=== PATIENT | male | born 1950 | race Caucasian/White ===

== ENCOUNTER → 2018-03-18 08:35 | Outpatient (CLI) | payer OTHER, SELFPAY ==
[2018-03-18 09:15] LABS: Blood Urea Nitrogen 18 mg/dL (9-20); Calcium 9.2 mg/dL (8.4-10.2); Carbon Dioxide 30 mmol/L (22-32); Chloride 100 mmol/L (98-107); Estimated Glomerular Filt Rate > 60.0 mL/min (>60); Glucose 101 mg/dL (80-110); HEMOLYSIS < 15 (0-50); Potassium 3.7 mmol/L (3.4-5.1); Sodium 141 mmol/L (137-145)
== END ==
PROVIDERS: Family Provider Internal Medicine; PCP Internal Medicine; Visit Provider Internal Medicine Cardiovascular Disease
DX: I10 Essential (primary) hypertension (principal)
CPT/HCPCS: 36415; 80048

== ENCOUNTER → 2018-04-09 07:20 | Outpatient (CLI) | payer OTHER, SELFPAY ==
[2018-04-09 09:27] LABS: Cholesterol 113 mg/dL (140-199); HDL Cholesterol 26 mg/dL (40-60); LDL Cholesterol Calculated 64 mg/dL (<100); Triglycerides 115 mg/dL (35-150)
[2018-04-09 09:57] LABS: Cortisol AM (Before 10AM) 14.8 ug/dL (4.46-22.7); Prostate Specific Antigen Scrn 4.95 ng/mL (0.1-4.0)
== END ==
PROVIDERS: PCP Internal Medicine; Visit Provider Internal Medicine
DX: I10 Essential (primary) hypertension (principal); E78.00 Pure hypercholesterolemia, unspecified; E29.1 Testicular hypofunction
CPT/HCPCS: 36415; 80061; 82533; 84403; G0103

== ENCOUNTER → 2018-07-15 08:39 | Outpatient (CLI) | payer OTHER, SELFPAY ==
--- NOTE | 2018-07-15 | DI.CT.S_ITS ---
PROCEDURE: CT SINUS SCREEN WO CON INDICATIONS: SINUSITIS TECHNIQUE: Noncontrast 3.0 mm axial images acquired from the frontal sinuses to the mid-sella, with coronal and sagittal reformats. For radiation dose reduction, the following was used: automated exposure control, adjustment of mA and/or kV according to patient size. COMPARISON: [facility], CT, SINUS SCREEN WO CONTRAST, 05/15/2016, 8:43. FINDINGS: Image quality: Excellent. Maxillary Sinuses: No bony remodeling or destruction. Sinuses are clear. Ethmoid Air Cells: No bony remodeling or destruction. There is mild bilateral mucosal thickening Sphenoid Sinuses: No bony remodeling or destruction. Sinuses are clear. Frontal Sinuses: No bony remodeling or destruction. Sinuses are clear. Ostiomeatal Complexes: Right ostiomeatal complex appears patent. There is mild opacification at the left ostiomeatal complex. No Jon cells. Miscellaneous: Visualized intra-orbital contents are normal. Bilateral ynes bullosa, right larger than left. Leftward nasal septal deviation. IMPRESSION: Mild bilateral ethmoid air cell mucosal thickening Clear maxillary sinuses. Mild opacification at the left ostiomeatal complex. Bilateral ynes bullosa, right larger than left. Dictated by: Nima Dougherty M.D. on 07/15/2018 at 9:41 Approved by: Nima Dougherty M.D. on 07/15/2018 at 9:53
== END ==
PROVIDERS: PCP Internal Medicine; Visit Provider Internal Medicine
DX: J32.2 Chronic ethmoidal sinusitis (principal); J34.3 Hypertrophy of nasal turbinates; J34.2 Deviated nasal septum
CPT/HCPCS: 70486

== ENCOUNTER → 2018-08-27 09:59 | Outpatient (CLI) | payer OTHER, SELFPAY ==
--- NOTE | 2018-08-27 | DI.US.S_ITS ---
PROCEDURE: US CAROTID DOPPLER BI INDICATIONS: TIA,HYPERTENSION TECHNIQUE: Color and pulse Doppler interrogation was performed of both carotid systems, with image documentation and velocity measurements. COMPARISON: [facility], , CAROTID ARTERY DOPPLER BIL, 02/17/2014, 12:36. FINDINGS: Stenosis calculations are based on SRU (Society of Radiologists in Ultrasound) criteria. Right side: Brachial blood pressure: 127/74 mm Hg. Common carotid artery peak systolic velocity: 86 cm/sec (prior 113 cm/s). Internal carotid artery peak systolic velocity: 106 cm/sec (prior 110 cm/s). Internal carotid artery end diastolic velocity: 32 cm/sec (prior 28 cm/s). External carotid artery peak systolic velocity: 114 cm/sec (prior 132 cm/s). ICA/CCA peak systolic ratio: 1.43 (prior 0.97). Sweeney scale imaging description: Atherosclerotic change can be seen. Percent internal carotid artery stenosis: Less than 50% by velocity criteria. Vertebral artery: Flow direction is antegrade. Left side: Brachial blood pressure: 144/77 mm Hg. Common carotid artery peak systolic velocity: 98 cm/sec (prior 136 cm/s). Internal carotid artery peak systolic velocity: 189 cm/sec (prior 108 cm/s). Internal carotid artery end diastolic velocity: 22 cm/sec (prior 25 cm/s). External carotid artery peak systolic velocity: 130 cm/sec (prior 150 cm/s). ICA/CCA peak systolic ratio: 1.93 (prior 0.79). Sweeney scale imaging description: Moderate atherosclerotic change can be seen. Percent internal carotid artery stenosis: 50-69% by velocity criteria. Vertebral artery: Flow direction is antegrade. IMPRESSION: By velocity criteria, there is a moderate stenosis (between 50 and 69% stenosis) within the left proximal internal carotid artery. The true degree of stenosis is felt most likely to be at the lower end of this range. The degree of stenosis on the left has progressed compared to the 2013 prior. Dictated by: Ken Garcia M.D. on 08/27/2018 at 10:42 Approved by: Ken Garcia M.D. on 08/27/2018 at 10:45
== END ==
PROVIDERS: PCP Internal Medicine; Visit Provider Internal Medicine
DX: G45.9 Transient cerebral ischemic attack, unspecified (principal); I65.23 Occlusion and stenosis of bilateral carotid arteries; I10 Essential (primary) hypertension
CPT/HCPCS: 93880

== ENCOUNTER → 2018-11-29 15:35 | Outpatient (CLI) | payer OTHER, SELFPAY ==
[2018-11-29 18:19] LABS: BUN Creatinine Ratio 22.2 (6-22); Blood Urea Nitrogen 20 mg/dL (9-20); Calcium 9.3 mg/dL (8.4-10.2); Carbon Dioxide 26 mmol/L (22-32); Chloride 102 mmol/L (98-107); Estimated Glomerular Filt Rate > 60.0 mL/min (>60); Glucose 111 mg/dL (80-110); HEMOLYSIS < 15 (0-50); Potassium 4.2 mmol/L (3.4-5.1); Sodium 138 mmol/L (137-145)
== END ==
PROVIDERS: PCP Internal Medicine; Visit Provider Internal Medicine Cardiovascular Disease
DX: I10 Essential (primary) hypertension (principal)
CPT/HCPCS: 36415; 80048

== ENCOUNTER 2019-02-09 10:26 | Emergency (ER) | payer OTHER, SELFPAY ==
[2019-02-09 10:27] VITALS: BP 174/78; PULSE 48; RESP 16; TEMP 36.6; O2SAT 97; BMI 28.4
--- NOTE | 2019-02-09 10:34 | DI.RAD.S_ITS ---
PROCEDURE: XR CHEST 1V INDICATIONS: chest pain TECHNIQUE: One view of the chest was acquired. COMPARISON: [facility], , CHEST 1 VIEW, 05/31/2008, 17:11. FINDINGS: Surgical changes and devices: None. Lungs and pleura: Lungs are clear. No pleural effusions or pneumothorax. Mediastinum: Mediastinal contours appear normal. Heart size is normal. Bones and chest wall: No suspicious bony lesions. Overlying soft tissues appear unremarkable. IMPRESSION: No evidence acute pulmonary process. Dictated by: Ovi Pinzon M.D. on 02/09/2019 at 10:49 Approved by: Ovi Pinzon M.D. on 02/09/2019 at 10:49
[2019-02-09 10:40] LABS: Add Manual Diff / Slide Review NO; Basophils Absolute Auto 100 /uL (0-100); Basophils Percent Auto 1.2 % (0-2); Eosinophils Absolute Auto 200 /uL (0-450); Eosinophils Percent Auto 2.9 % (2-4); Hematocrit 42.1 % (41-53); Hemoglobin 14.4 g/dL (13.5-17.5); Lymphocytes Absolute Auto 2200 /uL (1100-4500); Lymphocytes Percent Auto 34.8 % (25-40); Mean Corpuscular HGB Conc 34.1 % (30-36); Mean Corpuscular Hemoglobin 31.8 PG (26-34); Mean Corpuscular Volume 93.4 fL (80-100); Monocytes Absolute Auto 700 /uL (0-900); Neutrophils Absolute Auto 3100 /uL (1500-7000); Neutrophils Percent Auto 50.1 % (50-75); Platelet Count 224 X10^3/uL (150-400); Red Blood Cell Count 4.51 X10^6/uL (4.5-5.9); Red Cell Distribution Width 13.2 % (11.6-14.8); White Blood Cell Count 6.2 X10^3/uL (4.5-11.0)
[2019-02-09 10:49] LABS: Prothrombin Time 11.1 SECONDS (10.1-12.7)
--- NOTE | 2019-02-09 10:50 | ED.CHESTPAIN ---
HPI - Chest Pain General Chief Complaint: Chest Pain Stated Complaint: chest pain Time Seen by Provider: 02/09/19 10:34 Source: patient and family Mode of arrival: ambulatory Limitations: no limitations History of Present Illness HPI narrative: The patient comes to emergency department complaining of left-sided chest pain that he 1st noticed between 3 and 4:00 a.m. this morning. Patient states that he turned over in bed and noticed a sudden sharp pain in his left anterior chest. Patient denies any shortness of breath, nausea, vomiting, or diaphoresis. Patient has lightheadedness sometimes, but states he takes metoprolol, and recently had the dose decreased because of the lightheadedness he was having. Patient states that otherwise he feels quite good. He states he took some ibuprofen at home, and this has decreased the pain from a 7 to a 3. Patient states that pretty much any movement of his chest wall makes the pain worse, including twisting, turning, moving arms, or breathing deeply. He states he was mowing his lawn with an electrical push mower yesterday, and may have strained his chest wall doing this. He denies any other specific trauma. Patient denies any cough or fevers recently. No calf swelling or pain. No history of blood clot. Patient states his father had an MN around his age, but also smoked 3 packs per day of cigarettes. Patient states he does not smoke. Patient is not a diabetic. He states that he usually swims a couple times a week, as well as walks, and that he biked 24 mi several days ago. He states that he has not had any problem with any of this. Patient states his last stress test was 20 years ago. He sees Dr. Ward regularly for aortic dilatation and a heart murmur. He states Dr. Ward also manages his antihypertensives. Patient has no other complaints at this time. Related Data Home Medications Medication Instructions Recorded Confirmed amlodipine 5 mg tablet 5 mg PO BID 08/09/18 02/09/19 clonidine HCl 0.1 mg tablet 0.1 mg PO BID PRN 08/09/18 02/09/19 lisinopril 40 mg tablet 40 mg PO DAILY 08/09/18 02/09/19 Respironics DreamStation CPAP #1 [id number] 10/06/18 02/09/19 clonidine 0.2 mg/24 hr weekly 1 patch TRANSDERMAL QWEEK 01/18/19 02/09/19 transdermal patch aspirin 81 mg PO DAILY 02/09/19 02/09/19 atorvastatin 20 mg PO QPM 02/09/19 02/09/19 cholecalciferol (vitamin D3) 5,000 unit PO QPM 02/09/19 02/09/19 [Vitamin D3] ibuprofen 200 mg PO Q6H PRN 02/09/19 02/09/19 metoprolol succinate 25 mg PO DAILY 02/09/19 02/09/19 [id number] 1 tab PO DAILY 02/09/19 02/09/19 [Centrum Silver] potassium chloride [Klor-Con 10] 10 meq PO BID 02/09/19 02/09/19 sertraline 75 mg PO QPM 02/09/19 02/09/19 Previous Rx's Medication Instructions Recorded Zostavax (PF) 0.5 ml SQ ONCE #0.5 ml 05/08/16 Allergies Allergy/AdvReac Type Severity Reaction Status Date / Time No Known Drug Allergies Allergy Verified 02/09/19 10:35 Review of Systems Constitutional Denies chills, Denies fever(s), Denies lethargy and Denies weakness Eyes Denies change in vision, Denies eye discharge, Denies irritation and Denies loss of vision ENT Ears, Nose, Mouth, and Throat: Denies change in voice, Denies neck pain and Denies sore throat Cardiovascular Reports chest pain, Denies irregular heart rhythm, Denies lightheadedness, Denies palpitations, Denies dyspnea, Denies dyspnea on exertion and Denies orthopnea Respiratory Denies cough, Denies dyspnea, Denies dyspnea on exertion and Denies wheezing Gastrointestinal Gastrointestinal: Denies abdominal pain, Denies change in bowel habits, Denies diarrhea, Denies nausea and Denies vomiting Genitourinary Denies hematuria, Denies flank pain, Denies urinary incontinence and Denies urinary urgency Musculoskeletal Denies neck pain Integumentary/Breasts Denies pruritus, Denies erythema, Denies rash and Denies wounds Neurologic Denies confusion, Denies loss of vision and Denies weakness Psychiatric Denies anxiety, Denies confusion, Denies depression, Denies homicidal ideation and Denies suicidal ideation Endocrine Denies palpitations Hematologic/Lymphatic Denies easy bruising Allergic/Immunologic Denies wheezing PFSH Medical History (Updated 02/09/19 @ 12:59 by Mikayla Hernandez MD) Obstructive sleep apnea of adult (Chronic ~04/2018) Snoring (Inactive ~2003) Surgical History (Updated 02/09/19 @ 10:54 by Mikayla Hernandez MD) No pertinent past surgical history (Acute) Social History marital status: details: flavio Bowden lives in [place] household members: spouse lives independently: Yes caregiver/support person: No housing: house education level: college occupational status: employed Smoking Status: Never smoker alcohol intake: former substance use type: former substance user Social History marital status: details: flavio Bowden, lives in [place] household members: spouse lives independently: Yes caregiver/support person: No housing: house education level: college occupational status: employed Smoking Status: Never smoker alcohol intake: former substance use type: former substance user Exam Initial Vital Signs Initial Vital Signs: Vital Signs Temperature 97.8 F 02/09/19 10:27 Pulse Rate 48 L 02/09/19 10:27 Respiratory Rate 16 02/09/19 10:27 Blood Pressure 174/78 H 02/09/19 10:27 Pulse Oximetry 97 02/09/19 10:27 Const General: cooperative and well developed Nutritional Appearance: well nourished Orientation: alert, awake, oriented x3 and not confused [facility] Head: normocephalic and atraumatic Ears: external ears normal Nose: external nose normal and No nasal discharge Face and sinus: face symmetric and No dry mucous membranes Mouth: oral mucosae normal and moist mucous membranes Teeth and gingiva: dentition normal Eyes General: appearance normal, both eyes and all related structures Eyelids: eyelids normal Conjunctivae: conjunctivae normal Sclera: sclerae normal Pupils: PERRL EOM: EOM intact bilaterally Neck Neck: normal visual inspection, trachea midline, No lymphadenopathy, No midline deformity and No JVD Lymphatic: No lymphedema Chest Chest: tenderness (Left anterior chest wall, from ribs 2 through 4.) Resp Effort & Inspection: normal respiratory effort, able to speak in complete sentences, no respiratory distress and no use of accessory muscles Auscultation: clear to auscultation bilaterally, no rales, no rhonchi and no wheezes Cardio Rate: regular rate Rhythm: regular rhythm Heart Sounds: no click, no gallops, no murmurs and no rubs Pulses: normal peripheral pulses GI Inspection: non-distended Palpation: soft, no hepatosplenomegaly, No guarding, No pulsatile mass and No tender Auscultation: normal bowel sounds Back/Spine/Pelvis Back: No CVA tenderness Cervical Spine: cervical ROM normal and No pain with cervical ROM Thoracic/Lumbar Spine: thoracic and lumbar spine normal to inspection Skin General: no rashes or lesions noted, No jaundice and No petechiae Neuro General: alert, oriented x3, gait normal and no focal motor deficits Speech: speech normal Extrem General: full ROM, no clubbing, cyanosis or edema, no pedal edema and no calf tenderness Psych Appearance: well kempt Mental Status: mental status grossly normal Attitude: cooperative Thought Content: normal and suicidality Judgment: judgment good Course Course Narrative: I suspected that the patient's chest pain was most likely mechanical. However, given his age and comorbidities, I did go ahead check cardiac enzymes, EKG, and chest x-ray. The patient's workup was unremarkable, except for that his troponin was 0.013. This was very slightly above negative, and I felt that a repeat should be done, to be sure that the troponin was not on its way up in a delayed fashion. This was done, and found to be 0.012. I spoke with Dr. Ward, who felt that the patient's pain was more indicative of a musculoskeletal source, and as such, felt that he could be discharged and could follow up in his clinic for stress test. Dr. Ward requested that the patient call his office and set up an appointment for this follow-up. This was discussed with the patient. We have also discussed the usual indications for return to the emergency department. Orders Ordered: ED Orders 02/09/19 10:30 Complete Blood Count AUTO DIFF Stat Comprehensive Metabolic Panel Stat Lipase Stat Partial Thromboplastin Time Stat Prothrombin Time INR Stat Troponin & CK Cardiac Panel Stat EKG-12 Lead Stat 02/09/19 10:34 XR chest 1V Stat 02/09/19 11:50 Troponin I Stat Discontinued Medications Aspirin (Aspirin) 325 mg PO NOW ONE Stop: 02/09/19 11:31 Last Admin: 02/09/19 12:43 Dose: 325 mg Vital Signs - 8 hr 02/09/19 11:30 02/09/19 12:00 02/09/19 12:30 Pulse Rate 43 L 43 L 42 L Respiratory Rate 13 16 13 Blood Pressure [Left Arm] 153/75 H 144/73 H 164/85 H Pulse Oximetry 97 97 96 MDM - Chest Pain Medical Records Data Attestation: I reviewed the patient's medical records. Lab Data Attestation: I reviewed the patient's lab results. Result diagrams: 02/09/19 10:30 02/09/19 10:30 Lab Results 02/09/19 02/09/19 02/09/19 Range/Units 10:30 10:30 10:30 WBC 6.2 (4.5-11.0) X10^3/uL RBC 4.51 (4.5-5.9) X10^6/uL Hgb 14.4 (13.5-17.5) g/dL Hct 42.1 (41-53) % MCV 93.4 (80-100) fL MCH 31.8 (26-34) PG MCHC 34.1 (30-36) % RDW 13.2 (11.6-14.8) % Plt Count 224 (150-400) X10^3/uL Neut % (Auto) 50.1 (50-75) % Lymph % (Auto) 34.8 (25-40) % [place] % (Auto) 11.0 (3-14) % Eos % (Auto) 2.9 (2-4) % Baso % (Auto) 1.2 (0-2) % Neut # (Auto) 3100 (7634-8150) /uL Lymph # (Auto) 2200 (9459-5906) /uL [place] # (Auto) 700 (0-900) /uL Eos # (Auto) 200 (0-450) /uL Baso # (Auto) 100 (0-100) /uL PT 11.1 (10.1-12.7) SECONDS INR 1.0 (0.9-1.3) APTT 31 (26.4-36.2) SECONDS Sodium 140 (137-145) mmol/L Potassium 4.5 (3.4-5.1) mmol/L Chloride 104 (98-107) mmol/L Carbon Dioxide 26 (22-32) mmol/L BUN 14 (9-20) mg/dL Creatinine 0.80 (0.66-1.25) mg/dL Estimated GFR > 60.0 (>60) mL/min BUN/Creatinine Ratio 17.5 (6-22) Glucose 101 (80-110) mg/dL Calcium 9.5 (8.4-10.2) mg/dL Total Bilirubin 0.8 (0.2-1.3) mg/dL AST 31 (17-59) IU/L ALT 42 (21-72) IU/L Alkaline Phosphatase 53 (38-126) U/L Total Creatine Kinase 123 (55-170) U/L CK-MB (CK-2) 1.34 (<2.37) ng/mL CK-MB (CK-2) Rel Index 1.1 L (1.5-5.0) % Troponin I 0.013 (0.01-0.034) ng/mL Total Protein 7.2 (6.3-8.2) g/dL Albumin 4.4 (3.5-5.0) g/dL Globulin 2.8 (1.7-4.1) g/dL Albumin/Globulin Ratio 1.6 (1.0-2.8) Lipase 96 (23-300) U/L 02/09/19 Range/Units 11:50 WBC (4.5-11.0) X10^3/uL RBC (4.5-5.9) X10^6/uL Hgb (13.5-17.5) g/dL Hct (41-53) % MCV (80-100) fL MCH (26-34) PG MCHC (30-36) % RDW (11.6-14.8) % Plt Count (150-400) X10^3/uL Neut % (Auto) (50-75) % Lymph % (Auto) (25-40) % [place]yth % (Auto) (3-14) % Eos % (Auto) (2-4) % Baso % (Auto) (0-2) % Neut # (Auto) (8871-3567) /uL Lymph # (Auto) (9803-8024) /uL Forsyth # (Auto) (0-900) /uL Eos # (Auto) (0-450) /uL Baso # (Auto) (0-100) /uL PT (10.1-12.7) SECONDS INR (0.9-1.3) APTT (26.4-36.2) SECONDS Sodium (137-145) mmol/L Potassium (3.4-5.1) mmol/L Chloride (98-107) mmol/L Carbon Dioxide (22-32) mmol/L BUN (9-20) mg/dL Creatinine (0.66-1.25) mg/dL Estimated GFR (>60) mL/min BUN/Creatinine Ratio (6-22) Glucose (80-110) mg/dL Calcium (8.4-10.2) mg/dL Total Bilirubin (0.2-1.3) mg/dL AST (17-59) IU/L ALT (21-72) IU/L Alkaline Phosphatase (38-126) U/L Total Creatine Kinase (55-170) U/L CK-MB (CK-2) (<2.37) ng/mL CK-MB (CK-2) Rel Index (1.5-5.0) % Troponin I 0.012 (0.01-0.034) ng/mL Total Protein (6.3-8.2) g/dL Albumin (3.5-5.0) g/dL Globulin (1.7-4.1) g/dL Albumin/Globulin Ratio (1.0-2.8) Lipase (23-300) U/L Imaging Data Chest x-ray: Radiologist's impression: PROCEDURE: XR CHEST 1V INDICATIONS: chest pain TECHNIQUE: One view of the chest was acquired. COMPARISON: [facility], CHEST 1 VIEW, 05/31/2008, 17:11. FINDINGS: Surgical changes and devices: None. Lungs and pleura: Lungs are clear. No pleural effusions or pneumothorax. Mediastinum: Mediastinal contours appear normal. Heart size is normal. Bones and chest wall: No suspicious bony lesions. Overlying soft tissues appear unremarkable. IMPRESSION: No evidence acute pulmonary process. Dictated by: Ovi Pinzon M.D. on 02/09/2019 at 10:49 Approved by: Ovi Pinzon M.D. on 02/09/2019 at 10:49 ECG Data Attestation: I personally reviewed and interpreted this ECG as follows: (See below) Interpretation: Twelve lead EKG performed February 09, 2019 at 10:31 a.m., as follows: Regular ventricular rhythm with a rate of 42 beats per minute OR interval 215 millisecond QRS duration 101 millisecond QTC interval [address] T wave changes Interpretation: Sinus bradycardia with first-degree AV block; marked left axis deviation; no signs of acute ischemia; abnormal EKG as interpreted by ED MD. Discharge Plan Departure Patient Disposition: Home Clinical Impression: Chest pain Qualifiers: Chest pain type: unspecified Qualified Code(s): R07.9 - Chest pain, unspecified Discharge Date/Time: 02/09/19 13:01 Interventions: ED Discharge Assessment Last Done: 02/09/19 13:01 Instructions: DI for Chest Pain Activity Restrictions/Additional Instructions: Your labs, EKG, and chest x-ray all looked good. Your case has been discussed with Dr. Ward, who would like to see you in follow-up in his clinic. He has asked that you call his office to make an appointment, and he will talk to about having a stress test done. Your pain is most likely coming from your chest wall, and should resolve on its own. Prescriptions: No Action amlodipine 5 mg tablet 5 mg PO BID RF: 0 lisinopril 40 mg tablet 40 mg PO DAILY RF: 0 clonidine HCl 0.1 mg tablet 0.1 mg PO BID PRN (Reason: blood pressure spike) RF: 0 clonidine 0.2 mg/24 hr patch weekly 1 patch transdermal QWEEK RF: 0 Zostavax (PF) 19,400 UNIT/0.65 ML suspension for reconstitution 0.5 ml SQ ONCE Qty: 0.5 RF: 0 atorvastatin 20 mg Tablet 20 mg PO QPM RF: 0 metoprolol succinate 50 mg Tablet Extended Release 24 Hr 25 mg PO DAILY RF: 0 potassium chloride [Klor-Con 10] 10 mEq Tablet Extended Release 10 meq PO BID RF: 0 aspirin 81 mg Tablet,Delayed Release (Dr/Ec) 81 mg PO DAILY RF: 0 ibuprofen 200 mg Tablet 200 mg PO Q6H PRN (Reason: pain) RF: 0 Centrum Silver 0.4-300-250 mg-mcg-mcg Tablet 1 tab PO DAILY RF: 0 cholecalciferol (vitamin D3) [Vitamin D3] 5,000 unit Tablet 5,000 unit PO QPM RF: 0 sertraline 50 mg tablet 75 mg PO QPM RF: 0 Respironics DreamStation CPAP Qty: 1 RF: 0 Referrals: Nikunj Brito MD [Primary Care Provider] -
[2019-02-09 10:52] LABS: PTT Partial Thromboplastin Tim 31 SECONDS (26.4-36.2)
[2019-02-09 10:54] LABS: Alanine Aminotransferase 42 IU/L (21-72); Albumin 4.4 g/dL (3.5-5.0); Albumin Globulin Ratio 1.6 (1.0-2.8); Alkaline Phosphatase 53 U/L (38-126); Aspartate Aminotransferase 31 IU/L (17-59); BUN Creatinine Ratio 17.5 (6-22); Bilirubin Total 0.8 mg/dL (0.2-1.3); Blood Urea Nitrogen 14 mg/dL (9-20); Calcium 9.5 mg/dL (8.4-10.2); Carbon Dioxide 26 mmol/L (22-32); Chloride 104 mmol/L (98-107); Creatine Kinase 123 U/L (55-170); Estimated Glomerular Filt Rate > 60.0 mL/min (>60); Globulin 2.8 g/dL (1.7-4.1); Glucose 101 mg/dL (80-110); Lipase 96 U/L (23-300); Potassium 4.5 mmol/L (3.4-5.1); Sodium 140 mmol/L (137-145); Total Protein 7.2 g/dL (6.3-8.2)
[2019-02-09 11:05] LABS: Troponin I 0.013 ng/mL (0.01-0.034)
[2019-02-09 11:08] VITALS: BP 140/80; PULSE 44; RESP 11; O2SAT 95
--- NOTE | 2019-02-09 11:08 | PC.NURSE ---
pt resting, nad, states, metoprolol dose changed to 25mg po daily the last [address] fregoso aware of vitals, no new orders.
[2019-02-09 11:09] LABS: CKMB % Relative Index 1.1 % (1.5-5.0); Creatine Kinase MB 1.34 ng/mL (<2.37); HEMOLYSIS 20 (0-50)
[2019-02-09 11:30] VITALS: BP 153/75; PULSE 43; RESP 13; O2SAT 97
[2019-02-09 12:00] VITALS: BP 144/73; PULSE 43; RESP 16; O2SAT 97
[2019-02-09 12:22] LABS: Troponin I 0.012 ng/mL (0.01-0.034)
[2019-02-09 12:30] VITALS: BP 164/85; PULSE 42; RESP 13; O2SAT 96
[2019-02-09] MEDS: ASPIRIN 325 MG TABLET PO (12:43)
== END 2019-02-09 13:01 | disposition home or self-care (01) ==
PROVIDERS: Emergency Provider Emergency Medicine; PCP Internal Medicine
DX: R07.9 Chest pain, unspecified (principal)
CPT/HCPCS: 36415; 36591; 71045; 80048; 80053; 82550; 82553; 83690; 84484; 85025; 85610; 85730; 93005; 99283; 99285

== ENCOUNTER → 2019-04-01 07:40 | Outpatient (CLI) | payer OTHER, SELFPAY ==
--- NOTE | 2019-04-01 | DI.MRI.S_ITS ---
PROCEDURE: MR CERVICAL SPINE WO CON INDICATIONS: CERVICAL RADICULOPATHY TECHNIQUE: Noncontrast sagittal T1 spin echo and T2 fast spin echo, sagittal STIR, foraminal oblique sagittal T2 fast spin echo, and axial gradient echo or T2 fast spin echo through the cervical spine. COMPARISON: [facility], [place], XR CERVICAL SPINE 2 OR 3 VIEWS, 02/19/2018, 9:13. FINDINGS: Image quality: Motion is present on multiple images, limiting areas of fine detailed evaluation. Alignment and Curvature: There is straightening and slight reversal of normal cervical curvature. There is trace anterolisthesis of C3 on C4, trace retrolisthesis of C4 on C5, C5 on C6. Bone Marrow: Marrow demonstrates normal overall signal. Minimal reactive endplate changes are present at C4-5, C5-6 and C6-7. Spinal Cord: Visualized spinal cord has normal size and signal. No cerebellar tonsillar herniation. Paraspinous Soft Tissues: No paravertebral masses. Prevertebral soft tissues are normal in thickness. Discs: Moderate to severe desiccation is present throughout the cervical spine most severe at C4-5 through C6-7. C2-C3: Motion is present at this level. Mild disc bulge without spinal stenosis. Minimal bilateral foraminal narrowing with uncovertebral hypertrophy. C3-C4: Motion is present at this level. Mild disc bulge with mild spinal stenosis. Mild bilateral foraminal narrowing with uncovertebral hypertrophy. C4-C5: Motion is present at this level. Mild disc bulge with moderate spinal stenosis. Mild to moderate bilateral foraminal narrowing with uncovertebral hypertrophy. C5-C6: Motion is present at this level. Disc bulge including a left foraminal component is present. Moderate to severe spinal stenosis is present. There is severe left and moderate right foraminal narrowing with uncovertebral hypertrophy. C6-C7: Motion is present at this level. Mild disc bulge with moderate spinal stenosis. Moderate to severe left and moderate right foraminal narrowing with uncovertebral hypertrophy. C7-T1: Motion is present at this level. No disc bulge, spinal stenosis or foraminal narrowing. T1-T2: Axial images are not available at this level. However, there is a disc bulge with posterior central protrusion. Minimal canal narrowing is present. Mild right foraminal narrowing. IMPRESSION: 1. Motion is present multiple levels, limiting areas of fine detail evaluation. 2. Multilevel disc bulges including a left foraminal component C5-C6. 3. Multilevel foraminal narrowing most severe at C5-6 and C6-7 secondary to disc bulge with intravenous ectop retrolisthesis and uncovertebral arthropathy. 4. Multilevel foraminal narrowing most severe at C5-6 and C6-7 secondary to uncovertebral arthropathy. Dictated by: Oksana Young M.D. on 04/01/2019 at 8:47 Approved by: Oksana Young M.D. on 04/01/2019 at 8:56
[2019-04-05 18:01] LABS: PSA Free % 18 % (calc) (> 25); PSA, Total 5.1 ng/mL (< 4.1)
== END ==
PROVIDERS: Family Provider Urology; PCP Internal Medicine; Visit Provider Internal Medicine
DX: M50.11 Cervical disc disorder with radiculopathy, high cervical region (principal); M48.02 Spinal stenosis, cervical region; M47.22 Other spondylosis with radiculopathy, cervical region; R97.20 Elevated prostate specific antigen [PSA]
CPT/HCPCS: 36415; 72141; 84153; 84154

== ENCOUNTER → 2019-04-05 09:36 | Outpatient (CLI) | payer OTHER, SELFPAY ==
--- NOTE | 2019-04-05 09:47 | DI.CT.S_ITS ---
PROCEDURE: CT CHEST WO CON INDICATIONS: Solitary pulmonary nodule TECHNIQUE: Noncontrast 5 mm thick sections acquired from the pulmonary apices to the posterior costophrenic angles. 1 mm lung window, 5 mm thick coronal and sagittal and 7 mm axial MIP reformats were then acquired. For radiation dose reduction, the following was used: automated exposure control, adjustment of mA and/or kV according to patient size. COMPARISON: [facility], CT, THORAX WITHOUT CONTRAST, 08/05/2017, 8:51. FINDINGS: Image quality: Excellent. Lungs and pleura: No acute air space opacities. The 2 adjacent calcified right mid lung nodules are unchanged in size, measuring 12 mm and 6 mm. The 4 mm diameter noncalcified subpleural nodule within the superior aspect of the right middle lobe adjacent to minor fissure is unchanged. No pleural effusions or pneumothorax. Central and peripheral airways are patent and normal in caliber. Mediastinum: Heart size is enlarged. Calcification of the right hilar lymph node is unchanged. There is calcification of the coronary vasculature. No pericardial effusion. No mediastinal adenopathy by size criteria. Thoracic aorta and central pulmonary arteries are normal in size. Esophagus is normal in caliber. No hiatal hernia. Bones and chest wall: No suspicious bony lesions. No vertebral body compression fractures. No axillary or supraclavicular adenopathy by size criteria. Thyroid gland is within normal limits. Abdomen: Visualized portions of the upper abdomen demonstrate multiple hepatosplenic calcifications, as before. Diffusely decreased hepatic density is present, as before. IMPRESSION: 1. Remote granulomatous disease. 2. No change in right lung nodules. 3. Cardiomegaly and coronary artery disease. 4. Hepatic steatosis. Dictated by: Noy Hagan M.D. on 04/05/2019 at 10:06 Approved by: Noy Hagan M.D. on 04/05/2019 at 10:11
== END ==
PROVIDERS: PCP Internal Medicine; Visit Provider Internal Medicine
DX: R91.8 Other nonspecific abnormal finding of lung field (principal); I25.10 Atherosclerotic heart disease of native coronary artery without angina pectoris; I51.7 Cardiomegaly; K76.0 Fatty (change of) liver, not elsewhere classified
CPT/HCPCS: 71250

== ENCOUNTER → 2019-06-17 10:43 | Outpatient (CLI) | payer OTHER, SELFPAY ==
[2019-06-17 12:05] LABS: BUN Creatinine Ratio 15.5 (6-22); Blood Urea Nitrogen 17 mg/dL (9-20); Calcium 9.7 mg/dL (8.4-10.2); Carbon Dioxide 27 mmol/L (22-32); Chloride 103 mmol/L (98-107); Estimated Glomerular Filt Rate > 60.0 mL/min (>60); Glucose 105 mg/dL (80-110); HEMOLYSIS < 15 (0-50); Sodium 139 mmol/L (137-145)
== END ==
PROVIDERS: Family Provider Urology; PCP Internal Medicine; Visit Provider Internal Medicine Cardiovascular Disease
DX: I10 Essential (primary) hypertension (principal)
CPT/HCPCS: 36415; 80048

== ENCOUNTER → 2019-08-05 13:24 | Outpatient (CLI) | payer MEDICARE, SELFPAY ==
[2019-08-05 15:57] LABS: BUN Creatinine Ratio 21.3 (6-22); Blood Urea Nitrogen 17 mg/dL (9-20); Calcium 9.8 mg/dL (8.4-10.2); Carbon Dioxide 24 mmol/L (22-32); Chloride 101 mmol/L (98-107); Estimated Glomerular Filt Rate > 60.0 mL/min (>60); Glucose 106 mg/dL (80-110); HEMOLYSIS < 15 (0-50); Potassium 3.9 mmol/L (3.4-5.1); Sodium 139 mmol/L (137-145)
[2019-08-09 15:44] LABS: PSA Free % 16 % (calc) (> 25); PSA, Total 5.8 ng/mL (< 4.1)
== END ==
PROVIDERS: PCP Internal Medicine; Visit Provider Internal Medicine Cardiovascular Disease
DX: I10 Essential (primary) hypertension (principal); R97.20 Elevated prostate specific antigen [PSA]
CPT/HCPCS: 36415; 80048; 84153; 84154

== ENCOUNTER 2019-08-16 08:15 | Outpatient (RCR) | payer MEDICARE, OTHER, SELFPAY ==
[2019-06-28 10:39] VITALS: BP 160/90; BP 165/86
--- NOTE | 2019-06-28 12:13 | PT.OIE ---
Current Diagnoses Radiculopathy, cervical region (06/28/19) Past Medical History (Last Updated 02/09/19 @ 10:54 by Mikayla Hernandez MD) Obstructive sleep apnea of adult (Chronic ~04/2018) Snoring (Inactive ~2003) Past Surgical History (Last Updated 02/09/19 @ 10:54 by Mikayla Hernandez MD) No pertinent past surgical history (Acute) Visit Care Team Role Provider Type Santino Bull DO Family Provider Non-Staff Specialty: Urology Address: [address] [place], [address] Email: Nikunj Brito MD Attending Provider Physician Primary Care Provider Specialty: Internal Medicine Address: [address] [place] [address], [id number] Email: Physical Therapy Initial Evaluation PT-OP-A Visit Information Start: 06/28/19 10:35 Freq: Status: Active Protocol: Document 06/28/19 10:39 (Rec: 06/28/19 12:04 [id number]) Out-Patient Physical Therapy Visit Information Visit Information Visit Type Initial Evaluation Visit Note IE led by RAKAN Bennett Visit Start Time 10:39 Visit Stop Time 11:20 Total Visit Minutes 41 Visit Number 1/15 Number of SUPERVISOR SMOKE [employer]OL Visits 0 Evaluation Information Evaluation Date 06/28/19 Precautions Precautions Chronic HTN (baseline ~160/80) with occasional sBP spikes up to 220s PT-OP-B Current Condition Start: 06/28/19 10:35 Freq: Status: Active Protocol: Document 06/28/19 10:39 (Rec: 06/28/19 12:04 [id number]) Current Condition History of Current Condition Onset Date ~2 years ago Current Complaints Neck pain, B shoulder pain, HTN History of Current Condition Pt presents to clinic with primariy c/o of neck pain and occasional blood pressure spikes that started a couple years ago. He states his baseline BP is ~160/80s. Within the last couple of years, he has gotten occasional spikes sBP spikes into the 190s. However, his most recent sBP spike 6 weeks ago went up into the 220s. He states that these spikes occur every few weeks but seem to be getting less frequent as he has started avoiding more activities. Pt had normal findings from blood work and echo cardiogram. Pt also has low level neck pain and tightness, along with mild headache. Pt associates his BP spikes with neck pain aggravation. Pt denies any radicular symptoms bilaterally though does note that he has hx of B shoulder pain and his shoulders start feeling tight when his neck hurts. Pt notes that icing his neck and lying supine tends to relieve his neck pain, and Klonadin is the only medication that helps his BP. Pt also states that he gets immediate relief of his neck pain accompanied by an immediate drop in BP back to baseline after chiropractic adjustment for his neck. Pt reports that cervical extension or rotation (especially when swimming) seem to aggravate his neck pain. Pt believes his BP spikes are possibly from his cervical stenosis and nerve impingement which possibly set off his autonomic system for BP regulation. MRI shows mild bone spurs, cervical stenosis, and multiple small herniated disc but he stated that it does not need surgical intervention. Pt anticipates PT could be effective to help his neck pain and BP spikes if he can learn movement strategies and strengthening exercises to protect his neck. Prior Treatments and Tests Lumbar laminectomy ~10 years ago Chiropractic adjustments (30 yr hx, only last 2 years for his neck) Future Testing and Treatments Planned Plans to see surgeon who completed lumbar laminectomy for an assessment of his neck at the start of 2019 Treatment Goals Patient/Caregiver Goals 1. To strengthen his cervical musculature 2. To be able to regulate his BP 3. Return to swimming Personal Factors Other Personal Factors That May Effect Anxiety Therapy/Recovery Chronic HTN Arthritis PT-OP-C Subjective Start: 06/28/19 10:35 Freq: Status: Active Protocol: Document 06/28/19 10:39 (Rec: 06/28/19 12:04 [id number]) OP-PT Subjective Patient Comments Patient Comments I don't want to get surgery but I feel like I have really limited what I do because I am scared of getting a BP spike. I would like to get back to swimming and my normal activities. Pt appears anxious during IE. Patient Questionnaires Quick Dash- Upper Extremity Quick Dash UE Score 34.09 Quick Dash UE Impairment 20 to 39% Impaired (Score 20- 39) OP-PT Pain Assessment Location Upper Back Intensity 4 Scale Used Numeric (1 - 10) Description Aching,Dull Frequency Frequent Pain Aggravating Factors Activity,Exercise Pain Alleviating Factors Lying Supine Neck Intensity 4 Scale Used Numeric (1 - 10) Description Aching,Dull Frequency Frequent Pain Duration typically until chiropractic adjustment Pain Aggravating Factors Position Other Pain Aggravating Factors swimming (head turns, extension) Pain Alleviating Factors Cold,Lying Supine PT-OP-E Functional Tests Start: 06/28/19 10:35 Freq: Status: Active Protocol: Document 06/28/19 10:39 HH (Rec: 06/28/19 12:04 [id number]) Functional Tests Apley's Scratch Test Action 2- Left L flexion 135, increased sidebend Action 2- Right R flexion 155 Action 3- Left T12, scapular winging Action 3- Right T10 PT-OP-F Manual Assessment Start: 06/28/19 10:35 Freq: Status: Active Protocol: Document 06/28/19 10:39 HH (Rec: 06/28/19 12:04 [id number]) Manual Assessments Soft Tissue Assessment Soft Tissue Mobility Assessment Hypertonic suboccipital B Joint Mobility Assessment Joint Mobility Assessment L OA limited at end range with sx reproduction, L AA limited 50% C5/6 positional R rotated PT-OP-H Neuro Start: 06/28/19 10:35 Freq: Status: Active Protocol: Document 06/28/19 10:39 HH (Rec: 06/28/19 12:04 [id number]) Sensation Evaluation Gross Sensation Gross Sensation Left UE Impaired Sensation Description Numbness Dermatome Impairments C5,C8,T1 Comments Summary Comments Pt reports mild decrease in sensation to light touch on L UE Deep Tendon Reflex & Clonus Assessment Deep Tendon Reflex Bilateral Brachioradialis Deep Tendon Reflex 2+ Normal Bilateral Tricep Deep Tendon Reflex 2+ Normal Bilateral Bicep Deep Tendon Reflex 2+ Normal Vital Signs Blood Pressure Sitting Blood Pressure (90/60-120/80 mmHg) 160/90 H Blood Pressure Source Manual Cuff,Right Upper Extremity Supine Blood Pressure (90/60-120/80 mmHg) 165/86 H Blood Pressure Source Manual Cuff,Right Upper Extremity PT-OP-K Range of Motion Start: 06/28/19 10:35 Freq: Status: Active Protocol: Document 06/28/19 10:39 HH (Rec: 06/28/19 12:04 HH [id number]) Cervical Spine Range of Motion Cervical Spine Active Degrees Testing Position Sitting Flexion 40 Extension 50 Rotation Left 45 Rotation Right 60 ROM Limitations Soft Tissue Tightness,Pain Comments overpressure at end range extension reproduces sharp pain at mid cervical region overpressure at end range L rotation reproduces tightness at L trap and mid cervical region. PT-OP-L Special Tests Start: 06/28/19 10:35 Freq: Status: Active Protocol: Document 06/28/19 10:39 (Rec: 06/28/19 12:04 [id number]) Special Tests Cervical Spine Special Tests Other- 1 Test Results L +ve Comments Quadrant test Spurling's Test Test Results +ve Comments L mod sx reproduction, R mild Traction Test Results +ve Comments pt reports of immediate relief Foraminal Compression Test Results -ve Other Special Tests Special Tests ULTT -ve for median, radial, and ulnar nerves PT-OP-M Strength Start: 06/28/19 10:35 Freq: Status: Active Protocol: Document 06/28/19 10:39 (Rec: 06/28/19 12:04 [id number]) Shoulder Strength Shoulder Manual Muscle Testing Left Abduction (C5) 3+ Fair+ Right Abduction (C5) 5 Normal Elbow/Forearm Strength Elbow and Forearm Manual Muscle Testing Bilateral Flexion (C6) 4 Good Extension (C7) 4 Good Wrist Strength Wrist Manual Muscle Testing Bilateral Flexion (C7) 4+ Good+ Extension (C6) 4+ Good+ PT-OP-Q Treatments Start: 06/28/19 10:35 Freq: Status: Active Protocol: Document 06/28/19 10:39 (Rec: 06/28/19 12:04 [id number]) Manual Therapy Treatment Soft Tissue Mobilization suboccipitals Mobilization Type Sustained Pressure Intensity/Depth Moderate Body Position Hooklying Manual Traction cervical traction Body Position Supine Reps/Duration 10 secs x 8 PT-OP-T Assessment and Plan Start: 06/28/19 10:35 Freq: Status: Active Protocol: Document 06/28/19 10:39 (Rec: 06/28/19 12:04 [id number]) Physical Therapy Assessment Rehab Potential Rehabilitation Potential Good Evaluation Complexity Number of Personal Factors/Comorbidities 1-2 Number of Body Systems Impaired 1-2 Clinical Presentation at Evaluation Stable Impairments Impairments Activity Tolerance,Functional Activities,Functional Mobility ,Pain,Posture,ROM,Sensation, Soft Tissue Mobility,Strength Other Concerns Barriers to Rehabilitation Anxiety Goals swimming Impairment Pt is currently unable to swim d/t fear of aggravating neck pain Short Term Goal (STG) Pt will swim 20 min with snorkel without exacerbation of neck pain STG Duration 4 weeks Video Operator Goal (LTG) Pt will swim 20 min without snorkel without exacerbation of neck pain LTG Duration 8 weeks ROM Impairment Pt has limited neck ROM Short Term Goal (STG) Pt will improve neck extension and L rotation by 5 dg to improve tolerance for funcitonal activities STG Duration 4 weeks Alf Goal (LTG) Pt will improve neck extension and L rotation by 15 dg to improve tolerance for functional activities LTG Duration 8 weeks blood pressure Impairment Pt has baseline HTN with occasional spikes up to ~220s Short Term Goal (STG) Pt will tolerate therapy and HEP without spike in sBP >190 STG Duration 4 weeks Video Operator Goal (LTG) Pt will tolerate therapy and HEP without spike in sBP >170 LTG Duration 8 weeks quick dash Impairment Pt scored 34.09 on Quick dash Short Term Goal (STG) Pt will score <25% on Quick dash to reflect improved activity limitations STG Duration 4 weeks Alf Goal (LTG) Pt will score <15% on Quick dash to reflect improved activity limitations LTG Duration 8 weeks Assessment Summary Assessment Pt is mod complexity 69 yo male presenting to PT with primary c/o of chronic neck pain and spikes in BP which he associates with neck pain exacerbation. Pt has high resting BP with his baseline being 160s/80s. Pt demonstrates limited cervical ROM especially with extension and L rotation, which reproduce pt's pain. Pt also demonstrates stiff L OA and AA with sx reproduction and hypertonic suboccipitals B. Pt demonstrates mild cervical radiculopathy with decreased sensation and strength in L C5 dermatome/myotome. Pt has high anxiety, which may be related to his neck pain and BP spikes. Pt will benefit from skilled therapy to improve neck ROM and strength as well as tolerance for functional activities. Physical Therapy Plan Frequency and Duration Frequency of Treatment 2x/Week Duration of Treatment 8 weeks Plan of Care Start Date 06/28/19 Plan of Care End Date 08/23/19 Therapeutic Interventions Therapeutic Interventions Home Exercise Program,Joint Mobilizations,Manual Therapy, Neuromuscular Re-education, Patient/Caregiver Education, Self-Care/Home Management,Soft Tissue Mobilization,Taping, Therapeutic Activities, Therapeutic Exercises Modalities Cold Pack/Ice Massage,Electric Stimulation,Hot Packs, Infrared Therapy,Iontophoresis ,Traction- Mechanical, Ultrasound Next Visit Focus/Plan Next Note Type Treatment Note Next Visit Plan fill out NDI Check lumbar lock, thoracic PAs, DNF endurance cervical MT with traction, STM Ther ex to improve cervical stabilizer strength, general ROM (cervical, thoracic)
--- NOTE | 2019-07-01 16:12 | PT.OTN ---
Current Diagnoses Radiculopathy, cervical region (07/01/19) Physical Therapy Treatment Note PT-OP-A Visit Information Start: 06/28/19 10:35 Freq: Status: Active Protocol: Document 07/01/19 12:59 HH (Rec: 07/01/19 16:09 HH [id number]) Out-Patient Physical Therapy Visit Information Visit Information Visit Type Treatment Note Visit Note 140/88 Visit Start Time 13:00 Visit Stop Time 13:00 Total Visit Minutes 1,345 Visit Number 2 PT-OP-B Current Condition Start: 06/28/19 10:35 Freq: Status: Active Protocol: Document 06/28/19 10:39 HH (Rec: 06/28/19 12:04 HH [id number]) Current Condition History of Current Condition Onset Date ~2 years ago Current Complaints Neck pain, B shoulder pain, HTN History of Current Condition Pt presents to clinic with primariy c/o of neck pain and occasional blood pressure spikes that started a couple years ago. He states his baseline BP is ~160/80s. Within the last couple of years, he has gotten occasional spikes sBP spikes into the 190s. However, his most recent sBP spike 6 weeks ago went up into the 220s. He states that these spikes occur every few weeks but seem to be getting less frequent as he has started avoiding more activities. Pt had normal findings from blood work and echo cardiogram. Pt also has low level neck pain and tightness, along with mild headache. Pt associates his BP spikes with neck pain aggravation. Pt denies any radicular symptoms bilaterally though does note that he has hx of B shoulder pain and his shoulders start feeling tight when his neck hurts. Pt notes that icing his neck and lying supine tends to relieve his neck pain, and Klonadin is the only medication that helps his BP. Pt also states that he gets immediate relief of his neck pain accompanied by an immediate drop in BP back to baseline after chiropractic adjustment for his neck. Pt reports that cervical extension or rotation (especially when swimming) seem to aggravate his neck pain. Pt believes his BP spikes are possibly from his cervical stenosis and nerve impingement which possibly set off his autonomic system for BP regulation. MRI shows mild bone spurs, cervical stenosis, and multiple small herniated disc but he stated that it does not need surgical intervention. Pt anticipates PT could be effective to help his neck pain and BP spikes if he can learn movement strategies and strengthening exercises to protect his neck. Prior Treatments and Tests Lumbar laminectomy ~10 years ago Chiropractic adjustments (30 yr hx, only last 2 years for his neck) Future Testing and Treatments Planned Plans to see surgeon who completed lumbar laminectomy for an assessment of his neck at the start of 2019 Treatment Goals Patient/Caregiver Goals 1. To strengthen his cervical musculature 2. To be able to regulate his BP 3. Return to swimming Personal Factors Other Personal Factors That May Effect Anxiety Therapy/Recovery Chronic HTN Arthritis PT-OP-C Subjective Start: 06/28/19 10:35 Freq: Status: Active Protocol: Document 07/01/19 12:59 HH (Rec: 07/01/19 16:09 HH [id number]) OP-PT Subjective Patient Comments Patient Comments The traction from last time did give me some relief. Patient Questionnaires Neck Disability Index Neck Disability Index Impairment 20 to 39% Impaired (Score 10- 19) PT-OP-E Functional Tests Start: 06/28/19 10:35 Freq: Status: Active Protocol: Document 06/28/19 10:39 HH (Rec: 06/28/19 12:04 [id number]) Functional Tests Apley's Scratch Test Action 2- Left L flexion 135, increased sidebend Action 2- Right R flexion 155 Action 3- Left T12, scapular winging Action 3- Right T10 PT-OP-F Manual Assessment Start: 06/28/19 10:35 Freq: Status: Active Protocol: Document 06/28/19 10:39 HH (Rec: 06/28/19 12:04 [id number]) Manual Assessments Soft Tissue Assessment Soft Tissue Mobility Assessment Hypertonic suboccipital B Joint Mobility Assessment Joint Mobility Assessment L OA limited at end range with sx reproduction, L AA limited 50% C5/6 positional R rotated PT-OP-H Neuro Start: 06/28/19 10:35 Freq: Status: Active Protocol: Document 06/28/19 10:39 HH (Rec: 06/28/19 12:04 [id number]) Sensation Evaluation Gross Sensation Gross Sensation Left UE Impaired Sensation Description Numbness Dermatome Impairments C5,C8,T1 Comments Summary Comments Pt reports mild decrease in sensation to light touch on L UE Deep Tendon Reflex & Clonus Assessment Deep Tendon Reflex Bilateral Brachioradialis Deep Tendon Reflex 2+ Normal Bilateral Tricep Deep Tendon Reflex 2+ Normal Bilateral Bicep Deep Tendon Reflex 2+ Normal Vital Signs Blood Pressure Sitting Blood Pressure (90/60-120/80 mmHg) 160/90 H Blood Pressure Source Manual Cuff,Right Upper Extremity Supine Blood Pressure (90/60-120/80 mmHg) 165/86 H Blood Pressure Source Manual Cuff,Right Upper Extremity PT-OP-K Range of Motion Start: 06/28/19 10:35 Freq: Status: Active Protocol: Document 06/28/19 10:39 HH (Rec: 06/28/19 12:04 HH [id number]) Cervical Spine Range of Motion Cervical Spine Active Degrees Testing Position Sitting Flexion 40 Extension 50 Rotation Left 45 Rotation Right 60 ROM Limitations Soft Tissue Tightness,Pain Comments overpressure at end range extension reproduces sharp pain at mid cervical region overpressure at end range L rotation reproduces tightness at L trap and mid cervical region. PT-OP-L Special Tests Start: 06/28/19 10:35 Freq: Status: Active Protocol: Document 06/28/19 10:39 HH (Rec: 06/28/19 12:04 [id number]) Special Tests Cervical Spine Special Tests Other- 1 Test Results L +ve Comments Quadrant test Spurling's Test Test Results +ve Comments L mod sx reproduction, R mild Traction Test Results +ve Comments pt reports of immediate relief Foraminal Compression Test Results -ve Other Special Tests Special Tests ULTT -ve for median, radial, and ulnar nerves PT-OP-M Strength Start: 06/28/19 10:35 Freq: Status: Active Protocol: Document 06/28/19 10:39 HH (Rec: 06/28/19 12:04 [id number]) Shoulder Strength Shoulder Manual Muscle Testing Left Abduction (C5) 3+ Fair+ Right Abduction (C5) 5 Normal Elbow/Forearm Strength Elbow and Forearm Manual Muscle Testing Bilateral Flexion (C6) 4 Good Extension (C7) 4 Good Wrist Strength Wrist Manual Muscle Testing Bilateral Flexion (C7) 4+ Good+ Extension (C6) 4+ Good+ PT-OP-Q Treatments Start: 06/28/19 10:35 Freq: Status: Active Protocol: Document 07/01/19 12:59 HH (Rec: 07/01/19 16:09 HH [id number]) Cardio Equipment Upper Body Ergometer (UBE) Duration (Minutes) 3 RPM 60 Therapeutic Exercises Supine Exercises tennis ball release Supine Exercise Name C/S and upper T/S Reps/Minutes 10 mins Comments self massage and T/S mobilizatoin for HEP chin tuck + rotation Supine Exercise Name aginast table Reps/Minutes 10 x 2 chin tuck Supine Exercise Name against table Reps/Minutes 15s hold x 5 Sitting Exercises seated T/s extensoin Sitting Exercise Name with chin tuck, hands behind head Reps/Minutes 8 x2 Comments cues on isolated trunk ext Manual Therapy Treatment Soft Tissue Mobilization suboccipitals Mobilization Type Sustained Pressure Intensity/Depth Moderate Body Position Hooklying Joint Mobilizations Thoracic spine Joint T1-T4 Direction PA Grade II Body Position Prone Reps/Duration 10 mins Manual Traction cervical traction Body Position Supine Reps/Duration 10 secs x 8 PT-OP-R Modalities Start: 06/28/19 10:35 Freq: Status: Active Protocol: Document 07/01/19 13:59 HH (Rec: 07/01/19 16:09 [id number]) Hot Pack/Cold Pack Treatment moist heat Location C/S lumbar spine Patient Position Supine Treatment Duration (minutes) 8 Patient Tolerance Good PT-OP-T Assessment and Plan Start: 06/28/19 10:35 Freq: Status: Active Protocol: Document 07/01/19 12:59 HH (Rec: 07/01/19 16:09 [id number]) Physical Therapy Assessment Goals swimming Impairment Pt is currently unable to swim d/t fear of aggravating neck pain Short Term Goal (STG) Pt will swim 20 min with snorkel without exacerbation of neck pain STG Duration 4 weeks Pig Furnace Operator Goal (LTG) Pt will swim 20 min without snorkel without exacerbation of neck pain LTG Duration 8 weeks ROM Impairment Pt has limited neck ROM Short Term Goal (STG) Pt will improve neck extension and L rotation by 5 dg to improve tolerance for funcitonal activities STG Duration 4 weeks Pig Furnace Operator Goal (LTG) Pt will improve neck extension and L rotation by 15 dg to improve tolerance for functional activities LTG Duration 8 weeks blood pressure Impairment Pt has baseline HTN with occasional spikes up to ~220s Short Term Goal (STG) Pt will tolerate therapy and HEP without spike in sBP >190 STG Duration 4 weeks Pig Furnace Operator Goal (LTG) Pt will tolerate therapy and HEP without spike in sBP >170 LTG Duration 8 weeks quick dash Impairment Pt scored 34.09 on Quick dash Short Term Goal (STG) Pt will score <25% on Quick dash to reflect improved activity limitations STG Duration 4 weeks Pig Furnace Operator Goal (LTG) Pt will score <15% on Quick dash to reflect improved activity limitations LTG Duration 8 weeks Assessment Summary Assessment NDI= 11/50 (1-19%) .Pt's BP at 140/88 pre tx session. Went up to 161/82 after 3 mins of UBE and c/o increased neck pain. However, BP went down to 128/68 at the end of session who reports I havent gotten this low for awhile . During assessment, there's noticeable angulation at C4/5 during active extension, along with hypomobility at T1-T4 with pain to PA mob. Explainted to pt to improve T/S mobility and strengthen deep neck flexors for PT goals. Physical Therapy Plan Next Visit Focus/Plan Next Note Type Treatment Note Next Visit Plan reassess symptoms, check HEP Check lumbar lock, thoracic PAs, DNF endurance cervical MT with traction, STM Ther ex to improve cervical stabilizer strength, general ROM (cervical, thoracic)
--- NOTE | 2019-07-06 07:38 | PT-OP ANOTE ---
Pt called this am to cancel today's appt less than 24hr notice (like last appt), stated his low back still hurting from last week's appt when it spasmed trying to sit up without help to place a pillow under pelvis/back. Pt stated has history of back issues but has been pretty good for a long time until end of last tx. Pt stated didn't tell the PT at the time about the back pain when sitting up and has been pretty painful since. Pt stated has been using modalities and exercises given prior PT to decreased his pain at home and earlier this week saw a massage therapist then directly after saw his chiropractor to assist relieve LBP and has had good results. Cancelled today's appt to allow little longer recovery and plans to attend his next appt on 07/08/19 with his same primary PT. At that time he wants to review with the PT his back concerns, knows his back is not what being referred for but to be aware with positioning to decrease risk of hurting back again.
--- NOTE | 2019-07-12 11:41 | PT-IP ANOTE ---
Called pt and he stated my back and neck have been feeling a lot better but I have a family emergency regarding my brother. I have to go to [place] right now. Reminded pt of his next appointment at the end of the phone call.
--- NOTE | 2019-07-21 10:07 | PT.OTN ---
Current Diagnoses Radiculopathy, cervical region (07/21/19) Physical Therapy Treatment Note PT-OP-A Visit Information Start: 06/28/19 10:35 Freq: Status: Active Protocol: Document 07/21/19 09:05 HH (Rec: 07/21/19 10:07 [id number]) Out-Patient Physical Therapy Visit Information Visit Information Visit Type Treatment Note Visit Note Pt's last visit= 07/01 d/t recent family emergency. Visit Start Time 09:05 Visit Stop Time 09:45 Total Visit Minutes 40 Visit Number 3/15 Number of [employer] FINISHER Visits 0 PT-OP-B Current Condition Start: 06/28/19 10:35 Freq: Status: Active Protocol: Document 06/28/19 10:39 HH (Rec: 06/28/19 12:04 [id number]) Current Condition History of Current Condition Onset Date ~2 years ago Current Complaints Neck pain, B shoulder pain, HTN History of Current Condition Pt presents to clinic with primariy c/o of neck pain and occasional blood pressure spikes that started a couple years ago. He states his baseline BP is ~160/80s. Within the last couple of years, he has gotten occasional spikes sBP spikes into the 190s. However, his most recent sBP spike 6 weeks ago went up into the 220s. He states that these spikes occur every few weeks but seem to be getting less frequent as he has started avoiding more activities. Pt had normal findings from blood work and echo cardiogram. Pt also has low level neck pain and tightness, along with mild headache. Pt associates his BP spikes with neck pain aggravation. Pt denies any radicular symptoms bilaterally though does note that he has hx of B shoulder pain and his shoulders start feeling tight when his neck hurts. Pt notes that icing his neck and lying supine tends to relieve his neck pain, and Klonadin is the only medication that helps his BP. Pt also states that he gets immediate relief of his neck pain accompanied by an immediate drop in BP back to baseline after chiropractic adjustment for his neck. Pt reports that cervical extension or rotation (especially when swimming) seem to aggravate his neck pain. Pt believes his BP spikes are possibly from his cervical stenosis and nerve impingement which possibly set off his autonomic system for BP regulation. MRI shows mild bone spurs, cervical stenosis, and multiple small herniated disc but he stated that it does not need surgical intervention. Pt anticipates PT could be effective to help his neck pain and BP spikes if he can learn movement strategies and strengthening exercises to protect his neck. Prior Treatments and Tests Lumbar laminectomy ~10 years ago Chiropractic adjustments (30 yr hx, only last 2 years for his neck) Future Testing and Treatments Planned Plans to see surgeon who completed lumbar laminectomy for an assessment of his neck at the start of 2019 Treatment Goals Patient/Caregiver Goals 1. To strengthen his cervical musculature 2. To be able to regulate his BP 3. Return to swimming Personal Factors Other Personal Factors That May Effect Anxiety Therapy/Recovery Chronic HTN Arthritis PT-OP-C Subjective Start: 06/28/19 10:35 Freq: Status: Active Protocol: Document 07/21/19 09:05 HH (Rec: 07/21/19 10:07 [id number]) OP-PT Subjective Patient Comments Patient Comments My neck has been doing pretty good without much pain. It's mostly becasue the home exercises and discont swimming . Lorena been more aware to use upper back to assist my cervical extension. Patient Reported Progress Improving PT-OP-E Functional Tests Start: 06/28/19 10:35 Freq: Status: Active Protocol: Document 06/28/19 10:39 HH (Rec: 06/28/19 12:04 [id number]) Functional Tests Apley's Scratch Test Action 2- Left L flexion 135, increased sidebend Action 2- Right R flexion 155 Action 3- Left T12, scapular winging Action 3- Right T10 PT-OP-F Manual Assessment Start: 06/28/19 10:35 Freq: Status: Active Protocol: Document 06/28/19 10:39 HH (Rec: 06/28/19 12:04 [id number]) Manual Assessments Soft Tissue Assessment Soft Tissue Mobility Assessment Hypertonic suboccipital B Joint Mobility Assessment Joint Mobility Assessment L OA limited at end range with sx reproduction, L AA limited 50% C5/6 positional R rotated PT-OP-H Neuro Start: 06/28/19 10:35 Freq: Status: Active Protocol: Document 06/28/19 10:39 HH (Rec: 06/28/19 12:04 [id number]) Sensation Evaluation Gross Sensation Gross Sensation Left UE Impaired Sensation Description Numbness Dermatome Impairments C5,C8,T1 Comments Summary Comments Pt reports mild decrease in sensation to light touch on L UE Deep Tendon Reflex & Clonus Assessment Deep Tendon Reflex Bilateral Brachioradialis Deep Tendon Reflex 2+ Normal Bilateral Tricep Deep Tendon Reflex 2+ Normal Bilateral Bicep Deep Tendon Reflex 2+ Normal Vital Signs Blood Pressure Sitting Blood Pressure (90/60-120/80 mmHg) 160/90 H Blood Pressure Source Manual Cuff,Right Upper Extremity Supine Blood Pressure (90/60-120/80 mmHg) 165/86 H Blood Pressure Source Manual Cuff,Right Upper Extremity PT-OP-K Range of Motion Start: 06/28/19 10:35 Freq: Status: Active Protocol: Document 06/28/19 10:39 HH (Rec: 06/28/19 12:04 [id number]) Cervical Spine Range of Motion Cervical Spine Active Degrees Testing Position Sitting Flexion 40 Extension 50 Rotation Left 45 Rotation Right 60 ROM Limitations Soft Tissue Tightness,Pain Comments overpressure at end range extension reproduces sharp pain at mid cervical region overpressure at end range L rotation reproduces tightness at L trap and mid cervical region. PT-OP-L Special Tests Start: 06/28/19 10:35 Freq: Status: Active Protocol: Document 06/28/19 10:39 HH (Rec: 06/28/19 12:04 [id number]) Special Tests Cervical Spine Special Tests Other- 1 Test Results L +ve Comments Quadrant test Spurling's Test Test Results +ve Comments L mod sx reproduction, R mild Traction Test Results +ve Comments pt reports of immediate relief Foraminal Compression Test Results -ve Other Special Tests Special Tests ULTT -ve for median, radial, and ulnar nerves PT-OP-M Strength Start: 06/28/19 10:35 Freq: Status: Active Protocol: Document 06/28/19 10:39 HH (Rec: 06/28/19 12:04 [id number]) Shoulder Strength Shoulder Manual Muscle Testing Left Abduction (C5) 3+ Fair+ Right Abduction (C5) 5 Normal Elbow/Forearm Strength Elbow and Forearm Manual Muscle Testing Bilateral Flexion (C6) 4 Good Extension (C7) 4 Good Wrist Strength Wrist Manual Muscle Testing Bilateral Flexion (C7) 4+ Good+ Extension (C6) 4+ Good+ PT-OP-Q Treatments Start: 06/28/19 10:35 Freq: Status: Active Protocol: Document 07/21/19 09:05 (Rec: 07/21/19 10:07 [id number]) Therapeutic Exercises Supine Exercises foam roll t/s ext Equipment Used foam roller Reps/Minutes 8 x2 Comments with shd flexion chin tuck Supine Exercise Name against table Reps/Minutes 15s hold x 5 Prone Exercises t/s ext Prone Exercise Name prayer stretch Equipment Used with foam roller Reps/Minutes 8 x2 Comments with shd end range flexion child pose Side bilateral Reps/Minutes 10 x2 Comments with shd end range flexion, t/ s ext Other Exercises t/s rotation 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 Side bilateral Reps/Minutes 10 x2 Comments f/w head rotation Manual Therapy Treatment Soft Tissue Mobilization suboccipitals Mobilization Type Sustained Pressure Intensity/Depth Moderate Body Position Hooklying Joint Mobilizations Thoracic spine Joint T1-T4 Direction PA Grade II Body Position Prone Reps/Duration 10 mins PT-OP-R Modalities Start: 06/28/19 10:35 Freq: Status: Active Protocol: Document 07/01/19 13:59 (Rec: 07/01/19 16:09 [id number]) Hot Pack/Cold Pack Treatment moist heat Location C/S lumbar spine Patient Position Supine Treatment Duration (minutes) 8 Patient Tolerance Good PT-OP-T Assessment and Plan Start: 06/28/19 10:35 Freq: Status: Active Protocol: Document 07/21/19 09:05 (Rec: 07/21/19 10:07 [id number]) Physical Therapy Assessment Goals swimming Impairment Pt is currently unable to swim d/t fear of aggravating neck pain Short Term Goal (STG) Pt will swim 20 min with snorkel without exacerbation of neck pain STG Duration 4 weeks Consumer Affairs Director Goal (LTG) Pt will swim 20 min without snorkel without exacerbation of neck pain LTG Duration 8 weeks ROM Impairment Pt has limited neck ROM Short Term Goal (STG) Pt will improve neck extension and L rotation by 5 dg to improve tolerance for funcitonal activities STG Duration 4 weeks Consumer Affairs Director Goal (LTG) Pt will improve neck extension and L rotation by 15 dg to improve tolerance for functional activities LTG Duration 8 weeks blood pressure Impairment Pt has baseline HTN with occasional spikes up to ~220s Short Term Goal (STG) Pt will tolerate therapy and HEP without spike in sBP >190 STG Duration 4 weeks Long-Term Goal (LTG) Pt will tolerate therapy and HEP without spike in sBP >170 LTG Duration 8 weeks quick dash Impairment Pt scored 34.09 on Quick dash Short Term Goal (STG) Pt will score <25% on Quick dash to reflect improved activity limitations STG Duration 4 weeks Consumer Affairs Director Goal (LTG) Pt will score <15% on Quick dash to reflect improved activity limitations LTG Duration 8 weeks Assessment Summary Assessment Pt has improved understanding of increasing t/s mobility and his tolerance to ex/ manual therapy. Pt did not c/o discomfort today and tx focused on T/S mobility. Pt's BP maintains at 150-160/80s. Physical Therapy Plan Next Visit Focus/Plan Next Note Type Treatment Note Next Visit Plan reassess symptoms, check HEP Check lumbar lock, thoracic PAs, DNF endurance cervical MT with traction, STM Ther ex to improve cervical stabilizer strength, general ROM (cervical, thoracic)
--- NOTE | 2019-07-26 09:02 | PT.OTN ---
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 He states his baseline BP is ~160/80s. Within the last couple of years, he has gotten occasional spikes sBP spikes into the 190s. However, his most recent sBP spike 6 weeks ago went up into the 220s. He states that these spikes occur every few weeks but seem to be getting less frequent as he has started avoiding more activities. Pt had normal findings from blood work and echo cardiogram. Pt also has low level neck pain and tightness, along with mild headache. Pt associates his BP spikes with neck pain aggravation. Pt denies any radicular symptoms bilaterally though does note that he has hx of B shoulder pain and his shoulders start feeling tight when his neck hurts. Pt notes that icing his neck and lying supine tends to relieve his neck pain, and Klonadin is the only medication that helps his BP. Pt also states that he gets immediate relief of his neck pain accompanied by an immediate drop in BP back to baseline after chiropractic adjustment for his neck. Pt reports that cervical extension or rotation (especially when swimming) seem to aggravate his neck pain. Pt believes his BP spikes are possibly from his cervical stenosis and nerve impingement which possibly set off his autonomic system for BP regulation. MRI shows mild bone spurs, cervical stenosis, and multiple small herniated disc but he stated that it does not need surgical intervention. Pt anticipates PT could be effective to help his neck pain and BP spikes if he can learn movement strategies and strengthening exercises to protect his neck. Prior Treatments and Tests Lumbar laminectomy ~10 years ago Chiropractic adjustments (30 yr hx, only last 2 years for his neck) Future Testing and Treatments Planned Plans to see surgeon who completed lumbar laminectomy for an assessment of his neck at the start of 2019 Treatment Goals Patient/Caregiver Goals 1. To strengthen his cervical musculature 2. To be able to regulate his BP 3. Return to swimming Personal Factors Other Personal Factors That May Effect Anxiety Therapy/Recovery Chronic HTN Arthritis PT-OP-C Subjective Start: 06/28/19 10:35 Freq: Status: Active Protocol: Document 07/26/19 08:16 HH (Rec: 07/26/19 09:02 [id number]) OP-PT Subjective Patient Comments Patient Comments Lorena been doing pretty good and was not that sore after the manual therapy from last visit. I am going to try swimming today again and lets see how i feel. Patient Reported Progress Improving PT-OP-E Functional Tests Start: 06/28/19 10:35 Freq: Status: Active Protocol: Document 06/28/19 10:39 HH (Rec: 06/28/19 12:04 [id number]) Functional Tests Apley's Scratch Test Action 2- Left L flexion 135, increased sidebend Action 2- Right R flexion 155 Action 3- Left T12, scapular winging Action 3- Right T10 PT-OP-F Manual Assessment Start: 06/28/19 10:35 Freq: Status: Active Protocol: Document 06/28/19 10:39 HH (Rec: 06/28/19 12:04 [id number]) Manual Assessments Soft Tissue Assessment Soft Tissue Mobility Assessment Hypertonic suboccipital B Joint Mobility Assessment Joint Mobility Assessment L OA limited at end range with sx reproduction, L AA limited 50% C5/6 positional R rotated PT-OP-H Neuro Start: 06/28/19 10:35 Freq: Status: Active Protocol: Document 06/28/19 10:39 HH (Rec: 06/28/19 12:04 [id number]) Sensation Evaluation Gross Sensation Gross Sensation Left UE Impaired Sensation Description Numbness Dermatome Impairments C5,C8,T1 Comments Summary Comments Pt reports mild decrease in sensation to light touch on L UE Deep Tendon Reflex & Clonus Assessment Deep Tendon Reflex Bilateral Brachioradialis Deep Tendon Reflex 2+ Normal Bilateral Tricep Deep Tendon Reflex 2+ Normal Bilateral Bicep Deep Tendon Reflex 2+ Normal Vital Signs Blood Pressure Sitting Blood Pressure (90/60-120/80 mmHg) 160/90 H Blood Pressure Source Manual Cuff,Right Upper Extremity Supine Blood Pressure (90/60-120/80 mmHg) 165/86 H Blood Pressure Source Manual Cuff,Right Upper Extremity PT-OP-K Range of Motion Start: 06/28/19 10:35 Freq: Status: Active Protocol: Document 06/28/19 10:39 HH (Rec: 06/28/19 12:04 HH [id number]) Cervical Spine Range of Motion Cervical Spine Active Degrees Testing Position Sitting Flexion 40 Extension 50 Rotation Left 45 Rotation Right 60 ROM Limitations Soft Tissue Tightness,Pain Comments overpressure at end range extension reproduces sharp pain at mid cervical region overpressure at end range L rotation reproduces tightness at L trap and mid cervical region. PT-OP-L Special Tests Start: 06/28/19 10:35 Freq: Status: Active Protocol: Document 06/28/19 10:39 HH (Rec: 06/28/19 12:04 [id number]) Special Tests Cervical Spine Special Tests Other- 1 Test Results L +ve Comments Quadrant test Spurling's Test Test Results +ve Comments L mod sx reproduction, R mild Traction Test Results +ve Comments pt reports of immediate relief Foraminal Compression Test Results -ve Other Special Tests Special Tests ULTT -ve for median, radial, and ulnar nerves PT-OP-M Strength Start: 06/28/19 10:35 Freq: Status: Active Protocol: Document 06/28/19 10:39 HH (Rec: 06/28/19 12:04 [id number]) Shoulder Strength Shoulder Manual Muscle Testing Left Abduction (C5) 3+ Fair+ Right Abduction (C5) 5 Normal Elbow/Forearm Strength Elbow and Forearm Manual Muscle Testing Bilateral Flexion (C6) 4 Good Extension (C7) 4 Good Wrist Strength Wrist Manual Muscle Testing Bilateral Flexion (C7) 4+ Good+ Extension (C6) 4+ Good+ PT-OP-Q Treatments Start: 06/28/19 10:35 Freq: Status: Active Protocol: Document 07/26/19 08:16 HH (Rec: 07/26/19 09:02 [id number]) Therapeutic Exercises Prone Exercises prone ext Side bilateral Reps/Minutes 8x2 Comments with scap retraction and t/s extension, along with C/S ext t/s ext Prone Exercise Name prayer stretch Equipment Used with foam roller Reps/Minutes 8 x2 Comments with shd end range flexion child pose Side bilateral Reps/Minutes 10 x2 Comments with shd end range flexion, t/ s ext Sitting Exercises seated T/s extensoin Sitting Exercise Name with chin tuck, hands behind head Reps/Minutes 8 x2 Comments cues on isolated trunk ext Standing Exercises scap row Side bilateral Equipment Used level 1 band Reps/Minutes 10 Comments trunk flexion f/b trunk ext and cervical ext Manual Therapy Treatment Soft Tissue Mobilization suboccipitals Mobilization Type Sustained Pressure Intensity/Depth Moderate Body Position Hooklying Joint Mobilizations Thoracic spine Joint T1-T4 Direction PA Grade II Body Position Prone Reps/Duration 10 mins PT-OP-R Modalities Start: 06/28/19 10:35 Freq: Status: Active Protocol: Document 07/01/19 13:59 (Rec: 07/01/19 16:09 [id number]) Hot Pack/Cold Pack Treatment moist heat Location C/S lumbar spine Patient Position Supine Treatment Duration (minutes) 8 Patient Tolerance Good PT-OP-T Assessment and Plan Start: 06/28/19 10:35 Freq: Status: Active Protocol: Document 07/26/19 08:16 (Rec: 07/26/19 09:02 [id number]) Physical Therapy Assessment Goals swimming Impairment Pt is currently unable to swim d/t fear of aggravating neck pain Short Term Goal (STG) Pt will swim 20 min with snorkel without exacerbation of neck pain STG Duration 4 weeks Spare Person Goal (LTG) Pt will swim 20 min without snorkel without exacerbation of neck pain LTG Duration 8 weeks ROM Impairment Pt has limited neck ROM Short Term Goal (STG) Pt will improve neck extension and L rotation by 5 dg to improve tolerance for funcitonal activities STG Duration 4 weeks [facility]ci Goal (LTG) Pt will improve neck extension and L rotation by 15 dg to improve tolerance for functional activities LTG Duration 8 weeks blood pressure Impairment Pt has baseline HTN with occasional spikes up to ~220s Short Term Goal (STG) Pt will tolerate therapy and HEP without spike in sBP >190 STG Duration 4 weeks [facility]ci Goal (LTG) Pt will tolerate therapy and HEP without spike in sBP >170 LTG Duration 8 weeks quick dash Impairment Pt scored 34.09 on Quick dash Short Term Goal (STG) Pt will score <25% on Quick dash to reflect improved activity limitations STG Duration 4 weeks Spare Person Goal (LTG) Pt will score <15% on Quick dash to reflect improved activity limitations LTG Duration 8 weeks Assessment Summary Assessment Pt has improved body awareness to engage T/S ext during c/s extension. Also improved tolerance for PA mob at T/S without much discomfort. Educated pt to do warm up routine with child pose, prone ext and seated t/s extension before swimming. BP maintains at 160/100 during session today. Physical Therapy Plan Next Visit Focus/Plan Next Note Type Treatment Note Next Visit Plan reassess symptoms, check HEP Check lumbar lock, thoracic PAs, DNF endurance cervical MT with traction, STM Ther ex to improve cervical stabilizer strength, general ROM (cervical, thoracic)
--- NOTE | 2019-08-09 09:02 | PT.OTN ---
Current Diagnoses Radiculopathy, cervical region (08/09/19) Physical Therapy Treatment Note PT-OP-A Visit Information Start: 06/28/19 10:35 Freq: Status: Active Protocol: Document 08/09/19 08:16 HH (Rec: 08/09/19 09:02 [id number]) Out-Patient Physical Therapy Visit Information Visit Information Visit Type Treatment Note Visit Start Time 08:16 Visit Stop Time 08:50 Total Visit Minutes 39 Visit Number 5/15 Number of CHILDR[employer] Visits 0 PT-OP-B Current Condition Start: 06/28/19 10:35 Freq: Status: Active Protocol: Document 06/28/19 10:39 HH (Rec: 06/28/19 12:04 [id number]) Current Condition History of Current Condition Onset Date ~2 years ago Current Complaints Neck pain, B shoulder pain, HTN History of Current Condition Pt presents to clinic with primariy c/o of neck pain and occasional blood pressure spikes that started a couple years ago. He states his baseline BP is ~160/80s. Within the last couple of years, he has gotten occasional spikes sBP spikes into the 190s. However, his most recent sBP spike 6 weeks ago went up into the 220s. He states that these spikes occur every few weeks but seem to be getting less frequent as he has started avoiding more activities. Pt had normal findings from blood work and echo cardiogram. Pt also has low level neck pain and tightness, along with mild headache. Pt associates his BP spikes with neck pain aggravation. Pt denies any radicular symptoms bilaterally though does note that he has hx of B shoulder pain and his shoulders start feeling tight when his neck hurts. Pt notes that icing his neck and lying supine tends to relieve his neck pain, and Klonadin is the only medication that helps his BP. Pt also states that he gets immediate relief of his neck pain accompanied by an immediate drop in BP back to baseline after chiropractic adjustment for his neck. Pt reports that cervical extension or rotation (especially when swimming) seem to aggravate his neck pain. Pt believes his BP spikes are possibly from his cervical stenosis and nerve impingement which possibly set off his autonomic system for BP regulation. MRI shows mild bone spurs, cervical stenosis, and multiple small herniated disc but he stated that it does not need surgical intervention. Pt anticipates PT could be effective to help his neck pain and BP spikes if he can learn movement strategies and strengthening exercises to protect his neck. Prior Treatments and Tests Lumbar laminectomy ~10 years ago Chiropractic adjustments (30 yr hx, only last 2 years for his neck) Future Testing and Treatments Planned Plans to see surgeon who completed lumbar laminectomy for an assessment of his neck at the start of 2019 Treatment Goals Patient/Caregiver Goals 1. To strengthen his cervical musculature 2. To be able to regulate his BP 3. Return to swimming Personal Factors Other Personal Factors That May Effect Anxiety Therapy/Recovery Chronic HTN Arthritis PT-OP-C Subjective Start: 06/28/19 10:35 Freq: Status: Active Protocol: Document 08/09/19 08:16 HH (Rec: 08/09/19 09:02 [id number]) OP-PT Subjective Patient Comments Patient Comments Lorena been going to the pool twice a week and i dont have any discomfort with my neck, besides my chronic shoulder pain also has improved. Patient Reported Progress Improving PT-OP-E Functional Tests Start: 06/28/19 10:35 Freq: Status: Active Protocol: Document 06/28/19 10:39 HH (Rec: 06/28/19 12:04 [id number]) Functional Tests Apley's Scratch Test Action 2- Left L flexion 135, increased sidebend Action 2- Right R flexion 155 Action 3- Left T12, scapular winging Action 3- Right T10 PT-OP-F Manual Assessment Start: 06/28/19 10:35 Freq: Status: Active Protocol: Document 06/28/19 10:39 HH (Rec: 06/28/19 12:04 [id number]) Manual Assessments Soft Tissue Assessment Soft Tissue Mobility Assessment Hypertonic suboccipital B Joint Mobility Assessment Joint Mobility Assessment L OA limited at end range with sx reproduction, L AA limited 50% C5/6 positional R rotated PT-OP-H Neuro Start: 06/28/19 10:35 Freq: Status: Active Protocol: Document 06/28/19 10:39 HH (Rec: 06/28/19 12:04 [id number]) Sensation Evaluation Gross Sensation Gross Sensation Left UE Impaired Sensation Description Numbness Dermatome Impairments C5,C8,T1 Comments Summary Comments Pt reports mild decrease in sensation to light touch on L UE Deep Tendon Reflex & Clonus Assessment Deep Tendon Reflex Bilateral Brachioradialis Deep Tendon Reflex 2+ Normal Bilateral Tricep Deep Tendon Reflex 2+ Normal Bilateral Bicep Deep Tendon Reflex 2+ Normal Vital Signs Blood Pressure Sitting Blood Pressure (90/60-120/80 mmHg) 160/90 H Blood Pressure Source Manual Cuff,Right Upper Extremity Supine Blood Pressure (90/60-120/80 mmHg) 165/86 H Blood Pressure Source Manual Cuff,Right Upper Extremity PT-OP-K Range of Motion Start: 06/28/19 10:35 Freq: Status: Active Protocol: Document 06/28/19 10:39 HH (Rec: 06/28/19 12:04 [id number]) Cervical Spine Range of Motion Cervical Spine Active Degrees Testing Position Sitting Flexion 40 Extension 50 Rotation Left 45 Rotation Right 60 ROM Limitations Soft Tissue Tightness,Pain Comments overpressure at end range extension reproduces sharp pain at mid cervical region overpressure at end range L rotation reproduces tightness at L trap and mid cervical region. PT-OP-L Special Tests Start: 06/28/19 10:35 Freq: Status: Active Protocol: Document 06/28/19 10:39 HH (Rec: 06/28/19 12:04 [id number]) Special Tests Cervical Spine Special Tests Other- 1 Test Results L +ve Comments Quadrant test Spurling's Test Test Results +ve Comments L mod sx reproduction, R mild Traction Test Results +ve Comments pt reports of immediate relief Foraminal Compression Test Results -ve Other Special Tests Special Tests ULTT -ve for median, radial, and ulnar nerves PT-OP-M Strength Start: 06/28/19 10:35 Freq: Status: Active Protocol: Document 06/28/19 10:39 HH (Rec: 06/28/19 12:04 [id number]) Shoulder Strength Shoulder Manual Muscle Testing Left Abduction (C5) 3+ Fair+ Right Abduction (C5) 5 Normal Elbow/Forearm Strength Elbow and Forearm Manual Muscle Testing Bilateral Flexion (C6) 4 Good Extension (C7) 4 Good Wrist Strength Wrist Manual Muscle Testing Bilateral Flexion (C7) 4+ Good+ Extension (C6) 4+ Good+ PT-OP-Q Treatments Start: 06/28/19 10:35 Freq: Status: Active Protocol: Document 08/09/19 08:16 HH (Rec: 08/09/19 09:02 [id number]) Therapeutic Exercises Supine Exercises t/s ext wit shd flexion Supine Exercise Name supine with foam roller at upper t/s spine Reps/Minutes 8 x2 foam roll t/s ext Equipment Used foam roller Reps/Minutes 8 x2 Comments with shd flexion Sitting Exercises seated shoulder flexion Sitting Exercise Name pvc bar (end range strengthening) Reps/Minutes 8 x2 seated t/s R rotation Sitting Exercise Name unilateral t/s rotation Reps/Minutes 8 x2 seated T/s extensoin Sitting Exercise Name with chin tuck, hands behind head Reps/Minutes 8 x2 Comments cues on isolated trunk ext Manual Therapy Treatment Soft Tissue Mobilization suboccipitals Mobilization Type Sustained Pressure Intensity/Depth Moderate Body Position Hooklying Joint Mobilizations Thoracic spine Joint T1-T4 Direction PA Grade II Body Position Prone Reps/Duration 10 mins Manual Traction cervical traction Body Position Supine Reps/Duration 8 sec hold x5 PT-OP-R Modalities Start: 06/28/19 10:35 Freq: Status: Active Protocol: Document 07/01/19 13:59 HH (Rec: 07/01/19 16:09 [id number]) Hot Pack/Cold Pack Treatment moist heat Location C/S lumbar spine Patient Position Supine Treatment Duration (minutes) 8 Patient Tolerance Good PT-OP-T Assessment and Plan Start: 06/28/19 10:35 Freq: Status: Active Protocol: Document 08/09/19 08:16 HH (Rec: 08/09/19 09:02 [id number]) Physical Therapy Assessment Goals swimming Impairment Pt is currently unable to swim d/t fear of aggravating neck pain Short Term Goal (STG) Pt will swim 20 min with snorkel without exacerbation of neck pain STG Duration 4 weeks [facility] Goal (LTG) Pt will swim 20 min without snorkel without exacerbation of neck pain LTG Duration 8 weeks ROM Impairment Pt has limited neck ROM Short Term Goal (STG) Pt will improve neck extension and L rotation by 5 dg to improve tolerance for funcitonal activities STG Duration 4 weeks [facility] Goal (LTG) Pt will improve neck extension and L rotation by 15 dg to improve tolerance for functional activities LTG Duration 8 weeks blood pressure Impairment Pt has baseline HTN with occasional spikes up to ~220s Short Term Goal (STG) Pt will tolerate therapy and HEP without spike in sBP >190 STG Duration 4 weeks [employer] Goal (LTG) Pt will tolerate therapy and HEP without spike in sBP >170 LTG Duration 8 weeks quick dash Impairment Pt scored 34.09 on Quick dash Short Term Goal (STG) Pt will score <25% on Quick dash to reflect improved activity limitations STG Duration 4 weeks [employer] Goal (LTG) Pt will score <15% on Quick dash to reflect improved activity limitations LTG Duration 8 weeks Assessment Summary Assessment Pt returns to swimming twice a week now and does not ahve any discomfort. He showed improved tolerance to pressure at upper T/S and improved c/s extension with involvement of upper t/s extension. Dis d/c planning with pt and he agreed to be d/c most likely after next week. Physical Therapy Plan Next Visit Focus/Plan Next Note Type Treatment Note Next Visit Plan reassess symptoms, check HEP HEP for d/c t/s ext, rotation gross neck strengthening
--- NOTE | 2019-08-16 08:56 | PT.OTN ---
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 He states his baseline BP is ~160/80s. Within the last couple of years, he has gotten occasional spikes sBP spikes into the 190s. However, his most recent sBP spike 6 weeks ago went up into the 220s. He states that these spikes occur every few weeks but seem to be getting less frequent as he has started avoiding more activities. Pt had normal findings from blood work and echo cardiogram. Pt also has low level neck pain and tightness, along with mild headache. Pt associates his BP spikes with neck pain aggravation. Pt denies any radicular symptoms bilaterally though does note that he has hx of B shoulder pain and his shoulders start feeling tight when his neck hurts. Pt notes that icing his neck and lying supine tends to relieve his neck pain, and Klonadin is the only medication that helps his BP. Pt also states that he gets immediate relief of his neck pain accompanied by an immediate drop in BP back to baseline after chiropractic adjustment for his neck. Pt reports that cervical extension or rotation (especially when swimming) seem to aggravate his neck pain. Pt believes his BP spikes are possibly from his cervical stenosis and nerve impingement which possibly set off his autonomic system for BP regulation. MRI shows mild bone spurs, cervical stenosis, and multiple small herniated disc but he stated that it does not need surgical intervention. Pt anticipates PT could be effective to help his neck pain and BP spikes if he can learn movement strategies and strengthening exercises to protect his neck. Prior Treatments and Tests Lumbar laminectomy ~10 years ago Chiropractic adjustments (30 yr hx, only last 2 years for his neck) Future Testing and Treatments Planned Plans to see surgeon who completed lumbar laminectomy for an assessment of his neck at the start of 2019 Treatment Goals Patient/Caregiver Goals 1. To strengthen his cervical musculature 2. To be able to regulate his BP 3. Return to swimming Personal Factors Other Personal Factors That May Effect Anxiety Therapy/Recovery Chronic HTN Arthritis PT-OP-C Subjective Start: 06/28/19 10:35 Freq: Status: Active Protocol: Document 08/16/19 08:48 HH (Rec: 08/16/19 08:56 HH [email or web address]) OP-PT Subjective Patient Comments Patient Comments Lorena been swimming and everything is doing good. I havent noticed any BP spikes lately which is good. Patient Reported Progress Improving PT-OP-E Functional Tests Start: 06/28/19 10:35 Freq: Status: Active Protocol: Document 06/28/19 10:39 HH (Rec: 06/28/19 12:04 [id number]) Functional Tests Apley's Scratch Test Action 2- Left L flexion 135, increased sidebend Action 2- Right R flexion 155 Action 3- Left T12, scapular winging Action 3- Right T10 PT-OP-F Manual Assessment Start: 06/28/19 10:35 Freq: Status: Active Protocol: Document 06/28/19 10:39 HH (Rec: 06/28/19 12:04 [id number]) Manual Assessments Soft Tissue Assessment Soft Tissue Mobility Assessment Hypertonic suboccipital B Joint Mobility Assessment Joint Mobility Assessment L OA limited at end range with sx reproduction, L AA limited 50% C5/6 positional R rotated PT-OP-H Neuro Start: 06/28/19 10:35 Freq: Status: Active Protocol: Document 06/28/19 10:39 HH (Rec: 06/28/19 12:04 [id number]) Sensation Evaluation Gross Sensation Gross Sensation Left UE Impaired Sensation Description Numbness Dermatome Impairments C5,C8,T1 Comments Summary Comments Pt reports mild decrease in sensation to light touch on L UE Deep Tendon Reflex & Clonus Assessment Deep Tendon Reflex Bilateral Brachioradialis Deep Tendon Reflex 2+ Normal Bilateral Tricep Deep Tendon Reflex 2+ Normal Bilateral Bicep Deep Tendon Reflex 2+ Normal Vital Signs Blood Pressure Sitting Blood Pressure (90/60-120/80 mmHg) 160/90 H Blood Pressure Source Manual Cuff,Right Upper Extremity Supine Blood Pressure (90/60-120/80 mmHg) 165/86 H Blood Pressure Source Manual Cuff,Right Upper Extremity PT-OP-K Range of Motion Start: 06/28/19 10:35 Freq: Status: Active Protocol: Document 06/28/19 10:39 HH (Rec: 06/28/19 12:04 [id number]) Cervical Spine Range of Motion Cervical Spine Active Degrees Testing Position Sitting Flexion 40 Extension 50 Rotation Left 45 Rotation Right 60 ROM Limitations Soft Tissue Tightness,Pain Comments overpressure at end range extension reproduces sharp pain at mid cervical region overpressure at end range L rotation reproduces tightness at L trap and mid cervical region. PT-OP-L Special Tests Start: 06/28/19 10:35 Freq: Status: Active Protocol: Document 06/28/19 10:39 HH (Rec: 06/28/19 12:04 [id number]) Special Tests Cervical Spine Special Tests Other- 1 Test Results L +ve Comments Quadrant test Spurling's Test Test Results +ve Comments L mod sx reproduction, R mild Traction Test Results +ve Comments pt reports of immediate relief Foraminal Compression Test Results -ve Other Special Tests Special Tests ULTT -ve for median, radial, and ulnar nerves PT-OP-M Strength Start: 06/28/19 10:35 Freq: Status: Active Protocol: Document 06/28/19 10:39 HH (Rec: 06/28/19 12:04 [id number]) Shoulder Strength Shoulder Manual Muscle Testing Left Abduction (C5) 3+ Fair+ Right Abduction (C5) 5 Normal Elbow/Forearm Strength Elbow and Forearm Manual Muscle Testing Bilateral Flexion (C6) 4 Good Extension (C7) 4 Good Wrist Strength Wrist Manual Muscle Testing Bilateral Flexion (C7) 4+ Good+ Extension (C6) 4+ Good+ PT-OP-Q Treatments Start: 06/28/19 10:35 Freq: Status: Active Protocol: Document 08/16/19 08:48 HH (Rec: 08/16/19 08:56 HH [email or web address]) Therapeutic Exercises Supine Exercises foam roll t/s ext Supine Exercise Name review HEP Equipment Used foam roller Reps/Minutes 8 x2 Comments with shd flexion Prone Exercises child pose Prone Exercise Name review HEP Side bilateral Reps/Minutes 10 x2 Comments with shd end range flexion, t/ s ext Sitting Exercises cervical AROM Sitting Exercise Name towel/ belt behind Reps/Minutes 5 x2 Comments end range ext/ rot neck stretch Sitting Exercise Name for trap and levator Side bilateral Reps/Minutes 30 sec hold Comments for HEP seated T/s extensoin Sitting Exercise Name with chin tuck, hands behind head Reps/Minutes 8 x2 Comments cues on isolated trunk ext Manual Therapy Treatment Soft Tissue Mobilization suboccipitals Mobilization Type Sustained Pressure Intensity/Depth Moderate Body Position Hooklying Joint Mobilizations Thoracic spine Joint T1-T4 Direction PA Grade II Body Position Prone Reps/Duration 10 mins PT-OP-R Modalities Start: 06/28/19 10:35 Freq: Status: Active Protocol: Document 07/01/19 13:59 HH (Rec: 07/01/19 16:09 HH [id number]) Hot Pack/Cold Pack Treatment moist heat Location C/S lumbar spine Patient Position Supine Treatment Duration (minutes) 8 Patient Tolerance Good PT-OP-T Assessment and Plan Start: 06/28/19 10:35 Freq: Status: Active Protocol: Document 08/16/19 08:48 HH (Rec: 08/16/19 08:56 HH [email or web address]) Physical Therapy Assessment 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 ROM [facility] Goal (LTG) goal met 08/16 L rot= 60, R=70 blood pressure Banking Teacher Goal (LTG) Pt reports he has not noticed any BP spikes lately. quick dash Banking Teacher Goal (LTG) goal did not reach 08/16: 22.7 on quickdash and pt explains this questionnaire primarily address shoulder but not his neck pain Progress Towards Goals Progress Towards Goals Goals Met Assessment Summary Assessment Pt overall progress well and has improved movement awareness. He has returned to sport and back to baseline without discomfort. d/c from PT today. Physical Therapy Plan Discharge Physical Therapy Discharge Reasons Goals Met
== END 2019-08-18 13:15 ==
LOC: PHYS 08:15
PROVIDERS: Family Provider Urology; PCP Internal Medicine; Visit Provider Internal Medicine
DX: M54.12 Radiculopathy, cervical region (principal)
CPT/HCPCS: 97110; 97140; 97162

== ENCOUNTER → 2019-12-16 09:57 | Outpatient (CLI) | payer MEDICARE, OTHER, SELFPAY ==
[2019-12-16 11:19] LABS: Add Manual Diff / Slide Review NO; Alanine Aminotransferase 55 IU/L (<50); Albumin 4.7 g/dL (3.5-5.0); Albumin Globulin Ratio 1.5 (1.0-2.8); Alkaline Phosphatase 57 U/L (38-126); Aspartate Aminotransferase 46 IU/L (17-59); BUN Creatinine Ratio 16.7 (6-22); Basophils Absolute Auto 100 /uL (0-100); Basophils Percent Auto 1.4 % (0-2); Bilirubin Total 0.8 mg/dL (0.2-1.3); Blood Urea Nitrogen 16 mg/dL (9-20); Calcium 9.8 mg/dL (8.4-10.2); Carbon Dioxide 25 mmol/L (22-32); Chloride 103 mmol/L (98-107); Cholesterol 106 mg/dL (140-199); Eosinophils Absolute Auto 100 /uL (0-450); Eosinophils Percent Auto 1.7 % (2-4); Estimated Glomerular Filt Rate > 60.0 mL/min (>60); Globulin 3.1 g/dL (1.7-4.1); Glucose 117 mg/dL (80-110); HDL Cholesterol 22 mg/dL (40-60); HEMOLYSIS < 15 (0-50); Hematocrit 42.7 % (41-53); Hemoglobin 15.1 g/dL (13.5-17.5); LDL Cholesterol Calculated 57 mg/dL (<100); Lymphocytes Absolute Auto 1500 /uL (1100-4500); Lymphocytes Percent Auto 28.9 % (25-40); Mean Corpuscular HGB Conc 35.3 % (30-36); Mean Corpuscular Hemoglobin 32.8 PG (26-34); Monocytes Absolute Auto 500 /uL (0-900); Monocytes Percent Auto 8.6 % (3-14); Neutrophils Absolute Auto 3200 /uL (1500-7000); Neutrophils Percent Auto 59.4 % (50-75); Platelet Count 223 X10^3/uL (150-400); Potassium 4.5 mmol/L (3.4-5.1); Red Blood Cell Count 4.59 X10^6/uL (4.5-5.9); Red Cell Distribution Width 13.4 % (11.6-14.8); Sodium 139 mmol/L (137-145); Total Protein 7.8 g/dL (6.3-8.2); Triglycerides 137 mg/dL (35-150); White Blood Cell Count 5.3 X10^3/uL (4.5-11.0)
[2019-12-17 13:36] LABS: SARS CoV19 IgG Negative (Negative)
== END ==
PROVIDERS: PCP Internal Medicine; Referring Provider Internal Medicine; Visit Provider Urology
DX: Z03.818 Encounter for observation for suspected exposure to other biological agents ruled out (principal); C61 Malignant neoplasm of prostate; I10 Essential (primary) hypertension; F41.9 Anxiety disorder, unspecified; E78.2 Mixed hyperlipidemia
CPT/HCPCS: 36415; 80053; 80061; 84153; 85025; 86769

== ENCOUNTER → 2020-04-30 12:46 | Outpatient (CLI) | payer MEDICARE, OTHER, SELFPAY ==
--- NOTE | 2020-04-30 | DI.RAD.S_ITS ---
PROCEDURE: XR DEXA AXIAL SKELETON INDICATIONS: Age-related osteoporosis without current pathologi COMPARISON: [facility], , DEXA AXIAL SKELETON, 11/30/2015, 15:39. FINDINGS: This blank DEXA report has been sent in error by the PACS system. The correct and complete report will be forthcoming in 1-2 days. Thank you for your patience and understanding. Dictated by: Tristen Mitchell M.D. on 04/30/2020 at 15:33 Approved by: Tristen Mitchell M.D. on 04/30/2020 at 15:33
== END ==
PROVIDERS: PCP Internal Medicine; Referring Provider Internal Medicine; Visit Provider Internal Medicine
DX: M85.851 Other specified disorders of bone density and structure, right thigh (principal); Z82.62 Family history of osteoporosis
CPT/HCPCS: 77080

== ENCOUNTER → 2020-08-28 15:56 | Outpatient (CLI) | payer MEDICARE, OTHER, SELFPAY ==
--- NOTE | 2020-08-28 | DI.ECHO.S_ITS ---
[facility]+ [facility] +---------+ : : [address] : [address] : : : : [id number] : : : : Phone: [phone]---------+ Echocardiogram Report + + :Name: SERAFIN HOYT Study Date: 08/28/2020 Height: 77 in : :[facility] ReadingLocation: Weight: 247 lb : : Gender: Male BSA: 2.4 m2 : :: 1950 Age: 70 yrs BP: 170/98 mmHg: :Reason For Study: THORACIC AORTIC ECTASIA : :Ordering Physician: FROILAN, : :JONY Performed By: Lydia García : :Referring: JONY MCGOVERN : + + Interpretation Summary The patient was in sinus bradycardia with heart rates between 41-47 bpm during the exam. The left ventricle is normal in size. The ejection fraction is estimated to be 65-70%. There has been no significant change in LVEF since the previous exam. The right ventricle is mildly dilated. The right ventricular systolic function is normal. There is mild to moderate aortic regurgitation. Compared to the prior echo study, there has been no change in the severity of aortic regurgitation. The ascending aorta is moderately enlarged. 4.8 cm in diameter. In December 17, 2016 it was 4.7 cm in diameter. Mild atherosclerotic plaque(s) in the aortic arch. Procedure: A two-dimensional transthoracic echocardiogram with color flow and Doppler was performed. The study quality was technically adequate. Comparison is made with the echocardiogram of 12/17/2016. The patient was in sinus bradycardia with heart rates between 41-47 bpm during the exam. Left Ventricle: The left ventricle is normal in size. There is mild concentric left ventricular hypertrophy. There is no thrombus. The ejection fraction is estimated to be 65-70%. There has been no significant change since the previous exam. There are no focal wall motion abnormalities. MV E/A: 0.95 Med Peak E' Christian: 4.1 cm/sec E/E' med: 17.3. Right Ventricle: The right ventricle is mildly dilated. The right ventricular systolic function is normal. Atria: The left atrium is mildly dilated. The left atrium has mildly decreased in size since the prior echo exam. Right atrial size is normal. There is no Doppler evidence for an interatrial shunt. Mitral Valve: The mitral valve leaflets are slightly calcified. There is mild mitral annular calcification. There is systolic anterior motion of the chordal apparatus. There is mild mitral regurgitation. Aortic Valve: The aortic valve is slightly calcified. The aortic valve is trileaflet. The aortic valve opens well. There is no aortic valve stenosis. There is mild to moderate aortic regurgitation. Compared to the prior echo study, there has been no change in the severity of aortic regurgitation. Tricuspid Valve: The tricuspid valve is normal. There is mild tricuspid regurgitation. Pulmonary artery pressures cannot be estimated because of the lack of a measurable TR jet velocity. Compared to the prior echo exam, there has been no change in TR severity. Pulmonic Valve: The pulmonic valve is not well visualized. There is mild pulmonic regurgitation. Great Vessels: The aortic root is mildly dilated. The ascending aorta is moderately enlarged. Mild atherosclerotic plaque(s) in the aortic arch. The inferior vena cava was not well visualized. Pericardium/ Pleura There is no pericardial effusion. There is no pleural effusion. MMode/2D Measurements & Calculations LVIDd: 5.7 cm LVOT diam: 2.6 cm LVIDs: 3.2 cm Ao root diam: 4.3 cm FS: 43.2 % asc Aorta Diam: 4.8 cm EPSS: 0.58 cm Ao Arch Diam (Prox Trans): 2.8 cm IVSd: 1.3 cm LVPWd: 1.3 cm LV pittman. diameter/BSA (cm/m^2): 2.3 LV sys. diameter/BSA (cm/m^2): 1.3 LA A2 area: 26.5 cm2 RA long axis: 5.3 cm LA A4 area: 23.3 cm2 RA area: 19.1 cm2 LA length (vol): 5.8 cm RA vol: 58.5 ml LA vol: 91.1 ml RA : 23.9 ml/m2 LA vol index: 37.2 ml/m2 RVD1 (basal): 4.5 cm TAPSE: 2.3 cm Doppler Measurements & Calculations Ao V2 max: 176.2 cm/sec LVOT Max Christian: 102.1 cm/sec Ao V2 mean: 123.2 cm/sec LV V1 max P.2 mmHg Ao max P.4 mmHg LV V1 VTI: 23.9 cm Ao mean P.6 mmHg ERUM(I,D): 3.2 cm2 Ao V2 VTI: 39.4 cm ERUM(V,D): 3.1 cm2 sev ratio: 0.61 ERUM indexed to BSA (cm^2/m^2): 1.3 AI P1/2t: 1155 msec AI dec slope: 131.7 cm/sec2 MV E max christian: 71.6 cm/sec PA V2 max: 50.6 cm/sec MV A max christian: 75.6 cm/sec PA V2 mean: 32.0 cm/sec MV E/A: 0.95 PA mean P.48 mmHg Med Peak E' Christian: 4.1 cm/sec PA Accel Time: 0.12 sec E/E' med: 17.3 Lat Peak E' Christian: 6.3 cm/sec E/E' lat: 11.4 E/e' average: 14.4 MV dec time: 0.20 sec SV(LVOT): 126.5 ml Reading Physician:12:42 PM
== END ==
PROVIDERS: PCP Internal Medicine; Referring Provider Internal Medicine Cardiovascular Disease; Visit Provider Internal Medicine Cardiovascular Disease
DX: I08.3 Combined rheumatic disorders of mitral, aortic and tricuspid valves (principal); I77.810 Thoracic aortic ectasia
CPT/HCPCS: 93306

== ENCOUNTER → 2020-09-21 10:28 | Outpatient (CLI) | payer MEDICARE, OTHER, SELFPAY | PROVIDERS: PCP Internal Medicine; Referring Provider Urology; Visit Provider Urology | DX: R97.20 Elevated prostate specific antigen [PSA] (principal) | CPT/HCPCS: 36415; 84153 ==

== ENCOUNTER → 2020-10-25 10:15 | Outpatient (CLI) | payer MEDICARE, OTHER, SELFPAY ==
[2020-10-25 11:38] LABS: BUN Creatinine Ratio 21.8 (6-22); Blood Urea Nitrogen 19 mg/dL (9-20); Calcium 9.9 mg/dL (8.4-10.2); Carbon Dioxide 26 mmol/L (22-32); Chloride 102 mmol/L (98-107); Estimated Glomerular Filt Rate > 60.0 mL/min (>60); Glucose 112 mg/dL (80-110); HEMOLYSIS < 15 (0-50); Sodium 137 mmol/L (137-145)
== END ==
PROVIDERS: PCP Internal Medicine; Referring Provider Internal Medicine Cardiovascular Disease; Visit Provider Internal Medicine Cardiovascular Disease
DX: I10 Essential (primary) hypertension (principal)
CPT/HCPCS: 36415; 80048

== ENCOUNTER → 2021-02-22 10:27 | Outpatient (CLI) | payer MEDICARE, OTHER, SELFPAY ==
[2021-02-22 12:28] LABS: BUN Creatinine Ratio 18.8 (6-22); Blood Urea Nitrogen 15 mg/dL (9-20); Calcium 9.6 mg/dL (8.4-10.2); Carbon Dioxide 24 mmol/L (22-32); Chloride 106 mmol/L (98-107); Estimated Glomerular Filt Rate > 60.0 mL/min (>60); Glucose 113 mg/dL (80-110); HEMOLYSIS < 15 (0-50); Potassium 4.1 mmol/L (3.4-5.1); Sodium 139 mmol/L (137-145)
== END ==
PROVIDERS: PCP Internal Medicine; Referring Provider Internal Medicine Cardiovascular Disease; Visit Provider Internal Medicine Cardiovascular Disease
DX: I10 Essential (primary) hypertension (principal)
CPT/HCPCS: 36415; 80048

== ENCOUNTER → 2021-03-07 10:23 | Outpatient (CLI) | payer MEDICARE, OTHER, SELFPAY ==
--- NOTE | 2021-03-07 | DI.RAD.S_ITS ---
PROCEDURE: XR HAND RT 2V INDICATIONS: PAIN TECHNIQUE: 3 views of the hand acquired. COMPARISON: [facility], , HAND 3V RIGHT, 10/26/2008, 8:16. FINDINGS: Bones: No acute fracture or dislocation. Subtle lucency at the ulnar base of the 4th proximal phalanx could represent a small chronic erosion. Severe degenerative changes are seen at the 1st carpometacarpal joint. Mild joint space narrowing is seen throughout the interphalangeal joints. Soft tissues: No suspicious soft tissue calcifications. IMPRESSION: 1. Severe osteoarthrosis of the 1st carpometacarpal joint. Scattered nonspecific joint space narrowing is seen in the interphalangeal joints. 2. Possible small chronic erosion at the base of the 4th proximal phalanx. An inflammatory arthritis is not excluded. Dictated by: Favio Ya M.D. on 03/07/2021 at 12:22 Approved by: Favio Ya M.D. on 03/07/2021 at 12:27
--- NOTE | 2021-03-07 | DI.RAD.S_ITS ---
PROCEDURE: XR HIP W PEL IF DONE BILAT 2V INDICATIONS: PAIN TECHNIQUE: Two views of the bilateral hips. COMPARISON: None. FINDINGS: Bones: There is CAM type femoroacetabular impingement morphology bilaterally. Overall moderate osteoarthritic changes in both femoroacetabular joints. There is joint space narrowing with subchondral sclerosis and marginal osteophytosis. No suspicious lytic or blastic osseous lesion. Soft tissues: No suspicious soft tissue calcifications or masses. 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 Dictated by: Silviano Singh M.D. on 03/07/2021 at 13:03 Approved by: Silviano Singh M.D. on 03/07/2021 at 13:04
--- NOTE | 2021-03-07 10:27 | DI.RAD.S_ITS ---
PROCEDURE: XR HAND LT MIN 3V INDICATIONS: PRIMARY OSTEOARTHRITIS, UNSPECIFIED SITE TECHNIQUE: 3 views of the hand(s) acquired. COMPARISON: None. FINDINGS: Moderate osteoarthritis in the 1st metacarpophalangeal and CMC joints. Mild osteoarthritis in the triscaphe joint. Mild osteoarthritis in the 1st interphalangeal joint. Mild to moderate osteoarthritic change in the distal radial ulnar joint and in the radiocarpal joints. IMPRESSION: [id number] osteoarthritic change in the wrist and carpus as described above. Dictated by: Silviano Singh M.D. on 03/07/2021 at 13:02 Approved by: Silviano Singh M.D. on 03/07/2021 at 13:03
[2021-03-07 12:24] LABS: Thyroid Stimulating Hormone 1.57 uIU/mL (0.47-4.68)
== END ==
PROVIDERS: PCP Internal Medicine; Referring Provider Internal Medicine; Visit Provider Internal Medicine Cardiovascular Disease
DX: R00.2 Palpitations (principal); I10 Essential (primary) hypertension; M19.91 Primary osteoarthritis, unspecified site
CPT/HCPCS: 36415; 73130; 73522; 83735; 84443

== ENCOUNTER → 2021-03-13 11:52 | Outpatient (CLI) | payer MEDICARE, OTHER, SELFPAY ==
[2021-03-13 12:50] LABS: Alanine Aminotransferase 56 IU/L (<50); Albumin 4.6 g/dL (3.5-5.0); Albumin Globulin Ratio 1.7 (1.0-2.8); Alkaline Phosphatase 55 U/L (38-126); Aspartate Aminotransferase 47 IU/L (17-59); BUN Creatinine Ratio 14.8 (6-22); Bilirubin Total 0.8 mg/dL (0.2-1.3); Blood Urea Nitrogen 12 mg/dL (9-20); Calcium 9.6 mg/dL (8.4-10.2); Carbon Dioxide 23 mmol/L (22-32); Chloride 106 mmol/L (98-107); Estimated Glomerular Filt Rate > 60.0 mL/min (>60); Globulin 2.7 g/dL (1.7-4.1); Glucose 107 mg/dL (80-110); HEMOLYSIS < 15 (0-50); Potassium 3.8 mmol/L (3.4-5.1); Sodium 138 mmol/L (137-145); Total Protein 7.3 g/dL (6.3-8.2)
== END ==
PROVIDERS: PCP Internal Medicine; Referring Provider Internal Medicine Cardiovascular Disease; Visit Provider Internal Medicine Cardiovascular Disease
DX: R00.2 Palpitations (principal); I10 Essential (primary) hypertension; I65.23 Occlusion and stenosis of bilateral carotid arteries; I44.4 Left anterior fascicular block; I35.1 Nonrheumatic aortic (valve) insufficiency
CPT/HCPCS: 36415; 80053

== ENCOUNTER → 2021-03-14 09:33 | Outpatient (CLI) | payer MEDICARE, OTHER, SELFPAY ==
--- NOTE | 2021-03-14 | DI.US.S_ITS ---
PROCEDURE: US CAROTID DOPPLER BI INDICATIONS: CAROTID ARTERY DISEASE TECHNIQUE: Color and pulse Doppler interrogation was performed of both carotid systems, with image documentation and velocity measurements. COMPARISON: [facility], , CAROTID ARTERY DOPPLER BILAT, 02/17/2014, 12:36. [facility], , US CAROTID DOPPLER BI, 08/27/2018, 10:40. FINDINGS: Stenosis calculations are based on SRU (Society of Radiologists in Ultrasound) criteria. Right side: Brachial blood pressure: 183/93 mm Hg. Common carotid artery peak systolic velocity: 111 cm/sec. Internal carotid artery peak systolic velocity: 80 cm/sec. Internal carotid artery end diastolic velocity: 23 cm/sec. External carotid artery peak systolic velocity: 96 cm/sec. ICA/CCA peak systolic ratio: 0.72. Sweeney scale imaging description: Calcified plaques at the bifurcation. Percent internal carotid artery stenosis: Less than 50%. Vertebral artery: Flow direction is antegrade. Left side: Brachial blood pressure: 193/98 mm Hg. Common carotid artery peak systolic velocity: 122 cm/sec. Internal carotid artery peak systolic velocity: 140 cm/sec. Internal carotid artery end diastolic velocity: 24 cm/sec. External carotid artery peak systolic velocity: 143 cm/sec. ICA/CCA peak systolic ratio: 1.1. Sweeney scale imaging description: 50-69% Percent internal carotid artery stenosis: Calcified plaques at the bifurcation. Vertebral artery: Flow direction is antegrade. IMPRESSION: 1. 50-69% stenosis of the left internal carotid artery. 2. Less than 50% stenosis of the right internal carotid artery. 3. Antegrade vertebral artery flow bilaterally. 4. No significant change from the last exam. Dictated by: Darby Dash M.D. on 03/14/2021 at 16:01 Approved by: Darby Dash M.D. on 03/14/2021 at 16:57
--- NOTE | 2021-03-14 10:00 | DI.CT.S_ITS ---
PROCEDURE: CT ANGIO CHEST ABDOMEN INDICATIONS: Occlusion and stenosis Thoracic aortic ectasia TECHNIQUE: Precontrast 5 mm thick sections acquired from the lung apices to the iliac crests. After the administration of intravenous contrast, 2.5 mm thick sections again acquired from the lung apices to the iliac crests. 10 mm maximum intensity projection (MIP) oblique sagittal and coronal reformats were then acquired. For radiation dose reduction, the following was used: automated exposure control. COMPARISON: [facility], CT, ANGIOGRAPHY CHEST AND ABDOMEN, 02/20/2017, 13:51. FINDINGS: Image quality: Excellent. AORTA: There is mild dilatation of the sinuses of Valsalva, measuring 47 mm diameter. There is mild fusiform dilatation of the mid ascending thoracic aorta measuring 47 mm. Thoracic aortic arch and descending thoracic aorta are within normal limits. No aortic dissection. CHEST: Lungs and pleura: No acute airspace opacities. Previously seen right lung nodules are unchanged, largest of which is in the right upper lobe posteriorly, measuring roughly 11 mm diameter. No new pulmonary nodules are present. No pleural effusions or pneumothorax. Central and peripheral airways are patent and normal in caliber. Mediastinum: Heart size is normal. Moderate atherosclerotic calcification of the coronary vasculature. No pericardial effusion. No mediastinal or hilar adenopathy by size criteria. Central pulmonary arteries are normal in size. Esophagus is normal in caliber. No hiatal hernias. Bones and chest wall: No axillary adenopathy by size criteria. Thyroid gland is within normal limits . No suspicious bony lesions. No vertebral body compression fractures. ABDOMEN: Vasculature: Celiac trunk and mesenteric arteries are patent. Renal arteries are also patent. Solid organs: Liver is enlarged and demonstrates diffusely decreased density, indicating fatty infiltration.. Gallbladder is within normal limits . Biliary system is non dilated. Pancreas enhances normally. Spleen is normal in size and enhancement. Multiple splenic calcifications are present. No adrenal nodules. Both kidneys are normal in size . Multiple right renal cysts are present. No hydronephrosis. Peritoneum and bowel: No free fluid or air. Bowel loops are normal in caliber and wall thickness. Nodes and vessels: No retroperitoneal or mesenteric adenopathy by size criteria. Inferior vena cava is normal in morphology. Bones: No suspicious bony lesions. No vertebral body compression fractures. Miscellaneous: No ventral hernias. IMPRESSION: 1. No significant change in mild fusiform dilatation of the aortic root and ascending thoracic aorta. 2. Coronary artery disease. 3. Remote granulomatous disease. 4. No change in right lung nodules. 5. Hepatic steatosis. Dictated by: Noy Hagan M.D. on 03/14/2021 at 10:49 Approved by: Noy Hagan M.D. on 03/14/2021 at 11:03
== END ==
PROVIDERS: PCP Internal Medicine; Referring Provider Internal Medicine Cardiovascular Disease; Visit Provider Internal Medicine Cardiovascular Disease
DX: I65.23 Occlusion and stenosis of bilateral carotid arteries (principal); I77.810 Thoracic aortic ectasia; R91.8 Other nonspecific abnormal finding of lung field; I25.10 Atherosclerotic heart disease of native coronary artery without angina pectoris; K76.0 Fatty (change of) liver, not elsewhere classified
CPT/HCPCS: 71275; 74175; 93880

== ENCOUNTER → 2021-05-14 14:56 | Outpatient (CLI) | payer MEDICARE, OTHER, SELFPAY ==
[2021-05-14 16:28] LABS: Prostate Specific Antigen 5.27 ng/mL (0.10-4.00)
== END ==
PROVIDERS: PCP Internal Medicine; Referring Provider Urology; Visit Provider Urology
DX: C61 Malignant neoplasm of prostate (principal)
CPT/HCPCS: 36415; 84153

== ENCOUNTER → 2021-12-08 10:25 | Outpatient (CLI) | payer MEDICARE, OTHER, SELFPAY ==
--- NOTE | 2021-12-08 10:28 | DI.MRI.S_ITS ---
PROCEDURE: MR SHOULDER RT WO CON INDICATIONS: TENDINOPATHY OF RIGHT ROTATOR CUFF TECHNIQUE: Noncontrast oblique coronal T2 fast spin echo with fat saturation, oblique sagittal T1 spin echo and T2 fast spin echo with fat saturation, axial T1 spin echo and T2 fast spin echo with fat saturation through the shoulder. COMPARISON: [facility], MR, SHOULDER WITHOUT CONTRAST, 08/12/2017, 17:22. FINDINGS: Image quality: Excellent. Rotator cuff: Low to moderate grade articular and bursal surface partial thickness tear involving distal supraspinatus at its insertion on the humeral head is seen extending to musculotendinous junction. Tendinosis and low-grade articular and bursal surface partial thickness tear involving distal infraspinatus is also noted extending to musculotendinous junction. Tendinosis and low-grade intrasubstance partial-thickness tear involving distal subscapularis is seen. No full-thickness rotator cuff tendon rupture. Sagittal images demonstrate very mild supraspinatus muscle atrophy. Bones and bursae: No bone marrow contusions or fractures. Moderate acromioclavicular joint osteoarthritic changes are seen with joint space narrowing and downward osteophyte formation depressing the musculotendinous junction of supraspinatus. The acromion demonstrates conventional anatomy, without an os acromiale. Moderate glenohumeral joint osteoarthritic changes also noted with joint space narrowing and subchondral sclerosis. There is moderate amount of joint fluid and subacromial subdeltoid bursal fluid. Capsule and soft tissues: Signal abnormality and contour irregularity involving superior anterior labrum at 12 to 1 o'clock position is seen suggestive of subtle superior anterior labral tear. The glenohumeral ligaments are intact. The long head of the biceps tendinosis and low-grade intrasubstance partial-thickness tear is seen. The rotator interval appears normal, without fibrosis. The coracohumeral ligament is normal in thickness. IMPRESSION: 1. Low to moderate grade articular and bursal surface partial thickness tear involving distal supraspinatus and infraspinatus extending to musculotendinous junction. Tendinosis and low-grade intrasubstance partial-thickness tear involving distal subscapularis. No full-thickness rotator cuff tendon rupture. Very mild supraspinatus muscle atrophy. 2. Moderate acromioclavicular joint and glenohumeral joint osteoarthritis. No fracture or dislocation. Moderate amount of joint fluid and subacromial subdeltoid bursal fluid. 3. Suggestion of subtle superior anterior labral tear at 12 to 1 o'clock position. 4. Tendinosis and low-grade intrasubstance partial-thickness tear involving proximal intra-articular portion of long head of biceps. Dictated by: Tristen Mitchell M.D. on 12/09/2021 at 8:16 Approved by: Tristen Mitchell M.D. on 12/09/2021 at 8:19
== END ==
PROVIDERS: PCP Internal Medicine; Referring Provider Orthopaedic Surgery; Visit Provider Orthopaedic Surgery
DX: M75.111 Incomplete rotator cuff tear or rupture of right shoulder, not specified as traumatic (principal); M19.011 Primary osteoarthritis, right shoulder; S46.111A Strain of muscle, fascia and tendon of long head of biceps, right arm, initial encounter
CPT/HCPCS: 73221

== ENCOUNTER 2022-01-09 14:40 | Emergency (ER) | payer MEDICARE, OTHER, SELFPAY ==
[2022-01-09 14:40] VITALS: BP 167/88; PULSE 90; RESP 18; TEMP 37.3; O2SAT 100; BMI 29.7
--- NOTE | 2022-01-09 14:53 | DI.RAD.S_ITS ---
PROCEDURE: XR CHEST 1V INDICATIONS: suspected sepsis TECHNIQUE: One view of the chest was acquired. COMPARISON: [facility], CR, XR CHEST 1V, 02/09/2019, 10:37. FINDINGS: Surgical changes and devices: None. Lungs and pleura: Hazy airspace opacity in the medial right upper lobe. No pleural effusions or pneumothorax. Mediastinum: Mediastinal contours appear normal. Heart size is normal. Bones and chest wall: No suspicious bony lesions. Overlying soft tissues appear unremarkable. IMPRESSION: Hazy airspace opacity in the right upper lobe would be consistent with infectious infiltrate. Dictated by: Silviano Singh M.D. on 01/09/2022 at 15:15 Approved by: Silviano Singh M.D. on 01/09/2022 at 15:16
[2022-01-09 15:09] VITALS: PULSE 80; O2SAT 95
[2022-01-09 15:13] LABS: Add Manual Diff / Slide Review NO; Basophils Absolute Auto 100 /uL (0-100); Basophils Percent Auto 0.6 % (0-2); Eosinophils Absolute Auto 0 /uL (0-450); Eosinophils Percent Auto 0.2 % (2-4); Hematocrit 28.8 % (41-53); Hemoglobin 10.1 g/dL (13.5-17.5); Lymphocytes Absolute Auto 1000 /uL (1100-4500); Lymphocytes Percent Auto 6.5 % (25-40); Mean Corpuscular Hemoglobin 32.1 PG (26-34); Mean Corpuscular Volume 91.7 fL (80-100); Monocytes Absolute Auto 1500 /uL (0-900); Monocytes Percent Auto 10.3 % (3-14); Neutrophils Absolute Auto 12200 /uL (1500-7000); Neutrophils Percent Auto 82.4 % (50-75); Platelet Count 346 X10^3/uL (150-400); Red Blood Cell Count 3.15 X10^6/uL (4.5-5.9); Red Cell Distribution Width 13.3 % (11.6-14.8); White Blood Cell Count 14.8 X10^3/uL (4.5-11.0)
--- NOTE | 2022-01-09 15:15 | ED_ITS ---
HPI - Fever General Chief Complaint: Fever Stated Complaint: Sudden fever, knee replacement 9 days ago Time Seen by Provider: 01/09/22 15:08 Source: patient Mode of arrival: Wheelchair History of Present Illness HPI Narrative: 71-year-old male nonsmoker with history of hypertension and hyperlipidemia presents with his for evaluation of a fever for the past few hours. He states that he had a right knee surgery at [facility] 9 days ago and has largely felt fine well with the exception of some knee pain in the aftermath . He denies any increasing pain, redness or swelling of his knee denies any drainage though his postoperative bandage is still in place. He states that he has had some harsh sounding cough over the past few days but denies any runny nose or sore throat. He denies any significant shortness of breath. He has had no nausea, vomiting or diarrhea. Related Data Home Medications Medication Instructions Recorded Confirmed lisinopril 40 mg tablet 40 mg PO DAILY 08/09/18 09/27/21 atorvastatin 20 mg tablet 20 mg PO QPM 02/09/19 09/27/21 cholecalciferol (vitamin D3) 125 5,000 unit PO QPM 02/09/19 09/27/21 mcg (5,000 unit) tablet (Vitamin D3) ibuprofen 200 mg tablet 200 mg PO Q6H PRN pain 02/09/19 09/27/21 metoprolol succinate 50 mg 25 mg PO DAILY 02/09/19 09/27/21 tablet,extended release 24 hr [id number]-spj-qjqov acid 0.4 1 tab PO DAILY 02/09/19 09/27/21 mg-lycopene 300 mcg-lutein 250 mcg tablet (Centrum Silver) potassium chloride 10 mEq 10 meq PO BID 02/09/19 09/27/21 tablet,extended release (Klor-Con) spironolactone 25 mg tablet 12.5 mg PO DAILY 01/06/20 09/27/21 amlodipine 5 mg tablet 5 mg PO DAILY 07/03/20 09/27/21 Previous Rx's Medication Instructions Recorded clonidine HCl 0.1 mg 0.1 mg PO BID #60 tabs 09/27/21 tablet,extended release,12 hr sertraline 50 mg tablet 75 mg PO BID #90 tabs 09/27/21 amoxicillin 500 mg capsule 1,000 mg PO Q8H 5 days #30 caps 01/09/22 Allergies Allergy/AdvReac Type Severity Reaction Status Date / Time No Known Drug Allergies Allergy Verified 09/27/21 11:29 Review of Systems Review of Systems Narrative: GENERAL: See HPI HEENT: Denies sinus pain, ear pain, sore throat, difficulty swallowing, dizziness. RESPIRATORY: See HPI CARDIOVASCULAR: Denies chest pain, palpitations, orthopnea, edema, GASTROINTESTINAL: Denies nausea, vomiting, abdominal pain, diarrhea, consti pation, melena. : Denies dysuria, frequency, incontinence, hematuria, urinary retention. MUSCULOSKELETAL: d see HPI SKIN: Denies rash, skin lesions, or other NEUROLOGIC: Denies weakness, headache, numbness, change in speech, confusion, seizures, incoordination. PSYCHIATRIC: No concerning psychosocial issues. 12 point review of systems is negative except for those stated above Patient History Medical History Obstructive sleep apnea of adult (~04/2018) Snoring (~2003) Surgical History No pertinent past surgical history Social History marital status: details: flavio Bowden, lives in [place] household members: spouse lives independently: Yes caregiver/support person: No housing: house education level: college occupational status: employed Smoking Status: Never smoker alcohol intake: former substance use type: former substance user Smoking Status: Never smoker alcohol intake frequency: 0-2 drinks per day Substance Use Type: marijuana Exam Narrative Exam Narrative: GENERAL: [71] year old patient appears stated age. Well-developed patient, in no obvious or significant distress, no increased work of breathing HEAD: Atraumatic. Normocephalic. EYES: Pupils equal round and reactive. Extraocular motions intact. No scleral icterus. No injection or drainage. ENT: Nose without bleeding, purulent drainage. Throat without erythema, tonsillar hypertrophy or exudate. Airway patent. NECK: Trachea midline. Non tender CARDIOVASCULAR: Regular rate and rhythm without murmurs, gallops, or rubs. RESPIRATORY: Faint crackles in right upper lobe, no increased work of breathing, use of accessory muscles or hypoxemia GASTROINTESTINAL: Abdomen soft, non-tender, nondistended. EXTREMITIES: Surgical site is with expected edema and erythema, incision is clean, dry and intact, no significant effusion, erythema or fluctuance, there is some ecchymosis distal to the knee, no calf pain or swelling, no medial thigh pain or swelling. BACK: Nontender without deformity or crepitance. No flank tenderness. NEURO: AOx3. SKIN: No rash or erythema of visible areas Initial Vital Signs Initial Vital Signs: Vital Signs Temperature 99.2 F 01/09/22 14:40 Pulse Rate 90 01/09/22 14:40 Respiratory Rate 18 01/09/22 14:40 Blood Pressure 167/88 H 01/09/22 14:40 Pulse Oximetry 100 01/09/22 14:40 Oxygen Delivery Method 01/09/22 14:40 Course Orders Ordered: ED Orders 01/09/22 14:46 COVID19 -Nasal RAPID/Pre-Proc Stat 01/09/22 14:53 XR chest 1V Stat Complete Blood Count AUTO DIFF Stat Comprehensive Metabolic Panel Stat Lactate (Lactic Acid) Stat Lipase Stat Partial Thromboplastin Time Stat Procalcitonin Stat Prothrombin Time INR Stat EKG-12 Lead Stat RT Consult Eval and Treat NOW 01/09/22 16:05 Ictotest Urine Stat Urinalysis and Microscopic Stat 01/09/22 16:10 Blood Culture Stat Discontinued Medications Hydrocodone Bitart/Acetaminophen (Hydrocodone/Acet 5/325 Tablet) 1 tab PO NOW ONE Stop: 01/09/22 17:13 Last Admin: 01/09/22 17:21 Dose: 1 tab Documented By: SCOTTIE Sodium Chloride (Normal Saline 0.9%) 1,000 mls @ 1,000 mls/hr IV BOLUS ONE Stop: 01/09/22 15:51 Last Infusion: 01/09/22 17:25 Dose: 0 mls/hr Documented By: Admin: 01/09/22 15:17 Dose: 1,000 mls/hr Documented By: SCOTTIE Ceftriaxone Sodium 2,000 mg/ (Sodium Chloride) 100 mls @ 200 mls/hr IV NOW ONE Stop: 01/09/22 17:03 Last Admin: 01/09/22 17:24 Dose: 200 mls/hr Documented By: SCOTTIE Consultations Consultation #1: discussed with senior sales operations analyst ortho at [facility], comfortable with the plan, no additional input given Vital Signs Vital signs: Vital Signs - 8 hr 01/09/22 14:40 06/16/22 15:09 01/09/22 18:29 Temperature 99.2 F Pulse Rate 90 80 76 Respiratory Rate 18 16 Blood Pressure 167/88 H 176/86 H Pulse Oximetry 100 95 99 Oxygen Delivery Method Room Air Room Air MDM - Fever Lab Data Result diagrams: 01/09/22 14:53 01/09/22 14:53 Labs: Lab Results 01/09/22 01/09/22 01/09/22 Range/Units 14:46 14:53 14:53 WBC 14.8 H (4.5-11.0) X10^3/uL RBC 3.15 L (4.5-5.9) X10^6/uL Hgb 10.1 L (13.5-17.5) g/dL Hct 28.8 L (41-53) % MCV 91.7 (80-100) fL MCH 32.1 (26-34) PG MCHC 35.0 (30-36) % RDW 13.3 (11.6-14.8) % Plt Count 346 (150-400) X10^3/uL Neut % (Auto) 82.4 H (50-75) % Lymph % (Auto) 6.5 L (25-40) % [place] % (Auto) 10.3 (3-14) % Eos % (Auto) 0.2 L (2-4) % Baso % (Auto) 0.6 (0-2) % Neut # (Auto) 70424 H (4949-7999) /uL Lymph # (Auto) 1000 L (9850-9019) /uL [place] # (Auto) 1500 H (0-900) /uL Eos # (Auto) 0 (0-450) /uL Baso # (Auto) 100 (0-100) /uL PT 13.3 H (10.1-12.7) SECONDS INR 1.2 (0.9-1.3) APTT 32 (26.4-36.2) SECONDS Sodium (137-145) mmol/L Potassium (3.4-5.1) mmol/L Chloride (98-107) mmol/L Carbon Dioxide (22-32) mmol/L BUN (9-20) mg/dL Creatinine (0.66-1.25) mg/dL Estimated GFR (>60) mL/min BUN/Creatinine Ratio (6-22) Glucose (80-110) mg/dL Lactate (0.7-2.1) mmol/L Calcium (8.4-10.2) mg/dL Total Bilirubin (0.2-1.3) mg/dL AST (17-59) IU/L ALT (<50) IU/L Alkaline Phosphatase (38-126) U/L Total Protein (6.3-8.2) g/dL Albumin (3.5-5.0) g/dL Globulin (1.7-4.1) g/dL Albumin/Globulin Ratio (1.0-2.8) Lipase (23-300) U/L Procalcitonin (<0.5) ng/mL Urine Color Urine Appearance Urine pH (4.5-8.0) Ur Specific [place] (1.000-1.035) Urine Protein (Negative) Urine Glucose (UA) (Negative) g/dL Urine Ketones (NEGATIVE) Urine Occult Blood (Negative) Urine Nitrate (Negative) Urine Bilirubin (NEGATIVE) Ur Bilirubin Confirm (Negative) Urine Urobilinogen (0.2) E.U./dL Ur Leukocyte Esterase (NEGATIVE) Urine RBC (0-5/HPF) Urine WBC (0-5/HPF) Ur Squamous Epith Cells (0-5/HPF) Urine Bacteria (None) Urine Mucus (Negative) Ur Culture Indicated? SARS-CoV-2 (PCR) Negative (Negative) 01/09/22 01/09/22 01/09/22 Range/Units 14:53 14:53 16:05 WBC (4.5-11.0) X10^3/uL RBC (4.5-5.9) X10^6/uL Hgb (13.5-17.5) g/dL Hct (41-53) % MCV (80-100) fL MCH (26-34) PG MCHC (30-36) % RDW (11.6-14.8) % Plt Count (150-400) X10^3/uL Neut % (Auto) (50-75) % Lymph % (Auto) (25-40) % [place] % (Auto) (3-14) % Eos % (Auto) (2-4) % Baso % (Auto) (0-2) % Neut # (Auto) (5883-8526) /uL Lymph # (Auto) (2680-5662) /uL [place] # (Auto) (0-900) /uL Eos # (Auto) (0-450) /uL Baso # (Auto) (0-100) /uL PT (10.1-12.7) SECONDS INR (0.9-1.3) APTT (26.4-36.2) SECONDS Sodium 134 L (137-145) mmol/L Potassium 3.8 (3.4-5.1) mmol/L Chloride 101 (98-107) mmol/L Carbon Dioxide 27 (22-32) mmol/L BUN 15 (9-20) mg/dL Creatinine 0.73 (0.66-1.25) mg/dL Estimated GFR > 60 (>60) mL/min BUN/Creatinine Ratio 20.5 (6-22) Glucose 133 H (80-110) mg/dL Lactate 1.2 (0.7-2.1) mmol/L Calcium 8.7 (8.4-10.2) mg/dL Total Bilirubin 1.8 H (0.2-1.3) mg/dL AST 42 (17-59) IU/L ALT 44 (<50) IU/L Alkaline Phosphatase 108 (38-126) U/L Total Protein 7.3 (6.3-8.2) g/dL Albumin 4.1 (3.5-5.0) g/dL Globulin 3.2 (1.7-4.1) g/dL Albumin/Globulin Ratio 1.3 (1.0-2.8) Lipase 84 (23-300) U/L Procalcitonin 0.22 (<0.5) ng/mL Urine Color Yellow Urine Appearance Clear Urine pH 5.5 (4.5-8.0) Ur Specific [place] 1.015 (1.000-1.035) Urine Protein 1+ H (Negative) Urine Glucose (UA) Negative (Negative) g/dL Urine Ketones Trace H (NEGATIVE) Urine Occult Blood Negative (Negative) Urine Nitrate Negative (Negative) Urine Bilirubin 1+ H (NEGATIVE) Ur Bilirubin Confirm Negative (Negative) Urine Urobilinogen 4.0 H (0.2) E.U./dL Ur Leukocyte Esterase Negative (NEGATIVE) Urine RBC None seen (0-5/HPF) Urine WBC 0-1/hpf (0-5/HPF) Ur Squamous Epith Cells None seen (0-5/HPF) Urine Bacteria None seen (None) Urine Mucus 1+ H (Negative) Ur Culture Indicated? Cult not indicated SARS-CoV-2 (PCR) (Negative) Imaging Data Chest x-ray: Radiologist's Impression: Kike Obrien III?(Bill)??71??M??1950 ? Allergy/Adv: No Known Drug Allergies (More??) Close Chest X-Ray (Signed) Silviano Singh - 01/09/22 Shoulder MRI (Signed) Tristen Mitchell - 12/08/21 Chest/Abdomen CTA (Signed) Noy Hagan - 03/14/21 Carotid Doppler Study (Signed) Deepa Dash - 03/14/21 Hand X-Ray (Signed) Silviano Singh - 03/07/21 Hip X-Ray (Signed) Silviano Singh - 03/07/21 Hand X-Ray (Signed) Favio Ya - 03/07/21 Echocardiogram Ultrasound (Signed) Elana Chu - 08/28/20 Bone Densitometry (Signed) Tristen Mitchell - 04/30/[address] (Signed) Noy Hagan - 04/05/19 Cervical Spine MRI (Signed) Oksana Young - 04/01/19 Chest X-Ray (Signed) Ovi Pinzon - 02/09/19 Telemetry Strips 02/09/19 Carotid Doppler Study (Signed) Ken Garcia - 08/27/[address] (Signed) Nima Dougherty - 07/15/18 Launch?[address] [address] XRay Report Signed Patient: Kike Obrien III MR#: [id number] : 1950 Acct:[id number] Age/Sex: 71 / M Date of Service: 01/09/22 Loc: ED Accession Number: [id number] ?? Procedure: XR chest 1V Ordering Provider: Kaleb Rosas D.O. PROCEDURE:? XR CHEST 1V ? INDICATIONS:? suspected sepsis ? TECHNIQUE:? One view of the chest was acquired.? ? COMPARISON:? [facility], CR, XR CHEST 1V, 02/09/2019, 10:37. ? FINDINGS:? ? Surgical changes and devices:? None.? ? Lungs and pleura:? Hazy airspace opacity in the medial right upper lobe.? No pleural effusions or pneumothorax.? ? Mediastinum:? Mediastinal contours appear normal.? Heart size is normal.? ? Bones and chest wall:? No suspicious bony lesions.? Overlying soft tissues appear unremarkable.? ? IMPRESSION:? Hazy airspace opacity in the right upper lobe would be consistent with infectious infiltrate.? ? ? Dictated by: Silviano Singh M.D. on 01/09/2022 at 15:15 ? ? Approved by: Silviano Singh M.D. on 01/09/2022 at 15:16 ? MDM Narrative Medical decision making narrative: Patient is very well-appearing with no signs of sepsis. He has no respiratory distress, increased work of breathing or need for supplemental oxygen. Surgical wound appears well without any sign of infection. Antibiotics given in department, prescription sent to his pharmacy of choice, return precautions discussed and questions answered to his apparent satisfaction Discharge Plan Departure Patient Disposition: Home Clinical Impression: Right upper lobe pneumonia Instructions: Pneumonia-Adult Activity Restrictions/Additional Instructions: *You have been diagnosed with [acute right upper lobe pneumonia. As we discussed your evaluation is very reassuring and there is no indication that your knee is the source of this fever.] *What to do: *Please continue to take your regular medications as directed. [ x] New medication prescriptions sent to your pharmacy: [ [facility]] [ ] New medication written as a paper prescription [ ] No new medications given *Please follow up with your primary care provider in 2-3 days, call for an appointment. Let them know you were seen in the Emergency Department and that we ask that you be seen in follow up. We will electronically transmit a record of today's note if your PCP is in our system *If you do not have a primary care provider please contact the [facility] Resource line at [phone]. They will ask some questions about your medical history and help get you set up with a doctor in the community. *Return to Emergency Department if you should have any new, worsening or concerning symptoms Prescriptions: New amoxicillin 500 mg capsule 1,000 mg PO Q8H 5 Days Qty: 30 0RF No Action lisinopril 40 mg tablet 40 mg PO DAILY amlodipine 5 mg tablet 5 mg PO DAILY sertraline 50 mg tablet 75 mg PO BID Qty: 90 5RF clonidine HCl 0.1 mg tablet extended release 12 hr 0.1 mg PO BID Qty: 60 0RF spironolactone 25 mg TABLET 12.5 mg PO DAILY atorvastatin 20 mg Tablet 20 mg PO QPM metoprolol succinate 50 mg Tablet Extended Release 24 Hr 25 mg PO DAILY potassium chloride [Klor-Con 10] 10 mEq Tablet Extended Release 10 meq PO BID ibuprofen 200 mg Tablet 200 mg PO Q6H PRN (Reason: pain) Centrum Silver 0.4-300-250 mg-mcg-mcg Tablet 1 tab PO DAILY cholecalciferol (vitamin D3) [Vitamin D3] 5,000 unit Tablet 5,000 unit PO QPM Referrals: Ney Hathaway MD [Primary Care Provider] -
[2022-01-09] MEDS: SODIUM CHLORIDE 0.9% 1,000 ML 1000 ML IV (15:17)
[2022-01-09 15:19] LABS: INR 1.2 (0.9-1.3); Prothrombin Time 13.3 SECONDS (10.1-12.7)
[2022-01-09 15:22] LABS: PTT Partial Thromboplastin Tim 32 SECONDS (26.4-36.2)
[2022-01-09 15:25] LABS: Alanine Aminotransferase 44 IU/L (<50); Albumin 4.1 g/dL (3.5-5.0); Albumin Globulin Ratio 1.3 (1.0-2.8); Alkaline Phosphatase 108 U/L (38-126); Aspartate Aminotransferase 42 IU/L (17-59); BUN Creatinine Ratio 20.5 (6-22); Bilirubin Total 1.8 mg/dL (0.2-1.3); Blood Urea Nitrogen 15 mg/dL (9-20); Calcium 8.7 mg/dL (8.4-10.2); Carbon Dioxide 27 mmol/L (22-32); Chloride 101 mmol/L (98-107); Estimated Glomerular Filt Rate > 60 mL/min (>60); Globulin 3.2 g/dL (1.7-4.1); Glucose 133 mg/dL (80-110); HEMOLYSIS < 15 (0-50); Lactate (Lactic Acid) 1.2 mmol/L (0.7-2.1); Lipase 84 U/L (23-300); Potassium 3.8 mmol/L (3.4-5.1); Sodium 134 mmol/L (137-145); Total Protein 7.3 g/dL (6.3-8.2)
[2022-01-09 15:40] LABS: Procalcitonin 0.22 ng/mL (<0.5)
[2022-01-09 16:16] LABS: COVID19 -Nasal RAPID Negative (Negative)
[2022-01-09 16:36] LABS: Appearance Urine UA CLEAR; Bilirubin Urine UA 1+ (NEGATIVE); Color Urine UA YELLOW; Glucose Urine UA NEGATIVE (Negative); Ketones Urine UA TRACE (NEGATIVE); Leukocyte Esterase Urine UA NEGATIVE (NEGATIVE); Nitrite Urine UA NEGATIVE (Negative); Occult Blood Urine UA NEGATIVE (Negative); Protein Urine UA 1+ (Negative); Specific Gravity Urine UA 1.015 (1.000-1.035); pH Urine UA 5.5 (4.5-8.0)
[2022-01-09] MEDS: HYDROCODONE/ACET 5/325 TABLET 1 TAB PO (17:21)
[2022-01-09 17:23] LABS: Bacteria Urine None Seen; Culture Indicated Urine Cult Not Indicated; Mucus Urine 1+ (Negative); RBC Urine None Seen (0-5/HPF); Squamous Epithelial Cell Urine None Seen (0-5/HPF); WBC Urine 0-1/HPF (0-5/HPF)
[2022-01-09] MEDS: cefTRIAXone 2,000 MG in SODIUM CHLORIDE 0.9% 100 ML 200 MG IV (17:24)
[2022-01-09 17:29] LABS: Ictotest Urine Negative (Negative)
[2022-01-09 18:29] VITALS: BP 176/86; PULSE 76; RESP 16; O2SAT 99
== END 2022-01-09 18:26 | disposition home or self-care (01) ==
PROVIDERS: Emergency Provider Emergency Medicine; Family Provider Physician Assistant; PCP Internal Medicine
DX: J18.9 Pneumonia, unspecified organism (principal); Z20.822 Contact with and (suspected) exposure to COVID-19
CPT/HCPCS: 36415; 71045; 80053; 81001; 83605; 83690; 84145; 85025; 85610; 85730; 87040; 87635; 93005; 96365; 99284; C9803; J0696

== ENCOUNTER 2022-01-11 23:54 | Inpatient (IN) | payer MEDICARE, OTHER, SELFPAY ==
[2022-01-12] VITALS (39 sets, daily range): BP systolic 126–167; BP diastolic 59–110; PULSE 66–98; RESP 17–47; TEMP 36.6–37.3; O2SAT 88–96; BMI 29.0
--- NOTE | 2022-01-12 00:28 | DI.RAD.S_ITS ---
PROCEDURE: XR CHEST 1V INDICATIONS: pnuemonia TECHNIQUE: One view of the chest was acquired. COMPARISON: [facility], CT, CT ANGIO CHEST ABDOMEN, 03/14/2021, 9:41. [facility], CR, XR CHEST 1V, 01/09/2022, 14:53. [facility], CR, XR CHEST 1V, 02/09/2019, 10:37. FINDINGS: Surgical changes and devices: None. Lungs and pleura: Lungs are abnormal, with worsening alveolar consolidation at the right upper lobe.. No pleural effusions or pneumothorax. Mediastinum: Mediastinal contours appear normal. Heart size is normal. Bones and chest wall: No suspicious bony lesions. Overlying soft tissues appear unremarkable. IMPRESSION: Worsening pneumonia right upper lobe. Reduced inspiratory volume. Dictated by: Carlos Serrano M.D. on 01/12/2022 at 1:05 Approved by: Carlos Serrano M.D. on 01/12/2022 at 1:07
[2022-01-12 01:26] LABS: Add Manual Diff / Slide Review NO; Basophils Absolute Auto 100 /uL (0-100); Basophils Percent Auto 0.5 % (0-2); Eosinophils Absolute Auto 0 /uL (0-450); Hematocrit 25.4 % (41-53); Hemoglobin 8.8 g/dL (13.5-17.5); Lymphocytes Absolute Auto 600 /uL (1100-4500); Lymphocytes Percent Auto 4.9 % (25-40); Mean Corpuscular HGB Conc 34.8 % (30-36); Mean Corpuscular Hemoglobin 31.8 PG (26-34); Mean Corpuscular Volume 91.6 fL (80-100); Monocytes Absolute Auto 1100 /uL (0-900); Monocytes Percent Auto 8.3 % (3-14); Neutrophils Absolute Auto 11200 /uL (1500-7000); Neutrophils Percent Auto 86.3 % (50-75); Platelet Count 285 X10^3/uL (150-400); Red Blood Cell Count 2.77 X10^6/uL (4.5-5.9); Red Cell Distribution Width 13.6 % (11.6-14.8)
--- NOTE | 2022-01-12 01:30 | ED_ITS ---
HPI - Weakness General Chief complaint: Weakness Stated complaint: weakness Time Seen by Provider: 01/12/22 00:27 Source: patient and EMS Mode of arrival: EMS History of Present Illness HPI Narrative: The patient is a 71-year-old male history of hypertension hyperlipidemia he recently had right knee surgery done 2 weeks ago at [facility]. Who evaluated here 3 days ago and diagnosed with pneumonia. He has had fever for the past few hours chest x-ray showed a right upper lobe suspicious for pneumonia. He was given amoxicillin bed discharge job. He feels like his have gotten better however this evening he was extremely weak is and distant feel quite right. He is actually requiring oxygen he previously was not requiring oxygen. He is not on any anticoagulation. He denies any chest pain or palpitations. He is having some right knee pain as well. He says at initially after surgery he was doing really well until just a few days ago and now he is doing worse. Related Data Home Medications Medication Instructions Recorded Confirmed lisinopril 40 mg tablet 40 mg PO DAILY 08/09/18 09/27/21 atorvastatin 20 mg tablet 20 mg PO QPM 02/09/19 09/27/21 cholecalciferol (vitamin D3) 125 5,000 unit PO QPM 02/09/19 09/27/21 mcg (5,000 unit) tablet (Vitamin D3) ibuprofen 200 mg tablet 200 mg PO Q6H PRN pain 02/09/19 09/27/21 metoprolol succinate 50 mg 25 mg PO DAILY 02/09/19 09/27/21 tablet,extended release 24 hr [id number] acid 0.4 1 tab PO DAILY 02/09/19 09/27/21 mg-lycopene 300 mcg-lutein 250 mcg tablet (Centrum Silver) potassium chloride 10 mEq 10 meq PO BID 02/09/19 09/27/21 tablet,extended release (Klor-Con) spironolactone 25 mg tablet 12.5 mg PO DAILY 01/06/20 09/27/21 amlodipine 5 mg tablet 5 mg PO DAILY 07/03/20 09/27/21 Previous Rx's Medication Instructions Recorded clonidine HCl 0.1 mg 0.1 mg PO BID #60 tabs 09/27/21 tablet,extended release,12 hr sertraline 50 mg tablet 75 mg PO BID #90 tabs 09/27/21 amoxicillin 500 mg capsule 1,000 mg PO Q8H 5 days #30 caps 01/09/22 Allergies Allergy/AdvReac Type Severity Reaction Status Date / Time No Known Drug Allergies Allergy Verified 01/12/22 00:04 Review of Systems Review of Systems Narrative: GENERAL: See HPI HEENT: Denies sinus pain, ear pain, sore throat, difficulty swallowing, neck pain RESPIRATORY: Recent pneumonia, see HPI CARDIOVASCULAR: Denies chest pain, palpitations, orthopnea, edema GASTROINTESTINAL: Denies nausea, vomiting, abdominal pain, diarrhea, constipation, melena. : Denies dysuria, frequency, incontinence, hematuria, urinary retention, flank pain. MUSCULOSKELETAL: See HPI SKIN: No rash, no erythema, no pruritus NEUROLOGIC: Denies weakness, dizziness, headache, numbness, change in speech, confusion PSYCHIATRIC: No concerning psychosocial issues. 12 point review of systems is negative except for those stated above and HPI Patient History Medical History (Updated 01/12/22 @ 06:08 by Lien Jules MD) Daily consumption of alcohol Hyperlipidemia Hypertension Obstructive sleep apnea of adult (~04/2018) Osteoarthritis Snoring (~2003) Surgical History (Updated 01/12/22 @ 06:08 by Lien Jules MD) H/O wrist surgery History of arthroscopy of knee History of knee replacement History of lumbar surgery No pertinent past surgical history Family History (Updated 01/12/22 @ 06:09 by Lien Jules MD) Father COPD (chronic obstructive pulmonary disease) Alcohol abuse Mother COPD (chronic obstructive pulmonary disease) Social History marital status: details: flavio Bowden, lives in [place] household members: spouse lives independently: Yes caregiver/support person: No housing: house education level: college occupational status: employed Smoking Status: Never smoker alcohol intake: former substance use type: former substance user Smoking Status: Never smoker alcohol intake frequency: 0-2 drinks per day Substance Use Type: marijuana Exam Initial Vital Signs Initial Vital Signs: Vital Signs Temperature 99.1 F 01/12/22 00:04 Pulse Rate 75 01/12/22 00:04 Respiratory Rate 18 01/12/22 00:04 Blood Pressure 134/60 01/12/22 00:04 Pulse Oximetry 92 01/12/22 00:04 Oxygen Delivery Method 01/12/22 00:04 Course Orders Ordered: ED Orders 01/12/22 00:28 XR chest 1V Stat Urinalysis and Microscopic Stat EKG-12 Lead Stat 01/12/22 01:15 Blood Culture Stat Complete Blood Count AUTO DIFF Stat Comprehensive Metabolic Panel Stat Lactate (Lactic Acid) Stat NT-proBNP (BNP-Adult 18+) Stat Procalcitonin Stat Troponin & CK Cardiac Panel Stat 01/12/22 01:47 CT angio chest PE protocol Stat 01/12/22 03:08 Ictotest Urine Stat Urinalysis and Microscopic Stat Urine Culture Stat 01/12/22 04:20 Trop I [Troponin I] Stat Amlodipine Besylate (Amlodipine 5 Mg Tablet) 5 mg PO DAILY [facility] Atorvastatin Calcium (Atorvastatin 20 Mg Tablet) 20 mg PO QPM [facility] Sodium Chloride (Normal Saline 0.9%) 1,000 mls @ 100 mls/hr IV CONT SANDRA Azithromycin 500 mg/ Dextrose 250 mls @ 250 mls/hr IV Q24H [facility] Stop: 01/15/22 07:59 Ceftriaxone Sodium 1,000 mg/ (Sodium Chloride) 100 mls @ 200 mls/hr IV Q24H [facility]DR[facility] Stop: 01/19/22 00:00 Heparin Sodium/Dextrose (Heparin Drip) 25,000 unit in 500 mls @ 26.671 mls/hr IV CONT SANDRA; Protocol Lisinopril (Lisinopril 20 Mg Tablet) 40 mg PO DAILY [facility] Metoprolol Succinate (Metoprolol Er 50 Mg Tablet) 25 mg PO DAILY [facility] Naloxone HCl (Naloxone 0.4 Mg/Ml Vial) 0.2 mg IV Q2MIN PRN PRN Reason: Opiate Reversal Non-Formulary Medication (Clonidine Hcl) 0.1 mg PO BID [facility] Potassium Chloride (Potassium Chloride 10 Meq Tab) 10 meq PO BID [facility] Sertraline HCl (Sertraline 50 Mg Tablet) 75 mg PO BID [facility] Spironolactone (Spironolactone 25 Mg Tablet) 12.5 mg PO DAILY [facility] Discontinued Medications Aspirin (Aspirin Ec 325 Mg Tablet) 325 mg PO NOW ONE Stop: 01/12/22 04:31 Last Admin: 01/12/22 04:54 Dose: Not Given Documented By: JEANNE Aspirin (Aspirin 81 Mg Chew Tab) 324 mg PO NOW ONE Stop: 01/12/22 04:51 Last Admin: 01/12/22 04:55 Dose: 324 mg Documented By: JEANNE Furosemide (Furosemide 40 Mg/4 Ml Vial) 20 mg IV NOW ONE Stop: 01/12/22 04:31 Last Admin: 01/12/22 04:55 Dose: 20 mg Documented By: JEANNE Hydromorphone HCl (Hydromorphone 1 Mg Inj) 1 mg IV NOW ONE Stop: 01/12/22 02:31 Last Admin: 01/12/22 03:01 Dose: 1 mg Documented By: CAMI Levofloxacin (Levaquin) 750 mg in 150 mls @ 100 mls/hr IV NOW ONE Stop: 01/12/22 03:16 Last Infusion: 01/12/22 04:56 Dose: 0 mls/hr Documented By: Admin: 01/12/22 02:31 Dose: 100 mls/hr Documented By: CAMI Vital Signs Vital signs: Vital Signs - 8 hr 01/12/22 00:04 01/12/22 00:36 01/12/22 01:14 Temperature 99.1 F Pulse Rate 75 71 Respiratory Rate 18 Blood Pressure 134/60 Pulse Oximetry 92 93 91 Oxygen Delivery Method Room Air Oxygen Flow Rate 01/12/22 01:15 01/12/22 01:15 01/12/22 01:30 Temperature Pulse Rate 66 Respiratory Rate Blood Pressure 129/60 126/59 L Pulse Oximetry 93 Oxygen Delivery Method Nasal Cannula Oxygen Flow Rate 2 01/12/22 01:30 01/12/22 02:00 01/12/22 02:01 Temperature Pulse Rate 66 72 Respiratory Rate Blood Pressure 152/69 H Pulse Oximetry 93 94 Oxygen Delivery Method Oxygen Flow Rate 01/12/22 02:01 01/12/22 02:30 01/12/22 03:00 Temperature Pulse Rate 71 74 72 Respiratory Rate 24 Blood Pressure Pulse Oximetry 94 90 L 96 Oxygen Delivery Method Oxygen Flow Rate 01/12/22 03:04 01/12/22 03:04 01/12/22 03:30 Temperature Pulse Rate 69 72 Respiratory Rate 21 22 Blood Pressure 143/70 H Pulse Oximetry 95 93 Oxygen Delivery Method Oxygen Flow Rate 01/12/22 03:31 01/12/22 03:31 01/12/22 04:00 Temperature Pulse Rate 70 Respiratory Rate 26 H Blood Pressure 138/63 144/70 H Pulse Oximetry 94 Oxygen Delivery Method Oxygen Flow Rate 01/12/22 04:00 01/12/22 04:30 Temperature Pulse Rate 73 74 Respiratory Rate 29 H 25 H Blood Pressure Pulse Oximetry 92 93 Oxygen Delivery Method Oxygen Flow Rate MDM - Weakness Lab Data Result diagrams: 01/12/22 01:15 01/12/22 01:15 Labs: Lab Results 01/12/22 01/12/22 01/12/22 Range/Units 01:15 01:15 01:15 WBC 13.0 H (4.5-11.0) X10^3/uL RBC 2.77 L (4.5-5.9) X10^6/uL Hgb 8.8 L (13.5-17.5) g/dL Hct 25.4 L (41-53) % MCV 91.6 (80-100) fL MCH 31.8 (26-34) PG MCHC 34.8 (30-36) % RDW 13.6 (11.6-14.8) % Plt Count 285 (150-400) X10^3/uL Neut % (Auto) 86.3 H (50-75) % Lymph % (Auto) 4.9 L (25-40) % [place] % (Auto) 8.3 (3-14) % Eos % (Auto) 0.0 L (2-4) % Baso % (Auto) 0.5 (0-2) % Neut # (Auto) 10439 H (9627-1750) /uL Lymph # (Auto) 600 L (3842-8341) /uL [place] # (Auto) 1100 H (0-900) /uL Eos # (Auto) 0 (0-450) /uL Baso # (Auto) 100 (0-100) /uL Sodium 133 L (137-145) mmol/L Potassium 3.6 (3.4-5.1) mmol/L Chloride 100 (98-107) mmol/L Carbon Dioxide 24 (22-32) mmol/L BUN 24 H (9-20) mg/dL Creatinine 0.91 (0.66-1.25) mg/dL Estimated GFR > 60 (>60) mL/min BUN/Creatinine Ratio 26.4 H (6-22) Glucose 128 H (80-110) mg/dL Lactate 1.0 (0.7-2.1) mmol/L Calcium 8.3 L (8.4-10.2) mg/dL Total Bilirubin 1.9 H (0.2-1.3) mg/dL AST 42 (17-59) IU/L ALT 39 (<50) IU/L Alkaline Phosphatase 108 (38-126) U/L Total Creatine Kinase 69 (55-170) U/L CK-MB (CK-2) TNP CK-MB (CK-2) Rel Index TNP Troponin I 0.261 H* (0.01-0.034) ng/mL NT-Pro-B Natriuret Pep 3180 H (<125) pg/mL Total Protein 6.7 (6.3-8.2) g/dL Albumin 3.6 (3.5-5.0) g/dL Globulin 3.1 (1.7-4.1) g/dL Albumin/Globulin Ratio 1.2 (1.0-2.8) Procalcitonin 0.78 H (<0.5) ng/mL Urine Color Urine Appearance Urine pH (4.5-8.0) Ur Specific [place] (1.000-1.035) Urine Protein (Negative) Urine Glucose (UA) (Negative) g/dL Urine Ketones (NEGATIVE) Urine Occult Blood (Negative) Urine Nitrate (Negative) Urine Bilirubin (NEGATIVE) Ur Bilirubin Confirm (Negative) Urine Urobilinogen (0.2) E.U./dL Ur Leukocyte Esterase (NEGATIVE) Urine RBC (0-5/HPF) Urine WBC (0-5/HPF) Urine Bacteria (None) Hyaline Casts (None) Urine Mucus (Negative) Ur Culture Indicated? 01/12/22 01/12/22 Range/Units 03:08 04:20 WBC (4.5-11.0) X10^3/uL RBC (4.5-5.9) X10^6/uL Hgb (13.5-17.5) g/dL Hct (41-53) % MCV (80-100) fL MCH (26-34) PG MCHC (30-36) % RDW (11.6-14.8) % Plt Count (150-400) X10^3/uL Neut % (Auto) (50-75) % Lymph % (Auto) (25-40) % [place] % (Auto) (3-14) % Eos % (Auto) (2-4) % Baso % (Auto) (0-2) % Neut # (Auto) (4221-7784) /uL Lymph # (Auto) (2098-1216) /uL [place] # (Auto) (0-900) /uL Eos # (Auto) (0-450) /uL Baso # (Auto) (0-100) /uL Sodium (137-145) mmol/L Potassium (3.4-5.1) mmol/L Chloride (98-107) mmol/L Carbon Dioxide (22-32) mmol/L BUN (9-20) mg/dL Creatinine (0.66-1.25) mg/dL Estimated GFR (>60) mL/min BUN/Creatinine Ratio (6-22) Glucose (80-110) mg/dL Lactate (0.7-2.1) mmol/L Calcium (8.4-10.2) mg/dL Total Bilirubin (0.2-1.3) mg/dL AST (17-59) IU/L ALT (<50) IU/L Alkaline Phosphatase (38-126) U/L Total Creatine Kinase (55-170) U/L CK-MB (CK-2) CK-MB (CK-2) Rel Index Troponin I 0.229 H* (0.01-0.034) ng/mL NT-Pro-B Natriuret Pep (<125) pg/mL Total Protein (6.3-8.2) g/dL Albumin (3.5-5.0) g/dL Globulin (1.7-4.1) g/dL Albumin/Globulin Ratio (1.0-2.8) Procalcitonin (<0.5) ng/mL Urine Color Yellow Urine Appearance Clear Urine pH 6.5 (4.5-8.0) Ur Specific [place] 1.015 (1.000-1.035) Urine Protein 1+ H (Negative) Urine Glucose (UA) Trace H (Negative) g/dL Urine Ketones Trace H (NEGATIVE) Urine Occult Blood Negative (Negative) Urine Nitrate Negative (Negative) Urine Bilirubin 2+ H (NEGATIVE) Ur Bilirubin Confirm Negative (Negative) Urine Urobilinogen >=8.0 (0.2) E.U./dL Ur Leukocyte Esterase Trace H (NEGATIVE) Urine RBC None seen (0-5/HPF) Urine WBC 0-1/hpf (0-5/HPF) Urine Bacteria None seen (None) Hyaline Casts 0-1/lpf (None) Urine Mucus 2+ H (Negative) Ur Culture Indicated? Specimen cultured Imaging Data Chest x-ray: Radiologist Impression: [address] [address] XRay Report Signed Patient: Kike Obrien III MR#: [id number] : 1950 Acct:[id number] Age/Sex: 71 / M Date of Service: 01/12/22 Loc: ED Accession Number: [id number] ?? Procedure: XR chest 1V Ordering Provider: Alla Sanodval D.O. PROCEDURE:? XR CHEST 1V ? INDICATIONS:? pnuemonia ? TECHNIQUE:? One view of the chest was acquired.? ? COMPARISON:? [facility], CT, CT ANGIO CHEST ABDOMEN, 03/14/2021, 9:41.? [facility], CR, XR CHEST 1V, 01/09/2022, 14:53.? [facility], CR, XR CHEST 1V, 02/09/2019, 10:37. ? FINDINGS:? ? Surgical changes and devices:? None.? ? Lungs and pleura:? Lungs are abnormal, with worsening alveolar consolidation at the right upper lobe..? No pleural effusions or pneumothorax.? ? Mediastinum:? Mediastinal contours appear normal.? Heart size is normal.? ? Bones and chest wall:? No suspicious bony lesions.? Overlying soft tissues appear unremarkable.? ? IMPRESSION:? Worsening pneumonia right upper lobe.? Reduced inspiratory volume. ? ? Dictated by: Carlos Serrano M.D. on 01/12/2022 at 1:05 ? ? Approved by: Carlos Serrano M.D. on 01/12/2022 at 1:07 ? CT scan - chest: Radiologist Impression: Right upper and lower lobe consolidation suggestive of pneumonia. No central pulmonary embolism. ECG Data Interpretation: Normal sinus rhythm rate 68 DC interval 200 QRS is see CC [address] changes mild T-wave inversions V2 and the surgery overall similar to previous EKG a few days MDM Narrative Medical decision making narrative: Patient is found to be hypoxic at 88% on room air without significant respiratory distress. His worsening right upper and lower lobe pneumonia on x- ray and CT. He does have leukocytosis of 13 previously it was 14. He is mildly anemic today with a hemoglobin of 8.8 previously 10. Procalcitonin elevated at 0.72 lactic acid is within normal limits at 1.0. Patient does have obvious pneumonia with normal lactate. He is now requiring 1-2 L of oxygen. Blood pressure and heart rate are stable. The patient is also found to have elevated troponin which is stable x2 and elevated BNP. This is likely secondary secondary to infection. He is given Levaquin for his pneumonia. Patient's ENT also found to be significantly elevated at 3100. No prior history of congestive heart failure. He is given Lasix which he has urinated with. Dr. Jules updated patient's symptoms test results and have fully accepts. No need for Cardiology involvement at this time. Patient is stop on heparin drip. Discharge Plan Departure Patient Disposition: Admitted As Inpatient Admit Date/Time: 01/12/22 04:30 Admit Provider: Lien Jules
[2022-01-12 01:36] LABS: Alanine Aminotransferase 39 IU/L (<50); Albumin 3.6 g/dL (3.5-5.0); Albumin Globulin Ratio 1.2 (1.0-2.8); Alkaline Phosphatase 108 U/L (38-126); Aspartate Aminotransferase 42 IU/L (17-59); BUN Creatinine Ratio 26.4 (6-22); Bilirubin Total 1.9 mg/dL (0.2-1.3); Blood Urea Nitrogen 24 mg/dL (9-20); Calcium 8.3 mg/dL (8.4-10.2); Carbon Dioxide 24 mmol/L (22-32); Chloride 100 mmol/L (98-107); Creatine Kinase 69 U/L (55-170); Estimated Glomerular Filt Rate > 60 mL/min (>60); Globulin 3.1 g/dL (1.7-4.1); Glucose 128 mg/dL (80-110); HEMOLYSIS < 15 (0-50); Potassium 3.6 mmol/L (3.4-5.1); Sodium 133 mmol/L (137-145); Total Protein 6.7 g/dL (6.3-8.2)
--- NOTE | 2022-01-12 01:47 | DI.CT.S_ITS ---
PROCEDURE: CT ANGIO CHEST PE PROTOCOL INDICATIONS: hypoxia post op TECHNIQUE: After the administration of intravenous contrast, 2 mm thick sections acquired from the pulmonary apices to the posterior costophrenic angles. For radiation dose reduction, the following was used: automated exposure control, adjustment of mA and/or kV according to patient size. COMPARISON: [facility], CT, CT ANGIO CHEST ABDOMEN, 03/14/2021, 9:41. FINDINGS: Image quality: Limited by bolus timing Pulmonary arteries: Pulmonary arteries are normal in size, and demonstrate no central intraluminal filling defects to suggest central pulmonary embolism. Evaluation of the peripheral pulmonary arteries is limited Lungs and pleura: Dense right-sided pulmonary infiltrate is centered on the upper lobe also involves the superior segment of the right lower lobe. And persistent air bronchograms present. Left lung and both pleural spaces are clear. Mediastinum: Heart size is normal, without pericardial effusion. Moderate right hilar and mediastinal adenopathy appears reactive. Ascending thoracic aorta measures 5 cm in diameter, similar to the prior Esophagus is normal in caliber, without hiatal hernia. Bones and chest wall: No suspicious bony lesions. Ribs and thoracic spine appear intact throughout. Thyroid gland unremarkable. No axillary or supraclavicular adenopathy. Abdomen: Visualized upper abdominal solid organs appear normal in the early arterial phase of enhancement. Splenic calcified granulomas noted IMPRESSION: 1. Dense right upper lobe pulmonary infiltrate consistent with pneumonia. Follow-up to resolution to exclude underlying mass lesion. 2. Reactive appearing mediastinal adenopathy 3. Stable fusiform dilation of the ascending thoracic aorta 4. No evidence of central pulmonary embolism or aortic dissection Note: Final report is concordant with preliminary interpretation by [facility] Approved by: Jimy Herrera M.D. on 01/12/2022 at 6:35
[2022-01-12 01:48] LABS: NT-proBNP (BNP-Adult 18+) 3180 pg/mL (<125)
[2022-01-12 01:53] LABS: Procalcitonin 0.78 ng/mL (<0.5)
[2022-01-12 02:20] LABS: Troponin I 0.261 ng/mL (0.01-0.034)
[2022-01-12] MEDS: levoFLOXacin 750 MG/150 ML PIGGYBACK 100 MG IV (02:31)
[2022-01-12] MEDS: HYDROMORPHONE 1 MG INJ IV (03:01)
[2022-01-12 03:38] LABS: Appearance Urine UA CLEAR; Bilirubin Urine UA 2+ (NEGATIVE); Color Urine UA YELLOW; Glucose Urine UA TRACE g/dL (Negative); Ketones Urine UA TRACE (NEGATIVE); Leukocyte Esterase Urine UA TRACE (NEGATIVE); Nitrite Urine UA NEGATIVE (Negative); Occult Blood Urine UA NEGATIVE (Negative); Protein Urine UA 1+ (Negative); Specific Gravity Urine UA 1.015 (1.000-1.035); Urobilinogen Urine UA >=8.0 E.U./dL (0.2); pH Urine UA 6.5 (4.5-8.0)
[2022-01-12 03:49] LABS: Ictotest Urine Negative (Negative)
[2022-01-12 04:16] LABS: Bacteria Urine None Seen; Culture Indicated Urine Specimen Cultured; Hyaline Casts Urine 0-1/LPF; Mucus Urine 2+ (Negative); RBC Urine None Seen (0-5/HPF); WBC Urine 0-1/HPF (0-5/HPF)
[2022-01-12] MEDS: ASPIRIN 81 MG CHEW TAB 324 MG PO (04:55)
[2022-01-12] MEDS: FUROSEMIDE 40 MG/4 ML VIAL 20 MG IV (04:55)
[2022-01-12 05:07] LABS: Troponin I 0.229 ng/mL (0.01-0.034)
--- NOTE | 2022-01-12 05:12 | P.HP_ITS ---
History of Present Illness History of Present Illness Date Patient Seen: 01/12/22 Time Patient Seen: 05:12 Chief complaint: weakness Narrative: This is a 71-year-old male with hypertension and hyperlipidemia who presents with right upper lobe pneumonia worsening over the last 4 days. He had a right knee replacement with Dr. Dawson in [place] 2 weeks ago. That has been healing well. Four days ago he presented with fevers to the emergency department and on chest x-ray was diagnosed with right upper lobe pneumonia. He was treated with oral amoxicillin but says that he came in again last night because his weakness had worsened and his fevers were higher at 102 yesterday. He was 88% room air on presentation. He lives with his Dennise Obrien in [facility] own home here in [place]. Dr. Hathaway is his primary care doctor. He is a retired [employer]. His procalcitonin is 0.78 with a troponin of 0.29 and a lactate of 1.0. The EKG shows subtle ST segment depression in the lateral leads. The white blood count is 13.0 with a hemoglobin of 8.8 and a BNP of 3180. The total bilirubin is 1.9, chronically elevated, with normal liver function tests. His creatinine is 0.91. His chest x-ray and CTA of the chest confirmed worsening right upper lobe pneumonia without signs of pulmonary embolus. Patient History Medical History (Updated 01/12/22 @ 06:08 by Lien Jules MD) Daily consumption of alcohol Hyperlipidemia Hypertension Obstructive sleep apnea of adult (~04/2018) Osteoarthritis Snoring (~2003) Surgical History (Updated 01/12/22 @ 06:08 by Lien Jules MD) H/O wrist surgery History of arthroscopy of knee History of knee replacement History of lumbar surgery No pertinent past surgical history Family & Social History Family History (Updated 01/12/22 @ 06:09 by Lien Jules MD) Father COPD (chronic obstructive pulmonary disease) Alcohol abuse Mother COPD (chronic obstructive pulmonary disease) Social History: household members spouse lives independently Yes caregiver/support person No Safety & Behavioral: Feels Safe in Current Yes Environment Been Physically Hurt or No Threatened By a Person Tobacco & Substance use: Smoking Status Never smoker alcohol intake former alcohol intake frequency 0-2 drinks per day Substance Use Type marijuana Meds Home Medications and Allergies Home Medications Medication Instructions Recorded Confirmed Type lisinopril 40 mg tablet 40 mg PO DAILY 08/09/18 09/27/21 History atorvastatin 20 mg tablet 20 mg PO QPM 02/09/19 09/27/21 History cholecalciferol (vitamin D3) 125 5,000 unit PO QPM 02/09/19 09/27/21 History mcg (5,000 unit) tablet (Vitamin D3) ibuprofen 200 mg tablet 200 mg PO Q6H PRN pain 02/09/19 09/27/21 History metoprolol succinate 50 mg 25 mg PO DAILY 02/09/19 09/27/21 History tablet,extended release 24 hr lsjufdvr-hak-librw acid 0.4 1 tab PO DAILY 02/09/19 09/27/21 History mg-lycopene 300 mcg-lutein 250 mcg tablet (Centrum Silver) potassium chloride 10 mEq 10 meq PO BID 02/09/19 09/27/21 History tablet,extended release (Klor-Con) spironolactone 25 mg tablet 12.5 mg PO DAILY 01/06/20 09/27/21 History amlodipine 5 mg tablet 5 mg PO DAILY 07/03/20 09/27/21 History clonidine HCl 0.1 mg 0.1 mg PO BID #60 tabs 09/27/21 09/27/21 Rx tablet,extended release,12 hr sertraline 50 mg tablet 75 mg PO BID #90 tabs 09/27/21 09/27/21 Rx amoxicillin 500 mg capsule 1,000 mg PO Q8H 5 days #30 caps 01/09/22 Rx Allergies Allergy/AdvReac Type Severity Reaction Status Date / Time No Known Drug Allergies Allergy Verified 01/12/22 00:04 Review of Systems Review of Systems Narrative: Positive for fatigue, weakness, dyspnea on exertion and fever. Negative for chills, sweats, coughing, shortness of breath at rest, chest pain, nausea, vomiting, abdominal pain, dysuria, hematuria, seizures, rashes, sore throat, new allergies. Exam Vital Signs (past 8 hours): - 01/12/22 00:04 01/12/22 00:36 01/12/22 01:14 Temperature 99.1 F Pulse Rate 75 71 Respiratory Rate 18 Blood Pressure 134/60 Pulse Oximetry 92 93 91 Oxygen Delivery Method Room Air Oxygen Flow Rate 01/12/22 01:15 01/12/22 01:15 01/12/22 01:30 Temperature Pulse Rate 66 Respiratory Rate Blood Pressure 129/60 126/59 L Pulse Oximetry 93 Oxygen Delivery Method Nasal Cannula Oxygen Flow Rate 2 01/12/22 01:30 01/12/22 02:00 01/12/22 02:01 Temperature Pulse Rate 66 72 Respiratory Rate Blood Pressure 152/69 H Pulse Oximetry 93 94 Oxygen Delivery Method Oxygen Flow Rate 01/12/22 02:01 01/12/22 02:30 01/12/22 03:00 Temperature Pulse Rate 71 74 72 Respiratory Rate 24 Blood Pressure Pulse Oximetry 94 90 L 96 Oxygen Delivery Method Oxygen Flow Rate 01/12/22 03:04 01/12/22 03:04 01/12/22 03:30 Temperature Pulse Rate 69 72 Respiratory Rate 21 22 Blood Pressure 143/70 H Pulse Oximetry 95 93 Oxygen Delivery Method Oxygen Flow Rate 01/12/22 03:31 01/12/22 03:31 01/12/22 04:00 Temperature Pulse Rate 70 Respiratory Rate 26 H Blood Pressure 138/63 144/70 H Pulse Oximetry 94 Oxygen Delivery Method Oxygen Flow Rate 01/12/22 04:00 01/12/22 04:30 Temperature Pulse Rate 73 74 Respiratory Rate 29 H 25 H Blood Pressure Pulse Oximetry 92 93 Oxygen Delivery Method Oxygen Flow Rate Oxygen Delivery Method Nasal Cannula Oxygen Flow Rate 2 Narrative Exam Narrative: Alert and oriented x3. Mild distress from weakness Throat looks normal No lymph nodes are felt head, neck, supraclavicular area JVD is less than 6 cm No carotid bruits are heard There is no thyromegaly Pupils are equally round and reactive to light and accommodation Extraocular muscles are intact Sclerae are pink and nonicteric Heart is regular rate and rhythm without murmur Lungs are clear to auscultation bilaterally Abdomen is soft, bowel sounds positive, obese, nontender, no organomegaly Extremities have no ankle edema Skin has no rash or jaundice Neurological exam: There is no tremor, cranial nerves 2-12 test intact, motor function is 5/5 throughout, deep tendon reflexes are symmetrically hypoactive. Objective Labs Result Diagrams: 01/12/22 01:15 01/12/22 01:15 Labs: Laboratory Results - last 24 hr 01/12/22 01/12/22 01/12/22 01:15 01:15 01:15 WBC 13.0 H RBC 2.77 L Hgb 8.8 L Hct 25.4 L MCV 91.6 MCH 31.8 MCHC 34.8 RDW 13.6 Plt Count 285 Neut % (Auto) 86.3 H Lymph % (Auto) 4.9 L [place] % (Auto) 8.3 Eos % (Auto) 0.0 L Baso % (Auto) 0.5 Neut # (Auto) 86034 H Lymph # (Auto) 600 L [place] # (Auto) 1100 H Eos # (Auto) 0 Baso # (Auto) 100 Sodium 133 L Potassium 3.6 Chloride 100 Carbon Dioxide 24 BUN 24 H Creatinine 0.91 Estimated GFR > 60 BUN/Creatinine Ratio 26.4 H Glucose 128 H Lactate 1.0 Calcium 8.3 L Total Bilirubin 1.9 H AST 42 ALT 39 Alkaline Phosphatase 108 Total Creatine Kinase 69 CK-MB (CK-2) TNP CK-MB (CK-2) Rel Index TNP Troponin I 0.261 H* NT-Pro-B Natriuret Pep 3180 H Total Protein 6.7 Albumin 3.6 Globulin 3.1 Albumin/Globulin Ratio 1.2 Procalcitonin 0.78 H Urine Color Urine Appearance Urine pH Ur Specific [place] Urine Protein Urine Glucose (UA) Urine Ketones Urine Occult Blood Urine Nitrate Urine Bilirubin Ur Bilirubin Confirm Urine Urobilinogen Ur Leukocyte Esterase Urine RBC Urine WBC Urine Bacteria Hyaline Casts Urine Mucus Ur Culture Indicated? 01/12/22 01/12/22 03:08 04:20 WBC RBC Hgb Hct MCV MCH MCHC RDW Plt Count Neut % (Auto) Lymph % (Auto) [place] % (Auto) Eos % (Auto) Baso % (Auto) Neut # (Auto) Lymph # (Auto) [place] # (Auto) Eos # (Auto) Baso # (Auto) Sodium Potassium Chloride Carbon Dioxide BUN Creatinine Estimated GFR BUN/Creatinine Ratio Glucose Lactate Calcium Total Bilirubin AST ALT Alkaline Phosphatase Total Creatine Kinase CK-MB (CK-2) CK-MB (CK-2) Rel Index Troponin I 0.229 H* NT-Pro-B Natriuret Pep Total Protein Albumin Globulin Albumin/Globulin Ratio Procalcitonin Urine Color Yellow Urine Appearance Clear Urine pH 6.5 Ur Specific [place] 1.015 Urine Protein 1+ H Urine Glucose (UA) Trace H Urine Ketones Trace H Urine Occult Blood Negative Urine Nitrate Negative Urine Bilirubin 2+ H Ur Bilirubin Confirm Negative Urine Urobilinogen >=8.0 Ur Leukocyte Esterase Trace H Urine RBC None seen Urine WBC 0-1/hpf Urine Bacteria None seen Hyaline Casts 0-1/lpf Urine Mucus 2+ H Ur Culture Indicated? Specimen cultured Assessment & Plan Assessment & Plan narrative: This is a 71-year-old male with hypertension and hyperlipidemia who presents with right upper lobe pneumonia worsening over the last 4 days. He had a right knee replacement with Dr. Dawson in [place] 2 weeks ago. That has been healing well. Four days ago he presented with fevers to the emergency department and on chest x-ray was diagnosed with right upper lobe pneumonia. He was treated with oral amoxicillin but says that he came in again last night because his weakness had worsened and his fevers were higher at 102 yesterday. He was 88% room air on presentation. Right upper lobe pneumonia, present on admission. Active. -chest x-ray shows worsening right upper lobe infiltrate after 4 days of oral amoxicillin. -presenting with hypoxia of 88% on room air, continue nasal cannula oxygen as needed. -white blood count of 13.0 with procalcitonin of 0.78 -ceftriaxone plus azithromycin IV Non ST elevation myocardial infarct, present on admission. Active. -no chest pain -BNP 3180 and troponin 0.229 with EKG showing very subtle ST segment depression in lead 1. -no history of coronary disease, likely related to mild hypoxia of pneumonia/LV strain with occult coronary artery disease? -IV heparin drip pending echocardiogram and trending troponin. -plan phone consult with Cardiology once troponin trend and echo results are available for discussion. -continue metoprolol and lisinopril -cautious IV hydration Hypertension, present on admission. Chronic. -continue metoprolol and lisinopril Hyperlipidemia, present on admission. Chronic. -continue atorvastatin Right knee replacement, present on admission. Chronic. -incision is intact without signs of infection -no PE on CTA chest today. Depression, present on admission. Chronic. -continue sertraline Daily alcohol use, present admission. Chronic. -admits to 2 glasses of wine per day but has had no alcohol to drink for 2 weeks after his surgery now. -not at risk for alcohol withdrawal His backup decision maker is his Dennise Obrien. He will be on a heparin drip for DVT prevention. Time Spent With Patient Critical Care time: I spent a total of [] minutes of critical care time on this patient's care today; this time is exclusive of procedural time.
--- NOTE | 2022-01-12 05:55 | DI.ECHO.S_ITS ---
[facility]---------+ [facility] +---------+ : : [address] : [address] : : : : [id number] : : : : Phone: [phone]+ Echocardiogram Report + + :Name: SERAFIN HOYT Study Date: 01/13/2022 Height: 77 in : :[facility] ReadingLocation: Weight: 245 lb : : Gender: Male BSA: 2.4 m2 : :: 1950 Age: 71 yrs BP: 149/67 mmHg: :Reason For Study: NSTEMI : :Ordering Physician: ANTONIO, : :VANI Juarez Performed By: Lydia García : :Referring: VANI ALVAREZ : + + Interpretation Summary The ejection fraction is estimated to be 55-60%. There is mild concentric left ventricular hypertrophy. There is mild aortic regurgitation. There is mild mitral regurgitation. There is mild tricuspid regurgitation. The right ventricular systolic pressure is estimated to be at least 40 mmHg based on an estimated right atrial pressure of 8 mm Hg. Procedure: A two-dimensional transthoracic echocardiogram with color flow and Doppler was performed. The study quality was technically adequate. Comparison is made with the echocardiogram of 08/28/2020. The patient was in sinus rhythm with heart rates between 68-80 bpm during the exam. The patient had occasional PVCs during the exam. Left Ventricle: The left ventricle is normal in size. There is mild concentric left ventricular hypertrophy. The ejection fraction is estimated to be 55-60%. Left ventricular wall motion is normal. Right Ventricle: The right ventricle is mild to moderately dilated. The right ventricular systolic function is normal. Atria: The left atrium is mildly dilated. Right atrial size is normal. There is no Doppler evidence for an interatrial shunt. Mitral Valve: The mitral valve leaflets are slightly calcified. There is mild mitral annular calcification. There is mild mitral regurgitation. Aortic Valve: The aortic valve is trileaflet. The aortic valve opens well. There is no aortic valve stenosis. There is mild aortic regurgitation. Tricuspid Valve: The tricuspid valve is normal in structure and function. There is mild tricuspid regurgitation. The right ventricular systolic pressure is estimated to be at least 40 mmHg based on an estimated right atrial pressure of 8 mm Hg. Pulmonic Valve: The pulmonic valve is not well visualized. There is no pulmonic valvular regurgitation. Great Vessels: The aortic root is mildly dilated. The ascending aorta is moderately enlarged. The IVC is dilated (diameter is greater than 2.1 cm) yet it collapses greater than 50% with a sniff. This suggests a right atrial pressure of 8 mm Hg. Pericardium/ Pleura There is no pericardial effusion. There is no pleural effusion. MMode/2D Measurements & Calculations LVIDd: 5.2 cm LVOT diam: 2.2 cm LVIDs: 3.5 cm Ao root diam: 4.2 cm FS: 32.5 % asc Aorta Diam: 4.8 cm IVSd: 1.1 cm Ao Arch Diam (Prox Trans): 3.3 cm LVPWd: 1.2 cm LV p[place]man. diameter/BSA (cm/m^2): 2.1 LV sys. diameter/BSA (cm/m^2): 1.4 LA A2 area: 32.7 cm2 RA long axis: 5.1 cm LA A4 area: 21.1 cm2 RA area: 20.2 cm2 LA length (vol): 6.1 cm RA vol: 67.7 ml LA vol: 95.3 ml RA : 27.8 ml/m2 LA vol index: 39.1 ml/m2 IVC diam: 2.7 cm RVD1 (basal): 4.9 cm RVD2 (mid): 4.2 cm TAPSE: 1.9 cm Doppler Measurements & Calculations Ao V2 max: 190.4 cm/sec LVOT Max Christian: 127.9 cm/sec Ao V2 mean: 126.0 cm/sec LV V1 max P.6 mmHg Ao max P.5 mmHg LV V1 VTI: 22.9 cm Ao mean P.3 mmHg ERUM(I,D): 2.8 cm2 Ao V2 VTI: 32.1 cm ERUM(V,D): 2.7 cm2 sev ratio: 0.71 ERUM indexed to BSA (cm^2/m^2): 1.2 MV E max christian: 109.3 cm/sec TR max christian: 284.1 cm/sec MV A max christian: 84.4 cm/sec TR max P.3 mmHg MV E/A: 1.3 PA V2 max: 84.0 cm/sec Med Peak E' Christian: 9.7 cm/sec PA V2 mean: 56.1 cm/sec E/E' med: 11.3 PA mean P.4 mmHg Lat Peak E' Christian: 9.7 cm/sec PA pr(Accel): 50.7 mmHg E/E' lat: 11.3 E/e' average: 11.3 MV dec time: 0.26 sec SV(LVOT): 90.7 ml Reading Physician:12:08 PM
[2022-01-12 06:35] LABS: PTT Partial Thromboplastin Tim 31 SECONDS (26.4-36.2)
[2022-01-12] MEDS: cefTRIAXone 1,000 MG in SODIUM CHLORIDE 0.9% 100 ML 200 MG IV (06:52)
[2022-01-12] MEDS: SODIUM CHLORIDE 0.9% 1,000 ML 100 ML IV ×2 (06:52→21:29)
[2022-01-12] MEDS: HEPARIN DRIP 25,000 UNIT/500 ML IV.SOLN 20 UNIT IV (06:53)
[2022-01-12] MEDS: AZITHROMYCIN 500 MG in DEXTROSE 5% IN WATER 250 ML 250 MG IV (08:07)
[2022-01-12] MEDS: lisinopriL 20 MG TABLET 40 MG PO (09:49)
[2022-01-12] MEDS: AMLODIPINE 5 MG TABLET PO (09:49)
[2022-01-12] MEDS: SERTRALINE 50 MG TABLET 75 MG PO ×2 (09:50→21:29)
[2022-01-12] MEDS: SPIRONOLACTONE 25 MG TABLET 12.5 MG PO (09:50)
[2022-01-12] MEDS: POTASSIUM CHLORIDE 10 MEQ TAB PO ×2 (09:51→21:29)
[2022-01-12] MEDS: CLONIDINE HCL 0.1 MG 0.1 EACH PO ×2 (09:53→21:30)
[2022-01-12] MEDS: METOPROLOL ER 25 MG TABLET PO (10:04)
--- NOTE | 2022-01-12 11:36 | PM.PN.1 ---
Subjective Subjective Date Patient Seen: 01/12/22 Interval history: 71-year-old gentleman admitted earlier this morning with pneumonia and elevated cardiac enzymes. Patient is postop day 12 from a right total knee arthroplasty. He was diagnosed with pneumonia 4 days prior to admission. Was treated with amoxicillin. Return to the ED overnight with increasing weakness, nausea, anorexia. Patient reports he is feeling quite frustrated this morning. He is very uncomfortable. He has not had hydrocodone in over 6 hours and has been using it around the clock to manage his pain. He states he has not started physical therapy yet due to the pain from his knee replacement. He did not like complains of persistent nausea which has been difficult to manage. He has been having constipation, used an enema successfully yesterday but continues to feel as though he needs to have a bowel movement. He has underlying prostate cancer and states urination is difficult at times as well. He has not been having any trouble today. He states he has not had any chest pain or tightness. Currently, denies any shortness of breath, cough, sputum production. His main complaint is again knee pain, nausea, and a general feeling of illness. Exam Vital Signs (past 8 hours): - 01/12/22 04:00 01/12/22 04:00 01/12/22 04:30 Pulse Rate 73 74 Respiratory Rate 29 H 25 H Blood Pressure 144/70 H Pulse Oximetry 92 93 Oxygen Delivery Method 01/12/22 05:44 01/12/22 04:30 01/12/22 05:00 Pulse Rate 86 Respiratory Rate 35 H Blood Pressure 167/68 H Pulse Oximetry 88 L 90 L Oxygen Delivery Method Room Air 01/12/22 05:30 01/12/22 05:54 01/12/22 05:54 Pulse Rate 85 86 Respiratory Rate 25 H 17 Blood Pressure 138/70 Pulse Oximetry 94 Oxygen Delivery Method 01/12/22 06:00 01/12/22 06:00 01/12/22 06:30 Pulse Rate 81 Respiratory Rate 20 35 H Blood Pressure 145/67 H Pulse Oximetry 94 Oxygen Delivery Method 01/12/22 07:00 01/12/22 07:30 01/12/22 08:00 Pulse Rate 81 80 81 Respiratory Rate Blood Pressure Pulse Oximetry 94 91 92 Oxygen Delivery Method 01/12/22 08:30 01/12/22 09:00 01/12/22 09:49 Pulse Rate 88 87 87 Respiratory Rate Blood Pressure 149/67 H Pulse Oximetry 96 96 Oxygen Delivery Method Oxygen Delivery Method Room Air Oxygen Flow Rate 2 Narrative Exam Narrative: GEN: Irritable middle-aged male, pale, Alert and oriented x 3, NAD HEENT:NC, Face symmetric CHEST: Respiratory excursions symmetric, coarse, diminished in the right upper lobe otherwise clear to auscultation bilaterally CV: RRR, no M/R/G ABD: Soft, NT/ND, BT present in all 4 quadrants, no organomegaly or masses EXTR: warm, well perfused, no C/C/E on the left, right knee surgical incision was not visualized but the dressing remains intact, clean and dry, moderate right knee swelling and ecchymosis to the medial thigh, mild edema to the pretibial and ankle region SKIN: warm and dry, no rash NEURO: Alert and oriented x 3, nonfocal Objective Labs Result Diagrams: 01/12/22 01:15 01/12/22 01:15 Labs: Laboratory Results - last 24 hr 01/12/22 01/12/22 01/12/22 01:11 01:15 01:15 WBC 13.0 H RBC 2.77 L Hgb 8.8 L Hct 25.4 L MCV 91.6 MCH 31.8 MCHC 34.8 RDW 13.6 Plt Count 285 Neut % (Auto) 86.3 H Lymph % (Auto) 4.9 L [place] % (Auto) 8.3 Eos % (Auto) 0.0 L Baso % (Auto) 0.5 Neut # (Auto) 17391 H Lymph # (Auto) 600 L [place] # (Auto) 1100 H Eos # (Auto) 0 Baso # (Auto) 100 APTT 31 Sodium 133 L Potassium 3.6 Chloride 100 Carbon Dioxide 24 BUN 24 H Creatinine 0.91 Estimated GFR > 60 BUN/Creatinine Ratio 26.4 H Glucose 128 H Lactate Calcium 8.3 L Total Bilirubin 1.9 H AST 42 ALT 39 Alkaline Phosphatase 108 Total Creatine Kinase 69 CK-MB (CK-2) TNP CK-MB (CK-2) Rel Index TNP Troponin I 0.261 H* NT-Pro-B Natriuret Pep 3180 H Total Protein 6.7 Albumin 3.6 Globulin 3.1 Albumin/Globulin Ratio 1.2 Procalcitonin 0.78 H Urine Color Urine Appearance Urine pH Ur Specific [place] Urine Protein Urine Glucose (UA) Urine Ketones Urine Occult Blood Urine Nitrate Urine Bilirubin Ur Bilirubin Confirm Urine Urobilinogen Ur Leukocyte Esterase Urine RBC Urine WBC Urine Bacteria Hyaline Casts Urine Mucus Ur Culture Indicated? 01/12/22 01/12/22 01/12/22 01:15 03:08 04:20 WBC RBC Hgb Hct MCV MCH MCHC RDW Plt Count Neut % (Auto) Lymph % (Auto) [place] % (Auto) Eos % (Auto) Baso % (Auto) Neut # (Auto) Lymph # (Auto) [place] # (Auto) Eos # (Auto) Baso # (Auto) APTT Sodium Potassium Chloride Carbon Dioxide BUN Creatinine Estimated GFR BUN/Creatinine Ratio Glucose Lactate 1.0 Calcium Total Bilirubin AST ALT Alkaline Phosphatase Total Creatine Kinase CK-MB (CK-2) CK-MB (CK-2) Rel Index Troponin I 0.229 H* NT-Pro-B Natriuret Pep Total Protein Albumin Globulin Albumin/Globulin Ratio Procalcitonin Urine Color Yellow Urine Appearance Clear Urine pH 6.5 Ur Specific [place] 1.015 Urine Protein 1+ H Urine Glucose (UA) Trace H Urine Ketones Trace H Urine Occult Blood Negative Urine Nitrate Negative Urine Bilirubin 2+ H Ur Bilirubin Confirm Negative Urine Urobilinogen >=8.0 Ur Leukocyte Esterase Trace H Urine RBC None seen Urine WBC 0-1/hpf Urine Bacteria None seen Hyaline Casts 0-1/lpf Urine Mucus 2+ H Ur Culture Indicated? Specimen cultured [facility] Medical History (Updated 01/12/22 @ 06:08 by Lien Jules MD) Daily consumption of alcohol Hyperlipidemia Hypertension Obstructive sleep apnea of adult (~04/2018) Osteoarthritis Snoring (~2003) Surgical History (Updated 01/12/22 @ 06:08 by Lien Jules MD) H/O wrist surgery History of arthroscopy of knee History of knee replacement History of lumbar surgery No pertinent past surgical history Family History (Updated 01/12/22 @ 06:09 by Lien Jules MD) Father COPD (chronic obstructive pulmonary disease) Alcohol abuse Mother COPD (chronic obstructive pulmonary disease) Social History marital status: details: flavio Bowden, lives in [place] household members: spouse lives independently: Yes caregiver/support person: No housing: house education level: college occupational status: employed Smoking Status: Never smoker alcohol intake: former substance use type: former substance user Assessment & Plan Assessment & Plan narrative: 1. Right upper lobe pneumonia Patient has a fairly extensive right upper lobe pneumonia visualized on CT scan. He was treated on outpatient basis for 4 days with amoxicillin alone. He presented with worsening fevers, weakness, nausea, and mild hypoxia on presentation to the emergency department earlier this morning. He was initiated on Rocephin and azithromycin which will be continued. Currently, he appears nontoxic. Given the extensive infiltrate on CT, he will need follow-up imaging to rule out underlying mass. That said, he is reportedly a lifelong nonsmoker, and is not at high risk. Prophylaxis 2. Non ST-elevation DC Suspect type 2 NSTEMI. Patient has been asymptomatic. Initial elevated troponin at 0.261. Follow-up is improved at 0.22. EKG reveals minimal ST flattening. Echocardiogram is pending. Is presently on heparin drip. If his next troponin is continuing to decline and he remains asymptomatic, would discontinue the heparin. 3. Elevated BNP BNP is elevated above 3000. Clinically, he does not present with evidence of congestive heart failure. Echocardiogram has been ordered and is pending presently. 4. Hypertension Continue metoprolol and lisinopril. Blood pressure is mildly elevated at 149/67. 5. Postop day 12 from right total knee arthroplasty Patient has not yet participated in physical therapy due to pain. Will have PT assess. He is not tolerating ice packs. Will continue hydrocodone as needed for pain. Adding Zofran for nausea and senna and docusate for constipation. 6. Hyperlipidemia Continue atorvastatin 7. Anemia Normocytic. Likely postoperative. Code status Full Prophylaxis Start Lovenox Disposition Pending Time Spent With Patient Critical Care time: I spent a total of [] minutes of critical care time on this patient's care today; this time is exclusive of procedural time.
--- NOTE | 2022-01-12 11:40 | PC.NURSE ---
Pt moved from rm 4 in ED to rm 5 for space. remains on heparin gtt at 20 units/hr. Assisted OOB in WC to BR for BM. Pt unsuccessful with BM and assisted back to bed with OFFICE ENGINEER. Unsteady on feet due to R knee pain s/p replacement 2 weeks ago. Pt given colace and senna. vomited momentarily after swallowing. all 3 pills vomited intact. Pt cleaned up and sitting up for safety. states he is feeling better. emesis bag at side. pt requesting water. advised to wait. given some ice chips.
[2022-01-12 14:15] LABS: PTT Partial Thromboplastin Tim 32 SECONDS (26.4-36.2)
[2022-01-12] MEDS: ATORVASTATIN 20 MG TABLET PO (17:21)
[2022-01-12] MEDS: DOCUSATE 100 MG CAPSULE PO (18:25)
[2022-01-12] MEDS: SENNOSIDES 8.6 MG TABLET PO (18:25)
[2022-01-12 18:42] LABS: PTT Partial Thromboplastin Tim 34 SECONDS (26.4-36.2)
[2022-01-12 19:01] LABS: Troponin I 0.577 ng/mL (0.01-0.034)
[2022-01-13] VITALS (13 sets, daily range): BP systolic 126–142; BP diastolic 65–74; PULSE 63–77; RESP 17–20; TEMP 36.6–37.1; O2SAT 92–96
[2022-01-13] MEDS: SODIUM CHLORIDE 0.9% 500 ML 21 ML IV (00:47)
[2022-01-13 00:49] LABS: PTT Partial Thromboplastin Tim 37 SECONDS (26.4-36.2)
--- NOTE | 2022-01-13 00:53 | PC.NURSE ---
Pt was wound wheezing and not responding to nursing staff. Pt did wake up after sternal rub. RT came in to see patient and noticing that patient lung
--- NOTE | 2022-01-13 00:55 | PC.NURSE ---
Addendum entered by Taryn Sheehan R.N. 01/13/22 06:15: Pt on RA this morning after being on cpap most of the night, sating in the low 90's, pt had one liter of urine output this am. Addendum entered by Taryn Sheehan R.N. 01/13/22 02:29: Pt ABG's wnl, pt had a love catheter place for acurate urine output after furosemide given. pt placed on CPAP. PT NO longer wheezing, sating in the mid 90's now. will continue to monitor. Original Note: Pt now wheezing and lethargic, requiring 2 L NC, sating 88-92 %. RT at the bedside to assess patient, recomending IVF to be discontinue and lasix. ABG's done. will continue to monitor. [facility] Dougherty aware.
[2022-01-13] MEDS: FUROSEMIDE 20 MG/2 ML VIAL IV (01:24)
[2022-01-13] MEDS: HEPARIN 5,000 UNIT/ML VIAL 3000 UNIT IV ×2 (01:24→13:03)
--- NOTE | 2022-01-13 02:21 | RT ---
RT called to Patients bedside due to lethargy and desats. Pts stated that he has DESI but is noncompliant with CPAP. ABG was drawn and resulted. CPAP for DESI management started.
[2022-01-13 02:26] LABS: Fractionated Inspired Oxygen 28; HCO3 ABG 23 mmol/L (22-26); Oxygen Saturation ABG 94 % (95-100); PCO2 ABG 34.3 mmHg (35-45); PO2 ABG 67 mmHg (80-100); TCO2 ABG 24 mmol/L (21-31); pH ABG 7.44 (7.35-7.45)
[2022-01-13] MEDS: cefTRIAXone 1,000 MG in SODIUM CHLORIDE 0.9% 100 ML 100 MG IV (05:10)
[2022-01-13 06:07] LABS: Add Manual Diff / Slide Review NO; Basophils Absolute Auto 0 /uL (0-100); Basophils Percent Auto 0.3 % (0-2); Eosinophils Absolute Auto 0 /uL (0-450); Hematocrit 23.7 % (41-53); Hemoglobin 8.2 g/dL (13.5-17.5); Lymphocytes Absolute Auto 700 /uL (1100-4500); Mean Corpuscular HGB Conc 34.7 % (30-36); Mean Corpuscular Hemoglobin 31.6 PG (26-34); Mean Corpuscular Volume 90.9 fL (80-100); Monocytes Absolute Auto 900 /uL (0-900); Monocytes Percent Auto 9.5 % (3-14); Neutrophils Absolute Auto 7800 /uL (1500-7000); Neutrophils Percent Auto 83.2 % (50-75); Platelet Count 276 X10^3/uL (150-400); Red Blood Cell Count 2.61 X10^6/uL (4.5-5.9); Red Cell Distribution Width 13.8 % (11.6-14.8); White Blood Cell Count 9.4 X10^3/uL (4.5-11.0)
[2022-01-13 06:15] LABS: BUN Creatinine Ratio 36.5 (6-22); Blood Urea Nitrogen 23 mg/dL (9-20); Calcium 7.9 mg/dL (8.4-10.2); Carbon Dioxide 26 mmol/L (22-32); Chloride 99 mmol/L (98-107); Estimated Glomerular Filt Rate > 60 mL/min (>60); Glucose 120 mg/dL (80-110); HEMOLYSIS 18 (0-50); PTT Partial Thromboplastin Tim 43 SECONDS (26.4-36.2); Potassium 3.4 mmol/L (3.4-5.1); Sodium 132 mmol/L (137-145)
[2022-01-13 06:24] LABS: NT-proBNP (BNP-Adult 18+) 3820 pg/mL (<125)
[2022-01-13] MEDS: lisinopriL 20 MG TABLET 40 MG PO (08:35)
[2022-01-13] MEDS: AZITHROMYCIN 500 MG in DEXTROSE 5% IN WATER 250 ML 250 MG IV (08:35)
[2022-01-13] MEDS: SERTRALINE 50 MG TABLET 75 MG PO ×2 (08:36→20:29)
[2022-01-13] MEDS: ASPIRIN EC 81 MG TABLET 162 MG PO (08:38)
[2022-01-13] MEDS: AMLODIPINE 5 MG TABLET PO (08:38)
[2022-01-13] MEDS: METOPROLOL ER 25 MG TABLET PO ×2 (08:38→08:39)
[2022-01-13] MEDS: SPIRONOLACTONE 25 MG TABLET 12.5 MG PO (08:39)
[2022-01-13] MEDS: DOCUSATE 100 MG CAPSULE PO ×2 (08:39→20:28)
[2022-01-13] MEDS: POTASSIUM CHLORIDE 10 MEQ TAB PO ×2 (08:39→20:29)
[2022-01-13] MEDS: SENNOSIDES 8.6 MG TABLET PO ×2 (08:39→20:28)
[2022-01-13] MEDS: KETOROLAC 30 MG/ML VIAL 15 MG IV (08:46)
[2022-01-13] MEDS: HEPARIN DRIP 25,000 UNIT/500 ML IV.SOLN 27 UNIT IV (09:02)
[2022-01-13] MEDS: CLONIDINE HCL 0.1 MG 0.1 EACH PO ×2 (09:22→22:12)
[2022-01-13 11:53] LABS: PTT Partial Thromboplastin Tim 34 SECONDS (26.4-36.2)
[2022-01-13] MEDS: HEPARIN DRIP 25,000 UNIT/500 ML IV.SOLN 29 UNIT IV (12:12)
--- NOTE | 2022-01-13 12:17 | P.PN_ITS ---
Subjective Subjective Date Patient Seen: 01/13/22 Time Patient Seen: 10:00 Interval history: He feels improved today. He was quite weak yesterday but is starting to feel stronger. He has no chest pain, and no shortness of breath, but does have a mild cough. Exam Vital Signs (past 8 hours): - 01/13/22 05:17 01/13/22 08:35 01/13/22 08:38 Temperature 98.7 F Pulse Rate 74 74 74 Respiratory Rate 18 Blood Pressure 132/73 132/73 132/73 Pulse Oximetry 93 Oxygen Delivery Method Oxygen Flow Rate 0 Fraction of Inspired Oxygen 01/13/22 08:39 01/13/22 09:36 01/13/22 09:35 Temperature Pulse Rate 74 64 64 Respiratory Rate 18 Blood Pressure 132/73 132/67 Pulse Oximetry 94 Oxygen Delivery Method Nasal Cannula Oxygen Flow Rate 1 Fraction of Inspired Oxygen 25 01/13/22 09:35 01/13/22 07:00 Temperature Pulse Rate 64 Respiratory Rate Blood Pressure 132/67 Pulse Oximetry Oxygen Delivery Method Room Air Oxygen Flow Rate Fraction of Inspired Oxygen Fraction of Inspired Oxygen 25 Oxygen Delivery Method Nasal Cannula Oxygen Flow Rate 1 Narrative Exam Narrative: GEN: no acute distress PULM: diminished in right upper lobe, but otherwise clear bilaterally CV: regular rate and rhythm, no murmurs ABD: soft, nontender Objective Labs Result Diagrams: 01/13/22 05:55 01/13/22 05:55 Labs: Laboratory Results - last 24 hr 01/12/22 01/12/22 01/12/22 12:20 12:20 18:05 WBC RBC Hgb Hct MCV MCH MCHC RDW Plt Count Neut % (Auto) Lymph % (Auto) Canadian % (Auto) Eos % (Auto) Baso % (Auto) Neut # (Auto) Lymph # (Auto) Canadian # (Auto) Eos # (Auto) Baso # (Auto) APTT 32 34 ABG pH ABG pCO2 ABG pO2 ABG HCO3 ABG Total CO2 ABG O2 Saturation ABG Base Excess FiO2 Sodium Potassium Chloride Carbon Dioxide BUN Creatinine Estimated GFR BUN/Creatinine Ratio Glucose Calcium Troponin I 0.500 H* NT-Pro-B Natriuret Pep 01/12/22 01/13/22 01/13/22 18:05 00:25 00:54 WBC RBC Hgb Hct MCV MCH MCHC RDW Plt Count Neut % (Auto) Lymph % (Auto) Canadian % (Auto) Eos % (Auto) Baso % (Auto) Neut # (Auto) Lymph # (Auto) Canadian # (Auto) Eos # (Auto) Baso # (Auto) APTT 37 H ABG pH 7.44 ABG pCO2 34.3 L ABG pO2 67 L ABG HCO3 23 ABG Total CO2 24 ABG O2 Saturation 94 L ABG Base Excess -1.0 FiO2 28 Sodium Potassium Chloride Carbon Dioxide BUN Creatinine Estimated GFR BUN/Creatinine Ratio Glucose Calcium Troponin I 0.577 H* NT-Pro-B Natriuret Pep 01/13/22 01/13/22 01/13/22 05:55 05:55 05:55 WBC 9.4 RBC 2.61 L Hgb 8.2 L Hct 23.7 L MCV 90.9 MCH 31.6 MCHC 34.7 RDW 13.8 Plt Count 276 Neut % (Auto) 83.2 H Lymph % (Auto) 7.0 L Canadian % (Auto) 9.5 Eos % (Auto) 0.0 L Baso % (Auto) 0.3 Neut # (Auto) 7800 H Lymph # (Auto) 700 L Canadian # (Auto) 900 Eos # (Auto) 0 Baso # (Auto) 0 APTT 43 H D ABG pH ABG pCO2 ABG pO2 ABG HCO3 ABG Total CO2 ABG O2 Saturation ABG Base Excess FiO2 Sodium 132 L Potassium 3.4 Chloride 99 Carbon Dioxide 26 BUN 23 H Creatinine 0.63 L Estimated GFR > 60 BUN/Creatinine Ratio 36.5 H Glucose 120 H Calcium 7.9 L Troponin I 0.420 H* NT-Pro-B Natriuret Pep 3820 H 01/13/22 11:24 WBC RBC Hgb Hct MCV MCH MCHC RDW Plt Count Neut % (Auto) Lymph % (Auto) Canadian % (Auto) Eos % (Auto) Baso % (Auto) Neut # (Auto) Lymph # (Auto) Canadian # (Auto) Eos # (Auto) Baso # (Auto) APTT 34 D ABG pH ABG pCO2 ABG pO2 ABG HCO3 ABG Total CO2 ABG O2 Saturation ABG Base Excess FiO2 Sodium Potassium Chloride Carbon Dioxide BUN Creatinine Estimated GFR BUN/Creatinine Ratio Glucose Calcium Troponin I NT-Pro-B Natriuret Pep [facility] Medical History (Updated 01/12/22 @ 13:56 by Lisa Florence, CEDRIC) Daily consumption of alcohol Hyperlipidemia Hypertension Obstructive sleep apnea of adult (~04/2018) Osteoarthritis Snoring (~2003) Surgical History (Updated 01/12/22 @ 06:08 by Lien Jules MD) H/O wrist surgery History of arthroscopy of knee History of knee replacement History of lumbar surgery No pertinent past surgical history Family History (Updated 01/12/22 @ 06:09 by Lien Jules MD) Father COPD (chronic obstructive pulmonary disease) Alcohol abuse Mother COPD (chronic obstructive pulmonary disease) Social History marital status: details: flavio Bowden, lives in [place] household members: spouse lives independently: Yes caregiver/support person: No housing: house education level: college occupational status: employed Smoking Status: Never smoker alcohol intake: current substance use type: former substance user Assessment & Plan Assessment & Plan narrative: 1. Right upper lobe pneumonia -extensive RUL pneumonia on CT -treated with amoxicillin as outpatient for 4 days -continue on ceftriaxone and azithromycin -will need outpatient imaging to rule out mass -denies any smoking history 2. NSTEMI, Type 2 -no chest pain, no acute ischemia on EKG -troponin peaked at approximately 0.5, but now downtrending -continue heparin gtt for 48 hours -ECHO reassuring with mild AR, MR, TR and mild LVH, but normal EF and no wall motion abnormalities 3. Elevated BNP -BNP is elevated above 3000. Clinically, he does not present with evidence of congestive heart failure -ECHO as above -no need for lasix currently 4. Hypertension Continue metoprolol and lisinopril 5. Postop day 12 from right total knee arthroplasty -PT ordered -continue hydrocodone -zofran, senaa, docusate 6. Hyperlipidemia -Continue atorvastatin 7. Anemia -Normocytic. Likely postoperative. Code status Full Prophylaxis lovenox Disposition Pending Time Spent With Patient Critical Care time: I spent a total of [] minutes of critical care time on this patient's care today; this time is exclusive of procedural time. Quality VTE Deep Vein Thrombosis/Pulmonary Embolism Present on Admission: No
--- NOTE | 2022-01-13 14:03 | CM.DANOTE ---
Patient is a 71 yo male who was admitted on 01/12/22 for Weakness. Pt has M[place] and [place] for insurance and his PCP is Dr. Ney Hathaway. EMR was reviewed. Per MD, pt with recent knee surgery in [place] 2 weeks ago and discharge to home and had increased SOB and was admitted for pneumonia with failed outpt oral abx and NSTEMI with underlying prostrate CA at baseline. PT ordered and pending. SW met briefly bedside with pt and explained role and pt states he is tired and would prefer to rest. Pt confirms he lives at home in [place] with his spouse and had been doing fairly well after knee surgery and was sort of managing his pain level but had not started outpt PT yet. Pt confirms his spouse is available for assist and preference is home at discharge and pt does not anticipate any further needs at this time. Pt then requested to rest. Pt has CPAP at home and is established with Psychiatrist Dr. Gaona for med management. Plan: SW to follow closely for PT eval and recommendations to confirm safe plan of home with spouse and outpt PT when stable. ALVARO Connors Discharge Planning/Care Management CM Discharge Assessment Start: 01/13/22 14:02 Freq: Status: Active Protocol: Document 01/13/22 14:02 (Rec: 01/13/22 14:03 [id number]) Discharge Planning Assessment Assigned Rheumatologist ALVARO Fay DPOA/Assigned Designee Name spouse Dennise Contact Information [phone] Advance Directives? No Advance Directives on File No History Provided By Patient,Medical Record Has Patient been admitted in last 30 No days? Prior Living Arrangements House Household Members spouse Type of transporation used prior to Drives own vehicle admit Independent with ADL's Yes Is patient alert and oriented? Yes Caregiver for Another No Community Services used prior to Physical Therapy admission: Comment Pending PT eval and recommendations Barriers to Discharge No Discharge Plan Home Community Services Physical Therapy Transportation Arrangement Spouse to provide transport at d/c Additional Comment Pending PT eval Review Status In Process Please Provide Date Initial DC 01/13/22 Assessment Was Performed Next Review Type Continued Stay Review
--- NOTE | 2022-01-13 15:08 | PT.IIE ---
Current Diagnoses Pneumonia, unspecified organism (01/12/22) Surgical History (Last Updated 01/12/22 @ 06:08 by Lien Jules MD) H/O wrist surgery History of arthroscopy of knee History of knee replacement History of lumbar surgery No pertinent past surgical history Medical History (Last Updated 01/12/22 @ 06:08 by Lien Jules MD) Daily consumption of alcohol Hyperlipidemia Hypertension Obstructive sleep apnea of adult (~04/2018) Osteoarthritis Snoring (~2003) Physical Therapy Inpatient Evaluation/Re-Eval M1 PT/OT-IP Prior Functional Status Start: 01/13/22 08:38 Freq: NEEDED Status: Active Protocol: Document 01/13/22 15:08 AW (Rec: 01/13/22 15:55 AW [id number]) Medical Review Prior Functional Status Medical History Reviewed Yes Communication WNL. Pt is slightly NOORVIK. He is an effective verbal communicator. Mobility and Gait At baseline, pt likes to walk and hike in the [facility]. He swims 2-3 times per week. 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 His dog unexpectedly three months ago and pt was less active for a while. He had R TKA 2 weeks ago and has been mobilizing at home with FWW until a few days ago when he became too weak. Activities of Daily Living and IADL's Independent, including driving . Pt has needed some assist with ADL's since TKA. Prior Functional Level (Other details) Pt has DESI and is not compliant with CPAP. Social History Household Members spouse Living Arrangements House Number of Floors (Floors) Two Floors Number of Stairs To Enter/Railing? Pt is able to park near the entrance and enter with no stairs. There is a lower level but pt does not need to access it. Home Environment Standard Height Toilet,Walk in Shower Home Equipment Front Wheel Walker,Straight Cane,Shower Seat with Backrest ,Hand Held Shower,Sock Aid, Grab Bars In Shower Employment Status Retired Additional Social History Comment Pt has an adjustable bed and walking sticks. He lives in [place] with his , Dennise . Both are retired. They have a son in [place] and a daughter in [place]. M2 PT-IP Current Condition Start: 01/13/22 08:38 Freq: NEEDED Status: Active Protocol: Document 01/13/22 15:08 AW (Rec: 01/13/22 15:55 AW [id number]) Physical Therapy Current Condition Current Condition Evaluation Date 01/13/22 Treatment Diagnosis PNA, NSTEMI, recent R TKA; impaired mobility and gait Onset Date 01/12/22 M3 PT-IP Subjective Start: 01/13/22 08:38 Freq: NEEDED Status: Active Protocol: Document 01/13/22 15:08 AW (Rec: 01/13/22 15:55 AW [id number]) Subjective Physical Therapy Visit Type Type Initial Evaluation Visit Start Time 14:28 Visit Stop Time 15:08 Total Visit Minutes 40 Physical Therapy Visit Comments Patient Comments Pt is willing to participate with PT Patient Goals Return home with spouse support. Therapy Pain Assessment Pain When Pain Assessed During Mobility Pain Present Pain Present Pain Reported Location Right Knee Scale Used 3 Pain Management Techniques Distraction,Elevation, Modification of Treatment M4 PT-IP Mobility and Gait Start: 01/13/22 08:38 Freq: NEEDED Status: Active Protocol: Document 01/13/22 15:08 AW (Rec: 01/13/22 15:55 AW [id number]) PT-Bed Mobility Assessment Supine to Sit Supine to Sit Standby Assistance Scooting Scooting to Edge of Bed Standby Assistance PT-Transfer Assessment Sit to and From Stand Sit to and from Stand Contact Guard Assistance,1 Person Assistance,Use of Upper Extremities Equipment Transfer Assistive Device Gait Belt,Front Wheeled Walker Orthotic/Prosthetic Devices or Brace: No Transfers Transfer Destination Chair,Bedside Commode Transfer Technique Stand Step Pivot Transfer Ability Level of Assist Standby Assistance,Contact Guard Assistance Comments Mobility Comments Pt was lying in bed as PT arrived. Supine BP was 131/70 HR 68 SpO2 94% on room air. Pt was able to sit up on the right side of the bed. As soon as he sat up, he urgently requested BSC. PT placed commode to pt's left. Pt stood and used FWW to step pivot transfer to commode CGA. He had a bowel movement and completed pericare IND. He stood from the commode SBA and used FWW to ambulate to the sink SBA. Standing balance was good as pt reached outside [place] for soap and towels. He walked to the chair and sat SBA. BP after activity was 156 /79 HR 81 SpO2 94% on room air . Pt reported fatigue but was willing to sit up on the chair where he was left with call light and tray table in reach. Gait Assessment Gait Gait Assistance Required: Standby Assistance,Contact Guard Assist Distance (Feet) 20 Assistive Devices Assistive Device Gait Belt,Front Wheeled Walker Orthotic/Prosthetic Devices or Brace: No Gait Deviations General Gait Pattern Antalgic,Decreased Stride Length,Decreased Feet Clearance,Step-to Gait,Wide Based Gait Factors Limiting Gait Function Factors Limiting Gait Function Decreased Activity Tolerance, Decreased Strength,Limited Range of Motion,Pain, Respiratory Distress Comments Gait Comments Pt was safe with FWW but fatigued quickly, not tolerating much activity. Stair Climbing Assessment Comments Stair Climbing Comments Not assessed. Pt does not need to navigate stairs at home. PT-Balance Assessment Sitting Balance and Reactions Static Sitting Balance Ability Normal Dynamic Sitting Balance Ability Normal Standing Balance and Reactions Static Standing Balance Ability Good Dynamic Standing Balance Ability Good Device Used FWW M5 PT-IP Objective Assessments Start: 01/13/22 08:38 Freq: NEEDED Status: Active Protocol: Document 01/13/22 15:08 AW (Rec: 01/13/22 15:55 AW [id number]) Orientation Orientation/Cognition Level of Alertness Alert Orientation Name,Day of Week,Place, Situation Language Function Ability Hard of Hearing Safety Awareness Understands Safety Issues Gross Range of Motion Lower Extremity ROM Assessment Right Impaired Impairments R knee ~3-90 Strength Lower Extremity Strength Assessment Right Impaired Hip 4/5 Knee 3+/5 Sensation Assessment Sensation Gross Sensation WNL M6 PT-IP Treatment Start: 01/13/22 08:38 Freq: NEEDED Status: Active Protocol: Document 01/13/22 15:08 AW (Rec: 01/13/22 15:55 AW [id number]) Physical Therapy Treatment Exercises Exercises Gluteal Sets,Heel Slides,Short Arc Quads,Passive Knee Extension Hang Education Education Provided Weight Bearing Status,Safety M7 PT-IP Assessment and Plan Start: 01/13/22 08:38 Freq: NEEDED Status: Active Protocol: Document 01/13/22 15:08 AW (Rec: 01/13/22 15:55 AW [id number]) PT Summary Assessment and Plan Potential Rehabilitation Potential Good Status of Condition at Evaluation Evolving Summary Impairments Pain,ROM,Strength,Balance,Bed Mobility,Transfers,Gait, Activity Tolerance Assessment Summary Shakir is an active 71 yo man with recent history of R TKA ( 2 weeks ago) currently admitted with pneumonia. He is independent in all regards at baseline. He has needed some assist with ADL's since surgery and has been using FWW for household mobility. He canceled outpatient PT evaluation last week because he was not feeling well. On assessment today, pt is limited by poor activity tolerance, RLE strength deficits, and generalized weakness. He would benefit from continued acute PT to progress his mobility but will likely be safe to discharge home with assist and outpatient PT once medically stable. Goals Bed Mobility Goal Independent Transfer Goal Independent,Front Wheeled Walker Gait Goal Independent,Front Wheel Walker Gait Distance 200 Days to Meet Goals 3 Frequency of Treatment Frequency Of Treatment Once a Day Treatment Plan Physical Therapy Treatment Plan Bed Mobility Training,Transfer Training,Gait Training, Therapeutic Exercise,Balance Retraining,Post Op Education, Discharge Planning,Hot or Cold Pack,Neuromuscular Re-ed Other Recommendations and Next Treatment Progress gait with FWW. Verify Focus no stairs at home. May need to train steps? Recommendations To Nursing Amount of Assist Needed Standby Assistance,1 Person Assist Discharge Recommendations PT Discharge Recommendations Home with Assistance, Outpatient PT Transportation Needs at Discharge Private Vehicle
[2022-01-13] MEDS: ATORVASTATIN 20 MG TABLET PO (17:00)
--- NOTE | 2022-01-13 17:15 | PC.NURSE ---
Pt is AxOx4, very irritable but cooperative. VSS, pt c/o pain on leg and whole body and recieved IV Toradol once and it was effective. Pt is still on Heparin drip. aPTT was 34 around noon so Heparin drip rate increased 2ml/hr per protocol and 3000 units of heparin for bolus. Pt worked with PT today and pt is now 1 person assistance with FWW. Miles is removed. No other changes.
[2022-01-13 17:54] LABS: PTT Partial Thromboplastin Tim 42 SECONDS (26.4-36.2)
[2022-01-13] MEDS: POTASSIUM CHLORIDE 20 MEQ TAB 40 MEQ PO (18:04)
[2022-01-13] MEDS: HEPARIN DRIP 25,000 UNIT/500 ML IV.SOLN 29.005 UNIT IV (18:14)
--- NOTE | 2022-01-13 18:26 | PC.NURSE ---
Pt's aPTT result at 1800 was 42 so increased his Heparin 1ml/hr per protocol. Now pt's heparin is running 30ml/hr. No other changes.
--- NOTE | 2022-01-13 22:48 | PC.NURSE ---
Addendum entered by Carolann Oakes R.N. 01/13/22 23:52: Pt removed and declines to wear CPAP tonight, 94% RA. Original Note: Notified by ICU nurse that patient had a change in rhythm on tele. Was NSR, BBB, Now Afib 60-99. MAJOR ACCOUNT MANAGER notified of change. Patient on heparin drip at this time.
[2022-01-13 23:58] LABS: PTT Partial Thromboplastin Tim 41 SECONDS (26.4-36.2)
[2022-01-14] VITALS (7 sets, daily range): BP systolic 129–154; BP diastolic 77–93; PULSE 92–99; RESP 18–21; TEMP 36.1–37; O2SAT 93–98
[2022-01-14] MEDS: SODIUM CHLORIDE 0.9% 500 ML 21 ML IV (00:19)
[2022-01-14] MEDS: HEPARIN DRIP 25,000 UNIT/500 ML IV.SOLN 30 UNIT IV (01:21)
[2022-01-14] MEDS: cefTRIAXone 1,000 MG in SODIUM CHLORIDE 0.9% 100 ML 200 MG IV (06:10)
[2022-01-14] MEDS: ONDANSETRON 4 MG/2 ML INJ IV ×2 (06:38→09:46)
[2022-01-14 06:39] LABS: Hematocrit 25.7 % (41-53); Hemoglobin 8.8 g/dL (13.5-17.5); Mean Corpuscular HGB Conc 34.3 % (30-36); Mean Corpuscular Volume 93.2 fL (80-100); Platelet Count 318 X10^3/uL (150-400); Red Blood Cell Count 2.75 X10^6/uL (4.5-5.9); Red Cell Distribution Width 14.2 % (11.6-14.8); White Blood Cell Count 8.6 X10^3/uL (4.5-11.0)
[2022-01-14 06:47] LABS: PTT Partial Thromboplastin Tim 32 SECONDS (26.4-36.2)
[2022-01-14 07:04] LABS: BUN Creatinine Ratio 35.2 (6-22); Blood Urea Nitrogen 19 mg/dL (9-20); Calcium 7.7 mg/dL (8.4-10.2); Carbon Dioxide 25 mmol/L (22-32); Chloride 100 mmol/L (98-107); Estimated Glomerular Filt Rate > 60 mL/min (>60); Glucose 110 mg/dL (80-110); HEMOLYSIS < 15 (0-50); Potassium 3.4 mmol/L (3.4-5.1); Sodium 133 mmol/L (137-145)
[2022-01-14] MEDS: METOPROLOL ER 25 MG TABLET PO (08:31)
[2022-01-14] MEDS: AZITHROMYCIN 500 MG in DEXTROSE 5% IN WATER 250 ML 250 MG IV (08:31)
[2022-01-14] MEDS: SERTRALINE 50 MG TABLET 75 MG PO (08:32)
[2022-01-14] MEDS: SPIRONOLACTONE 25 MG TABLET 12.5 MG PO (08:33)
[2022-01-14] MEDS: AMLODIPINE 5 MG TABLET PO (08:33)
[2022-01-14] MEDS: lisinopriL 20 MG TABLET 40 MG PO (08:34)
[2022-01-14] MEDS: CLONIDINE HCL 0.1 MG 0.1 EACH PO (08:35)
--- NOTE | 2022-01-14 10:08 | PC.NURSE ---
pt refused breakfast and wanted to show this am, carbide tool die maker helped pt to shower, pt was able to get down am pills except potassium and aspirin due to nausea, provider aware and no new orders, d/c orders for today remain
--- NOTE | 2022-01-14 10:45 | PT-IP ANOTE ---
Attempted to see pt at 10:45, pt refused PT stating he is going home in ~30 min and has no further needs.
--- NOTE | 2022-02-25 17:06 | PM.DS.1 ---
History of Present Illness History of Present Illness Chief complaint: weakness Discharge Providers Provider Date of admission: 01/12/22 04:30 Discharge Date: 01/14/22 Primary care physician: Ney Hathaway MD Consults: y Evaluate & Treat Discharge provider: Eliel Simpson Summary Hospital Course Hospital Course: [address] [address] Progress Note Patient: Kike Obrien III MR#: [id number] : 1950 Acct:[id number] Age/Sex: 71 / M - ? 01/13/22 05:17 01/13/22 08:35 01/13/22 08:38 Temperature 98.7 F ? ? Pulse Rate 74 74 74 Respiratory Rate 18 ? ? Blood Pressure 132/73 132/73 132/73 Pulse Oximetry 93 ? ? Oxygen Delivery Method ? ? ? Oxygen Flow Rate 0 ? ? Fraction of Inspired Oxygen ? 01/13/22 08:39 01/13/22 09:36 01/13/22 09:35 Temperature ? ? ? Pulse Rate 74 64 64 Respiratory Rate ? 18 ? Blood Pressure 132/73 ? 132/67 Pulse Oximetry ? 94 ? Oxygen Delivery Method ? Nasal Cannula ? Oxygen Flow Rate ? 1 ? Fraction of Inspired Oxygen ? 25 ? ? 01/13/22 09:35 01/13/22 07:00 Temperature ? ? Pulse Rate 64 ? Respiratory Rate ? ? Blood Pressure 132/67 ? Pulse Oximetry ? ? Oxygen Delivery Method ? Room Air Oxygen Flow Rate ? ? Fraction of Inspired Oxygen ? ? Fraction of Inspired Oxygen ? 25? Oxygen Delivery Method? Nasal Cannula ? Oxygen Flow Rate? 1 ? Narrative Exam Narrative: GEN:? no acute distress, sitting up in bed PULM: diminished in right upper lobe, but otherwise clear bilaterally CV: regular rate and rhythm, no murmurs ABD: soft, nontender Neuro: CN 2-12 intact, no focal deficits Labs: Laboratory Results - last 24 hr ? 01/12/22 01/12/22 01/12/22 ? 12:20 12:20 18:05 WBC ? ? ? RBC ? ? ? Hgb ? ? ? Hct ? ? ? MCV ? ? ? MCH ? ? ? MCHC ? ? ? RDW ? ? ? Plt Count ? ? ? Neut % (Auto) ? ? ? Lymph % (Auto) ? ? ? Quay % (Auto) ? ? ? Eos % (Auto) ? ? ? Baso % (Auto) ? ? ? Neut # (Auto) ? ? ? Lymph # (Auto) ? ? ? Quay # (Auto) ? ? ? Eos # (Auto) ? ? ? Baso # (Auto) ? ? ? APTT ? ?32 ?34 ABG pH ? ? ? ABG pCO2 ? ? ? ABG pO2 ? ? ? ABG HCO3 ? ? ? ABG Total CO2 ? ? ? ABG O2 Saturation ? ? ? ABG Base Excess ? ? ? FiO2 ? ? ? Sodium ? ? ? Potassium ? ? ? Chloride ? ? ? Carbon Dioxide ? ? ? BUN ? ? ? Creatinine ? ? ? Estimated GFR ? ? ? BUN/Creatinine Ratio ? ? ? Glucose ? ? ? Calcium ? ? ? Troponin I ?0.500 H* ? ? NT-Pro-B Natriuret Pep ? 01/12/22 01/13/22 01/13/22 ? 18:05 00:25 00:54 WBC ? ? ? RBC ? ? ? Hgb ? ? ? Hct ? ? ? MCV ? ? ? MCH ? ? ? MCHC ? ? ? RDW ? ? ? Plt Count ? ? ? Neut % (Auto) ? ? ? Lymph % (Auto) ? ? ? Quay % (Auto) ? ? ? Eos % (Auto) ? ? ? Baso % (Auto) ? ? ? Neut # (Auto) ? ? ? Lymph # (Auto) ? ? ? Quay # (Auto) ? ? ? Eos # (Auto) ? ? ? Baso # (Auto) ? ? ? APTT ? ?37 H ? ABG pH ? ? ?7.44 ABG pCO2 ? ? ?34.3 L ABG pO2 ? ? ?67 L ABG HCO3 ? ? ?23 ABG Total CO2 ? ? ?24 ABG O2 Saturation ? ? ?94 L ABG Base Excess ? ? ?-1.0 FiO2 ? ? ?28 Sodium ? ? ? Potassium ? ? ? Chloride ? ? ? Carbon Dioxide ? ? ? BUN ? ? ? Creatinine ? ? ? Estimated GFR ? ? ? BUN/Creatinine Ratio ? ? ? Glucose ? ? ? Calcium ? ? ? Troponin I ?0.577 H* ? ? NT-Pro-B Natriuret Pep ? 01/13/22 01/13/22 01/13/22 ? 05:55 05:55 05:55 WBC ?9.4 ? ? RBC ?2.61 L ? ? Hgb ?8.2 L ? ? Hct ?23.7 L ? ? MCV ?90.9 ? ? MCH ?31.6 ? ? MCHC ?34.7 ? ? RDW ?13.8 ? ? Plt Count ?276 ? ? Neut % (Auto) ?83.2 H ? ? Lymph % (Auto) ?7.0 L ? ? Quay % (Auto) ?9.5 ? ? Eos % (Auto) ?0.0 L ? ? Baso % (Auto) ?0.3 ? ? Neut # (Auto) ?7800 H ? ? Lymph # (Auto) ?700 L ? ? Quay # (Auto) ?900 ? ? Eos # (Auto) ?0 ? ? Baso # (Auto) ?0 ? ? APTT ? ? ?43 H D ABG pH ? ? ? ABG pCO2 ? ? ? ABG pO2 ? ? ? ABG HCO3 ? ? ? ABG Total CO2 ? ? ? ABG O2 Saturation ? ? ? ABG Base Excess ? ? ? FiO2 ? ? ? Sodium ? ?132 L ? Potassium ? ?3.4 ? Chloride ? ?99 ? Carbon Dioxide ? ?26 ? BUN ? ?23 H ? Creatinine ? ?0.63 L ? Estimated GFR ? ?> 60 ? BUN/Creatinine Ratio ? ?36.5 H ? Glucose ? ?120 H ? Calcium ? ?7.9 L ? Troponin I ? ?0.420 H* ? NT-Pro-B Natriuret Pep ? ?3820 H ? ? 01/13/22 ? 11:24 WBC ? RBC ? Hgb ? Hct ? MCV ? MCH ? MCHC ? RDW ? Plt Count ? Neut % (Auto) ? Lymph % (Auto) ? Quay % (Auto) ? Eos % (Auto) ? Baso % (Auto) ? Neut # (Auto) ? Lymph # (Auto) ? Quay # (Auto) ? Eos # (Auto) ? Baso # (Auto) ? APTT ?34? D ABG pH ? ABG pCO2 ? ABG pO2 ? ABG HCO3 ? ABG Total CO2 ? ABG O2 Saturation ? ABG Base Excess ? FiO2 ? Sodium ? Potassium ? Chloride ? Carbon Dioxide ? BUN ? Creatinine ? Estimated GFR ? BUN/Creatinine Ratio ? Glucose ? Calcium ? Troponin I ? NT-Pro-B Natriuret Pep ? Right upper lobe pneumonia - extensive RUL pneumonia on CT -treated with ceftriaxone and azithromycin -will need outpatient imaging to rule out mass - NSTEMI, Type 2 no chest pain, no acute ischemia on EKG -troponin peaked at approximately 0.5 -continued heparin gtt for 48 hours -ECHO reassuring with mild AR, MR, TR and mild LVH, but normal EF and no wall motion abnormalities Elevated -BNP is elevated above 3000, clnicall did not have signs of CHF exacerbation Hypertension - Continued metoprolol and lisinopril Postop day 12 from right total knee arthroplasty, followed by PT/OT Hyperlipidemia - Continued atorvastatin Anemia chronic disease, hgb remained stable Exam Vital Signs (past 8 hours): Fraction of Inspired Oxygen 25 Oxygen Delivery Method Room Air Oxygen Flow Rate 0 Objective Labs Result Diagrams: 01/14/22 06:05 01/14/22 06:05 [facility] Medical History (Updated 01/24/22 @ 00:00 by ) Daily consumption of alcohol Hyperlipidemia Hypertension Obstructive sleep apnea of adult (~04/2018) Osteoarthritis Snoring (~2003) Surgical History (Updated 01/12/22 @ 06:08 by Lien Jules MD) H/O wrist surgery History of arthroscopy of knee History of knee replacement History of lumbar surgery No pertinent past surgical history Family History (Updated 01/12/22 @ 06:09 by Lien Jules MD) Father COPD (chronic obstructive pulmonary disease) Alcohol abuse Mother COPD (chronic obstructive pulmonary disease) Social History marital status: details: flavio Bowden, lives in [place] household members: spouse lives independently: Yes caregiver/support person: No housing: house education level: college occupational status: employed Smoking Status: Never smoker alcohol intake: current substance use type: former substance user Discharge Plan Discharge Plan Patient Disposition: Home Discharge orders & Medications Prescriptions: New levofloxacin 750 mg tablet 750 mg PO DAILY Qty: 5 0RF aspirin 81 mg capsule 162 mg PO DAILY Qty: 30 0RF Continued lisinopril 40 mg tablet 40 mg PO DAILY amlodipine 5 mg tablet 10 mg PO DAILY sertraline 50 mg tablet 75 mg PO BID Qty: 90 5RF clonidine HCl 0.1 mg tablet extended release 12 hr 0.1 mg PO BID Qty: 60 0RF spironolactone 25 mg TABLET 12.5 mg PO DAILY prednisone 10 mg Tablet 10 mg PO DAILY PRN (Reason: Pain, Moderate) Rx Instructions: take 1 tablet 3-5 days for arthritis flares tramadol 50 mg Tablet 50 mg PO BID PRN (Reason: Pain (Scale Score 4-6)) tamsulosin 0.4 mg Capsule 0.4 mg PO BEDTIME carvedilol 6.25 mg tablet 1 tab PO BID meloxicam 7.5 mg Tablet 7.5 mg PO DAILY hydrocodone-acetaminophen 7.5-325 mg tablet 1 tab PO Q4HR PRN (Reason: Pain (Scale Score 4-6)) ondansetron 4 mg tablet,disintegrating 1 tab PO Q6H PRN (Reason: Nausea) atorvastatin 20 mg Tablet 20 mg PO QPM potassium chloride [Klor-Con 10] 10 mEq Tablet Extended Release 10 meq PO BID cholecalciferol (vitamin D3) [Vitamin D3] 5,000 unit Tablet 5,000 unit PO QPM Follow up/Referrals: Ney Hathaway MD [Primary Care Provider] - Other Ambulatory Orders: CT chest w con (Routine) Timeframe: 4 Weeks Facility: [facility] - Location: Radiology Ordered By: Eliel Simpson Discharge Data Primary Care Provider: Ney Hathaway Quality VTE Deep Vein Thrombosis/Pulmonary Embolism Present on Admission: No
== END 2022-01-14 11:57 | disposition home or self-care (01) | DRG 193 ==
LOC: ED 01-12 00:27 → AC 01-12 04:30
PROVIDERS: Family Medicine; Internal Medicine; Nurse Practitioner Family; Admitting Provider Family Medicine; Emergency Provider Emergency Medicine; Family Provider Physician Assistant; PCP Internal Medicine; Referring Provider Emergency Medicine; Visit Provider Family Medicine
DX: J18.9 Pneumonia, unspecified organism (principal); I21.A1 Myocardial infarction type 2; I10 Essential (primary) hypertension; E78.5 Hyperlipidemia, unspecified; F32.A Depression, unspecified; R11.0 Nausea; K59.00 Constipation, unspecified; G47.33 Obstructive sleep apnea (adult) (pediatric); Z96.651 Presence of right artificial knee joint; Z20.822 Contact with and (suspected) exposure to COVID-19
CPT/HCPCS: 36415; 36600; 71045; 71275; 80048; 80053; 81001; 82550; 82805; 83605; 83690; 83880; 84145; 84484; 85025; 85027; 85610; 85730; 87040; 87086; 87635; 93005; 93306; 94660; 94760; 94762; 96365; 96366; 96367; 96368; 96375; 97110; 97161; 97530; 99284; 99285; C9803; J0696; J1170; J1644; J1885; J1940; J1956; J2405; Q9967

== ENCOUNTER → 2022-01-28 09:06 | Outpatient (CLI) | payer MEDICARE, OTHER, SELFPAY ==
[2022-01-12 08:12] VITALS: BMI 29.0
[2022-01-28 09:40] LABS: Add Manual Diff / Slide Review NO; Basophils Absolute Auto 200 /uL (0-100); Basophils Percent Auto 3.8 % (0-2); Eosinophils Absolute Auto 200 /uL (0-450); Eosinophils Percent Auto 2.9 % (2-4); Hematocrit 35.3 % (41-53); Hemoglobin 11.9 g/dL (13.5-17.5); Lymphocytes Absolute Auto 1600 /uL (1100-4500); Lymphocytes Percent Auto 31.2 % (25-40); Mean Corpuscular HGB Conc 33.7 % (30-36); Mean Corpuscular Hemoglobin 30.7 PG (26-34); Mean Corpuscular Volume 91.1 fL (80-100); Monocytes Absolute Auto 500 /uL (0-900); Monocytes Percent Auto 8.9 % (3-14); Neutrophils Absolute Auto 2800 /uL (1500-7000); Neutrophils Percent Auto 53.2 % (50-75); Platelet Count 483 X10^3/uL (150-400); Red Blood Cell Count 3.88 X10^6/uL (4.5-5.9); Red Cell Distribution Width 14.8 % (11.6-14.8); White Blood Cell Count 5.3 X10^3/uL (4.5-11.0)
[2022-01-28 11:03] LABS: Cholesterol 117 mg/dL (140-199); HDL Cholesterol 23 mg/dL (40-60); LDL Cholesterol Calculated 45 mg/dL (<100); Magnesium 2.1 mg/dL (1.6-2.3); Triglycerides 246 mg/dL (35-150)
[2022-01-28 11:33] LABS: Thyroid Stimulating Hormone 1.42 uIU/mL (0.47-4.68)
== END ==
PROVIDERS: Family Provider Physician Assistant; PCP Internal Medicine; Referring Provider Internal Medicine Cardiovascular Disease; Visit Provider Internal Medicine Cardiovascular Disease
DX: I10 Essential (primary) hypertension (principal); I77.810 Thoracic aortic ectasia; I35.1 Nonrheumatic aortic (valve) insufficiency
CPT/HCPCS: 36415; 80061; 83735; 84443; 85025

== ENCOUNTER 2022-03-24 11:45 | Outpatient (RCR) | payer MEDICARE, OTHER, SELFPAY ==
[2022-01-12 08:12] VITALS: BMI 29.0
--- NOTE | 2022-01-21 17:11 | PT.OIE ---
Current Diagnoses Unilateral primary osteoarthritis, right knee (01/21/22) Difficulty in walking, not elsewhere classified (01/21/22) Weakness (01/21/22) Presence of right artificial knee joint (01/21/22) Past Medical History (Last Updated 01/12/22 @ 06:08 by Lien Jules MD) Daily consumption of alcohol Hyperlipidemia Hypertension Obstructive sleep apnea of adult (~04/2018) Osteoarthritis Snoring (~2003) Past Surgical History (Last Updated 01/12/22 @ 06:08 by Lien Jules MD) H/O wrist surgery History of arthroscopy of knee History of knee replacement History of lumbar surgery No pertinent past surgical history Visit Care Team Role Provider Type Sonal Donaldson PA-C Family Provider Non-Staff Specialty: General Surgery Address: [address] [place] [address], [id number] Email: Ney Hathaway MD Attending Provider Non-Staff Primary Care Provider Referring Provider Specialty: Internal Medicine Address: [address] [place] [address], [id number] Email: Physical Therapy Initial Evaluation PT-OP-A Visit Information Start: 01/06/22 10:01 Freq: Status: Active Protocol: Document 01/21/22 08:59 [facility]AK (Rec: 01/21/22 09:46 [facility] [id number]) Out-Patient Physical Therapy Visit Information Visit Information Visit Type Initial Evaluation Visit Start Time 09:00 Visit Stop Time 09:55 Total Visit Minutes 55 Visit Number 1 Evaluation Information Evaluation Date 01/21/22 Precautions Precautions WBAT right LE Patient fatigues easily s/p pneumonia PT-OP-B Current Condition Start: 01/06/22 10:01 Freq: Status: Active Protocol: Document 01/21/22 08:59 SAK (Rec: 01/21/22 09:46 [facility] [id number]) Current Condition History of Current Condition Onset Date 12/31/21 Current Complaints right knee TKA History of Current Condition Right TKA 12/31/21, home for 2 weeks, diagnosed with pneumonia 10 days after surgery, was in hospital a couple days, sent home. Back in hospital 36 hours later hospitalized via ambulance due to pneumonia in entire lungs. Discharged home 1 week ago. Has done imited TKA exercise due to pneumonia. Has been walking, using walker, still SOB. Had been scheduled for aquatic PT visits but now on waiting list as all PT visits were cancelled after he got confused and didn't come for initial evaluation. Patient previously benefited highly from aquatic therapy after back surgery. Treatment Goals Patient/Caregiver Goals Return to full active use of right knee with minimal pain. Prior Functional Status Baseline Function- ADL's Modified Independent Baseline Function- Mobility Modified Independent Baseline Function- Gait modified independent using cane Baseline Function- Work/School retired Baseline Function- Recreation/Hobbies limited due to right knee pain Current Functional Impairments (Reported) Functional Limitations- ADL's assisted by due to fatigue Functional Limitations- Mobility/Gait using 4WW, walking limited due to fatigue after pneumonia Functional Limitations- Work/School retired Functional Limitations- Recreation/ unable at this time Hobbies Personal Factors Other Personal Factors That May Effect pneumonia Therapy/Recovery PT-OP-C Subjective Start: 01/06/22 10:01 Freq: Status: Active Protocol: Document 01/21/22 08:59 [facility] (Rec: 01/22/22 17:09 [facility] [id number]) OP-PT Pain Assessment Location Right Knee Pain Location Details pain chart not completed Pain Behaviors Pain Behaviors [place] PT-OP-G Mobility & Gait Start: 01/06/22 10:01 Freq: Status: Active Protocol: Document 01/21/22 08:59 [facility] (Rec: 01/22/22 17:09 [facility] [id number]) OP Mobility Evaluation Bed Mobility Rolling indep Transfers Sit to Stand use of UE's OP Gait Assessment Gait Gait Assistance Required: Standby Assistance Distance (Feet) 50 Assistive Devices Assistive Device Front Wheeled Walker Comments Gait Comments Also: gait with SPC x 50 ft with CGA, 60 ft with trekking poles and CGA Stair Climbing Evaluation Evaluation Level of Assist On Stairs Standby Assistance Devices Stair Climbing Assistive Devices Straight Cane,Right Railing Technique/Endurance Stair Climbing Direction Ascend and Descend Stair Climbing Technique Step to Step PT-OP-J Posture/Palpation/Skin Start: 01/06/22 10:01 Freq: Status: Active Protocol: Document 01/21/22 08:59 [facility] (Rec: 01/22/22 17:09 [facility] [id number]) Palpation Assessment Location right knee Palpation Details mild edema, minimal increase in temperature Skin Assessment Incisional Assessment Incision Appearance/Comments healing well without signs or symptoms of infection. still has some scabbing from mid to distal end of incision. Patient and instructed to obtain vitamin E oil for massage of closed areas of scar only PT-OP-K Range of Motion Start: 01/06/22 10:01 Freq: Status: Active Protocol: Document 01/21/22 08:59 [facility] (Rec: 01/22/22 17:09 [facility] [id number]) Knee Goniometric Range of Motion Knee Right Flexion Active (degrees) 104 Flexion Passive (degrees) 108 Extension Active (degrees) 18 Extension Passive (degrees) 6 Left Knee ROM WFL Yes Flexion Active (degrees) 124 Extension Active (degrees) 0 Knee ROM Limitations Knee ROM Limitations Soft Tissue Tightness,Pain Ankle and Foot Goniometric Range of Motion Ankle and Foot Right Comments lacking approx 10 degrees ankle dorsiflexion with knee extended, 5 with knee flexed Left Ankle/Foot ROM WFL Yes Ankle and Foot ROM Limitations ROM Limitations Soft Tissue Tightness PT-OP-M Strength Start: 01/06/22 10:01 Freq: Status: Active Protocol: Document 01/21/22 08:59 [facility] (Rec: 01/22/22 17:09 [facility] [id number]) Knee Strength Knee Manual Muscle Testing Right Flexion (S2) 3- Fair- Extension (L3) 3- Fair- Comments No MMT but patient lacking full antigravity ROM Left Flexion (S2) 5 Normal Extension (L3) 5 Normal PT-OP-Q Treatments Start: 01/06/22 10:01 Freq: Status: Active Protocol: Document 01/21/22 08:59 [facility] (Rec: 01/22/22 17:09 [facility] [id number]) Self-Care/Home Management Treatment Education Patient Education Home Exercise Program,Pain Management Other Education HEP 2-3x/day Ice and elevate knee above heart 2-3x/day Obtain Vitamin E oil for self- massage of closed areas of scar to soften and improve mobility PT-OP-R Modalities Start: 01/06/22 10:01 Freq: Status: Active Protocol: Document 01/21/22 08:59 [facility] (Rec: 01/22/22 17:09 [facility] [id number]) Hot Pack/Cold Pack Treatment Cold Pack Location right knee Patient Position Hooklying Treatment Duration (minutes) 10 Patient Tolerance Good Comments right LE elevated on bolster and wedge combination PT-OP-T Assessment and Plan Start: 01/06/22 10:01 Freq: Status: Active Protocol: Document 01/21/22 08:59 [facility] (Rec: 01/21/22 09:46 [facility] [id number]) Physical Therapy Assessment Rehab Potential Rehabilitation Potential Good Evaluation Complexity Number of Personal Factors/Comorbidities 1-2 Number of Body Systems Impaired 3 Clinical Presentation at Evaluation Evolving Impairments Impairments Activity Tolerance,Gait,ROM, Strength Goals Four Impairment Activity tolerance Impairment fatigues quickly requiring rest breaks with therapy evaluation today. 6 min walk test not done due to fatigue. Short Term Goal (STG) Patient able to tolerate walking for 6 minutes continuously without a break STG Duration 02/20/22 Usp Goal (LTG) Patient will be able to walk at least 1000 feet in 6 minutes as measure of improved activity tolerance. LTG Duration 03/23/22 Three Impairment gait dysfunction Impairment Patient requires use of an assistive device for safety with gait and uses step-to pattern on stairs Short Term Goal (STG) Patient able to walk on level surfaces and stairs with cane with minimal to no limp safely STG Duration 02/06/22 Usp Goal (LTG) Patient able to walk on level surfaces and stairs without assistive device safely with alternating step pattern on stiars. LTG Duration 03/23/22 Two Impairment decreased right knee strength Impairment 3-/5 Short Term Goal (STG) Patient to be independent with HEP for purposes of right knee strengthening. STG Duration 02/06/22 Usp Goal (LTG) right knee strength at least 4 +/5, with patient able to transfer sit to stand without use of UE's LTG Duration 03/23/22 One Impairment decreased right knee ROM Impairment AROM right knee 18-104, PROM 6 -108 Short Term Goal (STG) Patient to be independent and compliant with HEP for right knee ROM. Improve right knee AROM to 10- 115 STG Duration 02/06/22 Service Cleaner Goal (LTG) Improve right knee to 0-120 LTG Duration 03/23/22 Assessment Summary Assessment Patient presents to PT s/p right TKA with complicated recovery due to severe pneumonia with hospitalization , minimal ability to do TKA exercise program yet. Due to the pneumonia patient fatigues easily. He came to PT using FWW for gait but frequently lifted and carried the walker; educated him correct use of cane and trekking poles as options to progress to as advised carrying walker unsafe , may need to continue to use at night for safety going to the bathroom. Patient AROM right knee is 18 - 104 degrees, mild knee swelling and right foot swelling. Dennise is present for evaluation and is patient's caregiver. Both patient and demonstrated good understanding of correct use of cane and trekking poles as well as TKA HEP; initial post- op HEP reviewed today, not progressed due to patient fatigue. Physical Therapy Plan Frequency and Duration Frequency of Treatment 2x/Week Duration of Treatment 8 weeks Plan of Care Start Date 01/21/22 Plan of Care End Date 03/23/22 Therapeutic Interventions Therapeutic Interventions Aquatic Therapy,Gait Training, Home Exercise Program,Manual Therapy,Neuromuscular Re- education,Patient/Caregiver Education,Self-Care/Home Management,Soft Tissue Mobilization,Taping, Therapeutic Activities, Therapeutic Exercises Modalities Cold Pack/Ice Massage,Electric Stimulation Next Visit Focus/Plan Next Note Type Treatment Note Next Visit Plan Start with recumbant ex bike, review HEP, gentle progression as tolerated. Gait training on 4 stairs and level surfaces with cane. Initiate scar mobilization. Ice to end treatment, potentially with IFES depending on pain level.
--- NOTE | 2022-01-21 17:12 | PT.OPPOC ---
Physical, Occupational & Speech Therapy At [facility] Current Diagnoses Unilateral primary osteoarthritis, right knee (01/21/22) Difficulty in walking, not elsewhere classified (01/21/22) Weakness (01/21/22) Presence of right artificial knee joint (01/21/22) Visit Care Team Role Provider Type Sonal Donaldson PA-C Family Provider Non-Staff Specialty: General Surgery Address: [address] [place] [address], [address] Email: Ney Hathaway MD Attending Provider Non-Staff Primary Care Provider Referring Provider Specialty: Internal Medicine Address: [address] [place] [address], [id number] Email: Plan Of Care PT-OP-T Assessment and Plan Start: 01/06/22 10:01 Freq: Status: Active Protocol: Document 01/21/22 08:59 [facility]AK (Rec: 01/21/22 09:46 [facility] [id number]) Physical Therapy Assessment Rehab Potential Rehabilitation Potential Good Evaluation Complexity Number of Personal Factors/Comorbidities 1-2 Number of Body Systems Impaired 3 Clinical Presentation at Evaluation Evolving Impairments Impairments Activity Tolerance,Gait,ROM, Strength Goals Four Impairment Activity tolerance Impairment fatigues quickly requiring rest breaks with therapy evaluation today. 6 min walk test not done due to fatigue. Short Term Goal (STG) Patient able to tolerate walking for 6 minutes continuously without a break STG Duration 02/20/22 Longterm Goal (LTG) Patient will be able to walk at least 1000 feet in 6 minutes as measure of improved activity tolerance. LTG Duration 03/23/22 Three Impairment gait dysfunction Impairment Patient requires use of an assistive device for safety with gait and uses step-to pattern on stairs Short Term Goal (STG) Patient able to walk on level surfaces and stairs with cane with minimal to no limp safely STG Duration 02/06/22 Longterm Goal (LTG) Patient able to walk on level surfaces and stairs without assistive device safely with alternating step pattern on stiars. LTG Duration 03/23/22 Two Impairment decreased right knee strength Impairment 3-/5 Short Term Goal (STG) Patient to be independent with HEP for purposes of right knee strengthening. STG Duration 02/06/22 Technical Support Manager Goal (LTG) right knee strength at least 4 +/5, with patient able to transfer sit to stand without use of UE's LTG Duration 03/23/22 One Impairment decreased right knee ROM Impairment AROM right knee 18-104, PROM 6 -108 Short Term Goal (STG) Patient to be independent and compliant with HEP for right knee ROM. Improve right knee AROM to 10- 115 STG Duration 02/06/22 Longterm Goal (LTG) Improve right knee to 0-120 LTG Duration 03/23/22 Assessment Summary Assessment Patient presents to PT s/p right TKA with complicated recovery due to severe pneumonia with hospitalization , minimal ability to do TKA exercise program yet. Due to the pneumonia patient fatigues easily. He came to PT using FWW for gait but frequently lifted and carried the walker; educated him correct use of cane and trekking poles as options to progress to as advised carrying walker unsafe , may need to continue to use at night for safety going to the bathroom. Patient AROM right knee is 18 - 104 degrees, mild knee swelling and right foot swelling. Dennise is present for evaluation and is patient's caregiver. Both patient and demonstrated good understanding of correct use of cane and trekking poles as well as TKA HEP; initial post- op HEP reviewed today, not progressed due to patient fatigue. Physical Therapy Plan Frequency and Duration Frequency of Treatment 2x/Week Duration of Treatment 8 weeks Plan of Care Start Date 01/21/22 Plan of Care End Date 03/23/22 Therapeutic Interventions Therapeutic Interventions Aquatic Therapy,Gait Training, Home Exercise Program,Manual Therapy,Neuromuscular Re- education,Patient/Caregiver Education,Self-Care/Home Management,Soft Tissue Mobilization,Taping, Therapeutic Activities, Therapeutic Exercises Modalities Cold Pack/Ice Massage,Electric Stimulation Next Visit Focus/Plan Next Note Type Treatment Note Next Visit Plan Start with recumbant ex bike, review HEP, gentle progression as tolerated. Gait training on 4 stairs and level surfaces with cane. Initiate scar mobilization. Ice to end treatment, potentially with IFES depending on pain level. Plan of Care Dates Plan of Care Start Date 01/21/22 Plan of Care End Date 03/23/22 Electronically Signed by: Supriya John, PT 01/22/22 2134 If you are in agreement with this Plan of Care, please return a signed and dated copy. I have reviewed this Plan of Care and certify that the skilled therapy services above are required to meet the patient?s needs. Physician Signature Date Printed Name and Credentials Clinical Instructor Signature Printed Name and Credentials
--- NOTE | 2022-01-23 15:23 | PT.OTN ---
Current Diagnoses Unilateral primary osteoarthritis, right knee (01/23/22) Difficulty in walking, not elsewhere classified (01/23/22) Weakness (01/23/22) Presence of right artificial knee joint (01/23/22) Physical Therapy Treatment Note PT-OP-A Visit Information Start: 01/06/22 10:01 Freq: Status: Active Protocol: Document 01/23/22 12:59 AMB (Rec: 01/23/22 13:44 AMB [id number]) Out-Patient Physical Therapy Visit Information Visit Information Visit Type Treatment Note Visit Start Time 13:00 Visit Stop Time 13:45 Total Visit Minutes 45 Visit Number 2 PT-OP-B Current Condition Start: 01/06/22 10:01 Freq: Status: Active Protocol: Document 01/21/22 08:59 [facility] (Rec: 01/21/22 09:46 [facility] [id number]) Current Condition History of Current Condition Onset Date 12/31/21 Current Complaints right knee TKA History of Current Condition Right TKA 12/31/21, home for 2 weeks, diagnosed with pneumonia 10 days after surgery, was in hospital a couple days, sent home. Back in hospital 36 hours later hospitalized via ambulance due to pneumonia in entire lungs. Discharged home 1 week ago. Has done imited TKA exercise due to pneumonia. Has been walking, using walker, still SOB. Had been scheduled for aquatic PT visits but now on waiting list as all PT visits were cancelled after he got confused and didn't come for initial evaluation. Patient previously benefited highly from aquatic therapy after back surgery. Treatment Goals Patient/Caregiver Goals Return to full active use of right knee with minimal pain. Prior Functional Status Baseline Function- ADL's Modified Independent Baseline Function- Mobility Modified Independent Baseline Function- Gait modified independent using cane Baseline Function- Work/School retired Baseline Function- Recreation/Hobbies limited due to right knee pain Current Functional Impairments (Reported) Functional Limitations- ADL's assisted by due to fatigue Functional Limitations- Mobility/Gait using 4WW, walking limited due to fatigue after pneumonia Functional Limitations- Work/School retired Functional Limitations- Recreation/ unable at this time Hobbies Personal Factors Other Personal Factors That May Effect pneumonia Therapy/Recovery PT-OP-C Subjective Start: 01/06/22 10:01 Freq: Status: Active Protocol: Document 01/23/22 12:59 AMB (Rec: 01/23/22 13:44 AMB [id number]) OP-PT Subjective Patient Comments Patient Comments Pt PT-OP-G Mobility & Gait Start: 01/06/22 10:01 Freq: Status: Active Protocol: Document 01/21/22 08:59 [facility] (Rec: 01/22/22 17:09 [facility] [id number]) OP Mobility Evaluation Bed Mobility Rolling indep Transfers Sit to Stand use of UE's OP Gait Assessment Gait Gait Assistance Required: Standby Assistance Distance (Feet) 50 Assistive Devices Assistive Device Front Wheeled Walker Comments Gait Comments Also: gait with SPC x 50 ft with CGA, 60 ft with trekking poles and CGA Stair Climbing Evaluation Evaluation Level of Assist On Stairs Standby Assistance Devices Stair Climbing Assistive Devices Straight Cane,Right Railing Technique/Endurance Stair Climbing Direction Ascend and Descend Stair Climbing Technique Step to Step PT-OP-J Posture/Palpation/Skin Start: 01/06/22 10:01 Freq: Status: Active Protocol: Document 01/21/22 08:59 [facility] (Rec: 01/22/22 17:09 [facility] [id number]) Palpation Assessment Location right knee Palpation Details mild edema, minimal increase in temperature Skin Assessment Incisional Assessment Incision Appearance/Comments healing well without signs or symptoms of infection. still has some scabbing from mid to distal end of incision. Patient and instructed to obtain vitamin E oil for massage of closed areas of scar only PT-OP-K Range of Motion Start: 01/06/22 10:01 Freq: Status: Active Protocol: Document 01/21/22 08:59 [facility] (Rec: 01/22/22 17:09 [facility] [id number]) Knee Goniometric Range of Motion Knee Right Flexion Active (degrees) 104 Flexion Passive (degrees) 108 Extension Active (degrees) 18 Extension Passive (degrees) 6 Left Knee ROM WFL Yes Flexion Active (degrees) 124 Extension Active (degrees) 0 Knee ROM Limitations Knee ROM Limitations Soft Tissue Tightness,Pain Ankle and Foot Goniometric Range of Motion Ankle and Foot Right Comments lacking approx 10 degrees ankle dorsiflexion with knee extended, 5 with knee flexed Left Ankle/Foot ROM WFL Yes Ankle and Foot ROM Limitations ROM Limitations Soft Tissue Tightness PT-OP-M Strength Start: 01/06/22 10:01 Freq: Status: Active Protocol: Document 01/21/22 08:59 [facility] (Rec: 01/22/22 17:09 [facility] [id number]) Knee Strength Knee Manual Muscle Testing Right Flexion (S2) 3- Fair- Extension (L3) 3- Fair- Comments No MMT but patient lacking full antigravity ROM Left Flexion (S2) 5 Normal Extension (L3) 5 Normal PT-OP-Q Treatments Start: 01/06/22 10:01 Freq: Status: Active Protocol: Document 01/23/22 15:03 AMB (Rec: 01/23/22 15:22 AMB [id number]) Cardio Equipment Recumbent Elliptical (BiodMonscierge) Duration (Minutes) 7 Resistance 4 Therapeutic Exercises Supine Exercises hamstring stretch Side right Resistance 30x4 SAQ Side right Resistance 2x10 heel slide Side right Resistance 2x10 Gait Training Gait Activity stairs Comments alternating gait pattern with bilateral railings 6 stairs trekking poles Device Used bilat Stoner and Companykking poles Level of Assistance Aden Surface smooth Treatment Focus even step length, full knee extension Manual Therapy Treatment Soft Tissue Mobilization 1 Body Location scar tissue Mobilization Type Myofascial Release Intensity/Depth Superficial Comments with flexion/extension PROM PT-OP-R Modalities Start: 01/06/22 10:01 Freq: Status: Active Protocol: Document 01/23/22 13:00 AMB (Rec: 01/23/22 15:22 AMB [id number]) Hot Pack/Cold Pack Treatment Cold Pack Location cryocuff Patient Position Hooklying Treatment Duration (minutes) 10 Patient Tolerance Good PT-OP-T Assessment and Plan Start: 01/06/22 10:01 Freq: Status: Active Protocol: Document 01/23/22 15:03 AMB (Rec: 01/23/22 15:22 AMB [id number]) Physical Therapy Assessment Goals Four Impairment Activity tolerance Impairment fatigues quickly requiring rest breaks with therapy evaluation today. 6 min walk test not done due to fatigue. Short Term Goal (STG) Patient able to tolerate walking for 6 minutes continuously without a break STG Duration 02/20/22 Longterm Goal (LTG) Patient will be able to walk at least 1000 feet in 6 minutes as measure of improved activity tolerance. LTG Duration 03/23/22 Three Impairment gait dysfunction Impairment Patient requires use of an assistive device for safety with gait and uses step-to pattern on stairs Short Term Goal (STG) Patient able to walk on level surfaces and stairs with cane with minimal to no limp safely STG Duration 02/06/22 Sagger Soak Goal (LTG) Patient able to walk on level surfaces and stairs without assistive device safely with alternating step pattern on stiars. LTG Duration 03/23/22 Two Impairment decreased right knee strength Impairment 3-/5 Short Term Goal (STG) Patient to be independent with HEP for purposes of right knee strengthening. STG Duration 02/06/22 Longterm Goal (LTG) right knee strength at least 4 +/5, with patient able to transfer sit to stand without use of UE's LTG Duration 03/23/22 One Impairment decreased right knee ROM Impairment AROM right knee 18-104, PROM 6 -108 Short Term Goal (STG) Patient to be independent and compliant with HEP for right knee ROM. Improve right knee AROM to 10- 115 STG Duration 02/06/22 Longterm Goal (LTG) Improve right knee to 0-120 LTG Duration 03/23/22 Assessment Summary Assessment Pt is going to be checked for afib tomorrow, but states hasn 't really pushed exercise yet because of that, has been doing heel slides and short arc quad, and did well with that today. Did have some swelling in popliteal fossa, brings trekking poles and using appropriately. Recommend continued strengthening and ROM, scar tissue mobilization as tolerated. Physical Therapy Plan Next Visit Focus/Plan Next Note Type Treatment Note Next Visit Plan Start with recumbant ex bike, review HEP, gentle progression as tolerated. Gait training on 4 stairs and level surfaces with cane. Initiate scar mobilization. Ice to end treatment, potentially with IFES depending on pain level.
--- NOTE | 2022-01-28 10:40 | PT.OTN ---
Current Diagnoses Unilateral primary osteoarthritis, right knee (01/28/22) Difficulty in walking, not elsewhere classified (01/28/22) Weakness (01/28/22) Presence of right artificial knee joint (01/28/22) Physical Therapy Treatment Note PT-OP-A Visit Information Start: 01/06/22 10:01 Freq: Status: Active Protocol: Document 01/28/22 09:52 NBM (Rec: 01/28/22 10:39 NBM [id number]) Out-Patient Physical Therapy Visit Information Visit Information Visit Type Treatment Note Visit Start Time 09:52 Visit Stop Time 10:30 Total Visit Minutes 38 Visit Number 3 Number of TRAVEL PTA Visits 1 PT-OP-B Current Condition Start: 01/06/22 10:01 Freq: Status: Active Protocol: Document 01/21/22 08:59 SAK (Rec: 01/21/22 09:46 SAK [id number]) Current Condition History of Current Condition Onset Date 12/31/21 Current Complaints right knee TKA History of Current Condition Right TKA 12/31/21, home for 2 weeks, diagnosed with pneumonia 10 days after surgery, was in hospital a couple days, sent home. Back in hospital 36 hours later hospitalized via ambulance due to pneumonia in entire lungs. Discharged home 1 week ago. Has done imited TKA exercise due to pneumonia. Has been walking, using walker, still SOB. Had been scheduled for aquatic PT visits but now on waiting list as all PT visits were cancelled after he got confused and didn't come for initial evaluation. Patient previously benefited highly from aquatic therapy after back surgery. Treatment Goals Patient/Caregiver Goals Return to full active use of right knee with minimal pain. Prior Functional Status Baseline Function- ADL's Modified Independent Baseline Function- Mobility Modified Independent Baseline Function- Gait modified independent using cane Baseline Function- Work/School retired Baseline Function- Recreation/Hobbies limited due to right knee pain Current Functional Impairments (Reported) Functional Limitations- ADL's assisted by due to fatigue Functional Limitations- Mobility/Gait using 4WW, walking limited due to fatigue after pneumonia Functional Limitations- Work/School retired Functional Limitations- Recreation/ unable at this time Hobbies Personal Factors Other Personal Factors That May Effect pneumonia Therapy/Recovery PT-OP-C Subjective Start: 01/06/22 10:01 Freq: Status: Active Protocol: Document 01/28/22 09:52 NBM (Rec: 01/28/22 10:39 [facility] [id number]) OP-PT Subjective Patient Comments Patient Comments Shakir reports he has been doing his exercises inconsistently. He walks around a lot and then when he sits down pains sets in and he ices. He hasn't been sleeping well due to pain in his right hip down his right thigh. PT-OP-G Mobility & Gait Start: 01/06/22 10:01 Freq: Status: Active Protocol: Document 01/21/22 08:59 [facility] (Rec: 01/22/22 17:09 [facility] [id number]) OP Mobility Evaluation Bed Mobility Rolling indep Transfers Sit to Stand use of UE's OP Gait Assessment Gait Gait Assistance Required: Standby Assistance Distance (Feet) 50 Assistive Devices Assistive Device Front Wheeled Walker Comments Gait Comments Also: gait with SPC x 50 ft with CGA, 60 ft with trekking poles and CGA Stair Climbing Evaluation Evaluation Level of Assist On Stairs Standby Assistance Devices Stair Climbing Assistive Devices Straight Cane,Right Railing Technique/Endurance Stair Climbing Direction Ascend and Descend Stair Climbing Technique Step to Step PT-OP-J Posture/Palpation/Skin Start: 01/06/22 10:01 Freq: Status: Active Protocol: Document 01/21/22 08:59 SAK (Rec: 01/22/22 17:09 [facility] [id number]) Palpation Assessment Location right knee Palpation Details mild edema, minimal increase in temperature Skin Assessment Incisional Assessment Incision Appearance/Comments healing well without signs or symptoms of infection. still has some scabbing from mid to distal end of incision. Patient and instructed to obtain vitamin E oil for massage of closed areas of scar only PT-OP-K Range of Motion Start: 01/06/22 10:01 Freq: Status: Active Protocol: Document 01/21/22 08:59 [facility] (Rec: 01/22/22 17:09 [facility] [id number]) Knee Goniometric Range of Motion Knee Right Flexion Active (degrees) 104 Flexion Passive (degrees) 108 Extension Active (degrees) 18 Extension Passive (degrees) 6 Left Knee ROM WFL Yes Flexion Active (degrees) 124 Extension Active (degrees) 0 Knee ROM Limitations Knee ROM Limitations Soft Tissue Tightness,Pain Ankle and Foot Goniometric Range of Motion Ankle and Foot Right Comments lacking approx 10 degrees ankle dorsiflexion with knee extended, 5 with knee flexed Left Ankle/Foot ROM WFL Yes Ankle and Foot ROM Limitations ROM Limitations Soft Tissue Tightness PT-OP-M Strength Start: 01/06/22 10:01 Freq: Status: Active Protocol: Document 01/21/22 08:59 SAK (Rec: 01/22/22 17:09 SAK [id number]) Knee Strength Knee Manual Muscle Testing Right Flexion (S2) 3- Fair- Extension (L3) 3- Fair- Comments No MMT but patient lacking full antigravity ROM Left Flexion (S2) 5 Normal Extension (L3) 5 Normal PT-OP-Q Treatments Start: 01/06/22 10:01 Freq: Status: Active Protocol: Document 01/28/22 09:52 NBM (Rec: 01/28/22 10:39 NB [id number]) Cardio Equipment Recumbent Bicycle Duration (Minutes) 7 Resistance 4 Seat Position 7 Therapeutic Exercises Supine Exercises IT Band stretch Supine Exercise Name w/ strap Side right Reps/Minutes 30 x 4 hamstring stretch Side right Resistance 30x4 heel slide Side right Resistance 2x10 Comments pain improved after HS stretch Gait Training Gait Activity Walking Device Used SPC Level of Assistance SBA Surface level Distance/Duration 2 x 12' Comments VC for keeping SPC closer, upright posture. Reduced Trendelenberg w/ SPC observed. stairs Device Used SPC Level of Assistance SBA Comments alternating gait pattern with bilateral railings 4 stairs, vc for initiating leg ascending/descending and upright posture PT-OP-R Modalities Start: 01/06/22 10:01 Freq: Status: Active Protocol: Document 01/28/22 09:52 NBM (Rec: 01/28/22 10:39 [facility] [id number]) Hot Pack/Cold Pack Treatment Cold Pack Location R Knee Patient Position Hooklying Treatment Duration (minutes) 10 Patient Tolerance Good PT-OP-T Assessment and Plan Start: 01/06/22 10:01 Freq: Status: Active Protocol: Document 01/28/22 09:52 NB (Rec: 01/28/22 10:39 [facility] [id number]) Physical Therapy Assessment Goals Four Impairment Activity tolerance Impairment fatigues quickly requiring rest breaks with therapy evaluation today. 6 min walk test not done due to fatigue. Short Term Goal (STG) Patient able to tolerate walking for 6 minutes continuously without a break STG Duration 02/20/22 Efficiency Analyst Goal (LTG) Patient will be able to walk at least 1000 feet in 6 minutes as measure of improved activity tolerance. LTG Duration 03/23/22 Three Impairment gait dysfunction Impairment Patient requires use of an assistive device for safety with gait and uses step-to pattern on stairs Short Term Goal (STG) Patient able to walk on level surfaces and stairs with cane with minimal to no limp safely STG Duration 02/06/22 Nursing Home Goal (LTG) Patient able to walk on level surfaces and stairs without assistive device safely with alternating step pattern on stiars. LTG Duration 03/23/22 Two Impairment decreased right knee strength Impairment 3-/5 Short Term Goal (STG) Patient to be independent with HEP for purposes of right knee strengthening. STG Duration 02/06/22 Nursing Home Goal (LTG) right knee strength at least 4 +/5, with patient able to transfer sit to stand without use of UE's LTG Duration 03/23/22 One Impairment decreased right knee ROM Impairment AROM right knee 18-104, PROM 6 -108 Short Term Goal (STG) Patient to be independent and compliant with HEP for right knee ROM. Improve right knee AROM to 10- 115 STG Duration 02/06/22 Nursing Home Goal (LTG) Improve right knee to 0-120 LTG Duration 03/23/22 Assessment Summary Assessment Pt demonstrates increased tightness through R hip and knee and has stopped using SPC at home. Reduced Trendelenberg noted in gait with SPC than without and pt agrees to use SPC and be more consistent with stretches and HEP. Recommend continued strengthening and ROM, scar tissue mobilization as tolerated. Physical Therapy Plan Next Visit Focus/Plan Next Note Type Treatment Note Next Visit Plan Start with recumbant ex bike, review HEP, gentle progression as tolerated. Gait training on 4 stairs and level surfaces with cane. Scar mobilization. Ice to end treatment, potentially with IFES depending on pain level.
--- NOTE | 2022-01-31 17:55 | PT.OTN ---
Current Diagnoses Unilateral primary osteoarthritis, right knee (01/31/22) Difficulty in walking, not elsewhere classified (01/31/22) Weakness (01/31/22) Presence of right artificial knee joint (01/31/22) Physical Therapy Treatment Note PT-OP-A Visit Information Start: 01/06/22 10:01 Freq: Status: Active Protocol: Document 01/31/22 12:17 NBM (Rec: 01/31/22 13:42 NBM [id number]) Out-Patient Physical Therapy Visit Information Visit Information Visit Type Treatment Note Visit Start Time 12:15 Visit Stop Time 13:00 Total Visit Minutes 45 Visit Number 4 Number of PLAYBACK OPERATOR Visits 2 PT-OP-B Current Condition Start: 01/06/22 10:01 Freq: Status: Active Protocol: Document 01/21/22 08:59 SAK (Rec: 01/21/22 09:46 SAK [id number]) Current Condition History of Current Condition Onset Date 12/31/21 Current Complaints right knee TKA History of Current Condition Right TKA 12/31/21, home for 2 weeks, diagnosed with pneumonia 10 days after surgery, was in hospital a couple days, sent home. Back in hospital 36 hours later hospitalized via ambulance due to pneumonia in entire lungs. Discharged home 1 week ago. Has done imited TKA exercise due to pneumonia. Has been walking, using walker, still SOB. Had been scheduled for aquatic PT visits but now on waiting list as all PT visits were cancelled after he got confused and didn't come for initial evaluation. Patient previously benefited highly from aquatic therapy after back surgery. Treatment Goals Patient/Caregiver Goals Return to full active use of right knee with minimal pain. Prior Functional Status Baseline Function- ADL's Modified Independent Baseline Function- Mobility Modified Independent Baseline Function- Gait modified independent using cane Baseline Function- Work/School retired Baseline Function- Recreation/Hobbies limited due to right knee pain Current Functional Impairments (Reported) Functional Limitations- ADL's assisted by due to fatigue Functional Limitations- Mobility/Gait using 4WW, walking limited due to fatigue after pneumonia Functional Limitations- Work/School retired Functional Limitations- Recreation/ unable at this time Hobbies Personal Factors Other Personal Factors That May Effect pneumonia Therapy/Recovery PT-OP-C Subjective Start: 01/06/22 10:01 Freq: Status: Active Protocol: Document 01/31/22 12:17 NBM (Rec: 01/31/22 13:42 [facility] [id number]) OP-PT Subjective Patient Comments Patient Comments Shakir reports he is tired after walking around [employer] this morning and wants to focus on stretching today. He went back into a-fib two days ago and is scheduled to see cell inspector in ~1.5 weeks. He 's feeling more tired in a-fib . His R hip pain has improved and is not waking him as much. He saw chiropractor yesterday and it feels better. He's been using his SPC but thinks it is short. PT-OP-G Mobility & Gait Start: 01/06/22 10:01 Freq: Status: Active Protocol: Document 01/21/22 08:59 [facility] (Rec: 01/22/22 17:09 [facility] [id number]) OP Mobility Evaluation Bed Mobility Rolling indep Transfers Sit to Stand use of UE's OP Gait Assessment Gait Gait Assistance Required: Standby Assistance Distance (Feet) 50 Assistive Devices Assistive Device Front Wheeled Walker Comments Gait Comments Also: gait with SPC x 50 ft with CGA, 60 ft with trekking poles and CGA Stair Climbing Evaluation Evaluation Level of Assist On Stairs Standby Assistance Devices Stair Climbing Assistive Devices Straight Cane,Right Railing Technique/Endurance Stair Climbing Direction Ascend and Descend Stair Climbing Technique Step to Step PT-OP-J Posture/Palpation/Skin Start: 01/06/22 10:01 Freq: Status: Active Protocol: Document 01/21/22 08:59 SAK (Rec: 01/22/22 17:09 [facility] [id number]) Palpation Assessment Location right knee Palpation Details mild edema, minimal increase in temperature Skin Assessment Incisional Assessment Incision Appearance/Comments healing well without signs or symptoms of infection. still has some scabbing from mid to distal end of incision. Patient and instructed to obtain vitamin E oil for massage of closed areas of scar only PT-OP-K Range of Motion Start: 01/06/22 10:01 Freq: Status: Active Protocol: Document 01/21/22 08:59 [facility] (Rec: 01/22/22 17:09 [facility] [id number]) Knee Goniometric Range of Motion Knee Right Flexion Active (degrees) 104 Flexion Passive (degrees) 108 Extension Active (degrees) 18 Extension Passive (degrees) 6 Left Knee ROM WFL Yes Flexion Active (degrees) 124 Extension Active (degrees) 0 Knee ROM Limitations Knee ROM Limitations Soft Tissue Tightness,Pain Ankle and Foot Goniometric Range of Motion Ankle and Foot Right Comments lacking approx 10 degrees ankle dorsiflexion with knee extended, 5 with knee flexed Left Ankle/Foot ROM WFL Yes Ankle and Foot ROM Limitations ROM Limitations Soft Tissue Tightness PT-OP-M Strength Start: 01/06/22 10:01 Freq: Status: Active Protocol: Document 01/21/22 08:59 SAK (Rec: 01/22/22 17:09 SAK [id number]) Knee Strength Knee Manual Muscle Testing Right Flexion (S2) 3- Fair- Extension (L3) 3- Fair- Comments No MMT but patient lacking full antigravity ROM Left Flexion (S2) 5 Normal Extension (L3) 5 Normal PT-OP-Q Treatments Start: 01/06/22 10:01 Freq: Status: Active Protocol: Document 01/31/22 12:17 NBM (Rec: 01/31/22 13:42 NBM [id number]) Cardio Equipment Recumbent Elliptical (BiodFutubra) Duration (Minutes) 5 Resistance 4 Therapeutic Exercises Supine Exercises Hip Flexor Stretch Supine Exercise Name Samir stretch Side right Reps/Minutes 2 x 30 Comments Good response. L side attempted but uncomfortable on R. knee. hamstring stretch Side right Resistance 30x4 Comments PROM heel slide Side right Resistance 2x10 Sitting Exercises Piriformis Stretch Sitting Exercise Name Figure 4 Reps/Minutes 2x30 Comments vc to hold for full 30 IT Band Sitting Exercise Name Stretch Reps/Minutes 2x30 Comments vc to hold for full 30 Gait Training Gait Activity Walking Device Used SPC, mirror Level of Assistance SBA Surface level Distance/Duration 2 x 12' Comments Cues for keeping upright posture. Pt reports increased comfort with taller cane and will obtain taller SPC. stairs Device Used SPC from clinic Level of Assistance SBA Comments alternating gait pattern with bilateral railings 6 stairs, vc for upright posture and initiating leg ascending. Manual Therapy Treatment Soft Tissue Mobilization R Knee Body Location R IT Band, R HS Mobilization Type Myofascial Release,Rolling, Strumming Intensity/Depth Moderate Body Position Sidelying 1 Body Location scar tissue Mobilization Type Myofascial Release Intensity/Depth Superficial Comments with flexion/extension PROM Self-Care/Home Management Treatment Education Patient Education Home Exercise Program Other Education Scar Tissue mobilization - added to HEP PT-OP-R Modalities Start: 01/06/22 10:01 Freq: Status: Active Protocol: Document 01/31/22 12:17 [facility] (Rec: 01/31/22 13:42 [facility] [id number]) Electric Stimulation Electric Stimulation Interferential Current (IFC) Body Location R knee Duration (Minutes) 8 Intensity 26 Target/Sweep Target High/Low High Patient Position Hooklying Combined With Heat/Cold Cold Pack Comments Pt requested removal of cold pack after 5 min and to end IFC treatment after 8 min due to deep ache in knee from ice . Pt would like to try IFC again without ice. Hot Pack/Cold Pack Treatment Cold Pack Location R Knee Patient Position Hooklying Treatment Duration (minutes) 5 Patient Tolerance Fair Comments Pt requested removal of ice after 5 min due to deep ache which he states he always gets with ice. PT-OP-T Assessment and Plan Start: 01/06/22 10:01 Freq: Status: Active Protocol: Document 01/31/22 12:17 [facility] (Rec: 01/31/22 13:42 [facility] [id number]) Physical Therapy Assessment Goals Four Impairment Activity tolerance Impairment fatigues quickly requiring rest breaks with therapy evaluation today. 6 min walk test not done due to fatigue. Short Term Goal (STG) Patient able to tolerate walking for 6 minutes continuously without a break STG Duration 02/20/22 Mcfp Goal (LTG) Patient will be able to walk at least 1000 feet in 6 minutes as measure of improved activity tolerance. LTG Duration 03/23/22 Three Impairment gait dysfunction Impairment Patient requires use of an assistive device for safety with gait and uses step-to pattern on stairs Short Term Goal (STG) Patient able to walk on level surfaces and stairs with cane with minimal to no limp safely STG Duration 02/06/22 Glassblower Goal (LTG) Patient able to walk on level surfaces and stairs without assistive device safely with alternating step pattern on stiars. LTG Duration 03/23/22 Two Impairment decreased right knee strength Impairment 3-/5 Short Term Goal (STG) Patient to be independent with HEP for purposes of right knee strengthening. STG Duration 02/06/22 Mcfp Goal (LTG) right knee strength at least 4 +/5, with patient able to transfer sit to stand without use of UE's LTG Duration 03/23/22 One Impairment decreased right knee ROM Impairment AROM right knee 18-104, PROM 6 -108 Short Term Goal (STG) Patient to be independent and compliant with HEP for right knee ROM. Improve right knee AROM to 10- 115 STG Duration 02/06/22 Glassblower Goal (LTG) Improve right knee to 0-120 LTG Duration 03/23/22 Assessment Summary Assessment Pt presents with increased tightness and pain through R hip and knee which was relieved with stretches and STM. Relief reported with adjusted cane height - pt plans to order taller cane. Pt requires cues for ascending stairs w/SPC and to hold stretches at least 30 seconds. He demonstrates proper scar tissue mobilization to incision. Pt responds well to IFES but after 5 minutes pt reports deep ache in R knee due to ice and that he experiences that regularly, then decided to stop E-stim after 8 min due to needing to move his limb due to the ache - pt would like to attempt IFES again for pain management . Physical Therapy Plan Next Visit Focus/Plan Next Note Type Treatment Note Next Visit Plan Assess response to STM and E- stim and preference to try again w/o ice. Use clinic SPC for gait training/stairs unless new SPC obtained. Review stretches and scar tissue mob. POC: Start with recumbant ex bike, review HEP, gentle progression as tolerated. Gait training on 4 stairs and level surfaces with cane. Ice to end treatment as tolerated, potentially with IFES depending on pain level.
--- NOTE | 2022-02-03 15:13 | PT.OTN ---
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 Back in hospital 36 hours later hospitalized via ambulance due to pneumonia in entire lungs. Discharged home 1 week ago. Has done imited TKA exercise due to pneumonia. Has been walking, using walker, still SOB. Had been scheduled for aquatic PT visits but now on waiting list as all PT visits were cancelled after he got confused and didn't come for initial evaluation. Patient previously benefited highly from aquatic therapy after back surgery. Treatment Goals Patient/Caregiver Goals Return to full active use of right knee with minimal pain. Prior Functional Status Baseline Function- ADL's Modified Independent Baseline Function- Mobility Modified Independent Baseline Function- Gait modified independent using cane Baseline Function- Work/School retired Baseline Function- Recreation/Hobbies limited due to right knee pain Current Functional Impairments (Reported) Functional Limitations- ADL's assisted by due to fatigue Functional Limitations- Mobility/Gait using 4WW, walking limited due to fatigue after pneumonia Functional Limitations- Work/School retired Functional Limitations- Recreation/ unable at this time Hobbies Personal Factors Other Personal Factors That May Effect pneumonia Therapy/Recovery PT-OP-C Subjective Start: 01/06/22 10:01 Freq: Status: Active Protocol: Document 02/03/22 14:51 LJ (Rec: 02/03/22 15:13 LJ [id number]) OP-PT Subjective Patient Comments Patient Comments Pt reports he is walking much better and uses SPC more as a precaution than neessity. The pain is decreasing and he controls it with frequent icing particularly after exercise and walking. States he is very glad to be in the pool. PT-OP-G Mobility & Gait Start: 01/06/22 10:01 Freq: Status: Active Protocol: Document 01/21/22 08:59 [facility] (Rec: 01/22/22 17:09 SAK [id number]) OP Mobility Evaluation Bed Mobility Rolling indep Transfers Sit to Stand use of UE's OP Gait Assessment Gait Gait Assistance Required: Standby Assistance Distance (Feet) 50 Assistive Devices Assistive Device Front Wheeled Walker Comments Gait Comments Also: gait with SPC x 50 ft with CGA, 60 ft with trekking poles and CGA Stair Climbing Evaluation Evaluation Level of Assist On Stairs Standby Assistance Devices Stair Climbing Assistive Devices Straight Cane,Right Railing Technique/Endurance Stair Climbing Direction Ascend and Descend Stair Climbing Technique Step to Step PT-OP-J Posture/Palpation/Skin Start: 01/06/22 10:01 Freq: Status: Active Protocol: Document 01/21/22 08:59 SAK (Rec: 01/22/22 17:09 [facility] [id number]) Palpation Assessment Location right knee Palpation Details mild edema, minimal increase in temperature Skin Assessment Incisional Assessment Incision Appearance/Comments healing well without signs or symptoms of infection. still has some scabbing from mid to distal end of incision. Patient and instructed to obtain vitamin E oil for massage of closed areas of scar only PT-OP-K Range of Motion Start: 01/06/22 10:01 Freq: Status: Active Protocol: Document 01/21/22 08:59 SAK (Rec: 01/22/22 17:09 SAK [id number]) Knee Goniometric Range of Motion Knee Right Flexion Active (degrees) 104 Flexion Passive (degrees) 108 Extension Active (degrees) 18 Extension Passive (degrees) 6 Left Knee ROM WFL Yes Flexion Active (degrees) 124 Extension Active (degrees) 0 Knee ROM Limitations Knee ROM Limitations Soft Tissue Tightness,Pain Ankle and Foot Goniometric Range of Motion Ankle and Foot Right Comments lacking approx 10 degrees ankle dorsiflexion with knee extended, 5 with knee flexed Left Ankle/Foot ROM WFL Yes Ankle and Foot ROM Limitations ROM Limitations Soft Tissue Tightness PT-OP-M Strength Start: 01/06/22 10:01 Freq: Status: Active Protocol: Document 01/21/22 08:59 SAK (Rec: 01/22/22 17:09 SAK [id number]) Knee Strength Knee Manual Muscle Testing Right Flexion (S2) 3- Fair- Extension (L3) 3- Fair- Comments No MMT but patient lacking full antigravity ROM Left Flexion (S2) 5 Normal Extension (L3) 5 Normal PT-OP-Q Treatments Start: 01/06/22 10:01 Freq: Status: Active Protocol: Document 01/31/22 12:17 NBM (Rec: 01/31/22 13:42 NBM [id number]) Cardio Equipment Recumbent Elliptical (Sciences-U) Duration (Minutes) 5 Resistance 4 Therapeutic Exercises Supine Exercises Hip Flexor Stretch Supine Exercise Name Samir stretch Side right Reps/Minutes 2 x 30 Comments Good response. L side attempted but uncomfortable on R. knee. hamstring stretch Side right Resistance 30x4 Comments PROM heel slide Side right Resistance 2x10 Sitting Exercises Piriformis Stretch Sitting Exercise Name Figure 4 Reps/Minutes 2x30 Comments vc to hold for full 30 IT Band Sitting Exercise Name Stretch Reps/Minutes 2x30 Comments vc to hold for full 30 Gait Training Gait Activity Walking Device Used SPC, mirror Level of Assistance SBA Surface level Distance/Duration 2 x 12' Comments Cues for keeping upright posture. Pt reports increased comfort with taller cane and will obtain taller SPC. stairs Device Used SPC from clinic Level of Assistance SBA Comments alternating gait pattern with bilateral railings 6 stairs, vc for upright posture and initiating leg ascending. Manual Therapy Treatment Soft Tissue Mobilization R Knee Body Location R IT Band, R HS Mobilization Type Myofascial Release,Rolling, Strumming Intensity/Depth Moderate Body Position Sidelying 1 Body Location scar tissue Mobilization Type Myofascial Release Intensity/Depth Superficial Comments with flexion/extension PROM Self-Care/Home Management Treatment Education Patient Education Home Exercise Program Other Education Scar Tissue mobilization - added to HEP PT-OP-R Modalities Start: 01/06/22 10:01 Freq: Status: Active Protocol: Document 01/31/22 12:17 NBM (Rec: 01/31/22 13:42 NBM [id number]) Electric Stimulation Electric Stimulation Interferential Current (IFC) Body Location R knee Duration (Minutes) 8 Intensity 26 Target/Sweep Target High/Low High Patient Position Hooklying Combined With Heat/Cold Cold Pack Comments Pt requested removal of cold pack after 5 min and to end IFC treatment after 8 min due to deep ache in knee from ice . Pt would like to try IFC again without ice. Hot Pack/Cold Pack Treatment Cold Pack Location R Knee Patient Position Hooklying Treatment Duration (minutes) 5 Patient Tolerance Fair Comments Pt requested removal of ice after 5 min due to deep ache which he states he always gets with ice. PT-OP-S Aquatic Treatment Start: 02/03/22 14:50 Freq: Status: Active Protocol: Document 02/03/22 14:51 BJORN (Rec: 02/03/22 15:13 [id number]) Aquatics Treatment Pool Entry/Exit Pool Entry/Exit Method Stairs Assistance Independent Comments bilat rails Water Walking directional changes; stop start Water Level Waist Level Level of Assistance Verbal Cues Sideways Water Level Waist Level Level of Assistance Verbal Cues Marching Water Level Waist Level Level of Assistance Verbal Cues Backwards Water Level Waist Level Forwards Water Level Waist Level Level of Assistance Verbal Cues Comments cues for recip arm mvnt and quad activation Lower Extremity Stretches ITB Details at wall Reps/Duration 30 rightLE Comments modified without foot crossover HS, gastroc Details at wall and on stairs Body Position Standing Water Level Waist Level Reps/Duration 2 x 30' bilat hip flexors, quads Details at wall Body Position Standing Water Level Waist Level Reps/Duration 3 x 30-45 Comments noodle under foot for quad Spinal Exercises seated on noodle Details sit kicks-bilateral and unilateral Reps/Duration 4 min Balance boxes Details step ups f/b bilateral Water Level Chest Level Reps/Duration 6 min Comments difficulty with balance and controled descent [place] Activities [place] Activities Bicycle,Bicycle Backwards, Cross Country,Running,Hip Abduction/Adduction Equipment lg belt Duration 10 min Comments cues for vertical alignment cued to slow down fatigued PT-OP-T Assessment and Plan Start: 01/06/22 10:01 Freq: Status: Active Protocol: Document 02/03/22 14:51 BJORN (Rec: 02/03/22 15:13 [id number]) Physical Therapy Assessment Rehab Potential Rehabilitation Potential Good Evaluation Complexity Number of Personal Factors/Comorbidities 1-2 Number of Body Systems Impaired 3 Clinical Presentation at Evaluation Evolving Impairments Impairments Activity Tolerance,Gait,ROM, Strength Goals Four Impairment Activity tolerance Impairment fatigues quickly requiring rest breaks with therapy evaluation today. 6 min walk test not done due to fatigue. Short Term Goal (STG) Patient able to tolerate walking for 6 minutes continuously without a break STG Duration 02/20/22 Tire Spotter Goal (LTG) Patient will be able to walk at least 1000 feet in 6 minutes as measure of improved activity tolerance. LTG Duration 03/23/22 Three Impairment gait dysfunction Impairment Patient requires use of an assistive device for safety with gait and uses step-to pattern on stairs Short Term Goal (STG) Patient able to walk on level surfaces and stairs with cane with minimal to no limp safely STG Duration 02/06/22 Fpc Goal (LTG) Patient able to walk on level surfaces and stairs without assistive device safely with alternating step pattern on stiars. LTG Duration 03/23/22 Two Impairment decreased right knee strength Impairment 3-/5 Short Term Goal (STG) Patient to be independent with HEP for purposes of right knee strengthening. STG Duration 02/06/22 Fpc Goal (LTG) right knee strength at least 4 +/5, with patient able to transfer sit to stand without use of UE's LTG Duration 03/23/22 One Impairment decreased right knee ROM Impairment AROM right knee 18-104, PROM 6 -108 Short Term Goal (STG) Patient to be independent and compliant with HEP for right knee ROM. Improve right knee AROM to 10- 115 STG Duration 02/06/22 Fpc Goal (LTG) Improve right knee to 0-120 LTG Duration 03/23/22 Assessment Summary Assessment Pt needed to be reminded to slow down and ease up on exercises. Cueing required for core activation, quad activation with forward walking, softer steps to maintain control with landing during walking activities. He plans to go to pool on his own to add exercise sessions for a consistent routine. Physical Therapy Plan Frequency and Duration Frequency of Treatment 2x/Week Duration of Treatment 8 weeks Plan of Care Start Date 01/21/22 Plan of Care End Date 03/23/22 Therapeutic Interventions Therapeutic Interventions Aquatic Therapy,Gait Training, Home Exercise Program,Manual Therapy,Neuromuscular Re- education,Patient/Caregiver Education,Self-Care/Home Management,Soft Tissue Mobilization,Taping, Therapeutic Activities, Therapeutic Exercises Modalities Cold Pack/Ice Massage,Electric Stimulation Next Visit Focus/Plan Next Note Type Treatment Note Next Visit Plan Progress with overall strengthening of core, LEs; balance and gait improvement. Add resistance and increased cardio as appropriate to return to PLOF particularly in light of previous pneumonia and decreased activity level in recent weeks.
--- NOTE | 2022-02-17 14:59 | PT.OTN ---
Current Diagnoses Unilateral primary osteoarthritis, right knee (02/03/22) Difficulty in walking, not elsewhere classified (02/03/22) Weakness (02/03/22) Presence of right artificial knee joint (02/03/22) Physical Therapy Treatment Note PT-OP-A Visit Information Start: 01/06/22 10:01 Freq: Status: Active Protocol: Document 02/17/22 14:24 LJ (Rec: 02/17/22 14:41 LJ [id number]) Out-Patient Physical Therapy Visit Information Visit Information Visit Type Aquatic Treatment Note Visit Start Time 10:15 Visit Stop Time 11:00 Total Visit Minutes 45 Visit Number 6 Number of DRIVER RETRAINING INSTRUCTOR Visits 4 PT-OP-B Current Condition Start: 01/06/22 10:01 Freq: Status: Active Protocol: Document 01/21/22 08:59 SAK (Rec: 01/21/22 09:46 SAK [id number]) Current Condition History of Current Condition Onset Date 12/31/21 Current Complaints right knee TKA History of Current Condition Right TKA 12/31/21, home for 2 weeks, diagnosed with pneumonia 10 days after surgery, was in hospital a couple days, sent home. Back in hospital 36 hours later hospitalized via ambulance due to pneumonia in entire lungs. Discharged home 1 week ago. Has done imited TKA exercise due to pneumonia. Has been walking, using walker, still SOB. Had been scheduled for aquatic PT visits but now on waiting list as all PT visits were cancelled after he got confused and didn't come for initial evaluation. Patient previously benefited highly from aquatic therapy after back surgery. Treatment Goals Patient/Caregiver Goals Return to full active use of right knee with minimal pain. Prior Functional Status Baseline Function- ADL's Modified Independent Baseline Function- Mobility Modified Independent Baseline Function- Gait modified independent using cane Baseline Function- Work/School retired Baseline Function- Recreation/Hobbies limited due to right knee pain Current Functional Impairments (Reported) Functional Limitations- ADL's assisted by due to fatigue Functional Limitations- Mobility/Gait using 4WW, walking limited due to fatigue after pneumonia Functional Limitations- Work/School retired Functional Limitations- Recreation/ unable at this time Hobbies Personal Factors Other Personal Factors That May Effect pneumonia Therapy/Recovery PT-OP-C Subjective Start: 01/06/22 10:01 Freq: Status: Active Protocol: Document 02/17/22 14:24 LJ (Rec: 02/17/22 14:41 LJ [id number]) OP-PT Subjective Patient Comments Patient Comments Pt reports his balance is much better and he is able to achieve near normal ROM on RLE . States he has been coming to the pool regularly and feels he is doing well. PT-OP-G Mobility & Gait Start: 01/06/22 10:01 Freq: Status: Active Protocol: Document 01/21/22 08:59 [facility] (Rec: 01/22/22 17:09 SAK [id number]) OP Mobility Evaluation Bed Mobility Rolling indep Transfers Sit to Stand use of UE's OP Gait Assessment Gait Gait Assistance Required: Standby Assistance Distance (Feet) 50 Assistive Devices Assistive Device Front Wheeled Walker Comments Gait Comments Also: gait with SPC x 50 ft with CGA, 60 ft with trekking poles and CGA Stair Climbing Evaluation Evaluation Level of Assist On Stairs Standby Assistance Devices Stair Climbing Assistive Devices Straight Cane,Right Railing Technique/Endurance Stair Climbing Direction Ascend and Descend Stair Climbing Technique Step to Step PT-OP-J Posture/Palpation/Skin Start: 01/06/22 10:01 Freq: Status: Active Protocol: Document 01/21/22 08:59 [facility] (Rec: 01/22/22 17:09 SAK [id number]) Palpation Assessment Location right knee Palpation Details mild edema, minimal increase in temperature Skin Assessment Incisional Assessment Incision Appearance/Comments healing well without signs or symptoms of infection. still has some scabbing from mid to distal end of incision. Patient and instructed to obtain vitamin E oil for massage of closed areas of scar only PT-OP-K Range of Motion Start: 01/06/22 10:01 Freq: Status: Active Protocol: Document 01/21/22 08:59 [facility] (Rec: 01/22/22 17:09 [facility] [id number]) Knee Goniometric Range of Motion Knee Right Flexion Active (degrees) 104 Flexion Passive (degrees) 108 Extension Active (degrees) 18 Extension Passive (degrees) 6 Left Knee ROM WFL Yes Flexion Active (degrees) 124 Extension Active (degrees) 0 Knee ROM Limitations Knee ROM Limitations Soft Tissue Tightness,Pain Ankle and Foot Goniometric Range of Motion Ankle and Foot Right Comments lacking approx 10 degrees ankle dorsiflexion with knee extended, 5 with knee flexed Left Ankle/Foot ROM WFL Yes Ankle and Foot ROM Limitations ROM Limitations Soft Tissue Tightness PT-OP-M Strength Start: 01/06/22 10:01 Freq: Status: Active Protocol: Document 01/21/22 08:59 SAK (Rec: 01/22/22 17:09 SAK [id number]) Knee Strength Knee Manual Muscle Testing Right Flexion (S2) 3- Fair- Extension (L3) 3- Fair- Comments No MMT but patient lacking full antigravity ROM Left Flexion (S2) 5 Normal Extension (L3) 5 Normal PT-OP-Q Treatments Start: 01/06/22 10:01 Freq: Status: Active Protocol: Document 01/31/22 12:17 NBM (Rec: 01/31/22 13:42 NBM [id number]) Cardio Equipment Recumbent Elliptical (Giraffic) Duration (Minutes) 5 Resistance 4 Therapeutic Exercises Supine Exercises Hip Flexor Stretch Supine Exercise Name Samir stretch Side right Reps/Minutes 2 x 30 Comments Good response. L side attempted but uncomfortable on R. knee. hamstring stretch Side right Resistance 30x4 Comments PROM heel slide Side right Resistance 2x10 Sitting Exercises Piriformis Stretch Sitting Exercise Name Figure 4 Reps/Minutes 2x30 Comments vc to hold for full 30 IT Band Sitting Exercise Name Stretch Reps/Minutes 2x30 Comments vc to hold for full 30 Gait Training Gait Activity Walking Device Used SPC, mirror Level of Assistance SBA Surface level Distance/Duration 2 x 12' Comments Cues for keeping upright posture. Pt reports increased comfort with taller cane and will obtain taller SPC. stairs Device Used SPC from clinic Level of Assistance SBA Comments alternating gait pattern with bilateral railings 6 stairs, vc for upright posture and initiating leg ascending. Manual Therapy Treatment Soft Tissue Mobilization R Knee Body Location R IT Band, R HS Mobilization Type Myofascial Release,Rolling, Strumming Intensity/Depth Moderate Body Position Sidelying 1 Body Location scar tissue Mobilization Type Myofascial Release Intensity/Depth Superficial Comments with flexion/extension PROM Self-Care/Home Management Treatment Education Patient Education Home Exercise Program Other Education Scar Tissue mobilization - added to HEP PT-OP-R Modalities Start: 01/06/22 10:01 Freq: Status: Active Protocol: Document 01/31/22 12:17 NBM (Rec: 01/31/22 13:42 NBM [id number]) Electric Stimulation Electric Stimulation Interferential Current (IFC) Body Location R knee Duration (Minutes) 8 Intensity 26 Target/Sweep Target High/Low High Patient Position Hooklying Combined With Heat/Cold Cold Pack Comments Pt requested removal of cold pack after 5 min and to end IFC treatment after 8 min due to deep ache in knee from ice . Pt would like to try IFC again without ice. Hot Pack/Cold Pack Treatment Cold Pack Location R Knee Patient Position Hooklying Treatment Duration (minutes) 5 Patient Tolerance Fair Comments Pt requested removal of ice after 5 min due to deep ache which he states he always gets with ice. PT-OP-S Aquatic Treatment Start: 02/03/22 14:50 Freq: Status: Active Protocol: Document 02/17/22 14:24 (Rec: 02/17/22 14:41 [id number]) Aquatics Treatment Pool Entry/Exit Pool Entry/Exit Method Stairs Assistance Independent Comments bilat rails Water Walking [place] March Water Level Waist Level Lunge Walk Water Level Waist Level Comments f/b; use of UEs directional changes; stop start Water Level Waist Level Level of Assistance Verbal Cues Lower Extremity Exercises 4 way hip Details standing on box Water Level Waist Level Reps/Duration 10 B each Comments minimal hh on wall Lower Extremity Stretches ITB Details at wall Reps/Duration 30 rightLE Comments modified without foot crossover HS, gastroc Details at wall and on stairs Body Position Standing Water Level Waist Level Reps/Duration 2 x 30' bilat hip flexors, quads Details at wall Body Position Standing Water Level Waist Level Reps/Duration 3 x 30-45 Comments using stairs for quads; contract relax-assisted x3 Spinal Exercises core stabilization Details seated at wall Equipment black ball Reps/Duration 20 Comments ball between knees-20 squeezes Balance boxes Details step ups f/b bilateral Water Level Chest Level Reps/Duration 5 min Comments eccentric training; min hh on wall for balance [place] Activities [place] Activities Bicycle,Bicycle Backwards, Cross Country Other Activities pendulum-abd lower leg x5 B rock 'n roll- pike position T hang w/asymetrical submerged BBs for core challenge plank-45* rotation of hips for destabilization Equipment lg belt Duration 20 PT-OP-T Assessment and Plan Start: 01/06/22 10:01 Freq: Status: Active Protocol: Document 02/17/22 14:24 BJORN (Rec: 02/17/22 14:41 BJORN [id number]) Physical Therapy Assessment Rehab Potential Rehabilitation Potential Good Evaluation Complexity Number of Personal Factors/Comorbidities 1-2 Number of Body Systems Impaired 3 Clinical Presentation at Evaluation Evolving Impairments Impairments Activity Tolerance,Gait,ROM, Strength Goals Four Impairment Activity tolerance Impairment fatigues quickly requiring rest breaks with therapy evaluation today. 6 min walk test not done due to fatigue. Short Term Goal (STG) Patient able to tolerate walking for 6 minutes continuously without a break STG Duration 02/20/22 Ems Coordinator Goal (LTG) Patient will be able to walk at least 1000 feet in 6 minutes as measure of improved activity tolerance. LTG Duration 03/23/22 Three Impairment gait dysfunction Impairment Patient requires use of an assistive device for safety with gait and uses step-to pattern on stairs Short Term Goal (STG) Patient able to walk on level surfaces and stairs with cane with minimal to no limp safely STG Duration 02/06/22 Ems Coordinator Goal (LTG) Patient able to walk on level surfaces and stairs without assistive device safely with alternating step pattern on stiars. LTG Duration 03/23/22 Two Impairment decreased right knee strength Impairment 3-/5 Short Term Goal (STG) Patient to be independent with HEP for purposes of right knee strengthening. STG Duration 02/06/22 Ems Coordinator Goal (LTG) right knee strength at least 4 +/5, with patient able to transfer sit to stand without use of UE's LTG Duration 03/23/22 One Impairment decreased right knee ROM Impairment AROM right knee 18-104, PROM 6 -108 Short Term Goal (STG) Patient to be independent and compliant with HEP for right knee ROM. Improve right knee AROM to 10- 115 STG Duration 02/06/22 Senior Care Goal (LTG) Improve right knee to 0-120 LTG Duration 03/23/22 Assessment Summary Assessment Pt demonstrates improved balance with all exercises. Improved core stabilization and alignment in deep water. Physical Therapy Plan Frequency and Duration Frequency of Treatment 2x/Week Duration of Treatment 8 weeks Plan of Care Start Date 01/21/22 Plan of Care End Date 03/23/22 Therapeutic Interventions Therapeutic Interventions Aquatic Therapy,Gait Training, Home Exercise Program,Manual Therapy,Neuromuscular Re- education,Patient/Caregiver Education,Self-Care/Home Management,Soft Tissue Mobilization,Taping, Therapeutic Activities, Therapeutic Exercises Modalities Cold Pack/Ice Massage,Electric Stimulation Next Visit Focus/Plan Next Note Type Treatment Note Next Visit Plan Progress with overall strengthening of core, LEs; balance and gait improvement. Add resistance and increased cardio as appropriate to return to PLOF.
--- NOTE | 2022-02-26 16:04 | PT.OTN ---
Current Diagnoses Unilateral primary osteoarthritis, right knee (02/26/22) Difficulty in walking, not elsewhere classified (02/26/22) Weakness (02/26/22) Presence of right artificial knee joint (02/26/22) Physical Therapy Treatment Note PT-OP-A Visit Information Start: 01/06/22 10:01 Freq: Status: Active Protocol: Document 02/26/22 15:44 LJ (Rec: 02/26/22 16:03 LJ [id number]) Out-Patient Physical Therapy Visit Information Visit Information Visit Type Aquatic Treatment Note PT-OP-B Current Condition Start: 01/06/22 10:01 Freq: Status: Active Protocol: Document 01/21/22 08:59 SAK (Rec: 01/21/22 09:46 SAK [id number]) Current Condition History of Current Condition Onset Date 12/31/21 Current Complaints right knee TKA History of Current Condition Right TKA 12/31/21, home for 2 weeks, diagnosed with pneumonia 10 days after surgery, was in hospital a couple days, sent home. Back in hospital 36 hours later hospitalized via ambulance due to pneumonia in entire lungs. Discharged home 1 week ago. Has done imited TKA exercise due to pneumonia. Has been walking, using walker, still SOB. Had been scheduled for aquatic PT visits but now on waiting list as all PT visits were cancelled after he got confused and didn't come for initial evaluation. Patient previously benefited highly from aquatic therapy after back surgery. Treatment Goals Patient/Caregiver Goals Return to full active use of right knee with minimal pain. Prior Functional Status Baseline Function- ADL's Modified Independent Baseline Function- Mobility Modified Independent Baseline Function- Gait modified independent using cane Baseline Function- Work/School retired Baseline Function- Recreation/Hobbies limited due to right knee pain Current Functional Impairments (Reported) Functional Limitations- ADL's assisted by due to fatigue Functional Limitations- Mobility/Gait using 4WW, walking limited due to fatigue after pneumonia Functional Limitations- Work/School retired Functional Limitations- Recreation/ unable at this time Hobbies Personal Factors Other Personal Factors That May Effect pneumonia Therapy/Recovery PT-OP-C Subjective Start: 01/06/22 10:01 Freq: Status: Active Protocol: Document 02/26/22 15:44 LJ (Rec: 02/26/22 16:03 LJ [id number]) OP-PT Subjective Patient Comments Patient Comments Pt reports feeling little pain however he is still experiencing swelling in R ankle. He can now walk up/down stairs without handrails. ROM on RLE still limited in flexion and extension. PT-OP-G Mobility & Gait Start: 01/06/22 10:01 Freq: Status: Active Protocol: Document 01/21/22 08:59 [facility] (Rec: 01/22/22 17:09 [facility] [id number]) OP Mobility Evaluation Bed Mobility Rolling indep Transfers Sit to Stand use of UE's OP Gait Assessment Gait Gait Assistance Required: Standby Assistance Distance (Feet) 50 Assistive Devices Assistive Device Front Wheeled Walker Comments Gait Comments Also: gait with SPC x 50 ft with CGA, 60 ft with trekking poles and CGA Stair Climbing Evaluation Evaluation Level of Assist On Stairs Standby Assistance Devices Stair Climbing Assistive Devices Straight Cane,Right Railing Technique/Endurance Stair Climbing Direction Ascend and Descend Stair Climbing Technique Step to Step PT-OP-J Posture/Palpation/Skin Start: 01/06/22 10:01 Freq: Status: Active Protocol: Document 01/21/22 08:59 [facility] (Rec: 01/22/22 17:09 [facility] [id number]) Palpation Assessment Location right knee Palpation Details mild edema, minimal increase in temperature Skin Assessment Incisional Assessment Incision Appearance/Comments healing well without signs or symptoms of infection. still has some scabbing from mid to distal end of incision. Patient and instructed to obtain vitamin E oil for massage of closed areas of scar only PT-OP-K Range of Motion Start: 01/06/22 10:01 Freq: Status: Active Protocol: Document 01/21/22 08:59 [facility] (Rec: 01/22/22 17:09 [facility] [id number]) Knee Goniometric Range of Motion Knee Right Flexion Active (degrees) 104 Flexion Passive (degrees) 108 Extension Active (degrees) 18 Extension Passive (degrees) 6 Left Knee ROM WFL Yes Flexion Active (degrees) 124 Extension Active (degrees) 0 Knee ROM Limitations Knee ROM Limitations Soft Tissue Tightness,Pain Ankle and Foot Goniometric Range of Motion Ankle and Foot Right Comments lacking approx 10 degrees ankle dorsiflexion with knee extended, 5 with knee flexed Left Ankle/Foot ROM WFL Yes Ankle and Foot ROM Limitations ROM Limitations Soft Tissue Tightness PT-OP-M Strength Start: 01/06/22 10:01 Freq: Status: Active Protocol: Document 01/21/22 08:59 SAK (Rec: 01/22/22 17:09 SAK [id number]) Knee Strength Knee Manual Muscle Testing Right Flexion (S2) 3- Fair- Extension (L3) 3- Fair- Comments No MMT but patient lacking full antigravity ROM Left Flexion (S2) 5 Normal Extension (L3) 5 Normal PT-OP-Q Treatments Start: 01/06/22 10:01 Freq: Status: Active Protocol: Document 01/31/22 12:17 NBM (Rec: 01/31/22 13:42 [facility] [id number]) Cardio Equipment Recumbent Elliptical (BiodTarari) Duration (Minutes) 5 Resistance 4 Therapeutic Exercises Supine Exercises Hip Flexor Stretch Supine Exercise Name Samir stretch Side right Reps/Minutes 2 x 30 Comments Good response. L side attempted but uncomfortable on R. knee. hamstring stretch Side right Resistance 30x4 Comments PROM heel slide Side right Resistance 2x10 Sitting Exercises Piriformis Stretch Sitting Exercise Name Figure 4 Reps/Minutes 2x30 Comments vc to hold for full 30 IT Band Sitting Exercise Name Stretch Reps/Minutes 2x30 Comments vc to hold for full 30 Gait Training Gait Activity Walking Device Used SPC, mirror Level of Assistance SBA Surface level Distance/Duration 2 x 12' Comments Cues for keeping upright posture. Pt reports increased comfort with taller cane and will obtain taller SPC. stairs Device Used SPC from clinic Level of Assistance SBA Comments alternating gait pattern with bilateral railings 6 stairs, vc for upright posture and initiating leg ascending. Manual Therapy Treatment Soft Tissue Mobilization R Knee Body Location R IT Band, R HS Mobilization Type Myofascial Release,Rolling, Strumming Intensity/Depth Moderate Body Position Sidelying 1 Body Location scar tissue Mobilization Type Myofascial Release Intensity/Depth Superficial Comments with flexion/extension PROM Self-Care/Home Management Treatment Education Patient Education Home Exercise Program Other Education Scar Tissue mobilization - added to HEP PT-OP-R Modalities Start: 01/06/22 10:01 Freq: Status: Active Protocol: Document 01/31/22 12:17 NBM (Rec: 01/31/22 13:42 [facility] [id number]) Electric Stimulation Electric Stimulation Interferential Current (IFC) Body Location R knee Duration (Minutes) 8 Intensity 26 Target/Sweep Target High/Low High Patient Position Hooklying Combined With Heat/Cold Cold Pack Comments Pt requested removal of cold pack after 5 min and to end IFC treatment after 8 min due to deep ache in knee from ice . Pt would like to try IFC again without ice. Hot Pack/Cold Pack Treatment Cold Pack Location R Knee Patient Position Hooklying Treatment Duration (minutes) 5 Patient Tolerance Fair Comments Pt requested removal of ice after 5 min due to deep ache which he states he always gets with ice. PT-OP-S Aquatic Treatment Start: 02/03/22 14:50 Freq: Status: Active Protocol: Document 02/26/22 15:44 LJ (Rec: 02/26/22 16:03 LJ [id number]) Aquatics Treatment Pool Entry/Exit Pool Entry/Exit Method Stairs Assistance Independent Comments bilat rails Water Walking [place] March Water Level Waist Level Walking Equipment Resistance Fins-med Comments 1 lap swim fins also Lunge Walk Water Level Waist Level Walking Equipment Resistance Fins-med Comments f/b; use of UEs Sideways Water Level Waist Level Walking Equipment Resistance Fins Level of Assistance Verbal Cues Marching Water Level Waist Level Walking Equipment Resistance Fins Backwards Water Level Waist Level Walking Equipment Resistance Fins Forwards Water Level Waist Level Walking Equipment Resistance Fins Comments improved posture Lower Extremity Exercises tap backs Details at wall Body Position Standing Water Level Waist Level Equipment Resistance Fins Reps/Duration 15 B Comments cues for core bracing knee extension Water Level Waist Level Equipment Resistance Fins Reps/Duration [address] hip Water Level Waist Level Reps/Duration 10 B each Comments no hh Lower Extremity Stretches piriformis Details at wall Body Position Sitting Reps/Duration 2 x 30 ITB Details at wall Reps/Duration 1 min B HS, gastroc Body Position Standing Water Level Waist Level Equipment Large Noodle Reps/Duration 2 x 30' bilat Comments 2 noodles hip flexors, quads Details at wall Body Position Standing Water Level Waist Level Reps/Duration 3 x 30-45 Comments contract relax-assisted x3- improved ROM [place] Activities [place] Activities Bicycle,Bicycle Backwards, Cross [place] Other Activities prone extension push off wall-run back plank Swim Strokes dolphin kick Equipment Fins Laps/Duration 60M Comments prone/supine flutter kick Equipment Fins Laps/Duration 30M Manual Techniques Aquatic Massage AquaStretch to right LE peroneals and gastroc. Pt states he walks on outside of foot and those mms get tight. Softening of peroneals occured with ~5 min treatment PT-OP-T Assessment and Plan Start: 01/06/22 10:01 Freq: Status: Active Protocol: Document 02/26/22 15:44 [facility] (Rec: 02/26/22 16:03 [facility] [id number]) Physical Therapy Assessment Rehab Potential Rehabilitation Potential Good Evaluation Complexity Number of Personal Factors/Comorbidities 1-2 Number of Body Systems Impaired 3 Clinical Presentation at Evaluation Evolving Impairments Impairments Activity Tolerance,Gait,ROM, Strength Goals Four Impairment Activity tolerance Impairment fatigues quickly requiring rest breaks with therapy evaluation today. 6 min walk test not done due to fatigue. Short Term Goal (STG) Patient able to tolerate walking for 6 minutes continuously without a break STG Duration 02/20/22 [employer]quet [employer]ender Goal (LTG) Patient will be able to walk at least 1000 feet in 6 minutes as measure of improved activity tolerance. LTG Duration 03/23/22 Three Impairment gait dysfunction Impairment Patient requires use of an assistive device for safety with gait and uses step-to pattern on stairs Short Term Goal (STG) Patient able to walk on level surfaces and stairs with cane with minimal to no limp safely STG Duration 02/06/22 Usp Goal (LTG) Patient able to walk on level surfaces and stairs without assistive device safely with alternating step pattern on stiars. LTG Duration 03/23/22 Two Impairment decreased right knee strength Impairment 3-/5 Short Term Goal (STG) Patient to be independent with HEP for purposes of right knee strengthening. STG Duration 02/06/22 Usp Goal (LTG) right knee strength at least 4 +/5, with patient able to transfer sit to stand without use of UE's LTG Duration 03/23/22 One Impairment decreased right knee ROM Impairment AROM right knee 18-104, PROM 6 -108 Short Term Goal (STG) Patient to be independent and compliant with HEP for right knee ROM. Improve right knee AROM to 10- 115 STG Duration 02/06/22 Banquet Bartender Goal (LTG) Improve right knee to 0-120 LTG Duration 03/23/22 Assessment Summary Assessment Pt continues to progress with improved balance and core stabilization. Still requires cueing in deep water for vertical alignment. He will benefit from continued aquatic therapy to progress exercises for HEP to use independently at the pool. Physical Therapy Plan Frequency and Duration Frequency of Treatment 2x/Week Duration of Treatment 8 weeks Plan of Care Start Date 01/21/22 Plan of Care End Date 03/23/22 Therapeutic Interventions Therapeutic Interventions Aquatic Therapy,Gait Training, Home Exercise Program,Manual Therapy,Neuromuscular Re- education,Patient/Caregiver Education,Self-Care/Home Management,Soft Tissue Mobilization,Taping, Therapeutic Activities, Therapeutic Exercises Modalities Cold Pack/Ice Massage,Electric Stimulation Next Visit Focus/Plan Next Note Type Treatment Note Next Visit Plan Progress with overall strengthening of core, LEs; balance and gait improvement. Add resistance and increased cardio as appropriate to return to PLOF. Continue with AquaStretch as needed for fascial release and muscle tightness in RLE
--- NOTE | 2022-03-03 16:21 | PT.OTN ---
Current Diagnoses Unilateral primary osteoarthritis, right knee (03/03/22) Difficulty in walking, not elsewhere classified (03/03/22) Weakness (03/03/22) Presence of right artificial knee joint (03/03/22) Physical Therapy Treatment Note PT-OP-A Visit Information Start: 01/06/22 10:01 Freq: Status: Active Protocol: Document 03/03/22 14:33 SAK (Rec: 03/03/22 15:13 SAK [id number]) Out-Patient Physical Therapy Visit Information Visit Information Visit Type Treatment Note Visit Start Time 14:34 Visit Stop Time 15:25 Total Visit Minutes 51 Visit Number 8 Number of HEDIS SPECIALIST Visits 0 PT-OP-B Current Condition Start: 01/06/22 10:01 Freq: Status: Active Protocol: Document 01/21/22 08:59 SAK (Rec: 01/21/22 09:46 SAK [id number]) Current Condition History of Current Condition Onset Date 12/31/21 Current Complaints right knee TKA History of Current Condition Right TKA 12/31/21, home for 2 weeks, diagnosed with pneumonia 10 days after surgery, was in hospital a couple days, sent home. Back in hospital 36 hours later hospitalized via ambulance due to pneumonia in entire lungs. Discharged home 1 week ago. Has done imited TKA exercise due to pneumonia. Has been walking, using walker, still SOB. Had been scheduled for aquatic PT visits but now on waiting list as all PT visits were cancelled after he got confused and didn't come for initial evaluation. Patient previously benefited highly from aquatic therapy after back surgery. Treatment Goals Patient/Caregiver Goals Return to full active use of right knee with minimal pain. Prior Functional Status Baseline Function- ADL's Modified Independent Baseline Function- Mobility Modified Independent Baseline Function- Gait modified independent using cane Baseline Function- Work/School retired Baseline Function- Recreation/Hobbies limited due to right knee pain Current Functional Impairments (Reported) Functional Limitations- ADL's assisted by due to fatigue Functional Limitations- Mobility/Gait using 4WW, walking limited due to fatigue after pneumonia Functional Limitations- Work/School retired Functional Limitations- Recreation/ unable at this time Hobbies Personal Factors Other Personal Factors That May Effect pneumonia Therapy/Recovery PT-OP-C Subjective Start: 01/06/22 10:01 Freq: Status: Active Protocol: Document 03/03/22 14:33 SAK (Rec: 03/03/22 15:13 [facility] [id number]) OP-PT Subjective Patient Comments Patient Comments Reports has already been to pool with resistance walking against lazy river. Wants to strengthen his quads, have PT look at why knees are clicking and feeling tight on the outside. PT-OP-G Mobility & Gait Start: 01/06/22 10:01 Freq: Status: Active Protocol: Document 01/21/22 08:59 [facility] (Rec: 01/22/22 17:09 [facility] [id number]) OP Mobility Evaluation Bed Mobility Rolling indep Transfers Sit to Stand use of UE's OP Gait Assessment Gait Gait Assistance Required: Standby Assistance Distance (Feet) 50 Assistive Devices Assistive Device Front Wheeled Walker Comments Gait Comments Also: gait with SPC x 50 ft with CGA, 60 ft with trekking poles and CGA Stair Climbing Evaluation Evaluation Level of Assist On Stairs Standby Assistance Devices Stair Climbing Assistive Devices Straight Cane,Right Railing Technique/Endurance Stair Climbing Direction Ascend and Descend Stair Climbing Technique Step to Step PT-OP-J Posture/Palpation/Skin Start: 01/06/22 10:01 Freq: Status: Active Protocol: Document 01/21/22 08:59 [facility] (Rec: 01/22/22 17:09 [facility] [id number]) Palpation Assessment Location right knee Palpation Details mild edema, minimal increase in temperature Skin Assessment Incisional Assessment Incision Appearance/Comments healing well without signs or symptoms of infection. still has some scabbing from mid to distal end of incision. Patient and instructed to obtain vitamin E oil for massage of closed areas of scar only PT-OP-K Range of Motion Start: 01/06/22 10:01 Freq: Status: Active Protocol: Document 01/21/22 08:59 [facility] (Rec: 01/22/22 17:09 [facility] [id number]) Knee Goniometric Range of Motion Knee Right Flexion Active (degrees) 104 Flexion Passive (degrees) 108 Extension Active (degrees) 18 Extension Passive (degrees) 6 Left Knee ROM WFL Yes Flexion Active (degrees) 124 Extension Active (degrees) 0 Knee ROM Limitations Knee ROM Limitations Soft Tissue Tightness,Pain Ankle and Foot Goniometric Range of Motion Ankle and Foot Right Comments lacking approx 10 degrees ankle dorsiflexion with knee extended, 5 with knee flexed Left Ankle/Foot ROM WFL Yes Ankle and Foot ROM Limitations ROM Limitations Soft Tissue Tightness PT-OP-M Strength Start: 01/06/22 10:01 Freq: Status: Active Protocol: Document 01/21/22 08:59 [facility] (Rec: 01/22/22 17:09 [facility] [id number]) Knee Strength Knee Manual Muscle Testing Right Flexion (S2) 3- Fair- Extension (L3) 3- Fair- Comments No MMT but patient lacking full antigravity ROM Left Flexion (S2) 5 Normal Extension (L3) 5 Normal PT-OP-Q Treatments Start: 01/06/22 10:01 Freq: Status: Active Protocol: Document 03/03/22 14:33 SAK (Rec: 03/03/22 15:13 [facility] [id number]) Gym Equipment Shuttle Recovery Unilateral Squats Resistance 50,37 Shuttle Recovery Platform Stable Reps/Time 10x2 Bilateral Squats Resistance 75 Shuttle Recovery Platform Stable Reps/Time 10x2 Therapeutic Exercises Supine Exercises hamstring stretch Side right Resistance 30x2 Comments manual Sitting Exercises hamstring curl Sitting Exercise Name added to HEP Resistance L2 TB Reps/Minutes 10x2 Standing Exercises squat Standing Exercise Name chair squat, added to HEP Equipment Used mirror Reps/Minutes 10x2 Gait Training Gait Activity Walking Device Used SPC, mirror Level of Assistance SBA Surface level Distance/Duration 2 x 12' Comments Cues for keeping upright posture. Pt reports increased comfort with taller cane and will obtain taller SPC. Manual Therapy Treatment Soft Tissue Mobilization IT band Mobilization Type Instrument Assisted Intensity/Depth Moderate Body Position Sidelying Comments rolling pin, massage wand right calf Body Location lateral Mobilization Type Instrument Assisted Body Position Prone Comments massage wand R Knee Mobilization Type Strumming 1 Body Location scar tissue Mobilization Type Instrument Assisted,Myofascial Release Intensity/Depth Moderate Comments with flexion/extension PROM Self-Care/Home Management Treatment Education Patient Education Home Exercise Program Other Education added chair squats and seated hamstring curl PT-OP-R Modalities Start: 01/06/22 10:01 Freq: Status: Active Protocol: Document 01/31/22 12:17 DENZEL (Rec: 01/31/22 13:42 NBM [id number]) Electric Stimulation Electric Stimulation Interferential Current (IFC) Body Location R knee Duration (Minutes) 8 Intensity 26 Target/Sweep Target High/Low High Patient Position Hooklying Combined With Heat/Cold Cold Pack Comments Pt requested removal of cold pack after 5 min and to end IFC treatment after 8 min due to deep ache in knee from ice . Pt would like to try IFC again without ice. Hot Pack/Cold Pack Treatment Cold Pack Location R Knee Patient Position Hooklying Treatment Duration (minutes) 5 Patient Tolerance Fair Comments Pt requested removal of ice after 5 min due to deep ache which he states he always gets with ice. PT-OP-S Aquatic Treatment Start: 02/03/22 14:50 Freq: Status: Active Protocol: Document 02/26/22 15:44 (Rec: 02/26/22 16:03 [id number]) Aquatics Treatment Pool Entry/Exit Pool Entry/Exit Method Stairs Assistance Independent Comments bilat rails Water Walking [place] March Water Level Waist Level Walking Equipment Resistance Fins-med Comments 1 lap swim fins also Lunge Walk Water Level Waist Level Walking Equipment Resistance Fins-med Comments f/b; use of UEs Sideways Water Level Waist Level Walking Equipment Resistance Fins Level of Assistance Verbal Cues Marching Water Level Waist Level Walking Equipment Resistance Fins Backwards Water Level Waist Level Walking Equipment Resistance Fins Forwards Water Level Waist Level Walking Equipment Resistance Fins Comments improved posture Lower Extremity Exercises tap backs Details at wall Body Position Standing Water Level Waist Level Equipment Resistance Fins Reps/Duration 15 B Comments cues for core bracing knee extension Water Level Waist Level Equipment Resistance Fins Reps/Duration 20 Comments improved balance 4 way hip Water Level Waist Level Reps/Duration 10 B each Comments no hh Lower Extremity Stretches piriformis Details at wall Body Position Sitting Reps/Duration 2 x 30 ITB Details at wall Reps/Duration 1 min B HS, gastroc Body Position Standing Water Level Waist Level Equipment Large Noodle Reps/Duration 2 x 30' bilat Comments 2 noodles hip flexors, quads Details at wall Body Position Standing Water Level Waist Level Reps/Duration 3 x 30-45 Comments contract relax-assisted x3- improved ROM [place] Activities [place] Activities Bicycle,Bicycle Backwards, Cross [place] Other Activities prone extension push off wall-run back plank Swim Strokes dolphin kick Equipment Fins Laps/Duration 60M Comments prone/supine flutter kick Equipment Fins Laps/Duration 30M Manual Techniques Aquatic Massage AquaStretch to right LE peroneals and gastroc. Pt states he walks on outside of foot and those mms get tight. Softening of peroneals occured with ~5 min treatment PT-OP-T Assessment and Plan Start: 01/06/22 10:01 Freq: Status: Active Protocol: Document 03/03/22 14:33 [facility] (Rec: 03/03/22 15:13 [facility] [id number]) Physical Therapy Assessment Goals Four Impairment Activity tolerance Impairment fatigues quickly requiring rest breaks with therapy evaluation today. 6 min walk test not done due to fatigue. Short Term Goal (STG) Patient able to tolerate walking for 6 minutes continuously without a break STG Duration 02/20/22 Mold Maker Goal (LTG) Patient will be able to walk at least 1000 feet in 6 minutes as measure of improved activity tolerance. LTG Duration 03/23/22 Three Impairment gait dysfunction Impairment Patient requires use of an assistive device for safety with gait and uses step-to pattern on stairs Short Term Goal (STG) Patient able to walk on level surfaces and stairs with cane with minimal to no limp safely STG Duration 02/06/22 Mold Maker Goal (LTG) Patient able to walk on level surfaces and stairs without assistive device safely with alternating step pattern on stiars. LTG Duration 03/23/22 Two Impairment decreased right knee strength Impairment 3-/5 Short Term Goal (STG) Patient to be independent with HEP for purposes of right knee strengthening. STG Duration 02/06/22 Intermediate Goal (LTG) right knee strength at least 4 +/5, with patient able to transfer sit to stand without use of UE's LTG Duration 03/23/22 One Impairment decreased right knee ROM Impairment AROM right knee 18-104, PROM 6 -108 Short Term Goal (STG) Patient to be independent and compliant with HEP for right knee ROM. Improve right knee AROM to 10- 115 STG Duration 02/06/22 Mold Maker Goal (LTG) Improve right knee to 0-120 LTG Duration 03/23/22 Assessment Summary Assessment Added shuttle recovery single and dble leg today, chair squat and seated hamstring curl to HEP, gait training in front of mirror for correction of compensatory movements. Soft tissue work to right calf and IT band, scar tissue for improved mobility and decreased tightness and clicking. Physical Therapy Plan Frequency and Duration Frequency of Treatment 2x/Week Duration of Treatment 8 weeks Plan of Care Start Date 01/21/22 Plan of Care End Date 03/23/22 Therapeutic Interventions Therapeutic Interventions Aquatic Therapy,Gait Training, Home Exercise Program,Manual Therapy,Neuromuscular Re- education,Patient/Caregiver Education,Self-Care/Home Management,Soft Tissue Mobilization,Taping, Therapeutic Activities, Therapeutic Exercises Modalities Cold Pack/Ice Massage,Electric Stimulation Next Visit Focus/Plan Next Note Type Treatment Note Next Visit Plan Continue functional, closed chain strengthening adding lunges.
--- NOTE | 2022-03-05 10:30 | PT.OTN ---
Current Diagnoses Unilateral primary osteoarthritis, right knee (03/05/22) Difficulty in walking, not elsewhere classified (03/05/22) Weakness (03/05/22) Presence of right artificial knee joint (03/05/22) Physical Therapy Treatment Note PT-OP-A Visit Information Start: 01/06/22 10:01 Freq: Status: Active Protocol: Document 03/05/22 09:50 SAK (Rec: 03/05/22 10:30 SAK [id number]) Out-Patient Physical Therapy Visit Information Visit Information Visit Type Treatment Note Visit Start Time 09:40 Visit Stop Time 10:25 Total Visit Minutes 45 Visit Number 9 Number of DISPLAY TRIMMER Visits 0 PT-OP-B Current Condition Start: 01/06/22 10:01 Freq: Status: Active Protocol: Document 01/21/22 08:59 SAK (Rec: 01/21/22 09:46 SAK [id number]) Current Condition History of Current Condition Onset Date 12/31/21 Current Complaints right knee TKA History of Current Condition Right TKA 12/31/21, home for 2 weeks, diagnosed with pneumonia 10 days after surgery, was in hospital a couple days, sent home. Back in hospital 36 hours later hospitalized via ambulance due to pneumonia in entire lungs. Discharged home 1 week ago. Has done imited TKA exercise due to pneumonia. Has been walking, using walker, still SOB. Had been scheduled for aquatic PT visits but now on waiting list as all PT visits were cancelled after he got confused and didn't come for initial evaluation. Patient previously benefited highly from aquatic therapy after back surgery. Treatment Goals Patient/Caregiver Goals Return to full active use of right knee with minimal pain. Prior Functional Status Baseline Function- ADL's Modified Independent Baseline Function- Mobility Modified Independent Baseline Function- Gait modified independent using cane Baseline Function- Work/School retired Baseline Function- Recreation/Hobbies limited due to right knee pain Current Functional Impairments (Reported) Functional Limitations- ADL's assisted by due to fatigue Functional Limitations- Mobility/Gait using 4WW, walking limited due to fatigue after pneumonia Functional Limitations- Work/School retired Functional Limitations- Recreation/ unable at this time Hobbies Personal Factors Other Personal Factors That May Effect pneumonia Therapy/Recovery PT-OP-C Subjective Start: 01/06/22 10:01 Freq: Status: Active Protocol: Document 03/05/22 09:50 SAK (Rec: 03/05/22 10:30 [facility] [id number]) OP-PT Subjective Patient Comments Patient Comments Notus decreased pain after use of roller on quads and IT band . PT-OP-G Mobility & Gait Start: 01/06/22 10:01 Freq: Status: Active Protocol: Document 01/21/22 08:59 [facility] (Rec: 01/22/22 17:09 [facility] [id number]) OP Mobility Evaluation Bed Mobility Rolling indep Transfers Sit to Stand use of UE's OP Gait Assessment Gait Gait Assistance Required: Standby Assistance Distance (Feet) 50 Assistive Devices Assistive Device Front Wheeled Walker Comments Gait Comments Also: gait with SPC x 50 ft with CGA, 60 ft with trekking poles and CGA Stair Climbing Evaluation Evaluation Level of Assist On Stairs Standby Assistance Devices Stair Climbing Assistive Devices Straight Cane,Right Railing Technique/Endurance Stair Climbing Direction Ascend and Descend Stair Climbing Technique Step to Step PT-OP-J Posture/Palpation/Skin Start: 01/06/22 10:01 Freq: Status: Active Protocol: Document 01/21/22 08:59 [facility] (Rec: 01/22/22 17:09 [facility] [id number]) Palpation Assessment Location right knee Palpation Details mild edema, minimal increase in temperature Skin Assessment Incisional Assessment Incision Appearance/Comments healing well without signs or symptoms of infection. still has some scabbing from mid to distal end of incision. Patient and instructed to obtain vitamin E oil for massage of closed areas of scar only PT-OP-K Range of Motion Start: 01/06/22 10:01 Freq: Status: Active Protocol: Document 01/21/22 08:59 [facility] (Rec: 01/22/22 17:09 [facility] [id number]) Knee Goniometric Range of Motion Knee Right Flexion Active (degrees) 104 Flexion Passive (degrees) 108 Extension Active (degrees) 18 Extension Passive (degrees) 6 Left Knee ROM WFL Yes Flexion Active (degrees) 124 Extension Active (degrees) 0 Knee ROM Limitations Knee ROM Limitations Soft Tissue Tightness,Pain Ankle and Foot Goniometric Range of Motion Ankle and Foot Right Comments lacking approx 10 degrees ankle dorsiflexion with knee extended, 5 with knee flexed Left Ankle/Foot ROM WFL Yes Ankle and Foot ROM Limitations ROM Limitations Soft Tissue Tightness PT-OP-M Strength Start: 01/06/22 10:01 Freq: Status: Active Protocol: Document 01/21/22 08:59 SAK (Rec: 01/22/22 17:09 SAK [id number]) Knee Strength Knee Manual Muscle Testing Right Flexion (S2) 3- Fair- Extension (L3) 3- Fair- Comments No MMT but patient lacking full antigravity ROM Left Flexion (S2) 5 Normal Extension (L3) 5 Normal PT-OP-Q Treatments Start: 01/06/22 10:01 Freq: Status: Active Protocol: Document 03/05/22 09:50 SAK (Rec: 03/05/22 10:30 SAK [id number]) Cardio Equipment Recumbent Bicycle Duration (Minutes) 10 Resistance 4 Seat Position 7 Gym Equipment Shuttle Recovery hamstring curl Details dbl, single Resistance 60, 40 knee extension Details dbl, single Resistance 50, 30 Reps/Time 10x Unilateral Squats Resistance 50,37 Shuttle Recovery Platform Stable Reps/Time 10x2 Bilateral Squats Resistance 75, 87 Shuttle Recovery Platform Stable Reps/Time 10x2 Therapeutic Exercises Standing Exercises resisted sidestepping Standing Exercise Name sideways, fwd, bck Resistance yellow TB Manual Therapy Treatment Soft Tissue Mobilization IT band Mobilization Type Instrument Assisted Intensity/Depth Moderate Body Position Sidelying Comments rolling pin, massage wand right calf Body Location lateral Mobilization Type Instrument Assisted Body Position Prone Comments massage wand 1 Body Location scar tissue Mobilization Type Instrument Assisted,Myofascial Release Intensity/Depth Moderate Comments with flexion/extension PROM Self-Care/Home Management Treatment Education Other Education educated for proper fit and use of knee extension and hamstring curl machine. PT-OP-R Modalities Start: 01/06/22 10:01 Freq: Status: Active Protocol: Document 01/31/22 12:17 NBM (Rec: 01/31/22 13:42 [facility] [id number]) Electric Stimulation Electric Stimulation Interferential Current (IFC) Body Location R knee Duration (Minutes) 8 Intensity 26 Target/Sweep Target High/Low High Patient Position Hooklying Combined With Heat/Cold Cold Pack Comments Pt requested removal of cold pack after 5 min and to end IFC treatment after 8 min due to deep ache in knee from ice . Pt would like to try IFC again without ice. Hot Pack/Cold Pack Treatment Cold Pack Location R Knee Patient Position Hooklying Treatment Duration (minutes) 5 Patient Tolerance Fair Comments Pt requested removal of ice after 5 min due to deep ache which he states he always gets with ice. PT-OP-S Aquatic Treatment Start: 02/03/22 14:50 Freq: Status: Active Protocol: Document 02/26/22 15:44 [facility] (Rec: 02/26/22 16:03 [facility] [id number]) Aquatics Treatment Pool Entry/Exit Pool Entry/Exit Method Stairs Assistance Independent Comments bilat rails Water Walking [place] March Water Level Waist Level Walking Equipment Resistance Fins-med Comments 1 lap swim fins also Lunge Walk Water Level Waist Level Walking Equipment Resistance Fins-med Comments f/b; use of UEs Sideways Water Level Waist Level Walking Equipment Resistance Fins Level of Assistance Verbal Cues Marching Water Level Waist Level Walking Equipment Resistance Fins Backwards Water Level Waist Level Walking Equipment Resistance Fins Forwards Water Level Waist Level Walking Equipment Resistance Fins Comments improved posture Lower Extremity Exercises tap backs Details at wall Body Position Standing Water Level Waist Level Equipment Resistance Fins Reps/Duration 15 B Comments cues for core bracing knee extension Water Level Waist Level Equipment Resistance Fins Reps/Duration 20 Comments improved balance 4 [address] hip Water Level Waist Level Reps/Duration 10 B each Comments no hh Lower Extremity Stretches piriformis Details at wall Body Position Sitting Reps/Duration 2 x 30 ITB Details at wall Reps/Duration 1 min B HS, gastroc Body Position Standing Water Level Waist Level Equipment Large Noodle Reps/Duration 2 x 30' bilat Comments 2 noodles hip flexors, quads Details at wall Body Position Standing Water Level Waist Level Reps/Duration 3 x 30-45 Comments contract relax-assisted x3- improved ROM [place] Activities [place] Activities Bicycle,Bicycle Backwards, Cross [place] Other Activities prone extension push off wall-run back plank Swim Strokes dolphin kick Equipment Fins Laps/Duration 60M Comments prone/supine flutter kick Equipment Fins Laps/Duration 30M Manual Techniques Aquatic Massage AquaStretch to right LE peroneals and gastroc. Pt states he walks on outside of foot and those mms get tight. Softening of peroneals occured with ~5 min treatment PT-OP-T Assessment and Plan Start: 01/06/22 10:01 Freq: Status: Active Protocol: Document 03/05/22 09:50 SAK (Rec: 03/05/22 10:30 SAK [id number]) Physical Therapy Assessment Impairments Impairments Activity Tolerance,Gait,ROM, Strength Goals Four Impairment Activity tolerance Impairment fatigues quickly requiring rest breaks with therapy evaluation today. 6 min walk test not done due to fatigue. Short Term Goal (STG) Patient able to tolerate walking for 6 minutes continuously without a break STG Duration 02/20/22 Skilled Nursing Goal (LTG) Patient will be able to walk at least 1000 feet in 6 minutes as measure of improved activity tolerance. LTG Duration 03/23/22 Three Impairment gait dysfunction Impairment Patient requires use of an assistive device for safety with gait and uses step-to pattern on stairs Short Term Goal (STG) Patient able to walk on level surfaces and stairs with cane with minimal to no limp safely STG Duration 02/06/22 Skilled Nursing Goal (LTG) Patient able to walk on level surfaces and stairs without assistive device safely with alternating step pattern on stiars. LTG Duration 03/23/22 Two Impairment decreased right knee strength Impairment 3-/5 Short Term Goal (STG) Patient to be independent with HEP for purposes of right knee strengthening. STG Duration 02/06/22 Service Observer Goal (LTG) right knee strength at least 4 +/5, with patient able to transfer sit to stand without use of UE's LTG Duration 03/23/22 One Impairment decreased right knee ROM Impairment AROM right knee 18-104, PROM 6 -108 Short Term Goal (STG) Patient to be independent and compliant with HEP for right knee ROM. Improve right knee AROM to 10- 115 STG Duration 02/06/22 Skilled Nursing Goal (LTG) Improve right knee to 0-120 LTG Duration 03/23/22 Progress Towards Goals Progress Towards Goals Progressing Toward Goals Assessment Summary Assessment Good pain relief after manual work, able to progress strengthening exercises further. Decreased palpable tightness calf, ITBand, and quad, responds well to massage stick, progressed to theraband massage stick for soft tissue work. Physical Therapy Plan Frequency and Duration Frequency of Treatment 2x/Week Duration of Treatment 8 weeks Plan of Care Start Date 01/21/22 Plan of Care End Date 03/23/22 Therapeutic Interventions Therapeutic Interventions Aquatic Therapy,Gait Training, Home Exercise Program,Manual Therapy,Neuromuscular Re- education,Patient/Caregiver Education,Self-Care/Home Management,Soft Tissue Mobilization,Taping, Therapeutic Activities, Therapeutic Exercises Modalities Cold Pack/Ice Massage,Electric Stimulation Next Visit Focus/Plan Next Note Type Treatment Note Next Visit Plan Continue functional, closed chain strengthening adding lunges. Measure ROM and strength right knee.
--- NOTE | 2022-03-11 19:17 | PT.OTN ---
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 Back in hospital 36 hours later hospitalized via ambulance due to pneumonia in entire lungs. Discharged home 1 week ago. Has done imited TKA exercise due to pneumonia. Has been walking, using walker, still SOB. Had been scheduled for aquatic PT visits but now on waiting list as all PT visits were cancelled after he got confused and didn't come for initial evaluation. Patient previously benefited highly from aquatic therapy after back surgery. Treatment Goals Patient/Caregiver Goals Return to full active use of right knee with minimal pain. Prior Functional Status Baseline Function- ADL's Modified Independent Baseline Function- Mobility Modified Independent Baseline Function- Gait modified independent using cane Baseline Function- Work/School retired Baseline Function- Recreation/Hobbies limited due to right knee pain Current Functional Impairments (Reported) Functional Limitations- ADL's assisted by due to fatigue Functional Limitations- Mobility/Gait using 4WW, walking limited due to fatigue after pneumonia Functional Limitations- Work/School retired Functional Limitations- Recreation/ unable at this time Hobbies Personal Factors Other Personal Factors That May Effect pneumonia Therapy/Recovery PT-OP-C Subjective Start: 01/06/22 10:01 Freq: Status: Active Protocol: Document 03/11/22 10:31 NBM (Rec: 03/11/22 11:18 NBM [id number]) OP-PT Subjective Patient Comments Patient Comments Pt reports no knee pain unless he twists it a certain way. He just completed 40 minutes in the pool and walked against the lazy river. PT-OP-G Mobility & Gait Start: 01/06/22 10:01 Freq: Status: Active Protocol: Document 01/21/22 08:59 SAK (Rec: 01/22/22 17:09 SAK [id number]) OP Mobility Evaluation Bed Mobility Rolling indep Transfers Sit to Stand use of UE's OP Gait Assessment Gait Gait Assistance Required: Standby Assistance Distance (Feet) 50 Assistive Devices Assistive Device Front Wheeled Walker Comments Gait Comments Also: gait with SPC x 50 ft with CGA, 60 ft with trekking poles and CGA Stair Climbing Evaluation Evaluation Level of Assist On Stairs Standby Assistance Devices Stair Climbing Assistive Devices Straight Cane,Right Railing Technique/Endurance Stair Climbing Direction Ascend and Descend Stair Climbing Technique Step to Step PT-OP-J Posture/Palpation/Skin Start: 01/06/22 10:01 Freq: Status: Active Protocol: Document 01/21/22 08:59 SAK (Rec: 01/22/22 17:09 SAK [id number]) Palpation Assessment Location right knee Palpation Details mild edema, minimal increase in temperature Skin Assessment Incisional Assessment Incision Appearance/Comments healing well without signs or symptoms of infection. still has some scabbing from mid to distal end of incision. Patient and instructed to obtain vitamin E oil for massage of closed areas of scar only PT-OP-K Range of Motion Start: 01/06/22 10:01 Freq: Status: Active Protocol: Document 03/11/22 10:31 NBM (Rec: 03/11/22 19:07 NBM [id number]) Knee Goniometric Range of Motion Knee Right Patient Position Supine Flexion Active (degrees) 125 Flexion Passive (degrees) 131 PT-OP-M Strength Start: 01/06/22 10:01 Freq: Status: Active Protocol: Document 01/21/22 08:59 SAK (Rec: 01/22/22 17:09 SAK [id number]) Knee Strength Knee Manual Muscle Testing Right Flexion (S2) 3- Fair- Extension (L3) 3- Fair- Comments No MMT but patient lacking full antigravity ROM Left Flexion (S2) 5 Normal Extension (L3) 5 Normal PT-OP-Q Treatments Start: 01/06/22 10:01 Freq: Status: Active Protocol: Document 03/11/22 10:31 NB (Rec: 03/11/22 11:18 [facility] [id number]) Cardio Equipment Recumbent Bicycle Duration (Minutes) 8 Resistance 8 Seat Position 14 Gym Equipment Shuttle Recovery hamstring curl Details dbl, single Resistance 70, 40 Reps/Time x 10 ea knee extension Details dbl, single Resistance 50, 30 Reps/Time 10x ea Unilateral Squats Resistance 50,37 Shuttle Recovery Platform Stable Reps/Time 10x2 Bilateral Squats Details w/ Lvl 2 Tb at knees, vc for knee varus, slow Resistance 75 Shuttle Recovery Platform Stable Reps/Time 10x2 Therapeutic Exercises Standing Exercises Lunges Standing Exercise Name Mini walking lunges - added to HEP Equipment Used handrail Reps/Minutes 2 x 10 ft Comments cues for knee alignment, toes fwd TKE Standing Exercise Name 3-way - added to HEP Side right Equipment Used Lvl 5 Tb Reps/Minutes 10 x 5SH Comments knee alignment focus Manual Therapy Treatment Soft Tissue Mobilization IT band Mobilization Type Instrument Assisted Intensity/Depth Moderate Body Position Sidelying Comments massage wand right calf Body Location lateral, posterior Mobilization Type Instrument Assisted Body Position Hooklying Comments massage wand Self-Care/Home Management Treatment Education Patient Education Home Exercise Program Other Education Added to HEP: 3-way TKE and Walking lunges. PT-OP-R Modalities Start: 01/06/22 10:01 Freq: Status: Active Protocol: Document 03/11/22 10:31 EDDIE (Rec: 03/11/22 19:07 [facility] [id number]) Hot Pack/Cold Pack Treatment Cold Pack Location R Knee Patient Position Hooklying Treatment Duration (minutes) 5 Patient Tolerance Good Comments anterior only PT-OP-S Aquatic Treatment Start: 02/03/22 14:50 Freq: Status: Active Protocol: Document 02/26/22 15:44 LJ (Rec: 02/26/22 16:03 LJ [id number]) Aquatics Treatment Pool Entry/Exit Pool Entry/Exit Method Stairs Assistance Independent Comments bilat rails Water Walking [place] September Water Level Waist Level Walking Equipment Resistance Fins-med Comments 1 lap swim fins also Lunge Walk Water Level Waist Level Walking Equipment Resistance Fins-med Comments f/b; use of UEs Sideways Water Level Waist Level Walking Equipment Resistance Fins Level of Assistance Verbal Cues Marching Water Level Waist Level Walking Equipment Resistance Fins Backwards Water Level Waist Level Walking Equipment Resistance Fins Forwards Water Level Waist Level Walking Equipment Resistance Fins Comments improved posture Lower Extremity Exercises tap backs Details at wall Body Position Standing Water Level Waist Level Equipment Resistance Fins Reps/Duration 15 B Comments cues for core bracing knee extension Water Level Waist Level Equipment Resistance Fins Reps/Duration 20 Comments improved balance 4 way hip Water Level Waist Level Reps/Duration 10 B each Comments no hh Lower Extremity Stretches piriformis Details at wall Body Position Sitting Reps/Duration 2 x 30 ITB Details at wall Reps/Duration 1 min B HS, gastroc Body Position Standing Water Level Waist Level Equipment Large Noodle Reps/Duration 2 x 30' bilat Comments 2 noodles hip flexors, quads Details at wall Body Position Standing Water Level Waist Level Reps/Duration 3 x 30-45 Comments contract relax-assisted x3- improved ROM Mccleary Activities Mccleary Activities Bicycle,Bicycle Backwards, Cross [place] Other Activities prone extension push off wall-run back plank Swim Strokes dolphin kick Equipment Fins Laps/Duration 60M Comments prone/supine flutter kick Equipment Fins Laps/Duration 30M Manual Techniques Aquatic Massage AquaStretch to right LE peroneals and gastroc. Pt states he walks on outside of foot and those mms get tight. Softening of peroneals occured with ~5 min treatment PT-OP-T Assessment and Plan Start: 01/06/22 10:01 Freq: Status: Active Protocol: Document 03/11/22 10:31 [facility] (Rec: 03/11/22 11:18 [facility] [id number]) Physical Therapy Assessment Goals Four Impairment Activity tolerance Impairment fatigues quickly requiring rest breaks with therapy evaluation today. 6 min walk test not done due to fatigue. Short Term Goal (STG) Patient able to tolerate walking for 6 minutes continuously without a break STG Duration 02/20/22 Intermediate Goal (LTG) Patient will be able to walk at least 1000 feet in 6 minutes as measure of improved activity tolerance. LTG Duration 03/23/22 Three Impairment gait dysfunction Impairment Patient requires use of an assistive device for safety with gait and uses step-to pattern on stairs Short Term Goal (STG) Patient able to walk on level surfaces and stairs with cane with minimal to no limp safely STG Duration 02/06/22 [place] Kay Stitcher Goal (LTG) Patient able to walk on level surfaces and stairs without assistive device safely with alternating step pattern on stiars. LTG Duration 03/23/22 Two Impairment decreased right knee strength Impairment 3-/5 Short Term Goal (STG) Patient to be independent with HEP for purposes of right knee strengthening. STG Duration 02/06/22 Intermediate Goal (LTG) right knee strength at least 4 +/5, with patient able to transfer sit to stand without use of UE's LTG Duration 03/23/22 One Impairment decreased right knee ROM Impairment AROM right knee 18-104, PROM 6 -108 Short Term Goal (STG) Patient to be independent and compliant with HEP for right knee ROM. Improve right knee AROM to 10- 115 STG Duration 02/06/22 Intermediate Goal (LTG) Improve right knee to 0-120 03/11/22: knee flexion AROM 125 deg, PROM 131 deg (knee extension not assessed) LTG Duration 03/23/22 Progress Towards Goals Progress Towards Goals Progressing Toward Goals Assessment Summary Assessment Pt requires consistent cues for knee varus to improve alignment but self-awareness improves by end of session. Pt provides positive feedback response w/ manual therapy. Pt met LTG One of knee flexion 120 deg with AROM 125 deg and PROM 131 deg. Pt will benefit from continued skilled therapeutic intervention. Physical Therapy Plan Next Visit Focus/Plan Next Note Type Treatment Note Next Visit Plan Review HEP. Continue functional, closed chain strengthening. Measure ROM and strength right knee.
--- NOTE | 2022-03-14 13:27 | PT.OTN ---
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 Back in hospital 36 hours later hospitalized via ambulance due to pneumonia in entire lungs. Discharged home 1 week ago. Has done imited TKA exercise due to pneumonia. Has been walking, using walker, still SOB. Had been scheduled for aquatic PT visits but now on waiting list as all PT visits were cancelled after he got confused and didn't come for initial evaluation. Patient previously benefited highly from aquatic therapy after back surgery. Treatment Goals Patient/Caregiver Goals Return to full active use of right knee with minimal pain. Prior Functional Status Baseline Function- ADL's Modified Independent Baseline Function- Mobility Modified Independent Baseline Function- Gait modified independent using cane Baseline Function- Work/School retired Baseline Function- Recreation/Hobbies limited due to right knee pain Current Functional Impairments (Reported) Functional Limitations- ADL's assisted by due to fatigue Functional Limitations- Mobility/Gait using 4WW, walking limited due to fatigue after pneumonia Functional Limitations- Work/School retired Functional Limitations- Recreation/ unable at this time Hobbies Personal Factors Other Personal Factors That May Effect pneumonia Therapy/Recovery PT-OP-C Subjective Start: 01/06/22 10:01 Freq: Status: Active Protocol: Document 03/14/22 13:11 NBM (Rec: 03/14/22 13:27 NB [id number]) OP-PT Subjective Patient Comments Patient Comments Pt states he notices improvement and is feeling hopeful. He was feeling really good yesterday and overdid it , and today he would like to review the knee band exercises and have manual. PT-OP-G Mobility & Gait Start: 01/06/22 10:01 Freq: Status: Active Protocol: Document 01/21/22 08:59 SAK (Rec: 01/22/22 17:09 SAK [id number]) OP Mobility Evaluation Bed Mobility Rolling indep Transfers Sit to Stand use of UE's OP Gait Assessment Gait Gait Assistance Required: Standby Assistance Distance (Feet) 50 Assistive Devices Assistive Device Front Wheeled Walker Comments Gait Comments Also: gait with SPC x 50 ft with CGA, 60 ft with trekking poles and CGA Stair Climbing Evaluation Evaluation Level of Assist On Stairs Standby Assistance Devices Stair Climbing Assistive Devices Straight Cane,Right Railing Technique/Endurance Stair Climbing Direction Ascend and Descend Stair Climbing Technique Step to Step PT-OP-J Posture/Palpation/Skin Start: 01/06/22 10:01 Freq: Status: Active Protocol: Document 01/21/22 08:59 SAK (Rec: 01/22/22 17:09 SAK [id number]) Palpation Assessment Location right knee Palpation Details mild edema, minimal increase in temperature Skin Assessment Incisional Assessment Incision Appearance/Comments healing well without signs or symptoms of infection. still has some scabbing from mid to distal end of incision. Patient and instructed to obtain vitamin E oil for massage of closed areas of scar only PT-OP-K Range of Motion Start: 01/06/22 10:01 Freq: Status: Active Protocol: Document 03/11/22 10:31 NBM (Rec: 03/11/22 19:07 [facility] [id number]) Knee Goniometric Range of Motion Knee Right Patient Position Supine Flexion Active (degrees) 125 Flexion Passive (degrees) 131 PT-OP-M Strength Start: 01/06/22 10:01 Freq: Status: Active Protocol: Document 01/21/22 08:59 SAK (Rec: 01/22/22 17:09 SAK [id number]) Knee Strength Knee Manual Muscle Testing Right Flexion (S2) 3- Fair- Extension (L3) 3- Fair- Comments No MMT but patient lacking full antigravity ROM Left Flexion (S2) 5 Normal Extension (L3) 5 Normal PT-OP-Q Treatments Start: 01/06/22 10:01 Freq: Status: Active Protocol: Document 03/14/22 13:11 NBM (Rec: 03/14/22 13:27 [facility] [id number]) Therapeutic Exercises Supine Exercises IT Band stretch Supine Exercise Name Discussed as a reminder for HEP: not performed today. hamstring stretch Supine Exercise Name Discussed as a reminder for HEP: not performed today. Standing Exercises TKE Standing Exercise Name 3-way - HEP Review Side right Equipment Used Lvl 5 Tb Reps/Minutes 10 x 5SH ea Comments knee alignment focus Manual Therapy Treatment Soft Tissue Mobilization IT band Mobilization Type Instrument Assisted Intensity/Depth Moderate Body Position Sidelying Comments theraband massage wand R Knee Mobilization Type Cross-Friction,Instrument Assisted,Rolling,Strumming, Sustained Pressure,Other Intensity/Depth Moderate Body Position Hooklying Comments light edema massage Self-Care/Home Management Treatment Education Patient Education Home Exercise Program Other Education Reviewed 3-way TKE and corrected form. Educated pt on quadriceps muscles anatomy and TFL w/ pictures. Discussed importance of stretching, particularly HS and IT Band, and to hold stretch sufficiently. PT-OP-R Modalities Start: 01/06/22 10:01 Freq: Status: Active Protocol: Document 03/11/22 10:31 NBM (Rec: 03/11/22 19:07 [facility] [id number]) Hot Pack/Cold Pack Treatment Cold Pack Location R Knee Patient Position Hooklying Treatment Duration (minutes) 5 Patient Tolerance Good Comments anterior only PT-OP-S Aquatic Treatment Start: 02/03/22 14:50 Freq: Status: Active Protocol: Document 02/26/22 15:44 LJ (Rec: 02/26/22 16:03 LJ [id number]) Aquatics Treatment Pool Entry/Exit Pool Entry/Exit Method Stairs Assistance Independent Comments bilat rails Water Walking [place] Water Level Waist Level Walking Equipment Resistance Fins-med Comments 1 lap swim fins also Lunge Walk Water Level Waist Level Walking Equipment Resistance Fins-med Comments f/b; use of UEs Sideways Water Level Waist Level Walking Equipment Resistance Fins Level of Assistance Verbal Cues Marching Water Level Waist Level Walking Equipment Resistance Fins Backwards Water Level Waist Level Walking Equipment Resistance Fins Forwards Water Level Waist Level Walking Equipment Resistance Fins Comments improved posture Lower Extremity Exercises tap backs Details at wall Body Position Standing Water Level Waist Level Equipment Resistance Fins Reps/Duration 15 B Comments cues for core bracing knee extension Water Level Waist Level Equipment Resistance Fins Reps/Duration 20 Comments improved balance 4 way hip Water Level Waist Level Reps/Duration 10 B each Comments no hh Lower Extremity Stretches piriformis Details at wall Body Position Sitting Reps/Duration 2 x 30 ITB Details at wall Reps/Duration 1 min B HS, gastroc Body Position Standing Water Level Waist Level Equipment Large Noodle Reps/Duration 2 x 30' bilat Comments 2 noodles hip flexors, quads Details at wall Body Position Standing Water Level Waist Level Reps/Duration 3 x 30-45 Comments contract relax-assisted x3- improved ROM Reading Activities Reading Activities Bicycle,Bicycle Backwards, Cross [place] Other Activities prone extension push off wall-run back plank Swim Strokes dolphin kick Equipment Fins Laps/Duration 60M Comments prone/supine flutter kick Equipment Fins Laps/Duration 30M Manual Techniques Aquatic Massage AquaStretch to right LE peroneals and gastroc. Pt states he walks on outside of foot and those mms get tight. Softening of peroneals occured with ~5 min treatment PT-OP-T Assessment and Plan Start: 01/06/22 10:01 Freq: Status: Active Protocol: Document 03/14/22 13:11 [facility] (Rec: 03/14/22 13:27 [facility] [id number]) Physical Therapy Assessment Goals Four Impairment Activity tolerance Impairment fatigues quickly requiring rest breaks with therapy evaluation today. 6 min walk test not done due to fatigue. Short Term Goal (STG) Patient able to tolerate walking for 6 minutes continuously without a break STG Duration 02/20/22 Retirement Goal (LTG) Patient will be able to walk at least 1000 feet in 6 minutes as measure of improved activity tolerance. LTG Duration 03/23/22 Three Impairment gait dysfunction Impairment Patient requires use of an assistive device for safety with gait and uses step-to pattern on stairs Short Term Goal (STG) Patient able to walk on level surfaces and stairs with cane with minimal to no limp safely STG Duration 02/06/22 Outreach Librarian Goal (LTG) Patient able to walk on level surfaces and stairs without assistive device safely with alternating step pattern on stiars. LTG Duration 03/23/22 Two Impairment decreased right knee strength Impairment 3-/5 Short Term Goal (STG) Patient to be independent with HEP for purposes of right knee strengthening. STG Duration 02/06/22 Outreach Librarian Goal (LTG) right knee strength at least 4 +/5, with patient able to transfer sit to stand without use of UE's LTG Duration 03/23/22 One Impairment decreased right knee ROM Impairment AROM right knee 18-104, PROM 6 -108 Short Term Goal (STG) Patient to be independent and compliant with HEP for right knee ROM. Improve right knee AROM to 10- 115 STG Duration 02/06/22 Outreach Librarian Goal (LTG) Improve right knee to 0-120 03/11/22: knee flexion AROM 125 deg, PROM 131 deg (knee extension not assessed) LTG Duration 03/23/22 Assessment Summary Assessment Treatment focus today on recent HEP review, manual to R quadriceps, TFL and IT Band, and education on stretching and quadriceps anatomy. Pt requires form correction w/ 3- way TKE but demonstrates correct form w/ initial verbal and tactile cueing. IT Band and quadriceps demonstrate decreased palpable tightness post manual therapy. Physical Therapy Plan Next Visit Focus/Plan Next Note Type Treatment Note Next Visit Plan Review HEP. Continue functional, closed chain strengthening. Measure ROM and strength right knee.
--- NOTE | 2022-03-17 18:30 | PT.OTN ---
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 Back in hospital 36 hours later hospitalized via ambulance due to pneumonia in entire lungs. Discharged home 1 week ago. Has done imited TKA exercise due to pneumonia. Has been walking, using walker, still SOB. Had been scheduled for aquatic PT visits but now on waiting list as all PT visits were cancelled after he got confused and didn't come for initial evaluation. Patient previously benefited highly from aquatic therapy after back surgery. Treatment Goals Patient/Caregiver Goals Return to full active use of right knee with minimal pain. Prior Functional Status Baseline Function- ADL's Modified Independent Baseline Function- Mobility Modified Independent Baseline Function- Gait modified independent using cane Baseline Function- Work/School retired Baseline Function- Recreation/Hobbies limited due to right knee pain Current Functional Impairments (Reported) Functional Limitations- ADL's assisted by due to fatigue Functional Limitations- Mobility/Gait using 4WW, walking limited due to fatigue after pneumonia Functional Limitations- Work/School retired Functional Limitations- Recreation/ unable at this time Hobbies Personal Factors Other Personal Factors That May Effect pneumonia Therapy/Recovery PT-OP-C Subjective Start: 01/06/22 10:01 Freq: Status: Active Protocol: Document 03/17/22 15:20 NBM (Rec: 03/17/22 16:03 NBM [id number]) OP-PT Subjective Patient Comments Patient Comments Pt reports he knows he is improving and has less pain every day. He is tired today. He thinks about the anatomy now and understands better how his body works. PT-OP-G Mobility & Gait Start: 01/06/22 10:01 Freq: Status: Active Protocol: Document 01/21/22 08:59 SAK (Rec: 01/22/22 17:09 SAK [id number]) OP Mobility Evaluation Bed Mobility Rolling indep Transfers Sit to Stand use of UE's OP Gait Assessment Gait Gait Assistance Required: Standby Assistance Distance (Feet) 50 Assistive Devices Assistive Device Front Wheeled Walker Comments Gait Comments Also: gait with SPC x 50 ft with CGA, 60 ft with trekking poles and CGA Stair Climbing Evaluation Evaluation Level of Assist On Stairs Standby Assistance Devices Stair Climbing Assistive Devices Straight Cane,Right Railing Technique/Endurance Stair Climbing Direction Ascend and Descend Stair Climbing Technique Step to Step PT-OP-J Posture/Palpation/Skin Start: 01/06/22 10:01 Freq: Status: Active Protocol: Document 01/21/22 08:59 SAK (Rec: 01/22/22 17:09 SAK [id number]) Palpation Assessment Location right knee Palpation Details mild edema, minimal increase in temperature Skin Assessment Incisional Assessment Incision Appearance/Comments healing well without signs or symptoms of infection. still has some scabbing from mid to distal end of incision. Patient and instructed to obtain vitamin E oil for massage of closed areas of scar only PT-OP-K Range of Motion Start: 01/06/22 10:01 Freq: Status: Active Protocol: Document 03/17/22 15:20 NBM (Rec: 03/17/22 18:19 NBM [id number]) Knee Goniometric Range of Motion Knee Right Patient Position Supine Flexion Active (degrees) 129 Flexion Passive (degrees) 134 Extension Active (degrees) 0 PT-OP-M Strength Start: 01/06/22 10:01 Freq: Status: Active Protocol: Document 01/21/22 08:59 SAK (Rec: 01/22/22 17:09 SAK [id number]) Knee Strength Knee Manual Muscle Testing Right Flexion (S2) 3- Fair- Extension (L3) 3- Fair- Comments No MMT but patient lacking full antigravity ROM Left Flexion (S2) 5 Normal Extension (L3) 5 Normal PT-OP-Q Treatments Start: 01/06/22 10:01 Freq: Status: Active Protocol: Document 03/17/22 15:20 NBM (Rec: 03/17/22 16:03 NB [id number]) Cardio Equipment Recumbent Bicycle Duration (Minutes) 4 Resistance 8 Seat Position 14 Therapeutic Exercises Supine Exercises hamstring stretch Side right Reps/Minutes 30 x 2 Comments manual Standing Exercises TKE Standing Exercise Name 3-way - HEP Review Side right Equipment Used Lvl 5 Tb Reps/Minutes 10 x 5SH ea Comments knee alignment focus Manual Therapy Treatment Soft Tissue Mobilization IT band Mobilization Type Instrument Assisted Intensity/Depth Moderate Body Position Sidelying Comments theraband massage wand right calf Body Location lateral, posterior Mobilization Type Rolling,Strumming,Sustained Pressure Intensity/Depth Moderate Body Position Hooklying R Knee Mobilization Type Oscillations,Rolling,Other Intensity/Depth Moderate Body Position Hooklying Comments light edema massage PT-OP-R Modalities Start: 01/06/22 10:01 Freq: Status: Active Protocol: Document 03/17/22 15:20 NBM (Rec: 03/17/22 18:17 [facility] [id number]) Hot Pack/Cold Pack Treatment Cold Pack Location R Knee Patient Position Hooklying Treatment Duration (minutes) 10 Patient Tolerance Good Comments anterior only PT-OP-S Aquatic Treatment Start: 02/03/22 14:50 Freq: Status: Active Protocol: Document 02/26/22 15:44 BJORN (Rec: 02/26/22 16:03 LJ [id number]) Aquatics Treatment Pool Entry/Exit Pool Entry/Exit Method Stairs Assistance Independent Comments bilat rails Water Walking [place] March Water Level Waist Level Walking Equipment Resistance Fins-med Comments 1 lap swim fins also Lunge Walk Water Level Waist Level Walking Equipment Resistance Fins-med Comments f/b; use of UEs Sideways Water Level Waist Level Walking Equipment Resistance Fins Level of Assistance Verbal Cues Marching Water Level Waist Level Walking Equipment Resistance Fins Backwards Water Level Waist Level Walking Equipment Resistance Fins Forwards Water Level Waist Level Walking Equipment Resistance Fins Comments improved posture Lower Extremity Exercises tap backs Details at wall Body Position Standing Water Level Waist Level Equipment Resistance Fins Reps/Duration 15 B Comments cues for core bracing knee extension Water Level Waist Level Equipment Resistance Fins Reps/Duration 20 Comments improved balance 4 way hip Water Level Waist Level Reps/Duration 10 B each Comments no hh Lower Extremity Stretches piriformis Details at wall Body Position Sitting Reps/Duration 2 x 30 ITB Details at wall Reps/Duration 1 min B HS, gastroc Body Position Standing Water Level Waist Level Equipment Large Noodle Reps/Duration 2 x 30' bilat Comments 2 noodles hip flexors, quads Details at wall Body Position Standing Water Level Waist Level Reps/Duration 3 x 30-45 Comments contract relax-assisted x3- improved ROM [place] Activities [place] Activities Bicycle,Bicycle Backwards, [place] Other Activities prone extension push off wall-run back plank Swim Strokes dolphin kick Equipment Fins Laps/Duration 60M Comments prone/supine flutter kick Equipment Fins Laps/Duration 30M Manual Techniques Aquatic Massage AquaStretch to right LE peroneals and gastroc. Pt states he walks on outside of foot and those mms get tight. Softening of peroneals occured with ~5 min treatment PT-OP-T Assessment and Plan Start: 01/06/22 10:01 Freq: Status: Active Protocol: Document 03/17/22 15:20 [facility] (Rec: 03/17/22 16:03 [facility] [id number]) Physical Therapy Assessment Goals Four Impairment Activity tolerance Impairment fatigues quickly requiring rest breaks with therapy evaluation today. 6 min walk test not done due to fatigue. Short Term Goal (STG) Patient able to tolerate walking for 6 minutes continuously without a break STG Duration 02/20/22 Residential Goal (LTG) Patient will be able to walk at least 1000 feet in 6 minutes as measure of improved activity tolerance. LTG Duration 03/23/22 Three Impairment gait dysfunction Impairment Patient requires use of an assistive device for safety with gait and uses step-to pattern on stairs Short Term Goal (STG) Patient able to walk on level surfaces and stairs with cane with minimal to no limp safely STG Duration 02/06/22 Residential Goal (LTG) Patient able to walk on level surfaces and stairs without assistive device safely with alternating step pattern on stiars. LTG Duration 03/23/22 Two Impairment decreased right knee strength Impairment 3-/5 Short Term Goal (STG) Patient to be independent with HEP for purposes of right knee strengthening. STG Duration 02/06/22 Residential Goal (LTG) right knee strength at least 4 +/5, with patient able to transfer sit to stand without use of UE's LTG Duration 03/23/22 One Impairment decreased right knee ROM Impairment AROM right knee 18-104, PROM 6 -108 Short Term Goal (STG) Patient to be independent and compliant with HEP for right knee ROM. Improve right knee AROM to 10- 115 STG Duration 02/06/22 Residential Goal (LTG) Improve right knee to 0-120 03/11/22: knee flexion AROM 125 deg, PROM 131 deg (knee extension not assessed) LTG Duration 03/23/22 Assessment Summary Assessment Pt presents today fatigued from exercise prior w/ mild swelling medial to R knee. Treatment focus on HEP review, stretching and manual therapy . R knee ROM progresses: AROM 129 deg/0 deg, PROM 134 deg. Pt performs 3-way TKE w/ min cueing for set up or knee alignment. Pt shows decreased palpable tightness to R IT band and R gastrocnemius post manual therapy. Physical Therapy Plan Next Visit Focus/Plan Next Note Type Treatment Note Next Visit Plan Review HEP. Continue functional, closed chain strengthening. Measure ROM and strength right knee.
--- NOTE | 2022-03-21 14:35 | PT.OTN ---
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 Back in hospital 36 hours later hospitalized via ambulance due to pneumonia in entire lungs. Discharged home 1 week ago. Has done imited TKA exercise due to pneumonia. Has been walking, using walker, still SOB. Had been scheduled for aquatic PT visits but now on waiting list as all PT visits were cancelled after he got confused and didn't come for initial evaluation. Patient previously benefited highly from aquatic therapy after back surgery. Treatment Goals Patient/Caregiver Goals Return to full active use of right knee with minimal pain. Prior Functional Status Baseline Function- ADL's Modified Independent Baseline Function- Mobility Modified Independent Baseline Function- Gait modified independent using cane Baseline Function- Work/School retired Baseline Function- Recreation/Hobbies limited due to right knee pain Current Functional Impairments (Reported) Functional Limitations- ADL's assisted by due to fatigue Functional Limitations- Mobility/Gait using 4WW, walking limited due to fatigue after pneumonia Functional Limitations- Work/School retired Functional Limitations- Recreation/ unable at this time Hobbies Personal Factors Other Personal Factors That May Effect pneumonia Therapy/Recovery PT-OP-C Subjective Start: 01/06/22 10:01 Freq: Status: Active Protocol: Document 03/21/22 13:50 NBM (Rec: 03/21/22 17:06 NBM [id number]) OP-PT Subjective Patient Comments Patient Comments Pt states he over did it at the pool using flippers and now working on ROM. He is sore all over and his knees hurt outside the kneecap. He sees his surgeon on Thursday. PT-OP-G Mobility & Gait Start: 01/06/22 10:01 Freq: Status: Active Protocol: Document 01/21/22 08:59 SAK (Rec: 01/22/22 17:09 SAK [id number]) OP Mobility Evaluation Bed Mobility Rolling indep Transfers Sit to Stand use of UE's OP Gait Assessment Gait Gait Assistance Required: Standby Assistance Distance (Feet) 50 Assistive Devices Assistive Device Front Wheeled Walker Comments Gait Comments Also: gait with SPC x 50 ft with CGA, 60 ft with trekking poles and CGA Stair Climbing Evaluation Evaluation Level of Assist On Stairs Standby Assistance Devices Stair Climbing Assistive Devices Straight Cane,Right Railing Technique/Endurance Stair Climbing Direction Ascend and Descend Stair Climbing Technique Step to Step PT-OP-J Posture/Palpation/Skin Start: 01/06/22 10:01 Freq: Status: Active Protocol: Document 01/21/22 08:59 SAK (Rec: 01/22/22 17:09 SAK [id number]) Palpation Assessment Location right knee Palpation Details mild edema, minimal increase in temperature Skin Assessment Incisional Assessment Incision Appearance/Comments healing well without signs or symptoms of infection. still has some scabbing from mid to distal end of incision. Patient and instructed to obtain vitamin E oil for massage of closed areas of scar only PT-OP-K Range of Motion Start: 01/06/22 10:01 Freq: Status: Active Protocol: Document 03/17/22 15:20 NBM (Rec: 03/17/22 18:19 NBM [id number]) Knee Goniometric Range of Motion Knee Right Patient Position Supine Flexion Active (degrees) 129 Flexion Passive (degrees) 134 Extension Active (degrees) 0 PT-OP-M Strength Start: 01/06/22 10:01 Freq: Status: Active Protocol: Document 01/21/22 08:59 SAK (Rec: 01/22/22 17:09 SAK [id number]) Knee Strength Knee Manual Muscle Testing Right Flexion (S2) 3- Fair- Extension (L3) 3- Fair- Comments No MMT but patient lacking full antigravity ROM Left Flexion (S2) 5 Normal Extension (L3) 5 Normal PT-OP-Q Treatments Start: 01/06/22 10:01 Freq: Status: Active Protocol: Document 03/21/22 13:50 NBM (Rec: 03/21/22 17:06 NBM [id number]) Cardio Equipment Recumbent Bicycle Duration (Minutes) 10 Resistance 8 Seat Position 14 Therapeutic Exercises Standing Exercises Lunges Standing Exercise Name Mini walking lunges - added to HEP Equipment Used handrail Reps/Minutes 2 x 10 ft Comments cues for knee alignment, toes fwd TKE Standing Exercise Name 3-way - HEP Review Side right Equipment Used Lvl 5 Tb Reps/Minutes 10 x 5SH ea Comments knee alignment focus resisted sidestepping Standing Exercise Name sideways, fwd, bck Resistance yellow TB Manual Therapy Treatment Soft Tissue Mobilization IT band Body Location R IT band, TFL Mobilization Type Instrument Assisted Intensity/Depth Moderate Body Position Sidelying Comments theraband massage wand right calf Body Location lateral, posterior, soleus Mobilization Type Rolling,Strumming,Sustained Pressure Intensity/Depth Moderate Body Position Hooklying R Knee Mobilization Type Oscillations,Other Intensity/Depth Moderate Body Position Hooklying Comments light edema massage PT-OP-R Modalities Start: 01/06/22 10:01 Freq: Status: Active Protocol: Document 03/21/22 13:50 NBM (Rec: 03/23/22 19:29 NB [id number] Hot Pack/Cold Pack Treatment Cold Pack Location Monster Knee Patient Position Hooklying Treatment Duration (minutes) 10 Patient Tolerance Good Comments anterior only PT-OP-S Aquatic Treatment Start: 02/03/22 14:50 Freq: Status: Active Protocol: Document 02/26/22 15:44 LJ (Rec: 02/26/22 16:03 LJ [id number]) Aquatics Treatment Pool Entry/Exit Pool Entry/Exit Method Stairs Assistance Independent Comments bilat rails Water Walking [place] March Water Level Waist Level Walking Equipment Resistance Fins-med Comments 1 lap swim fins also Lunge Walk Water Level Waist Level Walking Equipment Resistance Fins-med Comments f/b; use of UEs Sideways Water Level Waist Level Walking Equipment Resistance Fins Level of Assistance Verbal Cues Marching Water Level Waist Level Walking Equipment Resistance Fins Backwards Water Level Waist Level Walking Equipment Resistance Fins Forwards Water Level Waist Level Walking Equipment Resistance Fins Comments improved posture Lower Extremity Exercises tap backs Details at wall Body Position Standing Water Level Waist Level Equipment Resistance Fins Reps/Duration 15 B Comments cues for core bracing knee extension Water Level Waist Level Equipment Resistance Fins Reps/Duration 20 Comments improved balance 4 [address] hip Water Level Waist Level Reps/Duration 10 B each Comments no hh Lower Extremity Stretches piriformis Details at wall Body Position Sitting Reps/Duration 2 x 30 ITB Details at wall Reps/Duration 1 min B HS, gastroc Body Position Standing Water Level Waist Level Equipment Large Noodle Reps/Duration 2 x 30' bilat Comments 2 noodles hip flexors, quads Details at wall Body Position Standing Water Level Waist Level Reps/Duration 3 x 30-45 Comments contract relax-assisted x3- improved ROM [place] Activities [place] Activities Bicycle,Bicycle Backwards, [place] Other Activities prone extension push off wall-run back plank Swim Strokes dolphin kick Equipment Fins Laps/Duration 60M Comments prone/supine flutter kick Equipment Fins Laps/Duration 30M Manual Techniques Aquatic Massage AquaStretch to right LE peroneals and gastroc. Pt states he walks on outside of foot and those mms get tight. Softening of peroneals occured with ~5 min treatment PT-OP-T Assessment and Plan Start: 01/06/22 10:01 Freq: Status: Active Protocol: Document 03/21/22 13:50 [facility] (Rec: 03/21/22 17:06 [facility] [id number]) Physical Therapy Assessment Goals Four Impairment Activity tolerance Impairment fatigues quickly requiring rest breaks with therapy evaluation today. 6 min walk test not done due to fatigue. Short Term Goal (STG) Patient able to tolerate walking for 6 minutes continuously without a break STG Duration 02/20/22 Mcfp Goal (LTG) Patient will be able to walk at least 1000 feet in 6 minutes as measure of improved activity tolerance. LTG Duration 03/23/22 Three Impairment gait dysfunction Impairment Patient requires use of an assistive device for safety with gait and uses step-to pattern on stairs Short Term Goal (STG) Patient able to walk on level surfaces and stairs with cane with minimal to no limp safely STG Duration 02/06/22 Compensation Director Goal (LTG) Patient able to walk on level surfaces and stairs without assistive device safely with alternating step pattern on stiars. LTG Duration 03/23/22 Two Impairment decreased right knee strength Impairment 3-/5 Short Term Goal (STG) Patient to be independent with HEP for purposes of right knee strengthening. STG Duration 02/06/22 Mcfp Goal (LTG) right knee strength at least 4 +/5, with patient able to transfer sit to stand without use of UE's LTG Duration 03/23/22 One Impairment decreased right knee ROM Impairment AROM right knee 18-104, PROM 6 -108 Short Term Goal (STG) Patient to be independent and compliant with HEP for right knee ROM. Improve right knee AROM to 10- 115 STG Duration 02/06/22 Compensation Director Goal (LTG) Improve right knee to 0-120 03/11/22: knee flexion AROM 125 deg, PROM 131 deg (knee extension not assessed) LTG Duration 03/23/22 Assessment Summary Assessment Pt demonstrates laterally tracking patella L>R and increased anterior pain in monster knees. Treatment focus today on decreasing excessive hip ER w/ cues for neutral foot positioning w/ closed chain LE exercises, and manual therapy . Physical Therapy Plan Next Visit Focus/Plan Next Note Type Treatment Note Next Visit Plan Review HEP. Continue functional, closed chain strengthening. Measure ROM and strength right knee.
--- NOTE | 2022-03-24 16:46 | PT.OTN ---
Current Diagnoses Unilateral primary osteoarthritis, right knee (03/24/22) Difficulty in walking, not elsewhere classified (03/24/22) Weakness (03/24/22) Presence of right artificial knee joint (03/24/22) Physical Therapy Treatment Note PT-OP-A Visit Information Start: 01/06/22 10:01 Freq: Status: Active Protocol: Document 03/24/22 16:31 LJ (Rec: 03/24/22 16:46 LJ [id number]) Out-Patient Physical Therapy Visit Information Visit Information Visit Type Aquatic Treatment Note Visit Start Time 11:45 Visit Stop Time 12:30 Total Visit Minutes 45 Visit Number 14 Number of MANAGER PROCESS Visits 5 PT-OP-B Current Condition Start: 01/06/22 10:01 Freq: Status: Active Protocol: Document 01/21/22 08:59 SAK (Rec: 01/21/22 09:46 SAK [id number]) Current Condition History of Current Condition Onset Date 12/31/21 Current Complaints right knee TKA History of Current Condition Right TKA 12/31/21, home for 2 weeks, diagnosed with pneumonia 10 days after surgery, was in hospital a couple days, sent home. Back in hospital 36 hours later hospitalized via ambulance due to pneumonia in entire lungs. Discharged home 1 week ago. Has done imited TKA exercise due to pneumonia. Has been walking, using walker, still SOB. Had been scheduled for aquatic PT visits but now on waiting list as all PT visits were cancelled after he got confused and didn't come for initial evaluation. Patient previously benefited highly from aquatic therapy after back surgery. Treatment Goals Patient/Caregiver Goals Return to full active use of right knee with minimal pain. Prior Functional Status Baseline Function- ADL's Modified Independent Baseline Function- Mobility Modified Independent Baseline Function- Gait modified independent using cane Baseline Function- Work/School retired Baseline Function- Recreation/Hobbies limited due to right knee pain Current Functional Impairments (Reported) Functional Limitations- ADL's assisted by due to fatigue Functional Limitations- Mobility/Gait using 4WW, walking limited due to fatigue after pneumonia Functional Limitations- Work/School retired Functional Limitations- Recreation/ unable at this time Hobbies Personal Factors Other Personal Factors That May Effect pneumonia Therapy/Recovery PT-OP-C Subjective Start: 01/06/22 10:01 Freq: Status: Active Protocol: Document 03/24/22 16:31 LJ (Rec: 03/24/22 16:46 LJ [id number]) OP-PT Subjective Patient Comments Patient Comments Pt saw doc today and states everything is healing well. States he overdid it at the pool a few days ago with the fins and is not going to use them nor do exercises that strenuous again. PT-OP-G Mobility & Gait Start: 01/06/22 10:01 Freq: Status: Active Protocol: Document 01/21/22 08:59 SAK (Rec: 01/22/22 17:09 SAK [id number]) OP Mobility Evaluation Bed Mobility Rolling indep Transfers Sit to Stand use of UE's OP Gait Assessment Gait Gait Assistance Required: Standby Assistance Distance (Feet) 50 Assistive Devices Assistive Device Front Wheeled Walker Comments Gait Comments Also: gait with SPC x 50 ft with CGA, 60 ft with trekking poles and CGA Stair Climbing Evaluation Evaluation Level of Assist On Stairs Standby Assistance Devices Stair Climbing Assistive Devices Straight Cane,Right Railing Technique/Endurance Stair Climbing Direction Ascend and Descend Stair Climbing Technique Step to Step PT-OP-J Posture/Palpation/Skin Start: 01/06/22 10:01 Freq: Status: Active Protocol: Document 01/21/22 08:59 SAK (Rec: 01/22/22 17:09 SAK [id number]) Palpation Assessment Location right knee Palpation Details mild edema, minimal increase in temperature Skin Assessment Incisional Assessment Incision Appearance/Comments healing well without signs or symptoms of infection. still has some scabbing from mid to distal end of incision. Patient and instructed to obtain vitamin E oil for massage of closed areas of scar only PT-OP-K Range of Motion Start: 01/06/22 10:01 Freq: Status: Active Protocol: Document 03/17/22 15:20 NBM (Rec: 03/17/22 18:19 NBM [id number]) Knee Goniometric Range of Motion Knee Right Patient Position Supine Flexion Active (degrees) 129 Flexion Passive (degrees) 134 Extension Active (degrees) 0 PT-OP-M Strength Start: 01/06/22 10:01 Freq: Status: Active Protocol: Document 01/21/22 08:59 SAK (Rec: 01/22/22 17:09 SAK [id number]) Knee Strength Knee Manual Muscle Testing Right Flexion (S2) 3- Fair- Extension (L3) 3- Fair- Comments No MMT but patient lacking full antigravity ROM Left Flexion (S2) 5 Normal Extension (L3) 5 Normal PT-OP-Q Treatments Start: 01/06/22 10:01 Freq: Status: Active Protocol: Document 03/21/22 13:50 NBM (Rec: 03/21/22 17:06 NBM [id number]) Cardio Equipment Recumbent Bicycle Duration (Minutes) 10 Resistance 8 Seat Position 14 Therapeutic Exercises Standing Exercises Lunges Standing Exercise Name Mini walking lunges - added to HEP Equipment Used handrail Reps/Minutes 2 x 10 ft Comments cues for knee alignment, toes fwd TKE Standing Exercise Name 3-way - HEP Review Side right Equipment Used Lvl 5 Tb Reps/Minutes 10 x 5SH ea Comments knee alignment focus resisted sidestepping Standing Exercise Name sideways, fwd, bck Resistance yellow TB Manual Therapy Treatment Soft Tissue Mobilization IT band Body Location R IT band, TFL Mobilization Type Instrument Assisted Intensity/Depth Moderate Body Position Sidelying Comments theraband massage wand right calf Body Location lateral, posterior, soleus Mobilization Type Rolling,Strumming,Sustained Pressure Intensity/Depth Moderate Body Position Hooklying R Knee Mobilization Type Oscillations,Other Intensity/Depth Moderate Body Position Hooklying Comments light edema massage PT-OP-R Modalities Start: 01/06/22 10:01 Freq: Status: Active Protocol: Document 03/21/22 13:50 NBM (Rec: 03/23/22 19:29 [facility] [phone]-) Hot Pack/Cold Pack Treatment Cold Pack Location Monster Knee Patient Position Hooklying Treatment Duration (minutes) 10 Patient Tolerance Good Comments anterior only PT-OP-S Aquatic Treatment Start: 02/03/22 14:50 Freq: Status: Active Protocol: Document 03/24/22 16:31 LJ (Rec: 03/24/22 16:46 LJ [id number]) Aquatics Treatment Pool Entry/Exit Pool Entry/Exit Method Stairs Assistance Independent Water Walking Tandem Gait Water Level Waist Level Walking Equipment Ankle Floats Comments circumduction to tandem Lolo March Water Level Waist Level Walking Equipment Resistance Fins-med Lunge Walk Water Level Waist Level Walking Equipment Resistance Fins-med Comments f/b; use of UEs Sideways Water Level Waist Level Walking Equipment Resistance Fins Level of Assistance Verbal Cues Marching Water Level Waist Level Walking Equipment Resistance Fins Backwards Water Level Waist Level Walking Equipment Resistance Fins Forwards Water Level Waist Level Walking Equipment Resistance Fins Comments improved posture but still leaning forward Lower Extremity Stretches piriformis Details at wall Body Position Sitting Reps/Duration 2 x 30 ITB Details at wall Reps/Duration 1 min B HS, gastroc Body Position Standing Water Level Waist Level Equipment Large Noodle Reps/Duration 2 x 30' bilat Comments 2 noodles hip flexors, quads Details at wall Body Position Standing Water Level Waist Level Reps/Duration 3 x 30-45 Comments contract relax-assisted x3- improved ROM Spinal Exercises core stabilization Details seated at wall Equipment black ball Reps/Duration 20 Comments ball between knees-20 squeezes Balance toe taps with dots Body Position Standing Water Level Waist Level Equipment colored dots Reps/Duration 6 min Comments squat taps; pt cued to slow down and stand up btn taps boxes Details step ups forward with opp knee lift for bal challenge Water Level Chest Level Reps/Duration 5 min [place] Activities [place] Activities Hip Abduction/Adduction Other Activities fast walk w/floats rock n roll w/o floats pendulum w/o floats Equipment BBs, ankle floats Duration 10 min PT-OP-T Assessment and Plan Start: 01/06/22 10:01 Freq: Status: Active Protocol: Document 03/24/22 16:31 BJORN (Rec: 03/24/22 16:46 BJORN [id number]) Physical Therapy Assessment Rehab Potential Rehabilitation Potential Good Evaluation Complexity Number of Personal Factors/Comorbidities 1-2 Number of Body Systems Impaired 3 Clinical Presentation at Evaluation Evolving Impairments Impairments Activity Tolerance,Gait,ROM, Strength Goals Four Impairment Activity tolerance Impairment fatigues quickly requiring rest breaks with therapy evaluation today. 6 min walk test not done due to fatigue. Short Term Goal (STG) Patient able to tolerate walking for 6 minutes continuously without a break STG Duration 02/20/22 Junior Recruiter Goal (LTG) Patient will be able to walk at least 1000 feet in 6 minutes as measure of improved activity tolerance. LTG Duration 03/23/22 Three Impairment gait dysfunction Impairment Patient requires use of an assistive device for safety with gait and uses step-to pattern on stairs Short Term Goal (STG) Patient able to walk on level surfaces and stairs with cane with minimal to no limp safely STG Duration 02/06/22 Half-Way Goal (LTG) Patient able to walk on level surfaces and stairs without assistive device safely with alternating step pattern on stiars. LTG Duration 03/23/22 Two Impairment decreased right knee strength Impairment 3-/5 Short Term Goal (STG) Patient to be independent with HEP for purposes of right knee strengthening. STG Duration 02/06/22 Junior Recruiter Goal (LTG) right knee strength at least 4 +/5, with patient able to transfer sit to stand without use of UE's LTG Duration 03/23/22 One Impairment decreased right knee ROM Impairment AROM right knee 18-104, PROM 6 -108 Short Term Goal (STG) Patient to be independent and compliant with HEP for right knee ROM. Improve right knee AROM to 10- 115 STG Duration 02/06/22 Junior Recruiter Goal (LTG) Improve right knee to 0-120 03/11/22: knee flexion AROM 125 deg, PROM 131 deg (knee extension not assessed) LTG Duration 03/23/22 Progress Towards Goals Progress Towards Goals Progressing Toward Goals Assessment Summary Assessment Focus today on balance and stabilization of LEs using ankle floats. Exercises in deep water kept to low level to avoid overdoing and causing knee pain. Pt has good understanding of LE exercises and is equipped for DC with land and aquatic HEP Physical Therapy Plan Frequency and Duration Frequency of Treatment 2x/Week Duration of Treatment 8 weeks Plan of Care Start Date 01/21/22 Plan of Care End Date 03/23/22 Therapeutic Interventions Therapeutic Interventions Aquatic Therapy,Gait Training, Home Exercise Program,Manual Therapy,Neuromuscular Re- education,Patient/Caregiver Education,Self-Care/Home Management,Soft Tissue Mobilization,Taping, Therapeutic Activities, Therapeutic Exercises Modalities Cold Pack/Ice Massage,Electric Stimulation Next Visit Focus/Plan Next Note Type Treatment Note Next Visit Plan Pt ready for DC
--- NOTE | 2022-04-16 16:32 | PT.OPDS ---
Current Diagnoses Unilateral primary osteoarthritis, right knee (03/24/22) Difficulty in walking, not elsewhere classified (03/24/22) Weakness (03/24/22) Presence of right artificial knee joint (03/24/22) Visit Care Team Role Provider Type Sonal Donaldson PA-C Family Provider Non-Staff Specialty: General Surgery Address: [address] [place] [address], [id number] Email: Ney Hathaway MD Attending Provider Physician Primary Care Provider Referring Provider Specialty: Internal Medicine Address: [address] [place] [address], [phone] Email: Visit Number Visit Number 14 Discharge Summary PT-OP-B Current Condition Start: 01/06/22 10:01 Freq: Status: Active Protocol: Document 01/21/22 08:59 SAK (Rec: 01/21/22 09:46 SAK [id number]) Current Condition History of Current Condition Onset Date 12/31/21 Current Complaints right knee TKA History of Current Condition Right TKA 12/31/21, home for 2 weeks, diagnosed with pneumonia 10 days after surgery, was in hospital a couple days, sent home. Back in hospital 36 hours later hospitalized via ambulance due to pneumonia in entire lungs. Discharged home 1 week ago. Has done imited TKA exercise due to pneumonia. Has been walking, using walker, still SOB. Had been scheduled for aquatic PT visits but now on waiting list as all PT visits were cancelled after he got confused and didn't come for initial evaluation. Patient previously benefited highly from aquatic therapy after back surgery. Treatment Goals Patient/Caregiver Goals Return to full active use of right knee with minimal pain. Prior Functional Status Baseline Function- ADL's Modified Independent Baseline Function- Mobility Modified Independent Baseline Function- Gait modified independent using cane Baseline Function- Work/School retired Baseline Function- Recreation/Hobbies limited due to right knee pain Current Functional Impairments (Reported) Functional Limitations- ADL's assisted by due to fatigue Functional Limitations- Mobility/Gait using 4WW, walking limited due to fatigue after pneumonia Functional Limitations- Work/School retired Functional Limitations- Recreation/ unable at this time Hobbies Personal Factors Other Personal Factors That May Effect pneumonia Therapy/Recovery PT-OP-C Subjective Start: 01/06/22 10:01 Freq: Status: Active Protocol: Document 03/24/22 16:31 LJ (Rec: 03/24/22 16:46 LJ [id number]) OP-PT Subjective Patient Comments Patient Comments Pt saw doc today and states everything is healing well. States he overdid it at the pool a few days ago with the fins and is not going to use them nor do exercises that strenuous again. PT-OP-G Mobility & Gait Start: 01/06/22 10:01 Freq: Status: Active Protocol: Document 01/21/22 08:59 SAK (Rec: 01/22/22 17:09 SAK [id number]) OP Mobility Evaluation Bed Mobility Rolling indep Transfers Sit to Stand use of UE's OP Gait Assessment Gait Gait Assistance Required: Standby Assistance Distance (Feet) 50 Assistive Devices Assistive Device Front Wheeled Walker Comments Gait Comments Also: gait with SPC x 50 ft with CGA, 60 ft with trekking poles and CGA Stair Climbing Evaluation Evaluation Level of Assist On Stairs Standby Assistance Devices Stair Climbing Assistive Devices Straight Cane,Right Railing Technique/Endurance Stair Climbing Direction Ascend and Descend Stair Climbing Technique Step to Step PT-OP-J Posture/Palpation/Skin Start: 01/06/22 10:01 Freq: Status: Active Protocol: Document 01/21/22 08:59 SAK (Rec: 01/22/22 17:09 SAK [id number]) Palpation Assessment Location right knee Palpation Details mild edema, minimal increase in temperature Skin Assessment Incisional Assessment Incision Appearance/Comments healing well without signs or symptoms of infection. still has some scabbing from mid to distal end of incision. Patient and instructed to obtain vitamin E oil for massage of closed areas of scar only PT-OP-K Range of Motion Start: 01/06/22 10:01 Freq: Status: Active Protocol: Document 03/17/22 15:20 NBM (Rec: 03/17/22 18:19 NBM [id number]) Knee Goniometric Range of Motion Knee Right Patient Position Supine Flexion Active (degrees) 129 Flexion Passive (degrees) 134 Extension Active (degrees) 0 PT-OP-M Strength Start: 01/06/22 10:01 Freq: Status: Active Protocol: Document 01/21/22 08:59 SAK (Rec: 01/22/22 17:09 [facility] [id number]) Knee Strength Knee Manual Muscle Testing Right Flexion (S2) 3- Fair- Extension (L3) 3- Fair- Comments No MMT but patient lacking full antigravity ROM Left Flexion (S2) 5 Normal Extension (L3) 5 Normal PT-OP-T Assessment and Plan Start: 01/06/22 10:01 Freq: Status: Active Protocol: Document 04/16/22 16:32 [facility] (Rec: 04/16/22 16:32 [facility] [id number]) Physical Therapy Plan Discharge Physical Therapy Discharge Reasons Goals Met Discharge Comments Patient independent with HEP and aquatic exercise program.
== END 2022-04-17 15:38 | disposition home or self-care (01) ==
LOC: PHYS 11:45
PROVIDERS: Family Provider Physician Assistant; PCP Internal Medicine; Referring Provider Internal Medicine; Visit Provider Internal Medicine
DX: M17.11 Unilateral primary osteoarthritis, right knee (principal); Z96.651 Presence of right artificial knee joint; R26.2 Difficulty in walking, not elsewhere classified; R53.1 Weakness
CPT/HCPCS: 97010; 97110; 97113; 97116; 97140; 97162; 97535

== ENCOUNTER → 2022-04-24 10:31 | Outpatient (CLI) | payer MEDICARE, OTHER, SELFPAY ==
[2022-01-12 08:12] VITALS: BMI 29.0
[2022-04-24 13:01] LABS: Prostate Specific Antigen 6.76 ng/mL (0.10-4.00)
== END ==
PROVIDERS: Family Provider Physician Assistant; PCP Internal Medicine; Referring Provider Urology; Visit Provider Urology
DX: C61 Malignant neoplasm of prostate (principal)
CPT/HCPCS: 36415; 84153

== ENCOUNTER → 2022-05-07 10:19 | Outpatient (CLI) | payer MEDICARE, OTHER, SELFPAY ==
[2022-01-12 08:12] VITALS: BMI 29.0
--- NOTE | 2022-05-07 | DI.NM.S_ITS ---
PROCEDURE: NM LAYLA PERF SPECT REST & STR Rest and exercise myocardial perfusion SPECT with gated imaging and ejection fraction RADIOPHARMACEUTICAL: 23.9 mCi Tc-99m sestamibi IV at rest and 25.6 mCi Tc-99m sestamibi IV at peak exercise. A two day-protocol was performed. INDICATIONS: Shortness of breath TECHNIQUE: Radiopharmaceutical was injected at peak stress test, and also at rest. SPECT images were obtained. SPECT myocardial perfusion images were displayed in short axis, horizontal long axis, and vertical long axis views. Gated images were reviewed using [employer] software. COMPARISON: None. CARDIAC STRESS: A standard Jude treadmill exercise tolerance test was performed by the patient under the supervision of an attending staff. The patient exercised for 6 minutes and 1 seconds; functional aerobic impairment (GREGOR) is +9%. Hemodynamic data: There is normal heart rate response to exercise stress. Patient achieved 95% of maximum predicted heart rate at peak exercise. Hypertensive response to exercise (max BP 245/105mmHg). Symptoms: Patient denied chest pain during exercise. EKG: Mild horizontal ST depressions in the anterolateral leads during recovery. Frequent PACs and PVCs during the study. Short runs of atrial tachycardia noted. Very brief non-sustained VTs (longest 6 beats long) during recovery. FINDINGS: Raw data: There is good myocardial labeling by radiotracer. No significant motion artifacts. Left ventricle function: Gated images demonstrate normal left ventricle wall thickening. No segmental wall motion abnormality. No transient ischemic dilation; TID is 1.04 (normal less than 1.3). The left ventricle resting end-diastolic volume is 176 mL. Left ventricle stress ejection fraction is 61%; normal values are above 45%. Myocardial perfusion: There is a mildly intense fixed inferior wall defect that resolves with prone imaging, suggesting diaphragmatic attenuation artifact. No ischemia. IMPRESSION: Low risk, normal treadmill nuclear stress test from ischemia standpoint. 1) No perfusion evidence of ischemia or infarction. 2) Enlarged left ventricle (LVEDV 176cc at rest) with normal wall motion and normal systolic function (EF post stress 61%). 3) Mild horizontal ST depressions in the anterolateral leads during recovery. 4) Frequent PACs and frequent PVCs during the study. Brief atrial runs noted as well. Very brief non-sustained VTs (longest 6 beats long) during recovery. 5) No angina during the study. 6) Mildly below average exercise capacity (7.0 METs, GREGOR +9%). Target heart rate achieved. 7) Hypertensive response to exercise (max BP 245/105mmHg). 8) No prior nuclear stress test available for comparison. Dictated by: David Michel MD on 05/08/2022 at 15:41 Approved by: David Michel MD on 05/08/2022 at 15:46
[2022-05-07 12:11] LABS: COVID19 -Nasal RAPID Negative (Negative)
== END ==
PROVIDERS: Family Provider Physician Assistant; PCP Internal Medicine; Referring Provider Internal Medicine Cardiovascular Disease; Visit Provider Internal Medicine Cardiovascular Disease
DX: I48.19 Other persistent atrial fibrillation (principal); R77.8 Other specified abnormalities of plasma proteins; R06.02 Shortness of breath; Z20.822 Contact with and (suspected) exposure to COVID-19
CPT/HCPCS: 78452; 87635; 93017; A9502

== ENCOUNTER → 2022-05-28 06:34 | Outpatient (CLI) | payer MEDICARE, OTHER, SELFPAY ==
[2022-01-12 08:12] VITALS: BMI 29.0
[2022-05-28 08:23] LABS: BUN Creatinine Ratio 17.6 (6-22); Blood Urea Nitrogen 15 mg/dL (9-20); Carbon Dioxide 27 mmol/L (22-32); Chloride 103 mmol/L (98-107); Cholesterol 137 mg/dL (140-199); Estimated Glomerular Filt Rate > 60 mL/min (>60); Glucose 113 mg/dL (80-110); HDL Cholesterol 25 mg/dL (40-60); HEMOLYSIS < 15 (0-50); LDL Cholesterol Calculated 65 mg/dL (<100); Potassium 3.9 mmol/L (3.4-5.1); Sodium 139 mmol/L (137-145); Triglycerides 237 mg/dL (35-150)
== END ==
PROVIDERS: Family Provider Physician Assistant; PCP Internal Medicine; Referring Provider Internal Medicine Cardiovascular Disease; Visit Provider Internal Medicine Cardiovascular Disease
DX: I10 Essential (primary) hypertension (principal)
CPT/HCPCS: 36415; 80048; 80061

== ENCOUNTER → 2022-11-27 11:59 | Outpatient (CLI) | payer MEDICARE, OTHER, SELFPAY ==
[2022-01-12 08:12] VITALS: BMI 29.0
--- NOTE | 2022-11-27 | DI.US.S_ITS ---
PROCEDURE: US CAROTID DOPPLER BI INDICATIONS: BILATERAL CAROTID ARTERY STENOSIS TECHNIQUE: Color and pulse Doppler interrogation was performed of both carotid systems, with image documentation and velocity measurements. COMPARISON: [facility], US, US CAROTID DOPPLER BI, 03/14/2021, 9:11. FINDINGS: Stenosis calculations are based on SRU (Society of Radiologists in Ultrasound) criteria. The flow velocities and the arterial waveforms are normal within both carotid arterial systems. Moderate atherosclerotic plaque is seen on both sides. The estimated degree of internal carotid artery stenosis is less than 50%. Antegrade flow is confirmed within both vertebral arteries. The right brachial blood pressure measures 1797/92 and the left brachial blood pressure measures 182/88. IMPRESSION: No hemodynamically significant stenosis is seen. The previously seen moderate stenosis (50-69%) of the left proximal internal carotid artery is no longer seen. Moderate atherosclerotic plaque is noted bilaterally. Arterial hypertension measured at the time of this study. Dictated by: Ken Garcia M.D. on 11/27/2022 at 13:44 Approved by: Ken Garcia M.D. on 11/27/2022 at 13:45
--- NOTE | 2022-11-27 | DI.MRI.S_ITS ---
PROCEDURE: MR CERVICAL SPINE WO CON INDICATIONS: CERVICAL STENOSIS TECHNIQUE: Noncontrast sagittal T1 spin echo and T2 fast spin echo, sagittal STIR, foraminal oblique sagittal T2 fast spin echo, and axial gradient echo or T2 fast spin echo through the cervical spine. COMPARISON: [facility], MR, MR CERVICAL SPINE WO CON, 04/01/2019, 7:54. FINDINGS: Image quality: Excellent. Alignment and Curvature: There is loss of normal cervical lordosis. 2 mm of retrolisthesis of C3 on C4, C4 on C5, and C5 on C6 is present. Bone Marrow: Marrow demonstrates normal overall signal. There is mild reactive signal throughout the endplates of the cervical and upper thoracic spine, most prominently at C3-C4, C4-C5, and C5-C6. Spinal Cord: Visualized spinal cord has normal size and signal. No cerebellar tonsillar herniation. Paraspinous Soft Tissues: No paravertebral masses. Prevertebral soft tissues are normal in thickness. C2-C3: Moderate disc desiccation. Mild diffuse disc bulge. Mild facet and uncovertebral hypertrophy bilaterally. Congenital canal stenosis. Moderate canal stenosis. Moderate bilateral foraminal stenosis. No significant change. C3-C4: Congenital canal stenosis. Moderate disc desiccation. Mild diffuse disc bulge. Mild facet and uncovertebral hypertrophy bilaterally. Moderate to severe canal stenosis. Mild anterior cord flattening. Moderate bilateral foraminal stenosis. No significant change. C4-C5: Congenital canal stenosis. Moderate disc height loss and desiccation. Mild diffuse disc bulge with superimposed broad-based right posterolateral protrusion/osteophyte. Moderate facet and uncovertebral hypertrophy bilaterally. Severe canal stenosis. Mild cord flattening. Severe right and moderate left foraminal stenosis. Right C5 nerve root compression. No significant change. C5-C6: Congenital canal stenosis. Moderate disc height loss and desiccation. Mild diffuse disc bulge with superimposed broad-based left posterolateral protrusion/osteophyte. Moderate facet and uncovertebral hypertrophy bilaterally. Severe canal stenosis. Mild cord flattening. Severe bilateral foraminal stenosis with bilateral C6 nerve root compression. C6-C7: Congenital canal stenosis. Moderate disc height loss and desiccation. Mild diffuse disc bulge with superimposed left posterolateral protrusion/osteophyte. Moderate facet and uncovertebral hypertrophy bilaterally. There is moderate to severe canal stenosis. Severe bilateral foraminal stenosis with bilateral C7 nerve root compression. C7-T1: Mild disc desiccation and diffuse disc bulge. Mild facet and uncovertebral hypertrophy bilaterally. Mild canal stenosis. Severe right and mild left foraminal stenosis. Right C8 nerve root compression. No significant change. IMPRESSION: 1. Diffuse congenital canal stenosis with superimposed disc and facet disease, as well as uncovertebral hypertrophy. 2. Multilevel canal stenoses, worst at C3-C4, C4-C5, and C5-C6, where there is associated cord flattening. 3. Multilevel foraminal stenoses, worst at C4-C5, C5-C6, C6-C7, and C7-T1, where there is associated intraforaminal nerve root compression. Recommend correlation with clinical symptoms to ascertain relevance of these findings. Dictated by: Noy Hagan M.D. on 11/27/2022 at 14:00 Transcribed by: SUSHIL on 11/27/2022 at 14:05 Approved by: Noy Hagan M.D. on 11/27/2022 at 16:28
--- NOTE | 2022-11-27 13:06 | DI.DEXA.S_ITS ---
Bone Density Report Name: SERAFIN HOYT III Age: 72 Sex: Male Ethnicity: White Date of : 1950 Indication: screening for osteoporosis; Referring Provider: ANA MARIA BELTRE Study: Bone densitometry was performed. Exam Date: November 27, 2022 Accession number: [id number] Bone Density: Region BMD T-score Z-score Classification AP Spine(L1, L2, L4) 1.166 1.2 1.6 Normal Femoral Neck (Left) 0.746 -0.9 -0.1 Normal Total Hip (Left) 0.816 -1.0 -0.7 Normal Femoral Neck (Right) 0.709 -1.3 -0.4 Osteopenia Total Hip (Right) 0.813 -1.1 -0.7 Osteopenia Total Hip Mean 0.815 -1.1 -0.7 Osteopenia World Health Organization criteria for BMD impression classify patients as: Normal (T-score at or above -1.0), Osteopenia (T-score between -1.0 and -2.5), or Osteoporosis (T-score at or below -2.5). 10-year Fracture Risk(1): Major Osteoporotic Fracture 6.5% Hip Fracture 1.5% Reported Risk Factors: [place] (), Neck BMD=0.709, BMI=29.6 (1) FRAX(R) Version 3.08. Fracture probability calculated for an untreated patient. Fracture probability may be lower if the patient has received treatment. Previous Exams: -- Region Exam Age BMD T-score BMD Change BMD Change Date g/cm2 vs Baseline vs Previous -- AP Spine (L1-L2,L4) 11/27/2022 72 1.166 1.2 -0.080 (-6.4%)# -0.080 (-6.4%)# 04/30/2020 70 1.245 1.9 Total Hip(Left) 11/27/2022 72 0.816 -1.0 -0.036 (-4.2%)# -0.036 (-4.2%)# 04/30/2020 70 0.852 -0.7 Total Hip(Right) 11/27/2022 72 0.813 -1.1 -0.008 (-0.9%)# -0.008 (-0.9%)# 04/30/2020 70 0.821 -1.0 -- *Denotes significance at 95% confidence level, LSC for AP Spine = 0.022 g/cm2, LSC for Total Hip = 0.027 g/cm2 # Denotes dissimilar scan types or analysis methods Impression: The patient has low bone mass, based on the Right Femoral Neck T-score. The patient has an estimated ten-year risk of hip fracture of 1.5% and an estimated ten-year risk of major fracture of 6.5%, based on the WHO FRAX algorithm. No significant bone loss was observed. Discussion: BONE DENSITY IS LOW AT ONE OR MORE SKELETAL SITES. This patient's lowest T-score is low at one or more skeletal sites. It meets the World Health Organization's (WHO) criteria for ?low bone mass? (T-score between -1.0 and -2.5). The patient's 10-year risk of fracture as calculated by FRAX is less than the threshold where pharmacological therapy is recommended by the National Osteoporosis Foundation (NOF). However, all treatment decisions require clinical judgment and consideration of individual patient factors, including patient preferences, comorbidities, previous drug use, risk factors not captured in the FRAX model (e.g., frailty, falls, vitamin D deficiency, increased bone turnover, interval significant decline in bone density) and possible under or overestimation of fracture risk by FRAX. The patient should follow a healthful lifestyle (good nutrition with adequate calcium and vitamin D, and appropriate weight-bearing exercise). Follow-Up: Consider repeating this study in 2 to 3 years to reassess this patient's status, or sooner if there is some new clinical indication. Reported by: ERIK SANTANA M.D. on 11/27/2022 1:28:00 PM.
== END ==
PROVIDERS: Family Provider Physician Assistant; PCP Student in an Organized Health Care Education/Training Program; Referring Provider Physical Medicine & Rehabilitation Pain Medicine; Visit Provider Physical Medicine & Rehabilitation Pain Medicine
DX: M47.892 Other spondylosis, cervical region (principal); M48.02 Spinal stenosis, cervical region; Z13.820 Encounter for screening for osteoporosis; I65.23 Occlusion and stenosis of bilateral carotid arteries; M50.31 Other cervical disc degeneration, high cervical region; M81.0 Age-related osteoporosis without current pathological fracture; E29.1 Testicular hypofunction
CPT/HCPCS: 72141; 77080; 93880

== ENCOUNTER → 2023-02-21 14:50 | Outpatient (CLI) | payer MEDICARE, OTHER, SELFPAY ==
[2022-01-12 08:12] VITALS: BMI 29.0
--- NOTE | 2023-02-21 14:52 | DI.CT.S_ITS ---
PROCEDURE: CT CERVICAL SPINE WO CON INDICATIONS: CERVICAL DISC DISORDER W/MYELOPATHY TECHNIQUE: Noncontrast 3 mm thick sections acquired from the skull base to the T4 level. Sagittal and coronal reformats were then constructed. For radiation dose reduction, the following was used: automated exposure control, adjustment of mA and/or kV according to patient size. COMPARISON: None. FINDINGS: Image quality: Excellent. Bones: No fractures or dislocations. Visualized superior ribs are intact. Disc space narrowing and hypertrophic uncovertebral joints noted particularly in the mid cervical spine. Mild to moderate central stenosis at C3-4 with moderate bilateral foraminal stenosis. There is moderate central stenosis at C4-5 with bilateral moderate foraminal stenosis greater on the right, as well as moderate asymmetric left central stenosis at C5-6 with severe left and moderate right foraminal stenosis Soft tissues: Prevertebral soft tissues are normal in thickness. No paravertebral hematomas. No apical pneumothoraces. IMPRESSION: Multilevel degenerative disc disease and arthropathy results in varying degrees of central and foraminal stenosis including moderate central stenosis at C4-5 and C5-6 Approved by: Jimy Herrera M.D. on 02/21/2023 at 19:05
== END ==
PROVIDERS: Family Provider Physician Assistant; PCP Student in an Organized Health Care Education/Training Program; Referring Provider Orthopaedic Surgery Orthopaedic Surgery of the Spine; Visit Provider Orthopaedic Surgery Orthopaedic Surgery of the Spine
DX: M50.021 Cervical disc disorder at C4-C5 level with myelopathy; M50.121 Cervical disc disorder at C4-C5 level with radiculopathy; M48.02 Spinal stenosis, cervical region; M47.12 Other spondylosis with myelopathy, cervical region; M47.22 Other spondylosis with radiculopathy, cervical region
CPT/HCPCS: 72125

== ENCOUNTER → 2023-02-25 10:32 | Outpatient (CLI) | payer MEDICARE, OTHER, SELFPAY ==
[2022-01-12 08:12] VITALS: BMI 29.0
[2023-02-25 11:38] LABS: BUN Creatinine Ratio 17.2 (6-22); Blood Urea Nitrogen 15 mg/dL (9-20); Calcium 9.4 mg/dL (8.4-10.2); Carbon Dioxide 31 mmol/L (22-32); Chloride 100 mmol/L (98-107); Estimated Glomerular Filt Rate > 60 mL/min (>60); Glucose 107 mg/dL (80-110); HEMOLYSIS < 15 (0-50); Potassium 3.9 mmol/L (3.4-5.1); Sodium 136 mmol/L (137-145)
[2023-02-25 12:07] LABS: Prostate Specific Antigen 5.77 ng/mL (0.10-4.00)
== END ==
PROVIDERS: Family Provider Physician Assistant; PCP Internal Medicine; Referring Provider Internal Medicine Cardiovascular Disease; Visit Provider Internal Medicine Cardiovascular Disease
DX: Z85.46 Personal history of malignant neoplasm of prostate (principal); I10 Essential (primary) hypertension
CPT/HCPCS: 36415; 80048; 84153

== ENCOUNTER → 2023-08-19 07:36 | Outpatient (CLI) | payer MEDICARE, OTHER, SELFPAY ==
[2022-01-12 08:12] VITALS: BMI 29.0
[2023-08-19 08:17] LABS: Add Manual Diff / Slide Review NO; Basophils Absolute Auto 100 /uL (0-100); Basophils Percent Auto 1.2 % (0-2); Eosinophils Absolute Auto 100 /uL (0-450); Hematocrit 40.6 % (41-53); Hemoglobin 14.2 g/dL (13.5-17.5); Lymphocytes Absolute Auto 1600 /uL (1100-4500); Lymphocytes Percent Auto 27.9 % (25-40); Mean Corpuscular Hemoglobin 32.4 PG (26-34); Mean Corpuscular Volume 92.5 fL (80-100); Monocytes Absolute Auto 500 /uL (0-900); Monocytes Percent Auto 8.7 % (3-14); Neutrophils Absolute Auto 3500 /uL (1500-7000); Neutrophils Percent Auto 60.2 % (50-75); Platelet Count 261 X10^3/uL (150-400); Red Blood Cell Count 4.39 X10^6/uL (4.5-5.9); Red Cell Distribution Width 12.9 % (11.6-14.8); White Blood Cell Count 5.8 X10^3/uL (4.5-11.0)
[2023-08-19 08:28] LABS: Hemoglobin A1C% w Est Avg Glu 5.8 % (4.0-6.0)
[2023-08-19 08:39] LABS: Alanine Aminotransferase 45 IU/L (<50); Albumin 4.4 g/dL (3.5-5.0); Albumin Globulin Ratio 1.5 (1.0-2.8); Alkaline Phosphatase 47 U/L (38-126); Aspartate Aminotransferase 34 IU/L (17-59); BUN Creatinine Ratio 22.4 (6-22); Bilirubin Total 0.8 mg/dL (0.2-1.3); Blood Urea Nitrogen 22 mg/dL (9-20); Calcium 9.6 mg/dL (8.4-10.2); Carbon Dioxide 25 mmol/L (22-32); Chloride 101 mmol/L (98-107); Cholesterol 120 mg/dL (140-199); Estimated Glomerular Filt Rate > 60 mL/min (>60); Globulin 2.9 g/dL (1.7-4.1); Glucose 125 mg/dL (80-110); HDL Cholesterol 22 mg/dL (40-60); HEMOLYSIS < 15 (0-50); LDL Cholesterol Calculated 64 mg/dL (<100); Potassium 4.6 mmol/L (3.4-5.1); Sodium 136 mmol/L (137-145); Total Protein 7.3 g/dL (6.3-8.2); Triglycerides 170 mg/dL (35-150)
[2023-08-19 08:52] LABS: Free T4, Direct Thyroxine 0.92 ng/dL (0.78-2.19)
[2023-08-19 09:06] LABS: Thyroid Stimulating Hormone 1.23 uIU/mL (0.47-4.68)
[2023-08-19 10:08] LABS: Vitamin D 25 Hydroxy (D3) 73.5 ng/mL (30.0-100.0)
== END ==
LOC: LAB 07:40
PROVIDERS: Family Provider Physician Assistant; PCP Internal Medicine; Referring Provider Internal Medicine Cardiovascular Disease; Visit Provider Internal Medicine Cardiovascular Disease
DX: I10 Essential (primary) hypertension (principal); R73.03 Prediabetes; Z68.30 Body mass index [BMI] 30.0-30.9, adult; E66.9 Obesity, unspecified; F41.9 Anxiety disorder, unspecified; F32.A Depression, unspecified
CPT/HCPCS: 36415; 80053; 80061; 82306; 83036; 84439; 84443; 85025

== ENCOUNTER → 2023-11-16 16:22 | Outpatient (CLI) | payer MEDICARE, OTHER, SELFPAY ==
[2022-01-12 08:12] VITALS: BMI 29.0
[2023-11-16 19:18] LABS: Prostate Specific Antigen 7.43 ng/mL (0.10-4.00)
== END ==
PROVIDERS: Family Provider Physician Assistant; PCP Internal Medicine; Referring Provider Urology; Visit Provider Urology
DX: C61 Malignant neoplasm of prostate (principal)
CPT/HCPCS: 36415; 84153

== ENCOUNTER → 2024-04-26 09:15 | Outpatient (CLI) | payer MEDICARE, OTHER, SELFPAY ==
[2022-01-12 08:12] VITALS: BMI 29.0
[2024-04-26 11:35] LABS: Prostate Specific Antigen 8.88 ng/mL (0.10-4.00)
== END ==
PROVIDERS: Family Provider Physician Assistant; PCP Internal Medicine; Referring Provider Urology; Visit Provider Urology
DX: C61 Malignant neoplasm of prostate (principal)
CPT/HCPCS: 36415; 84153

== ENCOUNTER → 2024-08-23 15:29 | Outpatient (CLI) | payer MEDICARE, OTHER, SELFPAY ==
[2022-01-12 08:12] VITALS: BMI 29.0
[2024-08-23 16:15] LABS: Add Manual Diff / Slide Review NO; Basophils Absolute Auto 100 /uL (0-100); Basophils Percent Auto 1.3 % (0-2); Eosinophils Absolute Auto 100 /uL (0-450); Eosinophils Percent Auto 2.3 % (2-4); Hematocrit 41.7 % (41-53); Hemoglobin 14.4 g/dL (13.5-17.5); Lymphocytes Absolute Auto 2300 /uL (1100-4500); Lymphocytes Percent Auto 36.6 % (25-40); Mean Corpuscular HGB Conc 34.7 % (30-36); Mean Corpuscular Hemoglobin 32.2 PG (26-34); Mean Corpuscular Volume 92.8 fL (80-100); Monocytes Absolute Auto 500 /uL (0-900); Monocytes Percent Auto 8.3 % (3-14); Neutrophils Absolute Auto 3200 /uL (1500-7000); Neutrophils Percent Auto 51.5 % (50-75); Platelet Count 246 X10^3/uL (150-400); Red Blood Cell Count 4.49 X10^6/uL (4.5-5.9); Red Cell Distribution Width 13.2 % (11.6-14.8); White Blood Cell Count 6.2 X10^3/uL (4.5-11.0)
[2024-08-23 16:35] LABS: Cholesterol 135 mg/dL (140-199); HDL Cholesterol 28 mg/dL (40-60); LDL Cholesterol Calculated 57 mg/dL (<100); Triglycerides 248 mg/dL (35-150)
[2024-08-23 16:38] LABS: Hemoglobin A1C% w Est Avg Glu 5.4 % (4.0-6.0)
[2024-08-23 17:06] LABS: Thyroid Stimulating Hormone 2.07 uIU/mL (0.47-4.68)
== END ==
PROVIDERS: Family Provider Physician Assistant; PCP Internal Medicine; Referring Provider Internal Medicine; Visit Provider Internal Medicine
DX: R73.03 Prediabetes (principal); E66.3 Overweight; F41.9 Anxiety disorder, unspecified; I77.810 Thoracic aortic ectasia
CPT/HCPCS: 36415; 80061; 83036; 84443; 85025

== ENCOUNTER → 2024-11-08 09:08 | Outpatient (CLI) | payer MEDICARE, OTHER, SELFPAY ==
[2022-01-12 08:12] VITALS: BMI 29.0
[2024-11-08 10:48] LABS: Prostate Specific Antigen 8.38 ng/mL (0.10-4.00)
== END ==
PROVIDERS: Family Provider Physician Assistant; PCP Internal Medicine; Referring Provider Urology; Visit Provider Urology
DX: C61 Malignant neoplasm of prostate (principal)
CPT/HCPCS: 36415; 84153

== ENCOUNTER → 2025-04-07 09:13 | Outpatient (CLI) | payer MEDICARE, OTHER, SELFPAY ==
[2022-01-12 08:12] VITALS: BMI 29.0
[2025-04-07 10:31] LABS: Blood Urea Nitrogen 20 mg/dL (9-20); Calcium 9.4 mg/dL (8.4-10.2); Carbon Dioxide 23 mmol/L (22-32); Chloride 105 mmol/L (98-107); Estimated Glomerular Filt Rate > 60 mL/min (>60); Glucose 117 mg/dL (70-99); HEMOLYSIS < 15 (0-50); Potassium 3.9 mmol/L (3.4-5.1); Sodium 137 mmol/L (137-145)
[2025-04-07 11:02] LABS: Prostate Specific Antigen 9.00 ng/mL (0.10-4.00)
== END ==
PROVIDERS: Family Provider Physician Assistant; PCP Internal Medicine; Referring Provider Internal Medicine Cardiovascular Disease; Visit Provider Internal Medicine Cardiovascular Disease
DX: C61 Malignant neoplasm of prostate (principal); I10 Essential (primary) hypertension
CPT/HCPCS: 36415; 80048; 84153

== ENCOUNTER → 2025-04-11 08:55 | Outpatient (CLI) | payer MEDICARE, OTHER, SELFPAY ==
[2022-01-12 08:12] VITALS: BMI 29.0
--- NOTE | 2025-04-11 08:58 | DI.ECHO.S_ITS ---
[facility] : : [id number] : : [place] : : [id number] : : Phone: [phone] Echocardiogram Report + + :Name: SERAFIN HOYT Study Date: 04/11/2025 Height: 77 in : :[facility] ReadingLocation: Weight: 236 lb : : Gender: Male BSA: 2.4 m2 : :: 1950 Age: 74 yrs BP: 175/91 mmHg: :Reason For Study: BILATERAL CAROTID ARTERY DISEASE : :Ordering Physician: FROILAN, : :JONY Performed By: Silviano Sue : :Referring: JONY MCGOVERN : + + Interpretation Summary The left ventricle is normal in size. There is moderate concentric left ventricular hypertrophy. The left ventricular ejection fraction is normal. The ejection fraction is estimated to be 60-65%. No significant change in LVEF The right ventricle is normal in size and function. There is mild to moderate aortic regurgitation. Previously mild aortic regurgitation. The aortic root is mildly dilated. 4.3 cm in diameter. Previously 4.4. The ascending aorta is moderate-severely enlarged. 5.1 cm in diameter. Previously 4.6-4.8 cm. The IVC is dilated (diameter is greater than 2.1 cm) yet it collapses greater than 50% with a sniff. This suggests a right atrial pressure of 8 mm Hg. Mild atherosclerotic plaque(s) in the aortic arch. BP: 140/70 mmHg Procedure: A two-dimensional transthoracic echocardiogram with color flow and Doppler was performed. The study quality was technically good. Comparison is made with the echocardiogram of 01/29/2023. The heart rate ranged between 55- 66 bpm during the study. The patient was in normal sinus rhythm during the exam. Left Ventricle: The left ventricle is normal in size. Left ventricular wall thickness is moderately increased. There is moderate concentric left ventricular hypertrophy. Proximal septal thickening is noted. There is no ventricular septal defect visualized. The ejection fraction is estimated to be 60-65%. The left ventricular ejection fraction is normal. There are no focal wall motion abnormalities. MV E/A: 0.93 Med Peak E' Christian: 5.2 cm/sec E/E' med: 14.6. Right Ventricle: The right ventricle is normal in size and function. Atria: The left atrial size is normal. The left atrium has mildly decreased in size since the prior echo exam. Right atrial size is normal. There is no Doppler evidence for an interatrial shunt. Mitral Valve: There is mild mitral annular calcification. There is trace mitral regurgitation. Aortic Valve: The aortic valve is trileaflet. The aortic valve opens well. The aortic valve is slightly calcified. There is mild to moderate aortic regurgitation. Tricuspid Valve: The tricuspid valve leaflets are thin and pliable. There is trace tricuspid regurgitation. Pulmonary artery pressures cannot be estimated because of the lack of a measurable TR jet velocity. Pulmonic Valve: The pulmonic valve is not well seen, but is grossly normal. There is trace pulmonic regurgitation. Great Vessels: The aortic root is mildly dilated. The ascending aorta is moderate-severely enlarged. Mild atherosclerotic plaque(s) in the aortic arch. The pulmonary artery is normal size. The IVC is dilated (diameter is greater than 2.1 cm) yet it collapses greater than 50% with a sniff. This suggests a right atrial pressure of 8 mm Hg. Pericardium/ Pleura There is no pericardial effusion. There is no pleural effusion. MMode/2D Measurements & Calculations LVIDd: 5.2 cm LVOT diam: 2.3 cm LVIDs: 3.5 cm Ao root diam: 4.3 cm FS: 32.4 % asc Aorta Diam: 5.1 cm EPSS: 0.65 cm IVSd: 1.6 cm LVPWd: 1.6 cm LV pittman. diameter/BSA (cm/m^2): 2.2 LV sys. diameter/BSA (cm/m^2): 1.5 LA A2 area: 17.2 cm2 RA long axis: 4.5 cm LA A4 area: 25.0 cm2 RA area: 16.9 cm2 LA length (vol): 5.9 cm RA vol: 54.3 ml LA vol: 61.7 ml RA : 22.6 ml/m2 LA vol index: 25.7 ml/m2 IVC diam: 2.2 cm RVD1 (basal): 3.8 cm RVD2 (mid): 3.5 cm TAPSE: 3.2 cm Doppler Measurements & Calculations Ao V2 max: 189.1 cm/sec LVOT Max Christian: 115.3 cm/sec Ao V2 mean: 137.5 cm/sec LV V1 max P.3 mmHg Ao max P.3 mmHg LV V1 VTI: 25.7 cm Ao mean P.4 mmHg ERUM(I,D): 2.6 cm2 Ao V2 VTI: 38.7 cm ERUM(V,D): 2.4 cm2 sev ratio: 0.66 ERUM indexed to BSA (cm^2/m^2): 1.1 MV E max hcristian: 75.5 cm/sec TR max christian: 204.6 cm/sec MV A max christian: 80.9 cm/sec TR max P.7 mmHg MV E/A: 0.93 PA V2 max: 104.1 cm/sec Med Peak E' Christian: 5.2 cm/sec PA V2 mean: 77.9 cm/sec E/E' med: 14.6 PA mean P.6 mmHg Lat Peak E' Christian: 5.5 cm/sec PA pr(Accel): 68.7 mmHg E/E' lat: 13.7 E/e' average: 14.1 MV dec time: 0.21 sec SV(LVOT): 102.6 ml Reading Physician:03:57 PM
--- NOTE | 2025-04-11 08:59 | DI.US.S_ITS ---
PROCEDURE: US CAROTID DOPPLER BI INDICATIONS: BILAT CAROTID ARTERY STENOSIS TECHNIQUE: Color and pulse Doppler interrogation was performed of both carotid systems, with image documentation and velocity measurements. COMPARISON: [facility], , US CAROTID DOPPLER BI, 11/27/2022, 12:35. FINDINGS: Stenosis calculations are based on SRU (Society of Radiologists in Ultrasound) criteria. Right side: Brachial blood pressure: 151/72 mm Hg. Common carotid artery peak systolic velocity: 83 cm/sec. Internal carotid artery peak systolic velocity: 81 cm/sec. Internal carotid artery end diastolic velocity: 15 cm/sec. External carotid artery peak systolic velocity: 146 cm/sec. ICA/CCA peak systolic ratio: 1.0 . Sweeney scale imaging description: Polypoid and irregular mixed calcified and noncalcified plaque at the carotid bulb and extending into the proximal internal carotid artery causing mild diffuse subjective luminal narrowing. Percent internal carotid artery stenosis: Less than 50% Vertebral artery: Flow direction is antegrade. Left side: Brachial blood pressure: 148/73 mm Hg. Common carotid artery peak systolic velocity: 95 cm/sec. Internal carotid artery peak systolic velocity: 161 cm/sec. Internal carotid artery end diastolic velocity: 24 cm/sec. External carotid artery peak systolic velocity: 192 cm/sec. ICA/CCA peak systolic ratio: 1.7 . Sweeney scale imaging description: Calcified plaque at the internal and external carotid artery origin. Mild to-moderate subjective stenosis of the proximal ICA. Slight delayed systolic upstroke distal to the ICA stenosis. Percent internal carotid artery stenosis: 50-69% . Vertebral artery: Flow direction is antegrade. IMPRESSION: 1. In the right carotid artery, there is less than 50% stenosis based on peak systolic velocity criteria. 2. In the left carotid artery, there is 50-69%, possibly hemodynamically significant, stenosis of internal and external carotid arteries based on peak systolic velocity criteria. This has progressed since the prior exam. 3. Antegrade vertebral arteries. Dictated by: Mary Carmen Green M.D. on 04/11/2025 at 13:43 Approved by: Mary Carmen Green M.D. on 04/11/2025 at 13:48
== END ==
PROVIDERS: Family Provider Physician Assistant; PCP Internal Medicine; Referring Provider Internal Medicine; Visit Provider Internal Medicine Cardiovascular Disease
DX: I65.23 Occlusion and stenosis of bilateral carotid arteries (principal); I34.81 Nonrheumatic mitral (valve) annulus calcification; I35.1 Nonrheumatic aortic (valve) insufficiency; I77.810 Thoracic aortic ectasia; I77.89 Other specified disorders of arteries and arterioles; I70.0 Atherosclerosis of aorta
CPT/HCPCS: 93306; 93880